=== PATIENT | female | born 1940 | race Caucasian/White ===

== ENCOUNTER 2017-02-01 08:53 | Emergency (ER) | payer MEDICARE, OTHER ==
[~2017-02-01] VITALS: Ht 167.6 cm; Wt 51.2 kg
[~2017-02-01 08:53] MED LIST: AMBR5TAB3 PO; ASPI-611 PO; LEVO100T83 PO; LORA-326 PO; METO10TA65 PO; METO50TA78 PO; MIRT30TA72 PO; MULT-934 PO; NIFE30TA PO; OMEP20CA81 PO; SERT-77 PO; [UNRECOGNIZED DRUG - CODE] RC
--- OUTSIDE RECORDS SUMMARY | 2017-02-01 08:57 | XMS REPORT | Summary of Care ---
Author Author Roberto Moreno M.D. Unknown Address Unknown Phone Unavailable Care Team Providers Care Machine Cementer And Folder Name Role Phone Justin Moreno M.D. Unavailable Unavailable Anila Cohen M.D. Unavailable Unavailable Derek Espinoza Unavailable Unavailable Unavailable Unavailable Functional Status Name Dates Details Functional status health issues are not documented Status: Name Dates Details Cognitive status health issues are not documented Status: Problems Name Dates Details Hypothyroidism (244.9, E03.9) Status: Active Hypertension (401.9, I10) Status: Active Dyspnea (786.09, R06.00) Status: Active Hypercholesterolemia (272.0, E78.00) Status: Active Shortness of breath at rest (786.05, R06.02) Status: Active Pulmonary hypertension (416.8, I27.2) Status: Active Raynaud's phenomenon without gangrene (443.0, I73.00) Status: Active 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 Noel Lyle., T. K. * Start Active Claritin 10 MG Oral Capsule once daily * Refills: 0 Noel Lyle., T. K. * Start Active Estrace 0.1 MG/GM Vaginal Cream USE DIRECTED. * Refills: 0 Noel Lyle., T. K. * Start Active Lopressor 50 MG Oral Tablet Take one tablet by mouth twice a day * Quantity: 60 Refills: 5 Cohen Sudha.Josiane., T. K. * Start Active Multi-Day Plus Iron Oral Tablet TAKE 1 TABLET ONCE DAILY. * Refills: 0 Noel Lyle., T. K. * Start Active Omeprazole 40 MG Oral Capsule Delayed Release TAKE 1 CAPSULE DAILY. * Refills: 0 Noel Lyle., T. K. * Start Active Pepcid AC 10 MG Oral Tablet TWICE DAILY AT BED TIME * Refills: 0 Cohen M.D., T. K. * Start Active Pulmicort 0.5 MG/2ML Inhalation Suspension USE DIRECTED. * Refills: 0 Cohen M.D., T. K. * Start Active Reglan 10 MG Oral Tablet TAKE 1 TABLET AT BEDTIME. * Refills: 0 Cohen M.D., T. K. * Start Active Remeron 30 MG Oral Tablet TAKE 1 TABLET AT BEDTIME. * Refills: 0 Cohen M.D., T. K. * Start Active Simvastatin 40 MG Oral Tablet TAKE 1/2 TABLET AT BEDTIME. * Refills: 0 Noel M.D., T. K. * Start Active Synthroid 100 MCG Oral Tablet TAKE 1 TABLET DAILY DIRECTED. * Refills: 0 Noel M.D., T. K. * Start Active Triamcinolone Acetonide 0.1 % External Ointment APPLY SPARINGLY TO AFFECTED AREA(S) TWICE DAILY * Refills: 0 Noel M.D., T. K. * Start Active Tylenol Extra Strength 500 MG Oral Tablet TAKE 1 TABLET EVERY 4 TO 6 HOURS NEEDED. * Refills: 0 Noel M.D., T. K. * Start Active Vitamin D3 2000 UNIT Oral Capsule once daily * Refills: 0 Noel M.D., T. K. * Start Active Ipratropium-Albuterol 0.5-2.5 (3) MG/3ML Inhalation Solution USE CONTENTS OF (1) VIAL IN NEBULIZER MACHINE (2) TIMES A DAY. * Quantity: 1 Refills: 6 Jessik Sudha.D., Roberto Anderson * Start Active 3 ML Plas Cont (30 Plas Conts) Zoloft 100 MG Oral Tablet * Refills: 0 Josh M.Josiane., Roberto Anderson * Start Active Altace 5 MG Oral Capsule TAKE 1 CAPSULE ONCE DAILY. * Refills: 0 Josh Haley.Josiane., Roberto Anderson * Start 08-Aug-2016 Active Letairis 10 MG Oral Tablet TAKE 1 TABLET DAILY. 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 Procedures Procedure Dates Details History of Cataract Extraction History of Cholecystectomy History of Proctopexy For Prolapse, Abdominal Approach History of Tubal Ligation Procedures not documented Immunization Name Dates Details Immunizations not documented Family History Name Dates Details Family history of Old age (797, R54) Status: Active Name Dates Details Family history of malignant neoplasm (V16.9, Z80.9) Status: Active Social History Name Dates Details - Status: Name Dates Details Never smoker Vital Signs Date Test Result Details 07-Nov-2016 13:42 BP Systolic 116 mm[Hg] Status: Comments: Location: ; Position: BP Diastolic 72 mm[Hg] Status: Comments: Location: ; Position: Weight 121 lb Status: Body Mass Index Calculated 19.53 kg/m2 Status: Body Surface Area Calculated 1.62 m2 Status: 07-Nov-2016 11:29 BP Systolic 110 mm[Hg] Status: Comments: Location: ; Position: BP Diastolic 58 mm[Hg] Status: Comments: Location: ; Position: Height 66 in Status: Weight 120 lb Status: Body Mass Index Calculated 19.37 kg/m2 Status: Body Surface Area Calculated 1.61 m2 Status: Results Date Description Value Details 07-Nov-2016 11:20 CBC w/ Auto Diff 7150 Comments: Manual differential indicated. WBC 8.2 K/uL Range: 4.5-11.0 RBC 4.50 mil/uL Range: 3.60-5.00 HGB 12.2 g/dL Range: 12.0-16.0 HCT 39.6 % Range: 36.0-48.0 MCV 88.0 fL Range: 80.0-99.0 MCH 27.1 pg (Below low threshold) Range: 27.3-32.5 MCHC 30.8 % (Below low threshold) Range: 32.0-36.0 RDW 18.1 % (Above high threshold) Range: 11.6-14.8 PLATELETS 194 K/uL Range: 150-400 MPV 7.4 fL Range: 6.0-11.0 11:35 Manual Differential 7400 SEGS 81 % (Above high threshold) Range: 37-80 BANDS 0 % Range: 0-7 LYMPH 11 % (Below low threshold) Range: 13-50 MONO 8 % Range: 0-12 EOSIN 0 % Range: 0-7 BASO 0 % Range: 0-3 JOYCELYN LYMPH 0 % Range: 0-0 META 0 % Range: 0-0 MYELO 0 % Range: 0-0 PRO 0 % Range: 0-0 BLAST 0 % Range: 0-0 NUC RBC 0 /100 WBC Range: 0-0 SMUDGE 0 /100 WBC PLATELET Adequate Range: Adequate ANISO Slight HYPOCHRO Slight POLYCHRO Slight 11:36 BNP 3103 BNP 487.8 pg/mL (Above high threshold) Range: 0.0-100.0 11:49 LIVER PROFILE 1215 ALK PHOSPHATASE 79 U/L Range: 46-116 TOTAL BILIRUBIN 0.40 mg/dL Range: 0.20-1.00 DIRECT BILIRUBIN 0.10 mg/dL Range: 0.00-0.20 AST 15 U/L Range: 8-35 ALT 16 U/L Range: 14-59 ALBUMIN 3.1 g/dL (Below low threshold) Range: 3.4-5.0 TOTAL PROTEIN 6.5 g/dL Range: 6.4-8.2 11:49 CREATININE, SERUM 1135 CREATININE, SERUM 1.24 mg/dL (Above high threshold) Range: 0.55-1.02 EST GFR, NON-AFR BHUTANESE 42 ml/min (Below low threshold) Range: >60 Comments: EST GFR is reported in ml/min per 1.73 m2 of body surface area. ----- 11:49 ELECTROLYTES 1230 SODIUM 140 mmol/L Range: 133-144 POTASSIUM 4.2 mmol/L Range: 3.5-5.1 CHLORIDE 105 mmol/L Range: 98-110 CARBON DIOXIDE 21.5 mmol/L (Below low threshold) Range: 23.0-33.0 ANION GAP 14 mmol/L Range: 6-16 Plan of Care Name Dates Details Planned Observations Planned Goals not documented Planned Encounters Appointment; Provider: Eldon Kendrick M.D. On 08-Feb-2017 11:00 Appointment; Provider: Roberto Moreno M.D. On 26-Dec-2016 12:45 Appointment; Provider: Rickey Brooks M.D. On 16-Nov-2016 11:00 Instructions Name Dates Details Instructions not documented Encounters Appointment; Eldon Kendrick M.D. Encounter Diagnosis: Problem not documented On 21-Sep-2016 15:00 Appointment; Roberto Moreno M.D. Encounter Diagnosis: Problem not documented On 21-Sep-2016 12:45 Appointment; Liliya Brown A.P.R.N. Encounter Diagnosis: Problem not documented On 17-Aug-2016 13:30 Appointment; Roberto Moreno M.D. Encounter Diagnosis: Problem not documented On 08-Aug-2016 13:00 Appointment; Eldon Kendrick M.D. Encounter Diagnosis: Problem not documented On 23-Jun-2016 16:00 Appointment; Roberto Moreno M.D. Encounter Diagnosis: Problem not documented On 23-Jun-2016 15:00 Appointment; Eldon Kendrick M.D. Encounter Diagnosis: Problem not documented On 16:00 Appointment; Roberto Moreno M.D. Encounter Diagnosis: Problem not documented On 15:00 Appointment; Roberto Moreno M.D. Encounter Diagnosis: Problem not documented On 17:30 Appointment; Eldon Kendrick M.D. Encounter Diagnosis: Problem not documented On 16:15 Appointment; Eldon Kendrick M.D. Encounter Diagnosis: Problem not documented On 12:45
--- OUTSIDE RECORDS SUMMARY | 2017-02-01 08:57 | XMS REPORT | Summary of Care ---
Author Author Roberto Moreno M.D. Unknown Address Unknown Phone Unavailable Care Team Providers Care Stitcher Tape Controlled Machine Name Role Phone Justin Moreno M.D. Unavailable [...] 100 MG Oral Tablet * Refills: 0 Johs M.Josiane., Roberto Anderson * Start Active Altace 5 MG Oral Capsule TAKE 1 CAPSULE ONCE DAILY. * Refills: 0 Josh Haley.Josiane., Roberto Anderson * Start 08-Aug-2016 Active Letairis 10 MG Oral Tablet TAKE 1 TABLET DAILY. * Quantity: 90 Refills: 3 Josh Mckoy, Roberto Anderson * Start 15-Aug-2016 Active Adcirca 20 MG Oral Tablet take 1 tab for two weeks and then increase to 2 tabs daily * Refills: 0 Josh MckoyRoberto * Start 13-Jan-2017 Active Allergies and Adverse Reactions Name Dates [...] smoker Vital Signs Date Test Result Details 26-Dec-2016 12:52 BP Systolic 104 mm[Hg] Status: Comments: Location: ; Position: BP Diastolic 68 mm[Hg] Status: Comments: Location: ; Position: Physical Findings 20 Status: Comments: Respiration Height 66 in Status: Weight 112 lb Status: Body Mass Index Calculated 18.08 kg/m2 Status: Body Surface Area Calculated 1.56 m2 Status: Results Date Description Value Details 26-Dec-2016 11:54 CBC w/ Auto Diff 7150 Comments: Manual differential indicated. WBC 7.9 K/uL Range: 4.5-11.0 RBC 4.32 mil/uL Range: 3.60-5.00 HGB 12.0 g/dL Range: 12.0-16.0 HCT 37.4 % Range: 36.0-48.0 MCV 86.6 fL Range: 80.0-99.0 MCH 27.8 pg Range: 27.3-32.5 MCHC 32.1 % Range: 32.0-36.0 RDW 17.1 % (Above high threshold) Range: 11.6-14.8 PLATELETS 125 K/uL (Below low threshold) Range: 150-400 MPV 7.7 fL Range: 6.0-11.0 12:11 CREATININE, SERUM 1135 CREATININE, SERUM 1.14 mg/dL (Above high threshold) Range: 0.55-1.02 EST GFR, NON-AFR ICELANDIC 46 ml/min (Below low threshold) Range: >60 Comments: EST GFR is reported in ml/min per 1.73 m2 of body surface area. ----- 12:11 ELECTROLYTES 1230 SODIUM 137 mmol/L Range: 133-144 POTASSIUM 4.3 mmol/L Range: 3.5-5.1 CHLORIDE 103 mmol/L Range: 98-110 CARBON DIOXIDE 25.7 mmol/L Range: 23.0-33.0 ANION GAP 8 mmol/L Range: 6-16 12:11 LIVER PROFILE 1215 ALK PHOSPHATASE 94 U/L Range: 46-116 TOTAL BILIRUBIN 0.40 mg/dL Range: 0.20-1.00 DIRECT BILIRUBIN 0.10 mg/dL Range: 0.00-0.20 AST 15 U/L Range: 8-35 ALT 15 U/L Range: 14-59 ALBUMIN 2.7 g/dL (Below low threshold) Range: 3.4-5.0 TOTAL PROTEIN 6.4 g/dL Range: 6.4-8.2 12:13 Manual Differential 7400 SEGS 85 % (Above high threshold) Range: 37-80 BANDS 0 % Range: 0-7 LYMPH 14 % Range: 13-50 MONO 0 % Range: 0-12 EOSIN 1 % Range: 0-7 BASO 0 % Range: 0-3 JOYCELYN LYMPH 0 % Range: 0-0 META 0 % Range: 0-0 MYELO 0 % Range: 0-0 PRO 0 % Range: 0-0 BLAST 0 % Range: 0-0 NUC RBC 0 /100 WBC Range: 0-0 SMUDGE 0 /100 WBC PLATELET Decreased (Abnormal) Range: Adequate ANISO Slight 12:17 BNP 3103 BNP 511.3 pg/mL (Above high threshold) Range: 0.0-100.0 12:54 XRay CHEST-PA & LAT Comments: Exam Date: 12/26/2016 11:47Dictation Date: 12/26/2016 12:54 X CHEST PA & LAT Plan of Care Name Dates Details Planned Observations Planned Goals not documented Planned Encounters Appointment; Provider: Eldon Kendrick M.D. On 07-Feb-2017 13:00 Appointment; Provider: Roberto Moreno M.D. On 07-Feb-2017 11:30 Interventions Provided Labs/Procedures/Imaging* XRay CHEST-PA & LAT; Done: Dec 26 2016 12:54PM Instructions Name Dates Details Instructions not documented Encounters Appointment; Eldon Kendrick M.D. Encounter Diagnosis: Problem not documented On 07-Nov-2016 13:45 Appointment; Roberto Moreno M.D. Encounter Diagnosis: Problem not documented On 07-Nov-2016 11:30 Appointment; Eldon Kendrick M.D. Encounter Diagnosis: Problem not documented On 21-Sep-2016 15:00 Appointment; Roberto Moreno M.D. Encounter Diagnosis: Problem not documented On 21-Sep-2016 12:45 Appointment; iLliya Brown A.P.R.N. Encounter Diagnosis: Problem not documented [...]
[2017-02-01 08:58] VITALS: Ht 167.6 cm; Wt 51.2 kg
--- OUTSIDE RECORDS SUMMARY | 2017-02-01 08:58 | XMS REPORT | Continuity of Care Document ---
Author Author [facility] Organization [facility] Address Unknown Phone Unavailable Support Name Relationship Address Phone PABLO CANCHOLA MD Caregiver [address] [place] [address] Unavailable JONATHAN WARD MD Caregiver [address] [facility] [address] [facility] [address] [place] [address] Unavailable BOSSMAN CASON Next Of Kin [address] [place] [address] Insurance Providers Guarantor Maggi Cason Address [address] [place] [address] Email DENIED TO PT PORTAL Payer Medicare Policy Number [id number] Subscriber's Name Maggi Cason Relationship 18 Self Effective Date 13 Payer [employer] Medicare Supplement Policy Number [id number] Subscriber's Name Maggi Cason Relationship 18 Self Group Number [id number] Chief Complaint and Reason for Visit Chief Complaint Throat Pain/Injury Reason for Visit [id number] Problems Past Problems Medical Problem Onset Date Viral illness Unknown Medications Current Home Medications Medication Dose Units Route Directions Days Qty Instructions Start Date Ambrisentan (Letairis) 5 Mg Tablet 5 Mg Oral Daily 10/21/16 Aspirin 81 Mg Tablet 81 Mg Oral Daily 08/23/13 Levothyroxine Sodium (Synthroid) 100 Mcg Tablet 100 Mcg Oral Before Breakfast 08/23/13 Loratadine (Claritin) 10 Mg Tablet 10 Mg Oral Daily 05/18/10 Metoclopramide Hcl (Reglan) 10 Mg Tablet 10 Mg Oral Bedtime 05/18 Metoprolol Tartrate (Lopressor) 50 Mg Tablet 50 Mg Oral 1/2 Tab Bid 05/18/10 Mirtazapine (Remeron) 30 Mg Tablet 30 Mg Oral Bedtime 05/18/10 Multivitamins (Multi-Day Vitamin) 1 Tab Tablet 1 Tab Oral Daily 05/18/10 Nifedipine (Nifediac Cc) 30 Mg Tablet.sa 30 Mg Oral Daily Omeprazole (Prilosec) 20 Mg Capsule.dr 20 Mg Oral Twice A Day 12/23 Pramoxine Hcl/Mineral Oil/Znox (Anusol Ointment) 24 Gm Oint..gm. 24 Gm Rectal Daily 10/20/10 Sertraline Hcl (Zoloft) 100 Mg Tablet 100 Mg Oral Daily 05/18/10 Past Home Medications Medication Directions Ordered Status Acetaminophen (Tylenol) 325 Mg Tablet, 325 Mg Oral 05/15/09 Discontinued Acetaminophen (Tylenol 8 Hour) 650 Mg Tablet.sa, 650 Mg Oral 05/14/09 Discontinued Aspirin 325 Mg Tablet, 325 Mg Oral 1/2 Tab Bid 05/18/10 Discontinued Estradiol (Estrace) 42.5 Gm Cream.appl, 42.5 Gm Vaginal Daily 10/20/10 Discontinued Famotidine (Pepcid Ac) 10 Mg Tab.chew, 10 Mg Oral Bedtime 05/15/09 Discontinued Mirtazapine (Remeron) 30 Mg Tablet, 30 Mg Oral Bedtime 05/15/09 Discontinued Pantoprazole Sodium (Protonix) 40 Mg Tablet.dr, 40 Mg Oral Daily 05/15/09 Discontinued Social History Social History Problem Response Recorded Date/Time Onset Date Status Chewing Tobacco Status No 08/23/2013 3:04pm Not Applicable Not Applicable Hx Substance Use No 10/21/2016 9:32pm Not Applicable Not Applicable Hx Alcohol Use No 10/21/2016 9:32pm Not Applicable Not Applicable Has the pt used tobacco in the last 12 months No 08/23/2013 3:04pm Not Applicable Not Applicable Query Response Start Date Stop Date Smoking Status Never smoker Hospital Discharge Instructions No hospital discharge instructions. Plan of Care Discharge Date 10/22/16 12:08am Disposition 01 DISCHARGED HOME, SELF-CARE Condition at Discharge Stable Instructions/Education Provided DI for Viral Syndrome Prescriptions See Medication Section Referrals JONATHAN WARD MD Address: [address] [place] [address] [address] [place] [phone] Additional Instructions/Education I do want you to take Tylenol and/or Motrin as needed for fever or sore throat. If this persists this week then please follow up with your primary care provider and let him know that your sore throat is getting worse. Your labs and strep test and chest xray today in ER was normal. Make sure you are drinking plenty of fluids at home. Care Plan and Goals Physician Care Plan Problem:Viral Illness Goal: Follow up with primary care provider Instructions: Take medications and follow care plan as discussed/written Functional Status No functional status results. Allergies, Adverse Reactions, Alerts Allergen Type Severity Reaction Status Last Updated No Known Drug Allergies Allergy Mild Active 10/21/16 Immunizations Query Response on File Recorded Date/Time Hx Influenza Vaccination Y fall 201208/23/13 3:04pm Hx Pneumococcal Vaccination Y WITHIN THE PAST 5 YEARS 08/23/13 3:04pm Hx Influenza Vaccination Y fall 201208/23/13 3:04pm Influenza Vaccine Hx fall 201510/21/16 9:32pm Vital Signs Acute Vital Signs Vital Response Date/Time Temperature (Fahrenheit) 99.1 deg F (96.8 - 99.1) 10/22/2016 12:08am Temperature (Calculated Celsius) 37.76367 degrees C (36.0 - 37.3) 10/22/2016 12:08am Pulse Rate (adult) 89 bpm (60 - 100) 10/22/2016 12:08am Respiratory Rate 21 breaths/min (10 - 20) 10/22/2016 12:08am O2 Sat by Pulse Oximetry 95 % (90 - 100) 10/22/2016 12:08am Oxygen Flow Rate 4.00 L/min 10/22/2016 12:08am Blood Pressure 139/70 mm Hg 10/22/2016 12:08am Height (Feet) 5 feet 10/21/2016 9:32pm Height (Inches) 6.00 inches 10/21/2016 9:32pm Weight (Kilograms) 54.100 kg 10/21/2016 9:32pm Body Mass Index (BMI) 19.0 10/21/2016 9:32pm Results Laboratory Results Test Name Result Units Flags Reference Collection Date/Time Result Date/ Time Comments White Blood Count 7.2 T/MM3 4.5-11.0 10/21/2016 10:01pm 10/21/2016 10: 12pm Red Blood Count 4.36 M/MM3 4.00-5.20 10/21/2016 10:01pm 10/21/2016 10: 12pm Hemoglobin 11.6 GM/DL L 12-16 10/21/2016 10:01pm 10/21/2016 10:12pm Hematocrit 35.9 % L 36-46 10/21/2016 10:0110/21/2016 10:12pm Mean Corpuscular Volume 82.3 UM3 80-100 10/21/2016 10:10/21/2016 10:12pm Mean Corpuscular Hemoglobin 26.6 UUG 26-34 10/21/2016 10:2016 10:12pm Mean Corpuscular Hemoglobin Concent 32.3 GM/DL 31-37 10/21/2016 10:10/21/2016 10:12pm RDW Standard Deviation 54.6 FL H 36.9-50.2 10/21/2016 10:2016 10:12pm Platelet Count 144 T/MM3 130-400 10/21/2016 10:10/21/2016 10:12pm Mean Platelet Volume 9.4 UM3 9.4-12.4 10/21/2016 10:10/21/2016 10: 12pm Neutrophils (%) (Auto) 79.4 % H 33-66 10/21/2016 10:10/21/2016 10: 12pm Lymphocytes (%) (Auto) 7.8 % L 23-45 10/21/2016 10:10/21/2016 10: 12pm Monocytes (%) (Auto) 12.0 % H 0-9.0 10/21/2016 10:10/21/2016 10: 12pm Eosinophils (%) (Auto) 0.1 % 0-4 10/21/2016 10:10/21/2016 10:12pm Basophils (%) (Auto) 0.3 % 0-2 10/21/2016 10:10/21/2016 10:12pm Immature Granulocyte % (Auto) 0.4 % 0.0-0.5 10/21/2016 10:2016 10:12pm Absolute Neutrophils (auto) 5.7 T/MM3 1.8-7.7 10/21/2016 10:2016 10:12pm Absolute Lymphocytes (auto) 0.6 T/MM3 L 1-4.8 10/21/2016 10:2016 10:12pm Absolute Monocytes (auto) 0.9 T/MM3 H 0-0.8 10/21/2016 10:01pm 2016 10:12pm Absolute Eosinophils (auto) 0.0 T/MM3 0-0.5 10/21/2016 10:01pm 2016 10:12pm Absolute Basophils (auto) 0.0 T/MM3 0-0.2 10/21/2016 10:01pm 2016 10:12pm Absolute Immature Granulocyte (auto 0.03 T/MM3 0.00-0.03 10/21/2016 10: 01pm 10/21/2016 10:12pm Icterus Index < 2 0-7 10/21/2016 10:01pm 10/21/2016 10:20pm Chemistry Specimen Hemolysis < 15 0-25 10/21/2016 10:pm 10/21/2016 10:20pm 0-25: Specimen Exhibited No Hemolysis. Turbidity < 20 0-20 10/21/2016 10:01pm 10/21/2016 10:20pm Sodium Level 135 MEQ/L 134-144 10/21/2016 10:01pm 10/21/2016 10:20pm Potassium Level 3.8 MEQ/L 3.6-5 10/21/2016 10:01pm 10/21/2016 10:20pm Chloride Level 103 MEQ/L 98-107 10/21/2016 10:01pm 10/21/2016 10:20pm Carbon Dioxide Level 21 MEQ/L L 22-30 10/21/2016 10:01pm 10/21/2016 10: 20pm Anion Gap 11 MEQ/L 5-15 10/21/2016 10:01pm 10/21/2016 10:20pm Blood Urea Nitrogen 16.0 MG/DL 7-17 10/21/2016 10:01pm 10/21/2016 10: 20pm Creatinine 0.9 MG/DL 0.7-1.2 10/21/2016 10:01pm 10/21/2016 10:20pm BUN/Creatinine Ratio 18 RATIO 6-26 10/21/2016 10:01pm 10/21/2016 10: 20pm Glomerular Filtration Rate Calc 61 10/21/2016 10:01pm 10/21/2016 10 :20pm Glucose Level 105 MG/DL 65-110 10/21/2016 10:01pm 10/21/2016 10:20pm Calculated Osmolality 261 MOSM/KG 261-280 10/21/2016 10:01pm 2016 10:20pm Calcium Level 8.7 MG/DL 8.4-10.2 10/21/2016 10:01pm 10/21/2016 10:20pm Troponin I < 0.012 ng/ml 0-0.12 10/21/2016 10:01pm 10/21/2016 10:32pm Troponin values with a difference of 55% increase from orginal troponin value represent a true biological DELTA value. (%increase Calc=Orginal Troponin value, divided by subsequent Troponin value, multiplied by 100) Group A Streptococcus Screen NEGATIVE NEGATIVE 10/21/2016 10:05pm 03/2017 10:20pm Strep culture confirmation to follow Influenza Type A Antigen NEGATIVE NEGATIVE 10/21/2016 10:05pm 2016 10:32pm Negative for Flu A protein antigen. Assay sensitivity is 90%. Influenza Type B Antigen NEGATIVE NEGATIVE 10/21/2016 10:05pm 2016 10:32pm Negative for Flu B protein antigen. Assay sensitivity is 90%. Urine Collection Type [place] 10/21/2016 11:43pm 10/21 11:55pm Urine Color YELLOW YELLOW 10/21/2016 11:43pm 10/21/2016 11:55pm Urine Turbidity CLEAR CLEAR 10/21/2016 11:43pm 10/21/2016 11:55pm Urine Specific [place] 1.010 L 1.015-1.025 10/21/2016 11:43pm 2016 11:55pm Urine pH 6.5 5.0-8.0 10/21/2016 11:43pm 10/21/2016 11:55pm Urine Leukocyte Esterase TRACE A NEGATIVE 10/21/2016 11:43pm 2016 11:55pm Urine Nitrite NEGATIVE NEGATIVE 10/21/2016 11:43pm 10/21/2016 11: 55pm Urine Protein NEGATIVE NEGATIVE 10/21/2016 11:43pm 10/21/2016 11: 55pm Urine Glucose (UA) NEGATIVE NEGATIVE 10/21/2016 11:43pm 10/21/2016 11 :55pm Urine Ketones NEGATIVE NEGATIVE 10/21/2016 11:43pm 10/21/2016 11: 55pm Urine Urobilinogen 0.2 EU/DL NORMAL 10/21/2016 11:43pm 10/21/2016 11: 55pm Urine Bilirubin NEGATIVE NEGATIVE 10/21/2016 11:43pm 10/21/2016 11: 55pm Urine Blood NEGATIVE NEGATIVE 10/21/2016 11:43pm 10/21/2016 11:55pm Urinalysis Comment MICROSCOPIC NOT IND. 10/21/2016 11:43pm 2016 11:55pm Microbiology Results Procedure Source Organism/Result Collection Date/Time Result Date/Time Result Status Group A Streptococcus Culture Throat CULTURE INITIATED - RESULTS PENDING 10:20pm 10/21/2016 10:21pm Preliminary Procedures No known history of procedures. Encounters Encounter Location Arrival/Admit Date Discharge/Depart Date Attending Provider Departed Emergency Room [facility] 10/21/16 9:22pm 10/22/16 12: 08am PABLO CANCHOLA MD Recent Diagnosis
--- OUTSIDE RECORDS SUMMARY | 2017-02-01 08:58 | XMS REPORT ---
Author Author GENERATED, SYSTEM Organization Unknown Address Unknown Phone Unavailable Care Team Providers Care Computer Support Specialist Instructor Name Role Phone MD SYLVIA, JONATHAN BRAVO Unavailable Reason For Visit Reason for Visit from 11/29/2016 2:35 PM:* Pt Stated Reason for Adm : Influenza A , Chief Complaint PULM HTN, INFLUENZA A, C-DIFF Social History Social History from 12/02/2016 2:16 PM:* Tobacco Use? : Never Smoker Social History from 11/29/2016 2:35 PM:* Tobacco Use? : Never Smoker Functional Status Functional Status from 12/02/2016 9:20 AM:* LOC : Alert * Oriented To : Person,Place,Time * Weight Bearing Status : Full * Assist Level : Independent * # Assists : Independent Functional Status from 12/01/2016 9:09 PM:* LOC : Alert * Oriented To : Person,Place,Time,Event * Weight Bearing Status : Full * Assist Level : Partial * # Assists : 1 Functional Status from 12/01/2016 7:59 AM:* LOC : Alert * Oriented To : Person,Place,Time * Weight Bearing Status : Full * Assist Level : Partial * # Assists : 1 Functional Status from 11/30/2016 7:58 PM:* LOC : Alert * Oriented To : Person,Place,Time,Event * Weight Bearing Status : Full * Assist Level : Independent * # Assists : 1 Functional Status from 11/30/2016 2:11 PM:* Oriented To : Person,Place,Time,Event Functional Status from 11/30/2016 8:28 AM:* LOC : Alert * Oriented To : Person,Place,Time * Weight Bearing Status : Full * Assist Level : Partial * # Assists : 1 Functional Status from 11/29/2016 8:45 PM:* LOC : Alert * Oriented To : Person,Place,Time,Event * Weight Bearing Status : Full * Assist Level : Partial * # Assists : 1 Functional Status from 11/29/2016 2:35 PM:* LOC : Alert * Oriented To : Person,Place,Time,Event * Weight Bearing Status : Full * Assist Level : Partial * # Assists : 1 Vital Signs Hospital Vital Signs from 12/02/2016 2:45 PM:* Height : 5/6 ft,in Hospital Vital Signs from 12/02/2016 10:20 AM:* Height : 5/6 ft,in * Temperature : 99.2 F * Pulse : 101 * Respirations : 19 * BP : 121/59 Hospital Vital Signs from 12/02/2016 6:38 AM:* Height : 5/6 ft,in * Temperature : 99.7 F * Pulse : 99 * Respirations : 18 * BP : 107/55 Hospital Vital Signs from 12/02/2016 2:29 AM:* Height : 5/6 ft,in * Temperature : 99.7 F Hospital Vital Signs from 12/01/2016 9:24 PM:* Height : 5/6 ft,in * Temperature : 99.0 F * Pulse : 103 * Respirations : 18 * BP : 127/60 Hospital Vital Signs from 12/01/2016 7:05 PM:* Height : 5/6 ft,in * Temperature : 99.1 F * Pulse : 78 * Respirations : 18 * BP : 121/63 Hospital Vital Signs from 12/01/2016 2:08 PM:* Height : 5/6 ft,in * Temperature : 98.3 F * Pulse : 100 * Respirations : 20 * BP : 116/56 Hospital Vital Signs from 12/01/2016 10:25 AM:* Height : 5/6 ft,in * Temperature : 98.4 F * Pulse : 96 * Respirations : 19 * BP : 114/56 Hospital Vital Signs from 12/01/2016 7:25 AM:* Height : 5/6 ft,in * Temperature : 96.5 F * Pulse : 119 * Respirations : 18 * BP : 144/75 Hospital Vital Signs from 11/30/2016 10:20 PM:* Height : 5/6 ft,in * Temperature : 98.1 F * Pulse : 114 * Respirations : 20 * BP : 124/57 Hospital Vital Signs from 11/30/2016 7:00 PM:* Height : 5/6 ft,in * Temperature : 97.8 F * Pulse : 98 * Respirations : 20 * BP : 138/72 Hospital Vital Signs from 11/30/2016 2:39 PM:* Height : 5/6 ft,in * Temperature : 97.5 F * Pulse : 105 * Respirations : 16 * BP : 149/76 Hospital Vital Signs from 11/30/2016 10:39 AM:* Height : 5/6 ft,in * Temperature : 97.7 F * Pulse : 88 * Respirations : 20 * BP : 116/64 Hospital Vital Signs from 11/30/2016 9:10 AM:* Weight : 46.6/ kg * Height : 5/6 ft,in Hospital Vital Signs from 11/30/2016 7:46 AM:* Height : 5/6 ft,in * Temperature : 98.9 F * Pulse : 114 * Respirations : 18 * BP : 111/55 Hospital Vital Signs from 11/29/2016 11:07 PM:* Height : 5/6 ft,in * Temperature : 97.7 F * Pulse : 101 * Respirations : 18 * BP : 119/56 Hospital Vital Signs from 11/29/2016 6:12 PM:* Height : 5/6 ft,in * Temperature : 99.0 F * Pulse : 136 * Respirations : 18 * BP : 117/69 Hospital Vital Signs from 11/29/2016 4:07 PM:* Height : 5/6 ft,in * Temperature : 98.3 F * Pulse : 95 * Respirations : 16 * BP : 118/61 Hospital Vital Signs from 11/29/2016 2:35 PM:* Weight : 46.6/ kg * Height : 5/6 ft,in Hospital Vital Signs from 11/29/2016 1:21 PM:* Weight : 46.6/ kg * Height : 5/6 ft,in * Temperature : 96.8 F * Pulse : 87 * Respirations : 20 * BP : 103/61 Results Chemistry from 12/02/2016 7:03 AMSODIUM 136 MMOL/L (136-145 MMOL/L) POTASSIUM 4.2 MMOL/L (3.5-5.1 MMOL/L) CHLORIDE 106 MMOL/L (98-107 MMOL/L) TCO2 21.8 MMOL/L (21.0-32.0 MMOL/L) *ANION GAP 8.2 MMOL/L (8.0-16.0 MMOL/L) BUN 21 MG/DL H (7-18 MG/DL) CREATININE 1.03 MG/DL H (0.55-1.02 MG/DL) *BUN/CREATININE RATIO 20.4 H (9.1-17.0 ) GLUCOSE 91 MG/DL (65-99 MG/DL) *GFR EST NON AFR MALAGASY 52 ML/MIN *GFR EST AFR AMER 60 ML/MIN CALCIUM 7.8 MG/DL L (8.5-10.1 MG/DL) BILIRUBIN TOTAL 0.80 MG/DL (0.20-1.00 MG/DL) TOTAL PROTEIN 4.9 GM/DL L (6.4-8.2 GM/DL) ALBUMIN 2.2 GM/DL L (3.4-5.0 GM/DL) *GLOBULIN 2.7 GM/DL (2.3-3.5 GM/DL) *A/G RATIO 0.8 MG/DL L (1.5-2.2 MG/DL) ALK PHOS 82 U/L (46-116 U/L) ALT (SGPT) 20 U/L (16-63 U/L) AST (SGOT) 16 U/L (15-37 U/L) Chemistry from 12/01/2016 6:34 AMSODIUM 140 MMOL/L (136-145 MMOL/L) POTASSIUM 4.2 MMOL/L (3.5-5.1 MMOL/L) CHLORIDE 110 MMOL/L H (98-107 MMOL/L) TCO2 21.8 MMOL/L (21.0-32.0 MMOL/L) *ANION GAP 8.2 MMOL/L (8.0-16.0 MMOL/L) BUN 34 MG/DL H (7-18 MG/DL) CREATININE 1.18 MG/DL H (0.55-1.02 MG/DL) *BUN/CREATININE RATIO 28.8 H (9.1-17.0 ) GLUCOSE 75 MG/DL (65-99 MG/DL) *GFR EST NON AFR MALAGASY 44 ML/MIN *GFR EST AFR AMER 51 ML/MIN CALCIUM 7.5 MG/DL L (8.5-10.1 MG/DL) BILIRUBIN TOTAL 0.60 MG/DL (0.20-1.00 MG/DL) TOTAL PROTEIN 4.9 GM/DL L (6.4-8.2 GM/DL) ALBUMIN 2.3 GM/DL L (3.4-5.0 GM/DL) *GLOBULIN 2.6 GM/DL (2.3-3.5 GM/DL) *A/G RATIO 0.9 MG/DL L (1.5-2.2 MG/DL) ALK PHOS 77 U/L (46-116 U/L) ALT (SGPT) 20 U/L (16-63 U/L) AST (SGOT) 22 U/L (15-37 U/L) Chemistry from 11/30/2016 7:23 AMSODIUM 135 MMOL/L L (136-145 MMOL/L) POTASSIUM 4.5 MMOL/L (3.5-5.1 MMOL/L) CHLORIDE 104 MMOL/L (98-107 MMOL/L) TCO2 21.8 MMOL/L (21.0-32.0 MMOL/L) *ANION GAP 9.2 MMOL/L (8.0-16.0 MMOL/L) BUN 55 MG/DL H (7-18 MG/DL) CREATININE 1.80 MG/DL H (0.55-1.02 MG/DL) *BUN/CREATININE RATIO 30.6 H (9.1-17.0 ) GLUCOSE 75 MG/DL (65-99 MG/DL) *GFR EST NON AFR MALAGASY 26 ML/MIN *GFR EST AFR AMER 31 ML/MIN CALCIUM 7.8 MG/DL L (8.5-10.1 MG/DL) BILIRUBIN TOTAL 0.70 MG/DL (0.20-1.00 MG/DL) TOTAL PROTEIN 5.1 GM/DL L (6.4-8.2 GM/DL) ALBUMIN 2.5 GM/DL L (3.4-5.0 GM/DL) *GLOBULIN 2.6 GM/DL (2.3-3.5 GM/DL) *A/G RATIO 1.0 MG/DL L (1.5-2.2 MG/DL) ALK PHOS 80 U/L (46-116 U/L) ALT (SGPT) 20 U/L (16-63 U/L) AST (SGOT) 20 U/L (15-37 U/L) B-TYPE NATRIURETIC PROTEIN 94 PG/ML (1-100 PG/ML) C-REACTIVE PROTEIN 0.46 MG/DL H (0.00-0.30 MG/DL) PROCALCITONIN 0.08 NG/ML (0.05-0.50 NG/ML) Chemistry from 11/29/2016 2:09 PMSODIUM 131 MMOL/L L (136-145 MMOL/L) POTASSIUM 5.5 MMOL/L H (3.5-5.1 MMOL/L) CHLORIDE 96 MMOL/L L (98-107 MMOL/L) TCO2 22.9 MMOL/L (21.0-32.0 MMOL/L) *ANION GAP 12.1 MMOL/L (8.0-16.0 MMOL/L) BUN 67 MG/DL H (7-18 MG/DL) CREATININE 2.56 MG/DL H (0.55-1.02 MG/DL) *BUN/CREATININE RATIO 26.2 H (9.1-17.0 ) GLUCOSE 82 MG/DL (65-99 MG/DL) *GFR EST NON AFR MALAGASY 17 ML/MIN *GFR EST AFR AMER 20 ML/MIN CALCIUM 8.7 MG/DL (8.5-10.1 MG/DL) BILIRUBIN TOTAL 0.70 MG/DL (0.20-1.00 MG/DL) TOTAL PROTEIN 6.8 GM/DL (6.4-8.2 GM/DL) ALBUMIN 3.3 GM/DL L (3.4-5.0 GM/DL) *GLOBULIN 3.5 GM/DL (2.3-3.5 GM/DL) *A/G RATIO 0.9 MG/DL L (1.5-2.2 MG/DL) ALK PHOS 101 U/L (46-116 U/L) ALT (SGPT) 29 U/L (16-63 U/L) AST (SGOT) 25 U/L (15-37 U/L) Hematology from 12/02/2016 7:03 AMWBC 6.6 X10e3/UL (3.6-11.2 X10e3/UL) RBC 4.08 X10e6/UL (3.63-4.92 X10e6/UL) HEMOGLOBIN 10.7 G/DL L (11.0-14.3 G/DL) HEMATOCRIT 32.8 % (31.2-41.9 %) *MCV 80.3 FL (79.0-98.0 FL) *MCH 26.1 PG L (27.0-33.0 PG) *MCHC 32.5 G/DL (32.0-36.0 G/DL) *RDW 16.1 % (12.3-17.0 %) *RDWSD 45.5 (37.1-47.8 ) PLATELET 63 X10e3/UL L (159-386 X10e3/UL) *MPV 8.7 FL (7.4-10.4 FL) AUTOMATED DIFF PERFORMED SEGS 78.3 % *LYMPHOCYTES 6.7 % *MONOCYTES 13.6 % *EOSINOPHILS 1.1 % *BASOPHILS 0.3 % *ABSOLUTE NEUTROPHILS 5.20 X10e3/UL (1.80-7.80 X10e3/UL) *ABSOLUTE LYMPHOCYTES 0.40 X10e3/UL L (1.00-3.00 X10e3/UL) *ABSOLUTE MONOCYTES 0.90 X10e3/UL (0.30-1.00 X10e3/UL) *ABSOLUTE EOSINOPHILS 0.10 X10e3/UL (0.00-0.50 X10e3/UL) *ABSOLUTE BASOPHILS 0.00 X10e3/UL (0.00-0.20 X10e3/UL) *PLATELET SLIDE REVIEW DECREASED A (ADEQUATE ) Hematology from 12/01/2016 6:34 AMWBC 4.9 X10e3/UL (3.6-11.2 X10e3/UL) RBC 4.21 X10e6/UL (3.63-4.92 X10e6/UL) HEMOGLOBIN 10.9 G/DL L (11.0-14.3 G/DL) HEMATOCRIT 34.2 % (31.2-41.9 %) *MCV 81.2 FL (79.0-98.0 FL) *MCH 26.0 PG L (27.0-33.0 PG) *MCHC 32.0 G/DL (32.0-36.0 G/DL) *RDW 16.5 % (12.3-17.0 %) *RDWSD 47.3 (37.1-47.8 ) PLATELET 76 X10e3/UL L (159-386 X10e3/UL) *MPV 8.9 FL (7.4-10.4 FL) AUTOMATED DIFF PERFORMED SEGS 72.0 % *LYMPHOCYTES 11.5 % *MONOCYTES 15.0 % *EOSINOPHILS 1.1 % *BASOPHILS 0.4 % *ABSOLUTE NEUTROPHILS 3.50 X10e3/UL (1.80-7.80 X10e3/UL) *ABSOLUTE LYMPHOCYTES 0.60 X10e3/UL L (1.00-3.00 X10e3/UL) *ABSOLUTE MONOCYTES 0.70 X10e3/UL (0.30-1.00 X10e3/UL) *ABSOLUTE EOSINOPHILS 0.10 X10e3/UL (0.00-0.50 X10e3/UL) *ABSOLUTE BASOPHILS 0.00 X10e3/UL (0.00-0.20 X10e3/UL) Hematology from 11/30/2016 7:23 AMWBC 5.4 X10e3/UL (3.6-11.2 X10e3/UL) RBC 4.36 X10e6/UL (3.63-4.92 X10e6/UL) HEMOGLOBIN 11.4 G/DL (11.0-14.3 G/DL) HEMATOCRIT 34.9 % (31.2-41.9 %) *MCV 80.2 FL (79.0-98.0 FL) *MCH 26.2 PG L (27.0-33.0 PG) *MCHC 32.7 G/DL (32.0-36.0 G/DL) *RDW 16.6 % (12.3-17.0 %) *RDWSD 46.4 (37.1-47.8 ) PLATELET 84 X10e3/UL L (159-386 X10e3/UL) *MPV 8.1 FL (7.4-10.4 FL) AUTOMATED DIFF PERFORMED SEGS 68.6 % *LYMPHOCYTES 14.5 % *MONOCYTES 15.4 % *EOSINOPHILS 1.0 % *BASOPHILS 0.5 % *ABSOLUTE NEUTROPHILS 3.70 X10e3/UL (1.80-7.80 X10e3/UL) *ABSOLUTE LYMPHOCYTES 0.80 X10e3/UL L (1.00-3.00 X10e3/UL) *ABSOLUTE MONOCYTES 0.80 X10e3/UL (0.30-1.00 X10e3/UL) *ABSOLUTE EOSINOPHILS 0.10 X10e3/UL (0.00-0.50 X10e3/UL) *ABSOLUTE BASOPHILS 0.00 X10e3/UL (0.00-0.20 X10e3/UL) SED RATE 10 MM/HR (0-30 MM/HR) Hematology from 11/29/2016 2:09 PMWBC 7.3 X10e3/UL (3.6-11.2 X10e3/UL) RBC 5.28 X10e6/UL H (3.63-4.92 X10e6/UL) HEMOGLOBIN 13.8 G/DL (11.0-14.3 G/DL) HEMATOCRIT 42.3 % H (31.2-41.9 %) *MCV 80.1 FL (79.0-98.0 FL) *MCH 26.1 PG L (27.0-33.0 PG) *MCHC 32.5 G/DL (32.0-36.0 G/DL) *RDW 16.5 % (12.3-17.0 %) *RDWSD 45.9 (37.1-47.8 ) PLATELET 140 X10e3/UL L (159-386 X10e3/UL) *MPV 8.8 FL (7.4-10.4 FL) AUTOMATED DIFF PERFORMED SEGS 78.9 % *LYMPHOCYTES 11.0 % *MONOCYTES 9.5 % *EOSINOPHILS 0.1 % *BASOPHILS 0.5 % *ABSOLUTE NEUTROPHILS 5.70 X10e3/UL (1.80-7.80 X10e3/UL) *ABSOLUTE LYMPHOCYTES 0.80 X10e3/UL L (1.00-3.00 X10e3/UL) *ABSOLUTE MONOCYTES 0.70 X10e3/UL (0.30-1.00 X10e3/UL) *ABSOLUTE EOSINOPHILS 0.00 X10e3/UL (0.00-0.50 X10e3/UL) *ABSOLUTE BASOPHILS 0.00 X10e3/UL (0.00-0.20 X10e3/UL) Microbiology from 11/29/2016 2:15 PM* CULTURE BLOOD (Preliminary Result) Specimen Number: [id number] Sample Collection Date/Time: 11/29/2016 2:15 PM Specimen Source: Blood Peripheral CULTURE BLOOD: No growth after 24 hours of incubation, testing to continue for an additional 96 hours. No Growth after 48 hours of initial incubation, testing to continue for additional 72 hours. Microbiology from 11/29/2016 2:09 PM* CULTURE BLOOD (Preliminary Result) Specimen Number: [id number] Sample Collection Date/Time: 11/29/2016 2:09 PM Specimen Source: Blood Peripheral CULTURE BLOOD: No growth after 24 hours of incubation, testing to continue for an additional 96 hours. No Growth after 48 hours of initial incubation, testing to continue for additional 72 hours. Serology from 11/29/2016 6:39 PM*ADENOVIRUS NOT DETECTED (Not Detected ) *CORONAVIRUS 229E NOT DETECTED (Not Detected ) *CORONAVIRUS HKU1 NOT DETECTED (Not Detected ) *CORONAVIRUS NL63 NOT DETECTED (Not Detected ) *CORONAVIRUS OC43 DETECTED A (Not Detected ) *HUMAN METAPNEUMOVIRUS NOT DETECTED (Not Detected ) *RHINOVIRU/ENTEROVIRUS NOT DETECTED (Not Detected ) *INFLUENZA A H3 DETECTED A (Not Detected ) *INFLUENZA B NOT DETECTED (Not Detected ) *PARAINFLUENZA 1 (PIV1) NOT DETECTED (Not Detected ) *PARAINFLUENZA 2 (PIV2) NOT DETECTED (Not Detected ) *PARAINFLUENZA 3 (PIV3) NOT DETECTED (Not Detected ) *PARAINFLUENZA 4 (PIV4) NOT DETECTED (Not Detected ) *RESPIRATORY SYNCYTIAL VIRUS NOT DETECTED (Not Detected ) *BORDETELLA PERTUSSIS NOT DETECTED (Not Detected ) *CHLAMYDOPHILA PNEUMONIAE NOT DETECTED (Not Detected ) *MYCOPLASMA PNEUMONIAE NOT DETECTED (Not Detected ) [facility]: Dyspnea - 786.05 Priors: 12/01/16 Findings: The cardiac silhouette and pulmonary vasculature within normal limits. There are changes of COPD. No acute infiltrates or effusions are demonstrated. Impression: COPD without acute findings. Electronically signed by: Addy Mcdaniel MD Dictated: 12/02/2016 08:27 DX Radiology from 12/01/2016 5:02 AM[facility] 1 VIEW History: Dyspnea - 786.05 Priors: 11/30/16 Findings: The cardiac silhouette is enlarged. The pulmonary vasculature is within normal limits. There are no acute infiltrates or effusions. Impression: Cardiomegaly without acute findings. Electronically signed by: Addy Mcdaniel MD Dictated: 12/01/2016 08:12 DX Radiology from 11/30/2016 6:29 AMCHEST 1 VIEW History: Dyspnea - 786.05 Priors: One day prior Findings: There is severe COPD. Heart size is at the upper limits normal. No acute infiltrate, pneumothorax or pleural effusions identified. Impression: COPD without acute cardiopulmonary process. Electronically signed by: Kunal Silverman MD Dictated: 11/30/2016 08:32 DX Radiology from 11/29/2016 1:31 PMCHEST 1 VIEW History: COPD w/Exac Priors: None. Findings: Heart size within normal limits. There is moderate COPD. No acute infiltrate, pneumothorax or pleural effusions identified. Impression: COPD without acute cardiopulmonary process. Electronically signed by: Kunal Silverman MD Dictated: 11/29/2016 14:15 Problems Encounter Diagnosis * Chronic Obstructive Lung Disease Status:Active. * History of Hypertension Status:Active. * Infection Risk Status:Active. * Pulmonary Hypertension Status:Active. Encounters Encounter Diagnosis * Chronic Obstructive Lung Disease Status:Active. * History of Hypertension Status:Active. * Infection Risk Status:Active. * Pulmonary Hypertension Status:Active. Plan of Care Follow-up Appointments from 12/02/2016 2:16 PM:* #1 Office appointment: : Dr. Moreno, lab work, chest x-ray, and oximetry prior to this appointment * #1 Date/Time : 12/02/2016 12:45 PM * Address # 1 : [facility] [place]- or Treatment Plan from 12/02/2016 1:35 PM:* Care Management Note : Patient scheduled for discharge today. Plan is to return home with spouse, patient declined offer of in home services. Patient stated she has family to assist. Treatment Plan from 11/30/2016 1:35 PM:* Care Management Note : SW spoke with patient regarding possible needs at discharge. Patient stated that she plans to return home where she lives with her spouse. Patient at this time does not want services to be set up, but will consider it. Patient stated that she does have family that lives close. No other needs or conerns at this time. Contact information left in patient's room. Treatment Plan from 11/30/2016 11:40 AM:* Care Management Note : Inpatient status. Patient direct admission to pulmonary unit. She is being treated for influenza that has failed to respond to a full course of Tamiflu. Patient is dyspneic with minimal exertion with pedal edema, weakness and diarrhea for several days. BUN/Creat are elevated. She has received a fluid bolus and now receiving IVF at 125 hr. Hx of COPD being treated with RT treatments and Tamiflu for influenza and coronavirus. Blood and sputum cultures and C-Diff study are pending. We will follow CXR and labs daily. ID has been consulted for treatment recommendations. History of severe pulmonary hypertension with home meds restarted. Length of stay will exceed 2 midnights. Meets medical necessity for inpatient. Will follow with SW and assess for discharge needs. Procedures No relevant procedures performed. Immunizations No immunizations administered or ordered. Hospital Course Hospital Discharge Instructions How to care for yourself at home from 12/02/2016 2:16 PM:* Discharge Activity : Activity as tolerated,May Shower * Discharge Diet : Diet as tolerated * Call your doctor if: : Fever over 101 F or severe chills,Chest pain or other unexplained symptoms,Tingling or numbness develops,A sudden increase or decrease in weight,You have persistent or worsening symptoms,If you have Heart Failure and you gain 3 pounds within 1 week or your symptoms worsen. (Weigh at home tomorrow morning) * Specific Discharge Teaching Instructions provided: : No * Discharge on Warfarin : No Allergies, Adverse Reactions, Alerts * No Latex Allergy. * No IV Contrast Allergy. * No Known Drug Allergies. * No Known Food Allergies. * No Known Allergies. Medication It is the responsibility of the patient or patient solar manufacturer's representative to confirm the list of medications with either the patient's personal care provider or the patient's follow-up care provider to ensure the patient has an appropriate list of medications to take at home. Discharge medications New medications* oseltamivir (Tamiflu) 75 mg Capsule, Ordered By: JON CLARK APRN Directions: 1 capsule oral twice a day Continued medications* ramipril (Altace) 5 mg Capsule, Ordered By: JON CLARK APRN Directions: 1 capsule oral daily * aspirin (Aspir-81) 81 mg tablet,delayed release (DR/EC), Ordered By: JON CLARK APRN Directions: 1 tablet oral daily * loratadine (Claritin) 10 mg Tablet, Ordered By: JON CLARK APRN Directions: 1 tablet oral daily * albuterol sulfate 2.5 mg/3 mL (0.083 %) Solution for Nebulization, Ordered By : JON CLARK APRN Directions: 1 mL by inhalation twice a day PRN shortness of breath * estradiol (Estrace) 0.01 % Cream, Ordered By: JON CLARK APRN Directions: 1 application per vagina daily at bedtime * metoprolol tartrate (Lopressor) 50 mg Tablet, Ordered By: JON CLARK, SENIOR POLICY ASSOCIATE Directions: 1 tablet oral twice a day * multivitamin with iron-mineral 0.8 mg Combo Pack, Ordered By: JON CLARK APRN Directions: 1 each oral daily * omeprazole 40 mg capsule,delayed release(DR/EC), Ordered By: JON CLARK , SENIOR POLICY ASSOCIATE Directions: 1 capsule oral daily * famotidine (Pepcid AC) 10 mg Tablet, Ordered By: JON CLARK, SENIOR POLICY ASSOCIATE Directions: 2 tablet oral daily * metoclopramide HCl (Reglan) 10 mg Tablet, Ordered By: JON CLARK APRN Directions: 1 tablet oral daily before sleeping * mirtazapine (Remeron) 30 mg Tablet, Ordered By: JON CLARK, SENIOR POLICY ASSOCIATE Directions: 1 tablet oral daily at bedtime * simvastatin 40 mg Tablet, Ordered By: JON CLARK APRN Directions: 0.5 tablet oral daily at bedtime * levothyroxine (Synthroid) 100 mcg Tablet, Ordered By: JON CLARK APRN Directions: 1 tablet oral daily before breakfast * triamcinolone acetonide 0.1 % Cream, Ordered By: JON CLARK APRN Directions: 1 application topical twice a day * acetaminophen (Tylenol Extra Strength) 500 mg Tablet, Ordered By: JON CLARK APRN Directions: 1 tablet oral every eight hours PRN pain * cholecalciferol (vitamin D3) (Vitamin D3) 2,000 unit Tablet, Ordered By: JON CLARK APRN Directions: 1 tablet oral daily * sertraline (Zoloft) 100 mg Tablet, Ordered By: JON CLARK APRN Directions: 1 tablet oral daily * ambrisentan (Letairis) 10 mg Tablet, Ordered By: JON CLARK APRN Directions: 1 tablet oral daily Changed medications* diphenoxylate-atropine (LoMOTIL) 2.5 mg-0.025 mg Tablet, Ordered By: JON CLARK APRN Directions: 1 tablet oral daily PRN diarrhea * budesonide (Pulmicort) 0.5 mg/2 mL Suspension for Nebulization, Ordered By: JON CLARK APRN Directions: 2 mL by inhalation twice a day * fluticasone 50 mcg blister with device, Ordered By: JON CLARK APRN Directions: 2 puff by inhalation daily Additional Instructions: In each nostril Stopped medications* None
--- OUTSIDE RECORDS SUMMARY | 2017-02-01 08:58 | XMS REPORT | Summary of Care ---
Author Author Roberto Moreno M.D. Unknown Address Unknown Phone Unavailable Care Team Providers Care Large Animal Husbandry Technician Name Role Phone Justin Moreno M.D. Unavailable Unavailable Anila Cohen M.D. 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 Noel Mckoy, T. K. * Start Active Claritin 10 [...] Active Procedures Procedure Dates Details History of Cholecystectomy History of Tubal Ligation History of Proctopexy For Prolapse, Abdominal Approach History of Cataract Extraction BNP 3103 Ordered: 15-Dec-2016 ELECTROLYTES 1230 Ordered: 15-Dec-2016 LIVER PROFILE 1215 Ordered: 15-Dec-2016 CREATININE, SERUM 1135 Ordered: 15-Dec-2016 XRay CHEST-PA & LAT Ordered: 15-Dec-2016 Immunization Name Dates Details Immunizations not documented Family History Name Dates Details Family history of Old age (797, R54) Status: Active Name Dates Details Family history of malignant neoplasm (V16.9, Z80.9) Status: Active Social History Name Dates Details - Status: Name Dates Details Never smoker Vital Signs Date Test Result Details No Known Vitals to report Results Date Description Value Details 26-Dec-2016 11:54 [...] Range: 150-400 MPV 7.7 fL Range: 6.0-11.0 Plan of Care Name Dates Details Planned Observations Planned Goals not documented Planned Encounters Appointment; Provider: Eldon Kendrick M.D. On 08-Feb-2017 11:00 Appointment; Provider: Roberto Moreno M.D. On 26-Dec-2016 12:45 Interventions Provided Labs/Procedures/Imaging* XRay CHEST-PA & LAT; To be Done: 26 Dec 2016 Instructions Name Dates Details Instructions not documented [...]
--- OUTSIDE RECORDS SUMMARY | 2017-02-01 08:58 | XMS REPORT | Continuity of Care Document ---
Author Author [facility] Address Unknown Phone Unavailable Allergies Medications Problems Procedures Results Test Result Range CBC WITH PLATELET AND DIFFERENTIAL - 11/29/16 14:09 SEGS 78.9 % NRG *BASOPHILS 0.5 % NRG *EOSINOPHILS 0.1 % NRG AUTOMATED DIFF PERFORMED NRG *LYMPHOCYTES 11.0 % NRG *MONOCYTES 9.5 % NRG *ABSOLUTE BASOPHILS 0.00 10*3/uL 0.00- 0.20 *ABSOLUTE EOSINOPHILS 0.00 10*3/uL 0.00- 0.50 *ABSOLUTE LYMPHOCYTES 0.80 10*3/uL 1.00- 3.00 *ABSOLUTE MONOCYTES 0.70 10*3/uL 0.30- 1.00 *ABSOLUTE NEUTROPHILS 5.70 10*3/uL 1.80- 7.80 MPV 8.8 fL 7.4-10.4 PLATELETS 140 10*3/uL 159-386 WBC 7.3 10*3/uL 3.6-11.2 RBC 5.28 3.63-4.92 HEMOGLOBIN 13.8 11.0-14.3 HEMATOCRIT 42.3 % 31.2-41.9 MCV 80.1 fL 79.0-98.0 MCH 26.1 pg 27.0-33.0 MCHC 32.5 32.0-36.0 RDW 16.5 % 12.3-17.0 RDWSD 45.9 37.1-47.8 COMPREHENSIVE METABOLIC PANEL - 11/29/16 14:09 SODIUM 131 mmol/L 136-145 POTASSIUM 5.5 mmol/L 3.5-5.1 CHLORIDE 96 mmol/L 98-107 TCO2 22.9 mmol/L 21.0-32.0 *ANION GAP 12.1 mmol/L 8.0-16.0 BUN 67 7-18 CREATININE 2.56 0.55-1.02 *BUN/CREATININE RATIO 26.2 9.1-17.0 GLUCOSE 82 65-99 CALCIUM 8.7 8.5-10.1 BILIFUBIN TOTAL 0.70 0.20-1.00 TOTAL PROTEIN 6.8 6.4-8.2 ALBUMIN 3.3 3.4-5.0 *GLOBULIN 3.5 2.3-3.5 *A/G RATIO 0.9 1.5-2.2 ALK PHOS 101 U/L 46-116 ALT (SGPT) 29 U/L 16-63 AST (SGOT) 25 U/L 15-37 GFR ESTIMATION - 11/29/16 14:09 *GFR EST NON AFR AUSTRALIAN 17 mL/min NRG *GRFA EST AFR AMER 20 mL/min NRG CULTURE BLOOD - 11/29/16 14:09 CULTURE BLOOD No growth after 5 days of incubation. NRG CULTURE BLOOD - 11/29/16 14:15 CULTURE BLOOD No growth after 5 days of incubation. NRG CBC WITH PLATELET AND DIFFERENTIAL - 11/30/16 07:23 SEGS 68.6 % NRG *BASOPHILS 0.5 % NRG *EOSINOPHILS 1.0 % NRG AUTOMATED DIFF PERFORMED NRG *LYMPHOCYTES 14.5 % NRG *MONOCYTES 15.4 % NRG *ABSOLUTE BASOPHILS 0.00 10*3/uL 0.00- 0.20 *ABSOLUTE EOSINOPHILS 0.10 10*3/uL 0.00- 0.50 *ABSOLUTE LYMPHOCYTES 0.80 10*3/uL 1.00- 3.00 *ABSOLUTE MONOCYTES 0.80 10*3/uL 0.30- 1.00 *ABSOLUTE NEUTROPHILS 3.70 10*3/uL 1.80- 7.80 MPV 8.1 fL 7.4-10.4 PLATELETS 84 10*3/uL 159-386 WBC 5.4 10*3/uL 3.6-11.2 RBC 4.36 3.63-4.92 HEMOGLOBIN 11.4 11.0-14.3 HEMATOCRIT 34.9 % 31.2-41.9 MCV 80.2 fL 79.0-98.0 MCH 26.2 pg 27.0-33.0 MCHC 32.7 32.0-36.0 RDW 16.6 % 12.3-17.0 RDWSD 46.4 37.1-47.8 BNP - 11/30/16 07:23 B-TYPE NATRIURETIC PROTEIN 94 pg/mL 1- 100 COMPREHENSIVE METABOLIC PANEL - 11/30/16 07:23 SODIUM 135 mmol/L 136-145 POTASSIUM 4.5 mmol/L 3.5-5.1 CHLORIDE 104 mmol/L 98-107 TCO2 21.8 mmol/L 21.0-32.0 *ANION GAP 9.2 mmol/L 8.0-16.0 BUN 55 7-18 CREATININE 1.80 0.55-1.02 *BUN/CREATININE RATIO 30.6 9.1-17.0 GLUCOSE 75 65-99 CALCIUM 7.8 8.5-10.1 BILIFUBIN TOTAL 0.70 0.20-1.00 TOTAL PROTEIN 5.1 6.4-8.2 ALBUMIN 2.5 3.4-5.0 *GLOBULIN 2.6 2.3-3.5 *A/G RATIO 1.0 1.5-2.2 ALK PHOS 80 U/L 46-116 ALT (SGPT) 20 U/L 16-63 AST (SGOT) 20 U/L 15-37 C-REACTIVE PROTEIN - 11/30/16 07:23 C-REACTIVE PROTEIN 0.46 0.00-0.30 GFR ESTIMATION - 11/30/16 07:23 *GFR EST NON AFR AUSTR[place]IAN 26 mL/min NRG *GRFA EST AFR AMER 31 mL/min NRG PROCALCITONIN - 11/30/16 07:23 PROCALCITONIN 0.08 ng/mL 0.05-0.50 ERYTH. SED. RATE - 11/30/16 07:23 ERYTH. SED. RATE 10 mm/h 0-30 CBC WITH PLATELET AND DIFFERENTIAL - 12/01/16 06:34 SEGS 72.0 % NRG *BASOPHILS 0.4 % NRG *EOSINOPHILS 1.1 % NRG AUTOMATED DIFF PERFORMED NRG *LYMPHOCYTES 11.5 % NRG *MONOCYTES 15.0 % NRG *ABSOLUTE BASOPHILS 0.00 10*3/uL 0.00- 0.20 *ABSOLUTE EOSINOPHILS 0.10 10*3/uL 0.00- 0.50 *ABSOLUTE LYMPHOCYTES 0.60 10*3/uL 1.00- 3.00 *ABSOLUTE MONOCYTES 0.70 10*3/uL 0.30- 1.00 *ABSOLUTE NEUTROPHILS 3.50 10*3/uL 1.80- 7.80 MPV 8.9 fL 7.4-10.4 PLATELETS 76 10*3/uL 159-386 WBC 4.9 10*3/uL 3.6-11.2 RBC 4.21 3.63-4.92 HEMOGLOBIN 10.9 11.0-14.3 HEMATOCRIT 34.2 % 31.2-41.9 MCV 81.2 fL 79.0-98.0 MCH 26.0 pg 27.0-33.0 MCHC 32.0 32.0-36.0 RDW 16.5 % 12.3-17.0 RDWSD 47.3 37.1-47.8 COMPREHENSIVE METABOLIC PANEL - 12/01/16 06:34 SODIUM 140 mmol/L 136-145 POTASSIUM 4.2 mmol/L 3.5-5.1 CHLORIDE 110 mmol/L 98-107 TCO2 21.8 mmol/L 21.0-32.0 *ANION GAP 8.2 mmol/L 8.0-16.0 BUN 34 7-18 CREATININE 1.18 0.55-1.02 *BUN/CREATININE RATIO 28.8 9.1-17.0 GLUCOSE 75 65-99 CALCIUM 7.5 8.5-10.1 BILIFUBIN TOTAL 0.60 0.20-1.00 TOTAL PROTEIN 4.9 6.4-8.2 ALBUMIN 2.3 3.4-5.0 *GLOBULIN 2.6 2.3-3.5 *A/G RATIO 0.9 1.5-2.2 ALK PHOS 77 U/L 46-116 ALT (SGPT) 20 U/L 16-63 AST (SGOT) 22 U/L 15-37 GFR ESTIMATION - 12/01/16 06:34 *GFR EST NON AFR AUSTRALIAN 44 mL/min NRG *GRFA EST AFR AMER 51 mL/min NRG CBC WITH PLATELET AND DIFFERENTIAL - 12/02/16 07:03 SEGS 78.3 % NRG *BASOPHILS 0.3 % NRG *EOSINOPHILS 1.1 % NRG AUTOMATED DIFF PERFORMED NRG *LYMPHOCYTES 6.7 % NRG *MONOCYTES 13.6 % NRG *ABSOLUTE BASOPHILS 0.00 10*3/uL 0.00- 0.20 *ABSOLUTE EOSINOPHILS 0.10 10*3/uL 0.00- 0.50 *ABSOLUTE LYMPHOCYTES 0.40 10*3/uL 1.00- 3.00 *ABSOLUTE MONOCYTES 0.90 10*3/uL 0.30- 1.00 *ABSOLUTE NEUTROPHILS 5.20 10*3/uL 1.80- 7.80 COMPREHENSIVE METABOLIC PANEL - 12/02/16 07:03 SODIUM 136 mmol/L 136-145 POTASSIUM 4.2 mmol/L 3.5-5.1 CHLORIDE 106 mmol/L 98-107 TCO2 21.8 mmol/L 21.0-32.0 *ANION GAP 8.2 mmol/L 8.0-16.0 BUN 21 7-18 CREATININE 1.03 0.55-1.02 *BUN/CREATININE RATIO 20.4 9.1-17.0 GLUCOSE 91 65-99 CALCIUM 7.8 8.5-10.1 BILIFUBIN TOTAL 0.80 0.20-1.00 TOTAL PROTEIN 4.9 6.4-8.2 ALBUMIN 2.2 3.4-5.0 *GLOBULIN 2.7 2.3-3.5 *A/G RATIO 0.8 1.5-2.2 ALK PHOS 82 U/L 46-116 ALT (SGPT) 20 U/L 16-63 AST (SGOT) 16 U/L 15-37 GFR ESTIMATION - 12/02/16 07:03 *GFR EST NON AFR AUSTRALIAN 52 mL/min NRG *GRFA EST AFR AMER 60 mL/min NRG PLATELET SLIDE REVIEW - 12/02/16 07:03 *PLATELET SLIDE REVIEW DECREASED ADEQUATE Encounters ACCT No. Visit Date/Time Discharge Status Pt. Type Provider Facility Loc./Unit Complaint [id number] 11/29/2016 12:43:00 2016 15:14:12 DIS Inpatient PABLO PAREDES HTN, INFLUENZA A, C-DIFF
--- OUTSIDE RECORDS SUMMARY | 2017-02-01 08:59 | XMS REPORT | Summary of Care ---
Author Author Eldon Kendrick M.D. Organization Unknown Address Unknown Phone Unavailable Care Team Providers Care Director Of Instruction Name Role Phone Justin Moreno M.D. Unavailable Unavailable Anila Cohen M.D. Unavailable Unavailable Eldon Kendrick M.D. 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 * Refills: 0 Neol Lyle., T. K. * Start Active Pepcid AC 10 MG Oral Tablet TWICE DAILY AT BED TIME * Refills: 0 Noel Haley.Josiane., T. K. * Start Active Pulmicort 0.5 MG/2ML Inhalation Suspension USE DIRECTED. * Refills: 0 Noel Haley.Josiane., T. K. * Start Active Reglan 10 MG Oral Tablet TAKE 1 TABLET AT BEDTIME. * Refills: 0 Noel Haley.Josiane., T. K. * Start Active Remeron 30 MG Oral Tablet TAKE 1 TABLET AT BEDTIME. * Refills: 0 Noel Haley.Josiane., T. K. * Start Active Simvastatin 40 MG Oral Tablet TAKE 1/2 TABLET AT BEDTIME. * Refills: 0 Noel Haley.Josiane., T. K. * Start Active Synthroid 100 MCG Oral Tablet TAKE 1 TABLET DAILY DIRECTED. * Refills: 0 Noel Haley.Josiane., T. K. * Start Active Triamcinolone Acetonide 0.1 % External Ointment APPLY SPARINGLY TO AFFECTED AREA(S) TWICE DAILY * Refills: 0 Noel Haley.Josiane., T. K. * Start Active Tylenol Extra Strength 500 MG Oral Tablet TAKE 1 TABLET EVERY 4 TO 6 HOURS NEEDED. * Refills: 0 Noel Haley.Josiane., T. K. * Start Active Vitamin D3 2000 UNIT Oral Capsule once daily * Refills: 0 Noel Lyle., T. K. * Start Active Ipratropium-Albuterol 0.5-2.5 (3) MG/3ML Inhalation Solution USE CONTENTS OF (1) VIAL IN NEBULIZER MACHINE (2) TIMES A DAY. * Quantity: 1 Refills: 6 Roberto Moreno M.D. * Start Active 3 ML Plas Cont (30 Plas Conts) Zoloft 100 MG Oral Tablet * Refills: 0 Roberto Moreno M.D. * Start Active Altace 5 MG Oral Capsule TAKE 1 CAPSULE ONCE DAILY. * Refills: 0 Roberto Moreno M.D. * Start 08-Aug-2016 Active Letairis 10 MG [...] high threshold) Range: 0.55-1.02 EST GFR, NON-AFR [place] 42 ml/min (Below low threshold) Range: >60 [...] Dates Details Instructions not documented Encounters Appointment; Roberto Moreno M.D. Encounter Diagnosis: Problem [...]
--- OUTSIDE RECORDS SUMMARY | 2017-02-01 08:59 | XMS REPORT | Summary of Care ---
Author Author Roberto Moreno M.D. Unknown Address Unknown Phone Unavailable Care Team Providers Care Full Roll Inspector Name Role Phone Justin Moreno M.D. Unavailable [...] high threshold) Range: 0.55-1.02 EST GFR, NON-AFR BOLIVIAN 46 ml/min (Below low threshold) Range: >60 [...]
--- OUTSIDE RECORDS SUMMARY | 2017-02-01 08:59 | XMS REPORT | Summary of Care ---
Author Author Roberto Moreno M.D. Unknown Address Unknown Phone Unavailable Care Team Providers Care Marketing Admin Name Role Phone Josh Mckoy, Justin Unavailable Unavailable Anila Cohen M.D. Unavailable Unavailable Fortunato Edwards Unavailable Unavailable Unavailable Unavailable Functional Status Name [...] a day * Quantity: 60 Refills: 5 Noel Haley.oJsiane., T. K. * Start Active Multi-Day Plus [...] 1/2 TABLET AT BEDTIME. * Refills: 0 Cohen M.D., T. K. * Start Active Synthroid 100 MCG Oral Tablet TAKE 1 TABLET DAILY DIRECTED. * Refills: 0 Cohen M.D., T. K. * Start Active Triamcinolone Acetonide 0.1 % External Ointment APPLY SPARINGLY TO AFFECTED AREA(S) TWICE DAILY * Refills: 0 Cohen M.D., T. K. * Start Active Tylenol Extra Strength 500 MG Oral Tablet TAKE 1 TABLET EVERY 4 TO 6 HOURS NEEDED. * Refills: 0 Cohen M.D., T. K. * Start Active Vitamin D3 2000 UNIT Oral Capsule once daily * Refills: 0 Cohen M.D., T. K. * Start Active Ipratropium-Albuterol 0.5-2.5 (3) MG/3ML Inhalation Solution USE CONTENTS OF (1) VIAL IN NEBULIZER MACHINE (2) TIMES A DAY. * Quantity: 1 Refills: 6 Sourk M.D., Roberto Anderson * Start Active 3 ML Plas Cont (30 Plas Conts) Zoloft 100 MG Oral Tablet * Refills: 0 Sourk M.D., Roberto Anderson * Start Active Altace 5 MG Oral Capsule TAKE 1 CAPSULE ONCE DAILY. * Refills: 0 Josh M.D.Roberto * Start 08-Aug-2016 Active Letairis 10 MG Oral Tablet TAKE 1 TABLET DAILY. * Quantity: 90 Refills: 3 Josh Mckoy, Roberto Justin * Start 15-Aug-2016 Active Allergies and Adverse [...] Vital Signs Date Test Result Details 07-Nov-2016 11:29 BP Systolic 110 mm[Hg] Status: [...] high threshold) Range: 0.55-1.02 EST GFR, NON-AFR CYMRAES 42 ml/min (Below low threshold) Range: >60 [...] Goals not documented Planned Encounters Appointment; Provider: Roberto Moreno M.D. On 26-Dec-2016 12:45 Appointment; Provider: Rickey Brooks M.D. On 16-Nov-2016 11:00 Appointment; Provider: Eldon Kendrick M.D. On 07-Nov-2016 13:45 Instructions Name Dates Details Instructions not documented [...]
[2017-02-01] MEDS ORDERED: CETI-269 PO (09:24)
[2017-02-01] MEDS ORDERED: AMBR10TA3 PO (09:29)
[2017-02-01] MEDS ORDERED: POTA10CA37 PO (09:29)
[2017-02-01] MEDS ORDERED: OMEP40CA52 PO (09:29)
[2017-02-01] MEDS ORDERED: FURO40TA5 PO (09:29)
[2017-02-01] MEDS ORDERED: FAMO10TA41 PO (09:29)
[2017-02-01] MEDS ORDERED: SIMV40TA5 PO (09:29)
[2017-02-01] MEDS ORDERED: RAMI5CAP22 PO (09:29)
--- OUTSIDE RECORDS SUMMARY | 2017-02-01 09:39 | XMS REPORT ---
Author Author [facility] Organization Unknown Address Unknown Phone Unavailable Care Team Providers Care Band Booker Name Role Phone MD SYLVIA, JONATHAN BRAVO [...] MG/DL (65-99 MG/DL) *GFR EST NON AFR WELSH 52 ML/MIN *GFR EST AFR AMER 60 [...] MG/DL (65-99 MG/DL) *GFR EST NON AFR WELSH 44 ML/MIN *GFR EST AFR AMER 51 [...] MG/DL (65-99 MG/DL) *GFR EST NON AFR WELSH 26 ML/MIN *GFR EST AFR AMER 31 [...] MG/DL (65-99 MG/DL) *GFR EST NON AFR WELSH 17 ML/MIN *GFR EST AFR AMER 20 [...] PM* CULTURE BLOOD (Preliminary Result) Specimen Number: [id number] Sample Collection Date/Time: 11/29/2016 2:15 PM Specimen Source: Blood Peripheral CULTURE BLOOD: No growth after 24 hours of incubation, testing to continue for an additional 96 hours. No Growth after 48 hours of initial incubation, testing to continue for additional 72 hours. Microbiology from 11/29/2016 2:09 PM* CULTURE BLOOD (Preliminary Result) Specimen Number: [id number] Sample Collection Date/Time: 11/29/2016 2:09 PM Specimen [...] Detected ) [facility]02[facility]2016 5:09 [facility] History: Dyspnea - 786.05 Priors: [...] 12:45 PM * Address # 1 : [facility]: [facility] [place]- or Treatment Plan from 12/02/2016 1:35 [...] the responsibility of the patient or patient construction sales representative to confirm the list of medications [...] 50 mg Tablet, Ordered By: JON CLARK, RESEARCH QUALITY ASSURANCE SPECIALIST Directions: 1 tablet oral twice a day * multivitamin with iron-mineral 0.8 mg Combo Pack, Ordered By: JON CLARK APRN Directions: 1 each oral daily * omeprazole 40 mg capsule,delayed release(DR/EC), Ordered By: JON CLARK , RESEARCH QUALITY ASSURANCE SPECIALIST Directions: 1 capsule oral daily * famotidine (Pepcid AC) 10 mg Tablet, Ordered By: JON CLARK, RESEARCH QUALITY ASSURANCE SPECIALIST Directions: 2 tablet oral daily * metoclopramide HCl (Reglan) 10 mg Tablet, Ordered By: JON CLARK APRN Directions: 1 tablet oral daily before sleeping * mirtazapine (Remeron) 30 mg Tablet, Ordered By: JON CLARK, RESEARCH QUALITY ASSURANCE SPECIALIST Directions: 1 tablet oral daily at bedtime [...]
--- OUTSIDE RECORDS SUMMARY | 2017-02-01 09:39 | XMS REPORT | Continuity of Care Document ---
Author Author [facility] Address Unknown Phone Unavailable Allergies Medications Problems [...] - 11/29/16 14:09 *GFR EST NON AFR COLOMBIAN 17 mL/min NRG *GRFA EST AFR AMER [...] - 11/30/16 07:23 *GFR EST NON AFR COLOMBIAN 26 mL/min NRG *GRFA EST AFR AMER [...] - 12/01/16 06:34 *GFR EST NON AFR COLOMBIAN 44 mL/min NRG *GRFA EST AFR AMER [...] - 12/02/16 07:03 *GFR EST NON AFR COLOMBIAN 52 mL/min NRG *GRFA EST AFR AMER 60 mL/min NRG PLATELET SLIDE REVIEW - 12/02/16 07:03 *PLATELET SLIDE REVIEW DECREASED ADEQUATE Encounters ACCT No. Visit Date/Time Discharge Status Pt. Type Provider Facility Loc./Unit Complaint [id number] 11/29/2016 12:43:00 2016 15:14:12 DIS Inpatient PABLO PAREDES HTN, INFLUENZA A, C-DIFF
--- NOTE | 2017-02-01 09:42 | NUR ---
PROVIDER DR COLON AT BEDSIDE FOR H&P
[2017-02-01] MEDS ORDERED: NORMAL SALINE 1,000 ML IV ONE (09:48)
[2017-02-01 10:21] LABS: BASOPHILS % (AUTO) 0.4 % (0-2); EOSINOPHILS % (AUTO) 0.3 % (0-4); HCT - HEMATOCRIT 34.5 % (36-46); HGB - HEMOGLOBIN 11.2 GM/DL (12-16); IMMATURE GRANULOCYTE # (AUTO) 0.02 T/MM3 (0.00-0.03); IMMATURE GRANULOCYTE % (AUTO) 0.3 % (0.0-0.5); LYMPHOCYTES # (AUTO) 0.9 T/MM3 (1-4.8); LYMPHOCYTES % (AUTO) 13.4 % (23-45); MEAN CORPUSCULAR HGB 26.5 UUG (26-34); MEAN CORPUSCULAR HGB CONC(MCHC 32.5 GM/DL (31-37); MEAN CORPUSCULAR VOLUME 81.6 UM3 (80-100); MEAN PLATELET VOLUME 9.3 UM3 (9.4-12.4); MONOCYTES # (AUTO) 0.7 T/MM3 (0-0.8); MONOCYTES % (AUTO) 10.3 % (0-9.0); NEUTROPHILS #(AUTO)-ABSOLUTE 5.2 T/MM3 (1.8-7.7); NEUTROPHILS % (AUTO) 75.3 % (33-66); RED BLOOD COUNT 4.23 M/MM3 (4.00-5.20); WBC - WHITE BLOOD COUNT 6.9 T/MM3 (4.5-11.0)
[2017-02-01 10:30] LABS: ALBUMIN 3.1 G/DL (3.5-5.0); ALBUMIN/GLOBULIN RATIO 1.2 RATIO (1.1-2.2); ALKALINE PHOSPHATASE 80 U/L (38-126); ALT (SGPT) 27 U/L (9-52); ANION GAP 14 MEQ/L (5-15); AST (SGOT) 20 U/L (14-36); BUN/CREATININE RATIO 22 RATIO (6-26); CHLORIDE 103 MEQ/L (98-107); CO2 - CARBON DIOXIDE 19 MEQ/L (22-30); CREATININE 1.1 MG/DL (0.7-1.2); GLOMERULAR FILTRATION RATE 48; GLUCOSE 90 MG/DL (65-110); POTASSIUM 4.5 MEQ/L (3.6-5); SODIUM 136 MEQ/L (134-144); TOTAL PROTEIN 5.7 G/DL (6.3-8.2)
--- NOTE | 2017-02-01 10:36 | DI ---
Indication: ITS.REASON: ms changes PROCEDURE: CT HEAD W/O CONTRAST: Encounter: Initial Comparison: None Technique: Axial CT images through the head were performed without contrast. Iterative Reconstruction dose reducing technique was utilized. FINDINGS: The ventricles are of normal size, shape, and contour for the patient's age. There are scattered areas of low attenuation in the white matter which most likely represent changes from chronic microvascular ischemia. The brainstem, cerebellum, and cerebral hemispheres otherwise have a normal morphology and CT attenuation. There is no evidence of midline displacement. No hemorrhage, signs of acute territorial stroke, mass effect, mass lesions, or edema is evident. The visualized portions of the skull base, midface, and calvarium demonstrate no abnormality. Mucosal thickening in the anterior ethmoid air cells. The tympanic and mastoid cavities appear normal. IMPRESSION: No acute intracranial abnormality or hemorrhage. .
[2017-02-01 11:01] LABS: THYROID STIM HORMONE-TSH 4.41 MIU/L (0.47-4.68)
[2017-02-01 11:06] LABS: AMMONIA < 9 UMOL/L (9-33)
[2017-02-01 11:08] LABS: ACETAMINOPHEN < 10 UG/ML (10-30); ETHANOL <10 MG/DL (<10); SALICYLATE < 1.0 MG/DL (2-20)
--- NOTE | 2017-02-01 11:15 | NUR ---
ACTIVITY PATIENT AMBULATORY TO RESTROOM TO PROVIDE URINE SAMPLE. PATIENT TOLERATES ACTIVITY FAIR. PATIENT REPORTS NO DIZZY/ LIGHT HEADEDNESS WITH AMBULATION. HAT PLACED IN TOILET AND PATIENT INSTRUCTED ON CLEANSING PRIOR TO URINATION.
--- NOTE | 2017-02-01 11:22 | NUR ---
UA UPDATE PATIENT DOES NOT VOID INTO HAT
--- NOTE | 2017-02-01 12:21 | ERPDOC ---
Departure Disposition Decision Date: Feb 01, 2017 Disposition Decision Time: 12:24 Disposition: 01 DISCHARGED HOME, SELF-CARE Impression Impression Impression: Primary Impression: Confusion Additional Impressions: UTI (urinary tract infection) Accidental medication overdose Severity: Moderate Condition: Stable Seen By: Physician only Referrals: JONATHAN WARD MD (Family) Patient Instructions: Adult Overdose (ED) Problems/Meds/Labs Reviewed?: Yes Medications reviewed and manag: Yes Additional Instructions: Bactrim DS, one tablet twice daily for 10 days. To avoid confusion with pills, please try organizing medication in punch pack. Follow up care ordered?: Yes Mental Status: Alert, Oriented Scripts Sulfamethoxazole/Trimethoprim (Bactrim Ds Tablet) 1 Each Tablet 1 TAB PO BID, #20 TAB Take 1 tablet, by mouth, 2 times a day. Prov: KAYLENE COLON MD 02/01/17 [facility] - General Medical General Chief Complaint: Dizzy Stated Complaint: DISORIENTATED, DIZZY Time Seen by Provider: 09:17 [facility] - General Medical Initial Comments 76-year-old female presents with confusion. Patient has been organizing her own medications, last night became confused enough that she was moving pills from bottled a bottle and mixing them up. Family realized that she is probably been getting worse over the last several days and they are concerned. She was therefore brought to the emergency department for evaluation. Patient herself admits that she is confused with the meds does not know what she has or has not taken for several days. She has not been sleeping well, appetite is diminished. She thinks she may have run a fever yesterday but not today. She denies any chest pain or shortness of breath. Allergies: Coded Allergies: No Known Drug Allergies (Verified Allergy, Mild, 02/01/17) Past History Past Medical History Metabolic: hypercholesterolemia, hypertension, hypothyroidism Cardiac: other Respiratory: pulmonary embolus GI: GERD Female: renal insufficiency Integumentary: other Hematologic: DVT Psychological: depression Surgical History General: EGD, colonoscopy, gallbladder Reproductive/: tubal ligation Vaccines Hx Influenza Vaccination: Yes (FALL 2012) Hx Pneumococcal Vaccination: Yes (WITHIN THE PAST 5 YEARS) Social History Smoking Status: Never smoker Substance Use Type: does not use Alcohol Intake: none Record Review Pertinent history updated: Yes Review of Systems Cardiovascular Cardiac: see HPI Pulmonary Respiratory: see HPI GI Upper Abdomen: see HPI General: see HPI Musculoskeletal General: see HPI Neurological General: see HPI All other Systems All Other Systems: Reviewed and Negative Physical Exam General General Nourishment: well nourished, well developed, appears stated age, no acute distress, adult Vitals and Pain First Documented Vital Signs Date Time Temp Pulse Resp B/P Pulse Ox O2 Delivery O2 Flow Rate FiO2 02/01/17 08:58 98.3 88 16 124/69 98 Room Air Weight: Kilograms: 51.200 Height (feet): 5 Height (inches): 6.00 Triage Pain Scale: Normal Exams: Head: Normocephalic w/o trauma Neck: Full range of motion, without adenopathy, JVD, bruits or thyromegaly Chest/Resp: Clear all lemus, with good airflow, and symmetry bilaterally CV: Regular rate and rhythm, without murmur or gallop, Pulses 2+ all extremities, capillary refill, <2 seconds all ext., no pedal edema noted Abdomen: Bowel sounds positive, soft, non-tender, non-distended, no hepatosplenomegaly, masses or bruits noted Neurologic (brief) Neurological Brief: FOUND: CN w/o gross def to obs, DTR 2/4 all extremities, gait w/o gross def to obs, motor-no gross deficits, sensory-no gross deficits Comments Patient is uncertain of the day, does note the location she is at. Unable to remember to 3 objects at 3 minutes. Otherwise does well with Mini-Mental Status exam and is very pleasant. Differential Diagnoses Considering: Alcohol Intoxication, DKA, Drug Overdose, Encephalitis, Meningitis , Metabolic, Pneumonia, Poisoning/Accidental OD, Psychosis, Seizure Progress Results/Orders Orders Procedure Category Date Status Time Ammonia LAB 02/01/17 Complete 09:48 Cmp - Comprehensive LAB 02/01/17 Complete Metabolic 09:48 Cbc W/Auto LAB 02/01/17 Complete Diff-Reflex Manual 09:48 Ethanol LAB 02/01/17 Complete 09:48 Tsh - Thyroid Stim LAB 02/01/17 Complete Hormone 09:48 D-Dimer LAB 02/01/17 Complete 09:48 Troponin I W LAB 02/01/17 Complete Hemolysis Index 09:48 Acetaminophen LAB 02/01/17 Complete 09:48 Salicylate LAB 02/01/17 Complete 09:48 Ua, Dip Wreflex LAB 02/01/17 Logged [employer] Equipment Operator [employer] 09:48 Drug Screen LAB 02/01/17 Logged Urine-Test At [facility] [place] 09:48 Ct Head W/O Contrast CT 02/01/17 Resulted 09:48 Iv Lock (Ed Only) EDM 02/01/17 Transmitted 09:48 Normal Saline (Normal PHA 02/01/17 Complete Saline Iv) 09:48 Oxygen Administration EDM 02/01/17 Transmitted 09:48 Lab Results Laboratory Tests Test 02/01/17 10:13 White Blood Count 6.9T/MM3 Red Blood Count 4.23M/MM3 Hemoglobin 11.2GM/DL Hematocrit 34.5% Mean Corpuscular Volume 81.6UM3 Mean Corpuscular Hemoglobin 26.5UUG Mean Corpuscular Hemoglobin Concent 32.5GM/DL RDW Standard Deviation 47.4FL Platelet Count 174T/MM3 Mean Platelet Volume 9.3UM3 Immature Granulocyte % (Auto) 0.3% Neutrophils (%) (Auto) 75.3% Lymphocytes (%) (Auto) 13.4% Monocytes (%) (Auto) 10.3% Eosinophils (%) (Auto) 0.3% Basophils (%) (Auto) 0.4% Absolute Immature Granulocyte (auto 0.02T/MM3 Absolute Neutrophils (auto) 5.2T/MM3 Absolute Lymphocytes (auto) 0.9T/MM3 Absolute Monocytes (auto) 0.7T/MM3 Absolute Eosinophils (auto) 0.0T/MM3 Absolute Basophils (auto) 0.0T/MM3 D-Dimer 760NG/ML Turbidity < 20 Sodium Level 136MEQ/L Potassium Level 4.5MEQ/L Chloride Level 103MEQ/L Carbon Dioxide Level 19MEQ/L Anion Gap 14MEQ/L Blood Urea Nitrogen 24.0MG/DL Creatinine 1.1MG/DL Glomerular Filtration Rate Calc 48 BUN/Creatinine Ratio 22RATIO Glucose Level 90MG/DL Calculated Osmolality 266MOSM/KG Calcium Level 9.0MG/DL Total Bilirubin 0.50MG/DL Icterus Index < 2 Aspartate Amino Transf (AST/SGOT) 20U/L Alanine Aminotransferase (ALT/SGPT) 27U/L Alkaline Phosphatase 80U/L Ammonia < 9UMOL/L Troponin I < 0.012ng/ml Total Protein 5.7G/DL Albumin 3.1G/DL Globulin 2.6G/DL Albumin/Globulin Ratio 1.2RATIO Thyroid Stimulating Hormone (TSH) 4.41MIU/L Chemistry Specimen Hemolysis < 15 Salicylates Level < 1.0MG/DL Acetaminophen Level < 10UG/ML Alcohol, Quantitative <10MG/DL Medications Current ED Medications Sodium Chloride (Normal Saline IV) 1,000 ml @ 500 mls/hr Q2H ONCE IV Last administered on 02/01/17t 10:11; Start 02/01/17 at 09:48; Stop 02/01/17 at 11:47 ; Status DC Progress Progress Patient likely has UTI, this may contribute to the confusion. I do think that she accidentally got mixed up with medication and has now suffered confusion because of it. Her d-dimer was elevated, but she does not want to wait for CT to rule out a PE, the ER has been very busy and she would like to leave. If she develops shortness of breath or chest pain, recommended she come in for CT PE as soon as possible. She was started on Bactrim DS twice daily for 10 days to treat UTI. Increase fluids. Family will work with her to organize meds. KAYLENE COLON MD Feb 01, 2017 12:21
[2017-02-01 12:24] LABS: BLOOD, URINE TRACE-INTACT (NEGATIVE); COLOR,URINE YELLOW (YELLOW); LEUKOCYTE ESTERASE ,URINE 1+ (NEGATIVE); NITRITE,URINE NEGATIVE (NEGATIVE); UROBILINOGEN,URINE 0.2 EU/DL (NORMAL)
[2017-02-01] MEDS ORDERED: SULF1TAB42 PO (12:28)
[2017-02-01 12:43] VITALS: BP 135/95; PULSE 78; RESP 16; TEMP 98.3; O2SAT 98
[2017-02-01 12:43] LABS: AMPHETAMINE SCREEN,URINE NEGATIVE; BARBITURATE SCREEN,URINE NEGATIVE; BENZODIAZEPINES SCREEN,URINE NEGATIVE; CANNABINOID SCREEN,URINE NEGATIVE; COCAINE SCREEN,URINE NEGATIVE; METHADONE SCREEN, URINE NEGATIVE; METHAMPHETAMINE SCREEN, URINE NEGATIVE; OPIATE SCREEN,URINE NEGATIVE; PHENCYCLIDINE SCREEN,URINE NEGATIVE; TRICYCLIC ANTIDEPRESSANT,URINE NEGATIVE
[2017-02-01 12:51] LABS: BACTERIA,URINE TRACE (NEGATIVE); RBC,URINE NONE SEEN /HPF (0-3); WBC,URINE 0-1 /HPF (0-5)
[2017-02-02] MEDS ORDERED: IPRA3AMP AEROSOL (13:08)
[2017-02-02] MEDS ORDERED: ESTR42.53 VAGINALLY (13:08)
[2017-02-02] MEDS ORDERED: FLUT9.9S EA NOSTRIL (13:08)
[2017-02-02] MEDS ORDERED: ACET-62 PO (13:08)
[2017-02-02] MEDS ORDERED: CHOL200026 PO (13:08)
[2017-02-02] MEDS ORDERED: BUDE0.5A6 AEROSOL (13:08)
[2017-02-02] MEDS ORDERED: CLOT10TR PO (13:08)
== END 2017-02-01 12:43 | disposition home or self-care (01) ==
LOC: ED 08:53
DX: R41.0 Disorientation, unspecified (principal); N39.0 Urinary tract infection, site not specified; R79.89 Other specified abnormal findings of blood chemistry; T50.901A Poisoning by unspecified drugs, medicaments and biological substances, accidental (unintentional), initial encounter; Y92.009 Unspecified place in unspecified non-institutional (private) residence as the place of occurrence of the external cause
CPT/HCPCS: 70450; 80053; 80306; 80307; 81001; 82140; 84443; 84484; 85025; 85379; 96360; 96361; 99284; J7030

== ENCOUNTER 2017-02-02 00:18 | Inpatient (IN) | payer MEDICARE, OTHER ==
[~2017-02-02] VITALS: Ht 167.6 cm; Wt 50.5 kg
[2017-02-02] VITALS (28 sets, daily range): BP systolic 89–147; BP diastolic 54–80; PULSE 65–192; RESP 20–73; TEMP 97.6–99.2; O2SAT 87–100; Ht 167.6 cm; Wt 50.5 kg
[~2017-02-02 00:18] MED LIST changes: +AMBR10TA3 PO; -AMBR5TAB3 PO; +CETI-269 PO; +FAMO10TA41 PO; +FURO40TA5 PO; -LORA-326 PO; -NIFE30TA PO; -OMEP20CA81 PO; +OMEP40CA52 PO; +POTA10CA37 PO; +RAMI5CAP22 PO; +SIMV40TA5 PO; +SULF1TAB42 PO; -[UNRECOGNIZED DRUG - CODE] RC
--- OUTSIDE RECORDS SUMMARY | 2017-02-02 00:25 | XMS REPORT ---
Author Author GENERATED, SYSTEM Organization Unknown Address Unknown Phone Unavailable Care Team Providers Care Designer And Patternmaker Name Role Phone MD SYLVIA, JONATHAN BRAVO [...] MG/DL (65-99 MG/DL) *GFR EST NON AFR SUDANESE 52 ML/MIN *GFR EST AFR AMER 60 [...] MG/DL (65-99 MG/DL) *GFR EST NON AFR SUDANESE 44 ML/MIN *GFR EST AFR AMER 51 [...] MG/DL (65-99 MG/DL) *GFR EST NON AFR SUDANESE 26 ML/MIN *GFR EST AFR AMER 31 [...] MG/DL (65-99 MG/DL) *GFR EST NON AFR SUDANESE 17 ML/MIN *GFR EST AFR AMER 20 [...] PM* CULTURE BLOOD (Preliminary Result) Specimen Number: [id number] Sample Collection Date/Time: 11/29/2016 2:15 PM Specimen Source: Blood Peripheral CULTURE BLOOD: No growth after 24 hours of incubation, testing to continue for an additional 96 hours. No Growth after 48 hours of initial incubation, testing to continue for additional 72 hours. Microbiology from 11/29/2016 2:09 PM* CULTURE BLOOD (Preliminary Result) Specimen Number: [id number] Sample Collection Date/Time: 11/29/2016 2:09 PM Specimen [...] Detected ) [facility] History: Dyspnea - 786.05 [...] 12:45 PM * Address # 1 : [facility]: [facility] [place]- [phone] or Treatment Plan from 12/02/2016 1:35 PM:* [...] the responsibility of the patient or patient ambulatory service representative to confirm the list of medications [...] 50 mg Tablet, Ordered By: JON CLARK, ESCALATOR SERVICE MECHANIC Directions: 1 tablet oral twice a day * multivitamin with iron-mineral 0.8 mg Combo Pack, Ordered By: JON CLARK APRN Directions: 1 each oral daily * omeprazole 40 mg capsule,delayed release(DR/EC), Ordered By: JON CLARK , ESCALATOR SERVICE MECHANIC Directions: 1 capsule oral daily * famotidine (Pepcid AC) 10 mg Tablet, Ordered By: JON CLARK, ESCALATOR SERVICE MECHANIC Directions: 2 tablet oral daily * metoclopramide HCl (Reglan) 10 mg Tablet, Ordered By: JON CLARK APRN Directions: 1 tablet oral daily before sleeping * mirtazapine (Remeron) 30 mg Tablet, Ordered By: JON CLARK, ESCALATOR SERVICE MECHANIC Directions: 1 tablet oral daily at bedtime [...]
--- OUTSIDE RECORDS SUMMARY | 2017-02-02 00:25 | XMS REPORT | Continuity of Care Document ---
Author Author [facility] Address Unknown Phone Unavailable Allergies Medications Problems [...] - 11/29/16 14:09 *GFR EST NON AFR ALBANIAN 17 mL/min NRG *GRFA EST AFR AMER [...] - 11/30/16 07:23 *GFR EST NON AFR ALBANIAN 26 mL/min NRG *GRFA EST AFR AMER [...] - 12/01/16 06:34 *GFR EST NON AFR ALBANIAN 44 mL/min NRG *GRFA EST AFR AMER [...] - 12/02/16 07:03 *GFR EST NON AFR ALBANIAN 52 mL/min NRG *GRFA EST AFR AMER 60 mL/min NRG PLATELET SLIDE REVIEW - 12/02/16 07:03 *PLATELET SLIDE REVIEW DECREASED ADEQUATE Encounters ACCT No. Visit Date/Time Discharge Status Pt. Type Provider Facility Loc./Unit Complaint [id number] 11/29/2016 12:43:00 2016 15:14:12 DIS Inpatient PABLO PAREDES HTN, INFLUENZA A, C-DIFF
--- OUTSIDE RECORDS SUMMARY | 2017-02-02 00:26 | XMS REPORT | Continuity of Care Document ---
Author Author [facility] Organization [facility] Address Unknown Phone Unavailable Support Name Relationship Address Phone JONATHAN EDWARDS MD Caregiver [address] [place] [address] Unavailable KAYLENE COLON MD Caregiver [address] [place] [address] Unavailable BOSSMAN SORTO Next Of Kin [address] [place] [address] Insurance Providers Guarantor Maggi Sorto Address [address] [place] [address] Email DENIED 02-10-17 Payer Medicare Policy Number [id number] Subscriber's Name Maggi Sorto Relationship 18 Self Effective Date 13 Payer [employer] Medicare Supplement Policy Number [id number] Subscriber's Name Maggi Sorto Relationship 18 Self Group Number [id number] Advance Directives Directive Response Recorded Date/Time Advanced Directives Type Living Will 02/01/17 8:58am Chief Complaint and Reason for Visit Chief Complaint Dizzy Reason for Visit [id number] Confusion [id number] Problems Past Problems Medical Problem Onset Date Accidental medication overdose Unknown Confusion Unknown UTI (urinary tract infection) Unknown Viral illness Unknown Medications Current Home Medications Medication Dose Units Route Directions Days Qty Instructions Start Date Ambrisentan (Letairis) 10 Mg Tablet 20 Mg Oral Daily 02/01/17 Aspirin 81 Mg Tablet 81 Mg Oral Daily 08/23/13 Cetirizine Hcl 10 Mg Tablet 10 Mg Oral Daily 02/01/17 Famotidine (Pepcid Ac) 10 Mg Tablet 10 Mg Oral Before Breakfast 02/01/17 Furosemide 40 Mg Tablet 40 Mg Oral Daily 02/01/17 Levothyroxine Sodium (Synthroid) 100 Mcg Tablet 100 Mcg Oral Before Breakfast 08/23/13 Metoclopramide Hcl (Reglan) 10 Mg Tablet 10 Mg Oral Bedtime 05/18 Metoprolol Tartrate (Lopressor) 50 Mg Tablet 25 Mg Oral Twice A Day 05/18/10 Mirtazapine (Remeron) 30 Mg Tablet 30 Mg Oral Bedtime 05/18/10 Multivitamins (Multi-Day Vitamin) 1 Tab Tablet 1 Tab Oral Daily 05/18/10 Omeprazole 40 Mg Capsule.dr 40 Mg Oral Before Breakfast 02/01/17 Potassium Chloride 10 Meq Capsule.er 20 Meq Oral Daily 02/01/17 Ramipril 5 Mg Capsule 5 Mg Oral Daily 02/01/17 Sertraline Hcl (Zoloft) 100 Mg Tablet 100 Mg Oral Daily 05/18/10 Simvastatin 40 Mg Tablet 40 Mg Oral Bedtime 02/01/17 Sulfamethoxazole/Trimethoprim (Bactrim Ds Tablet) 1 Each Tablet 1 Tab Oral Twice A Day 20 Tablet Take 1 tablet, by mouth, 2 times a day. 02/01/17 Past Home Medications Medication Directions Ordered Status [...] Applicable Not Applicable Hx Substance Use No 02/01/2017 9:22am Not Applicable Not Applicable Hx Alcohol Use No 02/01/2017 9:22am Not Applicable Not Applicable Has the pt used tobacco in the last 12 months No 08/23/2013 3:04pm Not Applicable Not Applicable Query Response Start Date Stop Date Smoking Status Never smoker Hospital Discharge Instructions No hospital discharge instructions. Plan of Care Discharge Date 02/01/17 12:43pm Disposition 01 DISCHARGED HOME, SELF-CARE Condition at Discharge Stable Instructions/Education Provided Adult Overdose (ED) Prescriptions See Medication Section Referrals JONATHAN EDWARDS MD Address: [address] [facility] [address] [place] [phone] Additional Instructions/Education Bactrim DS, one tablet twice daily for 10 days. To avoid confusion with pills, please try organizing medication in punch pack. Functional Status No functional status results. Allergies, Adverse Reactions, Alerts Allergen Type Severity Reaction Status Last Updated No Known Drug Allergies Allergy Mild Active 02/01/17 Immunizations Query Response on File Recorded Date/Time Hx Influenza Vaccination Y fall 201208/23/13 3:04pm Hx Pneumococcal Vaccination Y WITHIN THE PAST 5 YEARS 08/23/13 3:04pm Hx Influenza Vaccination Y fall 201208/23/13 3:04pm Influenza Vaccine Hx fall 201502/01/17 9:22am Vital Signs Acute Vital Signs Vital Response Date/Time Temperature (Fahrenheit) 98.3 deg F (96.8 - 99.1) 02/01/2017 12:43pm Temperature (Calculated Celsius) 36.27840 degrees C (36.0 - 37.3) 02/01/2017 12:43pm Pulse Rate (adult) 78 bpm (60 - 100) 02/01/2017 12:43pm Respiratory Rate 16 breaths/min (10 - 20) 02/01/2017 12:43pm O2 Sat by Pulse Oximetry 98 % (90 - 100) 02/01/2017 12:43pm Blood Pressure 135/95 mm Hg 02/01/2017 12:43pm Height (Feet) 5 feet 02/01/2017 8:58am Height (Inches) 6.00 inches 02/01/2017 8:58am Weight (Kilograms) 51.200 kg 02/01/2017 8:58am Body Mass Index (BMI) 18.0 02/01/2017 8:58am Results Laboratory Results Test Name Result Units Flags Reference Collection Date/Time Result Date/ Time Comments White Blood Count 6.9 T/MM3 4.5-11.0 02/01/2017 10:13am 02/01/2017 10: 21am Red Blood Count 4.23 M/MM3 4.00-5.20 02/01/2017 10:13am 02/01/2017 10: 21am Hemoglobin 11.2 GM/DL L 12-16 02/01/2017 10:13am 02/01/2017 10:21am Hematocrit 34.5 % L 36-46 02/01/2017 10:02/01/2017 10:21am Mean Corpuscular Volume 81.6 UM3 80-100 02/01/2017 10:02/01/2017 10:21am Mean Corpuscular Hemoglobin 26.5 UUG 26-34 02/01/2017 10:2016 10:21am Mean Corpuscular Hemoglobin Concent 32.5 GM/DL 31-37 02/01/2017 10:02/01/2017 10:21am RDW Standard Deviation 47.4 FL 36.9-50.2 02/01/2017 10:02/01/2017 10:21am Platelet Count 174 T/MM3 130-400 02/01/2017 10:02/01/2017 10:21am Mean Platelet Volume 9.3 UM3 L 9.4-12.4 02/01/2017 10:02/01/2017 10 :21am Neutrophils (%) (Auto) 75.3 % H 33-66 02/01/2017 10:02/01/2017 10: 21am Lymphocytes (%) (Auto) 13.4 % L 23-45 02/01/2017 10:02/01/2017 10: 21am Monocytes (%) (Auto) 10.3 % H 0-9.0 02/01/2017 10:02/01/2017 10: 21am Eosinophils (%) (Auto) 0.3 % 0-4 02/01/2017 10:02/01/2017 10:21am Basophils (%) (Auto) 0.4 % 0-2 02/01/2017 10:02/01/2017 10:21am Immature Granulocyte % (Auto) 0.3 % 0.0-0.5 02/01/2017 10:2016 10:21am Absolute Neutrophils (auto) 5.2 T/MM3 1.8-7.7 02/01/2017 10:2016 10:21am Absolute Lymphocytes (auto) 0.9 T/MM3 L 1-4.8 02/01/2017 10:2016 10:21am Absolute Monocytes (auto) 0.7 T/MM3 0-0.8 02/01/2017 10:2016 10:21am Absolute Eosinophils (auto) 0.0 T/MM3 0-0.5 02/01/2017 10:2016 10:21am Absolute Basophils (auto) 0.0 T/MM3 0-0.2 02/01/2017 10:2016 10:21am Absolute Immature Granulocyte (auto 0.02 T/MM3 0.00-0.03 02/01/2017 10: 02/01/2017 10:21am D-Dimer 760 NG/ML H 0-230 02/01/2017 10:02/01/2017 10:28am <230 NG /ML D-DU=PRESUMPTIVE NEGATIVE FOR PE OR DVT >230 NG/ML D-DU=ADDITIONAL EVAL FOR PE OR DVT RECOMMENDED Icterus Index < 2 0-7 02/01/2017 10:02/01/2017 11:03am --- 1102 --- ICTERUS previously reported as: < 2 Chemistry Specimen Hemolysis < 15 0-25 02/01/2017 10:02/01/2017 11:03am --- 02/01/17 1102 --- HEMOLYSIS previously reported as: < 15 0-25: Specimen Exhibited No Hemolysis. Turbidity < 20 0-20 02/01/2017 10:02/01/2017 11:03am --- 02/01 1102 --- TURBIDITY previously reported as: < 20 Sodium Level 136 MEQ/L 134-144 02/01/2017 10:02/01/2017 10:30am Potassium Level 4.5 MEQ/L 3.6-5 02/01/2017 10:02/01/2017 10:30am Chloride Level 103 MEQ/L 98-107 02/01/2017 10:02/01/2017 10:30am Carbon Dioxide Level 19 MEQ/L L 22-30 02/01/2017 10:02/01/2017 10: 30am Anion Gap 14 MEQ/L 5-15 02/01/2017 10:02/01/2017 10:30am Blood Urea Nitrogen 24.0 MG/DL H 7-17 02/01/2017 10:02/01/2017 10: 30am Creatinine 1.1 MG/DL 0.7-1.2 02/01/2017 10:02/01/2017 10:30am BUN/Creatinine Ratio 22 RATIO 6-26 02/01/2017 10:02/01/2017 10: 30am Glomerular Filtration Rate Calc 48 02/01/2017 10:02/01/2017 10 :30am Glucose Level 90 MG/DL 65-110 02/01/2017 10:02/01/2017 10:30am Calculated Osmolality 266 MOSM/KG 261-280 02/01/2017 10:2016 10:30am Calcium Level 9.0 MG/DL 8.4-10.2 02/01/2017 10:02/01/2017 10:30am Total Bilirubin 0.50 MG/DL 0.20-1.30 02/01/2017 10:02/01/2017 10: 30am Alkaline Phosphatase 80 U/L 38-126 02/01/2017 10:02/01/2017 10: 30am Total Protein 5.7 G/DL L 6.3-8.2 02/01/2017 10:02/01/2017 10:30am Albumin 3.1 G/DL L 3.5-5.0 02/01/2017 10:02/01/2017 10:30am Globulin 2.6 G/DL 2.4-3.6 02/01/2017 10:02/01/2017 10:30am Albumin/Globulin Ratio 1.2 RATIO 1.1-2.2 02/01/2017 10:02/01/2017 10:30am Aspartate Amino Transf (AST/SGOT) 20 U/L 14-36 02/01/2017 10:02/01 10:30am Alanine Aminotransferase (ALT/SGPT) 27 U/L 9-52 02/01/2017 10: 10:30am Troponin I < 0.012 ng/ml 0-0.12 02/01/2017 10:02/01/2017 10:43am Troponin values with a difference of 55% increase from orginal troponin value represent a true biological DELTA value. (%increase Calc=Orginal Troponin value, divided by subsequent Troponin value, multiplied by 100) Ammonia < 9 UMOL/L L 9-33 02/01/2017 10:13am 02/01/2017 11:06am Acetaminophen Level < 10 UG/ML L 1002/01/2017 10:1302/01/2017 11: 08am TOXIC <4 HR POST INGESTION: >150 MG/L; TOXIC <12 HR POST INGESTION: >50 MG/L Salicylates Level < 1.0 MG/DL L 2-20 02/01/2017 10:13am 02/01/2017 11: 08am Alcohol, Quantitative <10 MG/DL <10 02/01/2017 10:13am 02/01/2017 11: 08am Thyroid Stimulating Hormone (TSH) 4.41 MIU/L 0.47-4.68 02/01/2017 10: 1302/01/2017 11:01am Urine Collection Type VOIDED-NOT CC-MIDSTR 02/01/2017 12:05pm 02/01 12:24pm Urine Color YELLOW YELLOW 02/01/2017 12:05pm 02/01/2017 12:24pm Urine Turbidity CLEAR CLEAR 02/01/2017 12:05pm 02/01/2017 12:24pm Urine Specific [place] 1.010 L 1.015-1.025 02/01/2017 12:05pm 2016 12:24pm Urine pH 8.0 5.0-8.0 02/01/2017 12:05pm 02/01/2017 12:24pm Urine Leukocyte Esterase 1+ A NEGATIVE 02/01/2017 12:05pm 02/01/2017 12:24pm Urine Nitrite NEGATIVE NEGATIVE 02/01/2017 12:05pm 02/01/2017 12: 24pm Urine Protein NEGATIVE NEGATIVE 02/01/2017 12:05pm 02/01/2017 12: 24pm Urine Glucose (UA) NEGATIVE NEGATIVE 02/01/2017 12:05pm 02/01/2017 12 :24pm Urine Ketones NEGATIVE NEGATIVE 02/01/2017 12:05pm 02/01/2017 12: 24pm Urine Urobilinogen 0.2 EU/DL NORMAL 02/01/2017 12:05pm 02/01/2017 12: 24pm Urine Bilirubin NEGATIVE NEGATIVE 02/01/2017 12:05pm 02/01/2017 12: 24pm Urine Blood TRACE-INTACT A NEGATIVE 02/01/2017 12:05pm 02/01/2017 12: 24pm Urine WBC 0-1 /HPF 0-5 02/01/2017 12:05pm 02/01/2017 12:51pm Urine RBC NONE SEEN /HPF 0-3 02/01/2017 12:05pm 02/01/2017 12:51pm Urine Bacteria TRACE H NEGATIVE 02/01/2017 12:05pm 02/01/2017 12:51pm Urine Culture Indicated CULT NOT INDICATED 02/01/2017 12:05pm 02/01 12:51pm Name: MAGGI SORTO Unit #: [id number] : 1940 Sex: F Admit Date: Loc / Svc: ED Discharge Date: DIAGNOSTIC IMAGING REPORT Report #: [id number] [facility] [place] Indication: ITS.REASON: ms changes PROCEDURE: CT HEAD W/O CONTRAST: Encounter: Initial Comparison: None Technique: Axial CT images through the head were performed without contrast. Iterative Reconstruction dose reducing technique was utilized. FINDINGS: The ventricles are of normal size, shape, and contour for the patient's age. There are scattered areas of low attenuation in the white matter which most likely represent changes from chronic microvascular ischemia. The brainstem, cerebellum, and cerebral hemispheres otherwise have a normal morphology and CT attenuation. There is no evidence of midline displacement. No hemorrhage, signs of acute territorial stroke, mass effect, mass lesions, or edema is evident. The visualized portions of the skull base, midface, and calvarium demonstrate no abnormality. Mucosal thickening in the anterior ethmoid air cells. The tympanic and mastoid cavities appear normal. IMPRESSION: No acute intracranial abnormality or hemorrhage. . Procedures Procedure Status Date Provider(s) Extremity study Completed 11/18/16 Encounters Encounter Location Arrival/Admit Date Discharge/Depart Date Attending Provider Departed Emergency Room [facility] 02/01/17 8:53am 02/01/17 12: 43pm KAYLENE COLON MD Registered Clinic [facility] 11/18/16 10:59am SHAY JODRAN MD Recent Diagnosis
--- NOTE | 2017-02-02 00:40 | NUR ---
ADDITIONAL INFO REPORTS PT WEARS HOME O2 AT NIGHT AT 2L. STATES PT WILL ALSO WEAR O2 DURING THE DAY "WHILE RESTING." SPO2 ON 2L/NC IS 93% AT THIS TIME.
[2017-02-02 00:41] LABS: BASOPHILS % (AUTO) 0.5 % (0-2); EOSINOPHILS # (AUTO) 0.1 T/MM3 (0-0.5); EOSINOPHILS % (AUTO) 0.6 % (0-4); HCT - HEMATOCRIT 35.2 % (36-46); HGB - HEMOGLOBIN 11.3 GM/DL (12-16); IMMATURE GRANULOCYTE # (AUTO) 0.03 T/MM3 (0.00-0.03); IMMATURE GRANULOCYTE % (AUTO) 0.4 % (0.0-0.5); LYMPHOCYTES # (AUTO) 1.1 T/MM3 (1-4.8); LYMPHOCYTES % (AUTO) 13.7 % (23-45); MEAN CORPUSCULAR HGB 25.9 UUG (26-34); MEAN CORPUSCULAR HGB CONC(MCHC 32.1 GM/DL (31-37); MEAN CORPUSCULAR VOLUME 80.7 UM3 (80-100); MEAN PLATELET VOLUME 10.2 UM3 (9.4-12.4); MONOCYTES # (AUTO) 0.7 T/MM3 (0-0.8); MONOCYTES % (AUTO) 8.7 % (0-9.0); NEUTROPHILS #(AUTO)-ABSOLUTE 6.1 T/MM3 (1.8-7.7); NEUTROPHILS % (AUTO) 76.1 % (33-66); RED BLOOD COUNT 4.36 M/MM3 (4.00-5.20)
[2017-02-02] MEDS ORDERED: NORMAL SALINE 1,000 ML IV ONE (00:45)
[2017-02-02] MEDS ORDERED: ONDANSETRON 4mg/2ml INJECTION IV ONE (00:45)
[2017-02-02 00:47] LABS: ALBUMIN 3.1 G/DL (3.5-5.0); ALBUMIN/GLOBULIN RATIO 1.1 RATIO (1.1-2.2); ALKALINE PHOSPHATASE 79 U/L (38-126); ALT (SGPT) 24 U/L (9-52); ANION GAP 14 MEQ/L (5-15); AST (SGOT) 20 U/L (14-36); BUN/CREATININE RATIO 16 RATIO (6-26); CALCIUM 8.5 MG/DL (8.4-10.2); CHLORIDE 104 MEQ/L (98-107); CO2 - CARBON DIOXIDE 19 MEQ/L (22-30); CREATININE 1.1 MG/DL (0.7-1.2); GLOMERULAR FILTRATION RATE 48; GLUCOSE 118 MG/DL (65-110); POTASSIUM 4.1 MEQ/L (3.6-5); SODIUM 137 MEQ/L (134-144); TOTAL PROTEIN 5.8 G/DL (6.3-8.2)
--- NOTE | 2017-02-02 00:49 | ERPDOC ---
Departure Disposition Decision Date: Feb 02, 2017 Disposition Decision Time: :22 Disposition: 02 TO [facility] Impression Impression Impression: Primary Impression: New onset seizure Additional Impression: Confusion Severity: Severe Condition: Improved Seen By: Physician only Referrals: JONATHAN WARD MD (Family) Problems/Meds/Labs Reviewed?: Yes Medications reviewed and manag: Yes Follow up care ordered?: Yes Mental Status: Alert, Confused HPI - CVA/Neuro General Chief Complaint: Altered Mental Status Stated Complaint: DEC LOC Time Seen by Provider: 00:27 Source: family, EMS Exam Limitations: clinical condition HPI - CVA/NEURO Initial Comments was awakened approximately one hour ago when the patient was shaking in a full body convulsion. Patient was completely obtunded, and unable to be awakened from this state. Within 15 minutes EMS personnel were at the house, the patient was severely confused, but waxed and waned with verbal responsiveness. Vital signs were stable, blood sugar was normal. Patient was seen 12 hours ago in the ER for complaints of significant worsening confusion, thought to be inappropriate medication dosing at home. Patient was mixing and matching medications without understanding, and had been giving herself her own medications, and admitted she was confused about what to take and went to take it. Patient was also suspected of a possible urinary tract infection, however the urinalysis was poorly predictive of this. Patient was started on Bactrim DS instructed to take it twice daily, but began vomiting later in the evening. Patient was given 12.5 mg Phenergan in route, with little relief of her nausea. Currently the patient does not know why she is here tonight, she believes that she is still at the same ER visit from previous, for medication overdose/missed dose. ER workup 12 hours ago included CBC normal, CMP normal, CT head normal, and d- dimer that was moderately elevated. Patient refused CT of the chest earlier. Occurred At: home Onset/Timing: Rapid Duration: 1 hr Severity: moderate Associated Symptoms: confusion Hx of Similar Symptoms: Yes Allergies: Coded Allergies: No Known Drug Allergies (Verified Allergy, Mild, 02/02/17) Past History Past Medical History Metabolic: hypercholesterolemia, hypertension, hypothyroidism Cardiac: other Respiratory: pulmonary embolus GI: GERD Female: renal insufficiency Integumentary: other Hematologic: DVT Psychological: depression Surgical History General: EGD, colonoscopy, gallbladder Reproductive/: tubal ligation Vaccines Hx Influenza Vaccination: Yes (FALL 2012) Hx Pneumococcal Vaccination: Yes (WITHIN THE PAST 5 YEARS) Social History Substance Use Type: does not use Alcohol Intake: none Review of Systems Constitutional Constitutional: DENIES: appetite decrease, appetite increase, chills, dizziness , fever, weakness ENMT Ears: DENIES: pain Hearing: DENIES: hearing loss, tinnitus Balance: DENIES: vertigo Mouth/Throat: DENIES: change in swallowing, change in voice, hoarsness, painful swallowing, sore throat Cardiovascular Cardiac: DENIES: chest pain, dyspnea on exertion Rhythm/Rate: DENIES: irregular beat, palpitations, tachycardia Vascular: DENIES: pedal edema Pulmonary Respiratory: DENIES: cough, dyspnea, pleuritic chest pain GI Upper Abdomen: DENIES: dysphagia, heartburn/indigestion, nausea, pain, vomiting Lower Abdomen: DENIES: blood in stool, constipation, diarrhea, pain General: DENIES: burning, dysuria, frequency, pain, urgency Musculoskeletal General: DENIES: cramps, joint pain, joint swelling, pain, weakness Integumentary Skin: DENIES: rash, sores Neurological General: seizures, DENIES: headache, numbness, tingling, vertigo, weakness Psychiatric Psychiatric: DENIES: anxiety, depression, nervousness Physical Exam General General Nourishment: well nourished, well developed, appears stated age, no acute distress General Body Habitus: disheveled Vitals and Pain First Documented Vital Signs Date Time Temp Pulse Resp B/P Pulse Ox O2 Delivery O2 Flow Rate FiO2 02/02/17 00:20 98.5 108 18 140/83 90 Room Air 02/02/17 00:30 2.00 Weight: Kilograms: Height (feet): 5 Height (inches): 6.00 Triage Pain Scale: RN VS reviewed by Provider: Yes Normal Exams: Head: Normocephalic w/o trauma Eyes: Pupils are PERRLA w/ EOMI, No scleral icterus, irritation, or foreign bodies noted ENMT: No facial trauma, nasal exudates, pharyngeal erythema, or exudates are noted ENMT (brief) Comments Patient has bite mccoy on both sides of the tongue at the incisors Neck (brief) Neck: FOUND: trachea midline, NOT FOUND: JVD, adenopathy, nuchal rigidity, spasm, tenderness, thyromegaly, tracheal deviation Respiratory (brief) Respiratory: FOUND: clear all lemus, equal bilaterally, symmetrical, NOT FOUND : rales, tenderness, wheezes Cardiovascular (brief) Cardiac: FOUND: regular rate, regular rhythm, NOT FOUND: pedal edema Capillary Refill: <2 sec Pulses: all distal extremities, equal, strong Abdomen (brief) Abdominal Brief: FOUND: bowel normo active x4, soft, NOT FOUND: distended, hepatosplenomegaly, tender Lymphatic (brief) Lymphatic Brief: NOT FOUND: adenopathy, lymphedema Musculoskeletal (brief) Musculoskeletal Brief: NOT FOUND: deformity, loss of motion, spasm, tenderness Integumentary (brief) Integumentary Brief: FOUND: dry, pink, warm Neurologic (brief) Neurological Brief: FOUND: CN w/o gross def to obs, motor-no gross deficits, sensory-no gross deficits Psychiatric (brief) Psychiatric Brief: NOT FOUND: alert, attentive, normal affect, oriented Progress Results/Orders Orders Procedure Category Date Status Time Iv Lock (Ed Only) EDM 02/02/17 Transmitted 00:31 Cbc W/Auto LAB 02/02/17 Complete Diff-Reflex Manual Cmp - Comprehensive LAB 02/02/17 Complete Metabolic Normal Saline (Normal PHA 02/02/17 Complete Saline Iv) 00:45 Prolactin LAB 02/02/17 Complete 00:31 Ondansetron Inj PHA 02/02/17 Complete (Zofran) 00:[address] 02/02/17 Logged Iohexol (Omnipaque) PHA 02/02/17 Complete 01:06 Normal Saline (Ns) PHA 02/02/17 Complete 01:06 Saline Flush (Iv PHA 02/02/17 Complete Flush) 01:06 Lab Results Laboratory Tests Test 02/02/17 00:26 White Blood Count 8.0T/MM3 Red Blood Count 4.36M/MM3 Hemoglobin 11.3GM/DL Hematocrit 35.2% Mean Corpuscular Volume 80.7UM3 Mean Corpuscular Hemoglobin 25.9UUG Mean Corpuscular Hemoglobin Concent 32.1GM/DL RDW Standard Deviation 46.3FL Platelet Count 203T/MM3 Mean Platelet Volume 10.2UM3 Immature Granulocyte % (Auto) 0.4% Neutrophils (%) (Auto) 76.1% Lymphocytes (%) (Auto) 13.7% Monocytes (%) (Auto) 8.7% Eosinophils (%) (Auto) 0.6% Basophils (%) (Auto) 0.5% Absolute Immature Granulocyte (auto 0.03T/MM3 Absolute Neutrophils (auto) 6.1T/MM3 Absolute Lymphocytes (auto) 1.1T/MM3 Absolute Monocytes (auto) 0.7T/MM3 Absolute Eosinophils (auto) 0.1T/MM3 Absolute Basophils (auto) 0.0T/MM3 Turbidity < 20 Sodium Level 137MEQ/L Potassium Level 4.1MEQ/L Chloride Level 104MEQ/L Carbon Dioxide Level 19MEQ/L Anion Gap 14MEQ/L Blood Urea Nitrogen 17.0MG/DL Creatinine 1.1MG/DL Glomerular Filtration Rate Calc 48 BUN/Creatinine Ratio 16RATIO Glucose Level 118MG/DL Calculated Osmolality 267MOSM/KG Calcium Level 8.5MG/DL Total Bilirubin 0.50MG/DL Icterus Index < 2 Aspartate Amino Transf (AST/SGOT) 20U/L Alanine Aminotransferase (ALT/SGPT) 24U/L Alkaline Phosphatase 79U/L Total Protein 5.8G/DL Albumin 3.1G/DL Globulin 2.7G/DL Albumin/Globulin Ratio 1.1RATIO Prolactin 70.9NG/ML Chemistry Specimen Hemolysis < 15 Medications Current ED Medications Sodium Chloride (Normal Saline IV) 1,000 ml @ 0 mls/hr Q0M ONCE IV Last administered on 02/02/17 00:51; Start 02/02/17 at 00:45; Stop 02/02/17 at 00:46 ; Status DC Ondansetron HCl (Zofran) 4 mg O ONCE IV Last administered on 02/02/17 00:51; Start 02/02/17 at 00:45; Stop 02/02/17 at 00:46; Status DC Iohexol 1 bottle 1 bottle STK-MED ONCE .ROUTE ; Start 02/02/17 at 01:06; Stop at 01:07; Status DC Sodium Chloride (NS) 100 ml @ As Directed STK-MED ONCE .ROUTE ; Start 02/02/17 at 01:06; Stop 02/02/17 at 01:07; Status DC Sodium Chloride (Iv Flush) 10 ml STK-MED ONCE .ROUTE ; Start 02/02/17 at 01:06; Stop 02/02/17 at 01:07; Status DC Progress Progress CBC, CMP recheck all normal CT chest/PE negative for any acute findings, patient does have chronic findings consistent with her pulmonary hypertension Patient discussed with Dr. Cisneros, we will admit for observation to telemetry for acute confusion with new onset seizure. PABLO CANCHOLA MD Feb 02, 2017 00:49
--- NOTE | 2017-02-02 00:54 | NUR ---
CT NOTIFIED OF NEW ORDERS.
[2017-02-02 01:03] LABS: PROLACTIN 70.9 NG/ML
[2017-02-02] MEDS ORDERED: IOHEXOL 350 MG/ML 75ml INJECTION ONE (01:06)
[2017-02-02] MEDS ORDERED: SALINE FLUSH 10ml SYRINGE ONE (01:06)
[2017-02-02] MEDS ORDERED: NORMAL SALINE 100 ML ONE (01:06)
--- NOTE | 2017-02-02 01:15 | NUR ---
IVF NS BAG #1 STARTED BY EMS IS COMPLETE AT THIS TIME. NO ADDITIONAL FLUIDS ORDERED AT THIS TIME.
--- OUTSIDE RECORDS SUMMARY | 2017-02-02 01:16 | XMS REPORT ---
Author Author GENERATED, SYSTEM Organization Unknown Address Unknown Phone Unavailable Care Team Providers Care Credit Control Administrator Name Role Phone MD SYLVIA, JONATHAN BRAVO [...] MG/DL (65-99 MG/DL) *GFR EST NON AFR COMORAN 52 ML/MIN *GFR EST AFR AMER 60 [...] MG/DL (65-99 MG/DL) *GFR EST NON AFR COMORAN 44 ML/MIN *GFR EST AFR AMER 51 [...] MG/DL (65-99 MG/DL) *GFR EST NON AFR COMORAN 26 ML/MIN *GFR EST AFR AMER 31 [...] MG/DL (65-99 MG/DL) *GFR EST NON AFR COMORAN 17 ML/MIN *GFR EST AFR AMER 20 [...] PM* CULTURE BLOOD (Preliminary Result) Specimen Number: [id number] Sample Collection Date/Time: 11/29/2016 2:15 PM Specimen Source: Blood Peripheral CULTURE BLOOD: No growth after 24 hours of incubation, testing to continue for an additional 96 hours. No Growth after 48 hours of initial incubation, testing to continue for additional 72 hours. Microbiology from 11/29/2016 2:09 PM* CULTURE BLOOD (Preliminary Result) Specimen Number: [id number] Sample Collection Date/Time: 11/29/2016 2:09 PM Specimen [...] Detected ) [facility]2016 5[facility]09 [facility] History: Dyspnea - 786.05 [...] 12:45 PM * Address # 1 : [facility]: [facility] [place], [place]- [phone] or Treatment Plan from 12/02/2016 1:35 PM:* [...] the responsibility of the patient or patient livestock sales representative to confirm the list of [...] 50 mg Tablet, Ordered By: JON CLARK, GOVERNMENT PROFESSOR Directions: 1 tablet oral twice a day * multivitamin with iron-mineral 0.8 mg Combo Pack, Ordered By: JON CLARK APRN Directions: 1 each oral daily * omeprazole 40 mg capsule,delayed release(DR/EC), Ordered By: JON CLARK , GOVERNMENT PROFESSOR Directions: 1 capsule oral daily * famotidine (Pepcid AC) 10 mg Tablet, Ordered By: JON CLARK, GOVERNMENT PROFESSOR Directions: 2 tablet oral daily * metoclopramide HCl (Reglan) 10 mg Tablet, Ordered By: JON CLARK APRN Directions: 1 tablet oral daily before sleeping * mirtazapine (Remeron) 30 mg Tablet, Ordered By: JON CLARK, GOVERNMENT PROFESSOR Directions: 1 tablet oral daily at bedtime [...]
--- OUTSIDE RECORDS SUMMARY | 2017-02-02 01:16 | XMS REPORT | Continuity of Care Document ---
Author Author [facility] Address Unknown Phone Unavailable Allergies Medications [...] - 11/29/16 14:09 *GFR EST NON AFR TUNISIAN 17 mL/min NRG *GRFA EST AFR AMER [...] - 11/30/16 07:23 *GFR EST NON AFR TUNISIAN 26 mL/min NRG *GRFA EST AFR AMER [...] - 12/01/16 06:34 *GFR EST NON AFR TUNISIAN 44 mL/min NRG *GRFA EST AFR AMER [...] - 12/02/16 07:03 *GFR EST NON AFR TUNISIAN 52 mL/min NRG *GRFA EST AFR AMER 60 mL/min NRG PLATELET SLIDE REVIEW - 12/02/16 07:03 *PLATELET SLIDE REVIEW DECREASED ADEQUATE Encounters ACCT No. Visit Date/Time Discharge Status Pt. Type Provider Facility Loc./Unit Complaint [id number] 11/29/2016 12:43:00 2016 15:14:12 DIS Inpatient PABLO PAREDES HTN, INFLUENZA A, C-DIFF
--- NOTE | 2017-02-02 01:17 | NUR ---
CT SCAN PT TO CT SCAN AT THIS TIME.
--- NOTE | 2017-02-02 01:37 | NUR ---
RETURN PT RETURNS FROM CT SCAN.
--- NOTE | 2017-02-02 02:05 | NUR ---
DR CANCHOLA AT BEDSIDE TALKING WITH PT'S FAMILY.
[2017-02-02] MEDS ORDERED: ONDANSETRON 4mg/2ml INJECTION IV PRN (02:30)
[2017-02-02] MEDS ORDERED: HYDROMORPHONE 2mg/ml INJECTION IV PRN (02:30)
--- NOTE | 2017-02-02 02:30 | NUR ---
DR COMMUNICATION DR CANCHOLA ON PHONE TALKING WITH DR. NETTLES. PLAN FOR ADMISSION.
--- NOTE | 2017-02-02 02:38 | NUR ---
STATUS PT ASSISTED UP TO BSC TO VOID. PT ALSO INCONT OF LARGE AMOUNT OF URINE AND SMALL AMOUNT OF STOOL. PT CLEANED, NEW DEPENDS PLACED AND LINENS CHANGED.
--- NOTE | 2017-02-02 02:56 | NUR ---
REPORT TO SHAUN WALLACE ON MEDICAL.
--- OUTSIDE RECORDS SUMMARY | 2017-02-02 02:58 | XMS REPORT ---
Author Author GENERATED, SYSTEM Organization Unknown Address Unknown Phone Unavailable Care Team Providers Care Director Of Event Management Name Role Phone MD SYLVIA, JONATHAN BRAVO [...] MG/DL (65-99 MG/DL) *GFR EST NON AFR CHADIAN 52 ML/MIN *GFR EST AFR AMER 60 [...] MG/DL (65-99 MG/DL) *GFR EST NON AFR CHADIAN 44 ML/MIN *GFR EST AFR AMER 51 [...] MG/DL (65-99 MG/DL) *GFR EST NON AFR CHADIAN 26 ML/MIN *GFR EST AFR AMER 31 [...] MG/DL (65-99 MG/DL) *GFR EST NON AFR CHADIAN 17 ML/MIN *GFR EST AFR AMER 20 [...] PM* CULTURE BLOOD (Preliminary Result) Specimen Number: [id number] Sample Collection Date/Time: 11/29/2016 2:15 PM Specimen Source: Blood Peripheral CULTURE BLOOD: No growth after 24 hours of incubation, testing to continue for an additional 96 hours. No Growth after 48 hours of initial incubation, testing to continue for additional 72 hours. Microbiology from 11/29/2016 2:09 PM* CULTURE BLOOD (Preliminary Result) Specimen Number: [id number] Sample Collection Date/Time: 11/29/2016 2:09 PM Specimen [...] Detected ) [facility] [facility]: Dyspnea - 786.05 [...] 12:45 PM * Address # 1 : [facility]: [facility] [place]- or Treatment Plan from 12/02/2016 1:35 [...] the responsibility of the patient or patient national account representative to confirm the list of medications [...] 50 mg Tablet, Ordered By: JON CLARK, PROFESSOR OF FOOD BIOCHEMISTRY Directions: 1 tablet oral twice a day * multivitamin with iron-mineral 0.8 mg Combo Pack, Ordered By: JON CLARK APRN Directions: 1 each oral daily * omeprazole 40 mg capsule,delayed release(DR/EC), Ordered By: JON CLARK , PROFESSOR OF FOOD BIOCHEMISTRY Directions: 1 capsule oral daily * famotidine (Pepcid AC) 10 mg Tablet, Ordered By: JON CLARK, PROFESSOR OF FOOD BIOCHEMISTRY Directions: 2 tablet oral daily * metoclopramide HCl (Reglan) 10 mg Tablet, Ordered By: JON CLARK APRN Directions: 1 tablet oral daily before sleeping * mirtazapine (Remeron) 30 mg Tablet, Ordered By: JON CLARK, PROFESSOR OF FOOD BIOCHEMISTRY Directions: 1 tablet oral daily at bedtime [...]
--- OUTSIDE RECORDS SUMMARY | 2017-02-02 02:58 | XMS REPORT | Continuity of Care Document ---
Author Author [facility] Address Unknown Phone Unavailable Allergies [...] - 11/29/16 14:09 *GFR EST NON AFR IRANIAN 17 mL/min NRG *GRFA EST AFR AMER [...] - 11/30/16 07:23 *GFR EST NON AFR IRANIAN 26 mL/min NRG *GRFA EST AFR AMER [...] - 12/01/16 06:34 *GFR EST NON AFR IRANIAN 44 mL/min NRG *GRFA EST AFR AMER [...] - 12/02/16 07:03 *GFR EST NON AFR IRANIAN 52 mL/min NRG *GRFA EST AFR AMER 60 mL/min NRG PLATELET SLIDE REVIEW - 12/02/16 07:03 *PLATELET SLIDE REVIEW DECREASED ADEQUATE Encounters ACCT No. Visit Date/Time Discharge Status Pt. Type Provider Facility Loc./Unit Complaint [id number] 11/29/2016 12:43:00 2016 15:14:12 DIS Inpatient PABLO PAREDES HTN, INFLUENZA A, C-DIFF
--- NOTE | 2017-02-02 03:10 | NUR ---
ADMIT PT ADMITTED TO ROOM 139 AT 0310. PT ARRIVED VIA CART AND WAS ABLE TO WALK INTO THE BATHROOM. IV IN THE LEFT AC. ARRIVED ON 2L O2. PT UNABLE TO BE ORIENTED TO ROOM, AT BEDSIDE.
--- NOTE | 2017-02-02 03:10 | NUR ---
ADMIT PT TAKEN TO RM 139 VIA CART BY RN. CARE SIGNED OFF AT THIS TIME.
[2017-02-02] MEDS: NORMAL SALINE 1,000 ML IV SCH ×2 (03:49→10:45)
--- NOTE | 2017-02-02 03:52 | HPPDOC ---
FRANK NETTLES MD 02/02/17 0343: HPI - Adult Date DATE: 02/02/17 TIME: 03:40 General Chief Complaint: altered History of Present Illness This is a 68-year-old female that was in her usual state of health until approximately 3-4 days ago. That has been noted increasing confusion. There has been noted that patient was putting up her pills and trying to re-fill her pill containers. The patient apparently had increasing confusion. The patient presented to the ER approximately 18 years ago. At that time workup demonstrated a possible UTI. The patient was started on Bactrim. After taking her first Bactrim tablet, the patient had nausea and vomiting. Increasing confusion. Patient went to bed tonight and will come up about 11:00 with a possible seizure activity per husbands report this is never happened before. There is no described incontinence of bowel or bladder. The patient is brought into the emergency department were a neuro workup was unrevealing. Specifically the patient had a CT head that was negative as noted in her previous visit 18 hours ago. There is a question about tachypnea. The patient does have a history of idiopathic pulmonary hypertension. The patient had a CT pulmonary illness protocol which was unremarkable for clot or infiltrate. At this time the patient will be admitted for further assessment of seizure activity. Assessment altered mental status. An further neurological considerations. ER indicated that there is a neurological consultation available this morning. Past Medical History Past Medical History HTN, dyslipidemia, hypothyroid, pulmonary hypertension, DVT Surgical History Patient's Surgical History: cholecystectomy, bilateral cataract extraction, partial colectomy Current Medications Home Meds Active Scripts Sulfamethoxazole/Trimethoprim (Bactrim Ds Tablet) 1 Each Tablet, 1 TAB PO BID, # 20 TAB Take 1 tablet, by mouth, 2 times a day. Prov:KAYLENE COLON MD 02/01/17 Reported Medications Famotidine (Pepcid AC) 10 Mg Tablet, 10 MG PO ACB 02/01/17 Ambrisentan (Letairis) 10 Mg Tablet, 20 MG PO DAILY 02/01/17 Simvastatin (Simvastatin) 40 Mg Tablet, 40 MG PO HS 02/01/17 Ramipril (Ramipril) 5 Mg Capsule, 5 MG PO DAILY 02/01/17 Furosemide (Furosemide) 40 Mg Tablet, 40 MG PO DAILY 02/01/17 Potassium Chloride (Potassium Chloride) 10 Meq Capsule.er, 20 MEQ PO DAILY 02/01/17 Omeprazole (Omeprazole) 40 Mg Capsule.dr, 40 MG PO ACB 02/01/17 Cetirizine HCl (Cetirizine HCl) 10 Mg Tablet, 10 MG PO DAILY 02/01/17 Levothyroxine Sodium (Synthroid) 100 Mcg Tablet, 100 MCG PO ACB 08/23/13 Aspirin (Aspirin) 81 Mg Tablet, 81 MG PO DAILY 08/23/13 Mirtazapine (Remeron) 30 Mg Tablet, 30 MG PO HS 05/18/10 Sertraline Hcl (Zoloft) 100 Mg Tablet, 100 MG PO DAILY 05/18/10 Metoclopramide Hcl (Reglan) 10 Mg Tablet, 10 MG PO HS 05/18/10 Multivitamins (Multi-Day Vitamin) 1 Tab Tablet, 1 TAB PO DAILY 05/18/10 Metoprolol Tartrate (Lopressor) 50 Mg Tablet, 25 MG PO BID 05/18/10 Allergies: Coded Allergies: No Known Drug Allergies (Verified Allergy, Mild, 02/02/17) Family History Family History: unkown Social History Smoking Status: Never smoker Substance Use Type: does not use Alcohol Intake: none Marital Status: Sexuality: male partner Housing: house Household Members: spouse Current Occupational Status: retired Review of Systems All Other Systems All Other Systems: Reviewed (remainder of 10-point ROS Neg.) Comments Patient is slow to respond to questions, but is oriented to person and place but not time. The patient denies any headache, denies any change in vision, denies any fever chills or sweats, no sore throat or congestion, no neck pain or jaw pain, no chest pain, mild to moderate shortness of breath which is chronic, heart palpitations, noted patient describes some mild periumbilical abdominal pain, patient had nausea and vomiting after taking Bactrim, approximately 3 episodes, no blood in emesis, bowel movements have been constipated but unchanged, no urinary symptoms, no edema, no focal neurological weakness, just generalized weakness, increasing confusion as noted above, a 10 point review of systems is otherwise negative except for described above Physical Exam General General Nourishment: well nourished, well developed, apparent age, adult General Body Habitus: well groomed Vital Signs Vital Signs Date Time Temp Pulse Resp B/P Pulse Ox O2 Delivery O2 Flow Rate FiO2 02/02/17 03:10 91 18 140/70 94 Nasal Cannula 2.00 02/02/17 00:20 98.5 Height (Feet): 5 Height (Inches): 6.00 Telemetry Rhythm: Sinus Rhythm Eyes Brief: FOUND: EOMI, PERRL, scleral icterus, NOT FOUND: other, papilledema , trauma Neck Brief: FOUND: midline, NOT FOUND: JVD, nuchal rigidity, other, spasm, tenderness, tracheal deviation Respiratory Brief: FOUND: clear all lemus, equal bilaterally, symmetrical, NOT FOUND: other, rales, spasm, tenderness, wheezes Cardiovascular (brief) Cardiac Brief: FOUND: regular rate, regular rhythm, NOT FOUND: click, gallop, murmur, other, pedal edema, peripheral edema, rub Abdomen (brief) Abdominal Brief: FOUND: BS normo active x4, soft, NOT FOUND: distended, other, pulsatile mass, tender Musculoskeletal (brief) Musculoskeletal Brief: NOT FOUND: deformity, extremities move equally, loss of motion, other, spasm, tenderness Integumentary (brief) Integumentary Brief: FOUND: dry, pink, warm Neurologic (brief) Comments CN 2 through 12 intct. strength symetrical, but weak with 3/5 strength Neurologic RN Documented GCS Eye Opening: (4)Spontaneous, (4)Spontaneous Verbal: (4)Confused, (4)Confused Motor: (6)Obeys Commands, (6)Obeys Commands Total: Psychiatric (brief) NOT FOUND: alert, attentive, normal affect, oriented, other Laboratory Laboratory Tests Test 02/02/17 00:26 White Blood Count 8.0T/MM3 Red Blood Count 4.36M/MM3 Hemoglobin 11.3GM/DL Hematocrit 35.2% Mean Corpuscular Volume 80.7UM3 Mean Corpuscular Hemoglobin 25.9UUG Mean Corpuscular Hemoglobin Concent 32.1GM/DL RDW Standard Deviation 46.3FL Platelet Count 203T/MM3 Mean Platelet Volume 10.2UM3 Immature Granulocyte % (Auto) 0.4% Neutrophils (%) (Auto) 76.1% Lymphocytes (%) (Auto) 13.7% Monocytes (%) (Auto) 8.7% Eosinophils (%) (Auto) 0.6% Basophils (%) (Auto) 0.5% Absolute Immature Granulocyte (auto 0.03T/MM3 Absolute Neutrophils (auto) 6.1T/MM3 Absolute Lymphocytes (auto) 1.1T/MM3 Absolute Monocytes (auto) 0.7T/MM3 Absolute Eosinophils (auto) 0.1T/MM3 Absolute Basophils (auto) 0.0T/MM3 Turbidity < 20 Sodium Level 137MEQ/L Potassium Level 4.1MEQ/L Chloride Level 104MEQ/L Carbon Dioxide Level 19MEQ/L Anion Gap 14MEQ/L Blood Urea Nitrogen 17.0MG/DL Creatinine 1.1MG/DL Glomerular Filtration Rate Calc 48 BUN/Creatinine Ratio 16RATIO Glucose Level 118MG/DL Calculated Osmolality 267MOSM/KG Calcium Level 8.5MG/DL Total Bilirubin 0.50MG/DL Icterus Index < 2 Aspartate Amino Transf (AST/SGOT) 20U/L Alanine Aminotransferase (ALT/SGPT) 24U/L Alkaline Phosphatase 79U/L Total Protein 5.8G/DL Albumin 3.1G/DL Globulin 2.7G/DL Albumin/Globulin Ratio 1.1RATIO Prolactin 70.9NG/ML Chemistry Specimen Hemolysis < 15 Radiology earlier in evening CT head neg CT PE neg for clot Assessment & Plan Assessment 1. Metabolic encephalopathy acute present on admission: At this time differential diagnosis include postictal, accidental medication over ingestion, TIA, medication withdrawal, patient will be admitted on to a telemetry bed. Neurochecks. Seizure precautions. Reassess neuro status in the morning. Consider neurological consultation in the morning. Consider further neuro imaging including MRI in the morning. It must be stressed that the patients confusion predated her Bactrim ingestion. It is possible the patient overmedicated herself. For now we will hold the patients Lasix, Reglan, Remeron, simvastatin, and Bactrim, 2. Seizure acute not present on admission: reports activity that was consistent with seizure event. Patient will have neuro checks, seizure precautions, neurological consultation in the morning, considerations for MRI not unreasonable. This has never happened before. Will not automatically commit to anti-epileptic medications to begin with. 3. Hypothyroidism chronic present on admission: Well check a TSH, continue Synthroid 4. Hypertension chronic present on admission: Patient will continue metoprolol , ramipril, medications will be adjusted as indicated, 5. History of pulmonary hypertension chronic present on admission: CT angiogram tonight did not demonstrate clot. Patient will continue oral pulmonary hypertension medication. 6. Chronic hypoxia present on admission: Currently the patients oxygen requirement is no more than baseline at 2 L. Well monitor 7. DVT prophylaxis: SCD 8. Possible UTI chronic present on admission: Well hold any further antibiotics until cultures turn positive, minimal findings on urinalysis, Code Status Full Code Hospital Course Summary Disclaimer The hospital course summary below is not to be considered part of the above Progress Note. ALEC CHAPMAN MD 02/02/17 1145: Past Medical History Current Medications Home Meds Active Scripts Sulfamethoxazole/Trimethoprim (Bactrim Ds Tablet) 1 Each Tablet, 1 TAB PO BID, # 20 TAB Take 1 tablet, by mouth, 2 times a day. Prov:KAYLENE COLON MD 02/01/17 Reported Medications Famotidine (Pepcid AC) 10 Mg Tablet, 10 MG PO ACB 02/01/17 Ambrisentan (Letairis) 10 Mg Tablet, 20 MG PO DAILY 02/01/17 Simvastatin (Simvastatin) 40 Mg Tablet, 40 MG PO HS 02/01/17 Ramipril (Ramipril) 5 Mg Capsule, 5 MG PO DAILY 02/01/17 Furosemide (Furosemide) 40 Mg Tablet, 40 MG PO DAILY 02/01/17 Potassium Chloride (Potassium Chloride) 10 Meq Capsule.er, 20 MEQ PO DAILY 02/01/17 Omeprazole (Omeprazole) 40 Mg Capsule.dr, 40 MG PO ACB 02/01/17 Cetirizine HCl (Cetirizine HCl) 10 Mg Tablet, 10 MG PO DAILY 02/01/17 Levothyroxine Sodium (Synthroid) 100 Mcg Tablet, 100 MCG PO ACB 08/23/13 Aspirin (Aspirin) 81 Mg Tablet, 81 MG PO DAILY 08/23/13 Mirtazapine (Remeron) 30 Mg Tablet, 30 MG PO HS 05/18/10 Sertraline Hcl (Zoloft) 100 Mg Tablet, 100 MG PO DAILY 05/18/10 Metoclopramide Hcl (Reglan) 10 Mg Tablet, 10 MG PO HS 05/18/10 Multivitamins (Multi-Day Vitamin) 1 Tab Tablet, 1 TAB PO DAILY 05/18/10 Metoprolol Tartrate (Lopressor) 50 Mg Tablet, 25 MG PO BID 05/18/10 Allergies: Coded Allergies: No Known Drug Allergies (Verified Allergy, Mild, 02/02/17) Assessment & Plan Assessment Dr. Nettles's note reviewed. Mrs. Cason seen acutely after code called and subsequently in ICU; family interviewed interviewed and patient examined. CC: Altered mental status, seizure HPI: Patient is 68-year-old female he developed increasing confusion through the day yesterday after being diagnosed with UTI in the emergency room early in the day (evaluated for disorientation and at that time it was noted that the patient has been mixing up medications for several days). She was started on Bactrim and later told family members that she felt terrible and she must take in an accidental overdose. Family members report that she was very vague and would ignore them and stare off into the distance at times and other times conversed with them normally. She fiddled with her phone frequently last night which family considered an atypical behavior. No focal abnormalities were described. At approximately 11 AM her was awakened by the whole bed shaking due to his patient having generalized seizure activity. She was unresponsive and presented to the emergency room. She subsequently admitted to the hospital with her was recurrent generalized seizure this morning with associated respiratory failure. Her reports patient was eating breakfast , took a drink and choked immediately prior to the seizure. Chest no past history of seizures. PH/SH/FH: agree with that recorded above additionally noting that the patient has scleroderma with lung and esophageal involvement and Raynaud's. Colectomy was performed for rectal prolapse. Father of colon cancer. ROS: Family report frequent choking due to scleroderma, recent increase in Letaris dose and recent initiation of furosemide but no other medication changes. Patient is unable to provide history at present due to recent seizure. EXAM: General-lethargic female on BiPAP, follows very simple commands inconsistently, 97.7 141/72 HEENT-PERRL, EOMI without nystagmus, conjugate gaze, facial structures symmetric , neck supple and without adenopathy, limited visualization of tongue indicates midline and dry Lungs-good airflow, hyperventilating slightly on BiPAP, breath sounds clear Cardiac-regular rhythm, S1-S2 Abd-soft, nontender without palpable mass, diminished bowel sounds Ext-without edema Skin-mild tightening of skin across the digits/joints with several small superficial ulcerations on the DIPs of the right hand. No erythema. Left hand is cool but not cold relative to the right. No generalized rash Neuro-patient withdraws all 4 extremities to stimulation. 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 Does not follow commands to test for proximal power. Motor tone increased left upper extremity immediately after seizure. Sensation grossly intact 4 extremities Psych-dull, does not respond to questions regarding orientation CT of the head reviewed by myself and discussed with Dr. Edwards demonstrating no acute intracranial pathology. CTA negative for PE, patulous esophagus with large hiatal hernia A/P: Altered mental status Seizure, generalized Medication misuse, suspected, accidental UTI-ruled out Idiopathic pulmonary hypertension Scleroderma with CREST Respiratory/metabolic acidosis-post seizure Dysphasia/hiatal hernia Patient transferred to intensive care unit on BiPAP following seizure this morning. Mental status remains depressed although she is no longer unresponsive when reassessed in the unit. Discussed with Dr. Mondragon, begin reintroducing home medications (single SSRI initially) when patient able to take by mouth. Discontinue Bactrim-UA in the ER with 0-1 WBC, negative nitrite. Speech therapy evaluation. Patient critically ill/neurologically unstable. Plan/Intensity of Service Time in patient care at bedside [id number], [phone]. Critically ill FRANK NETTLES MD Feb 02, 2017 03:43 ALEC CHAPMAN MD Feb 02, 2017 11:45
[2017-02-02 05:43] LABS: BASOPHILS % (AUTO) 0.4 % (0-2); EOSINOPHILS # (AUTO) 0.1 T/MM3 (0-0.5); EOSINOPHILS % (AUTO) 0.7 % (0-4); HCT - HEMATOCRIT 34.4 % (36-46); IMMATURE GRANULOCYTE # (AUTO) 0.02 T/MM3 (0.00-0.03); IMMATURE GRANULOCYTE % (AUTO) 0.3 % (0.0-0.5); LYMPHOCYTES # (AUTO) 0.9 T/MM3 (1-4.8); LYMPHOCYTES % (AUTO) 11.9 % (23-45); MEAN CORPUSCULAR VOLUME 81.3 UM3 (80-100); MONOCYTES # (AUTO) 0.7 T/MM3 (0-0.8); MONOCYTES % (AUTO) 9.7 % (0-9.0); NEUTROPHILS #(AUTO)-ABSOLUTE 5.6 T/MM3 (1.8-7.7); RED BLOOD COUNT 4.23 M/MM3 (4.00-5.20); WBC - WHITE BLOOD COUNT 7.3 T/MM3 (4.5-11.0)
[2017-02-02 05:48] LABS: ALBUMIN 2.8 G/DL (3.5-5.0); ALBUMIN/GLOBULIN RATIO 1.1 RATIO (1.1-2.2); ALKALINE PHOSPHATASE 72 U/L (38-126); ALT (SGPT) 29 U/L (9-52); ANION GAP 10 MEQ/L (5-15); AST (SGOT) 19 U/L (14-36); BUN/CREATININE RATIO 15 RATIO (6-26); CHLORIDE 106 MEQ/L (98-107); CO2 - CARBON DIOXIDE 22 MEQ/L (22-30); GLOMERULAR FILTRATION RATE 54; GLUCOSE 89 MG/DL (65-110); SODIUM 138 MEQ/L (134-144); TOTAL PROTEIN 5.4 G/DL (6.3-8.2)
[2017-02-02 06:18] LABS: THYROID STIM HORMONE-TSH 5.41 MIU/L (0.47-4.68)
--- NOTE | 2017-02-02 06:19 | NUR ---
SUMMARY PT IS ALERT BUT ONLY ORIENTED TO SELF. PT IS CONFUSED ABOUT EVERYTHING, SHE HAS BEEN SEEN TRYING TO USE THE TV REMOTE FOR A CELL PHONE, ANS WAS SCARED OF THE COMPUTER MOUSE. IV IS GOING IN THE LEFT AC AT 100 ML/HR. O2 AT 2L. CURRENTLY ON A CLEAR LIQUID DIET. OF RIGHT NOW SHE IS HAVING TROUBLE ANSWERING QUESTIONS. PT HAS BEEN INCONTINENT OF URINE.
[2017-02-02] MEDS ORDERED: OMEPRAZOLE 20 MG CAPSULE PO SCH (06:30)
[2017-02-02] MEDS: LEVOTHYROXINE 100 MCG TABLET PO SCH (07:06)
--- NOTE | 2017-02-02 07:59 | DI ---
Indication: ITS.REASON: elevated d-dimer with hypoxemia PROCEDURE: CTA PULMONARY EMBOLI: Encounter: Initial Comparison: February 09, 2016 Technique: Axial CT pulmonary angiographic phase images were performed through the chest after the administration of intravenous contrast. Coronal and Sagittal MIP reconstructed images were created and reviewed. Automated Exposure Control and Iterative Reconstruction dose reducing techniques were utilized. Contrast: Omnipaque 350 53 mL Findings: Pulmonary arteries: Exam is diagnostic to the subsegmental pulmonary arterial level. No filling defects identified to confirm a pulmonary embolus. Other findings: Mild emphysema with some dependent atelectasis and subpleural scarring. No focal pneumonia, pleural effusion or pneumothorax. Central airways are patent. Patulous dilated esophagus. No axillary or mediastinal adenopathy. Heart is enlarged. No pericardial effusion. Large hiatal hernia. The upper abdomen shows no acute findings. Impression: No pulmonary embolus. There is a preliminary report by virtual radiologic. .
--- NOTE | 2017-02-02 08:30 | NUR ---
Status Patient assessed in bed with present at bedside. Patient alert and oriented to person, place, month and day but not year. Patient able to say that the president is [place]. However, when asked what she would like to breakfast patient unable to answer. Pupils are reactive but patient is unable to track with her eyes. Patient able to squeeze with her hands but unable to raise arms against gravity. Patient able to raise legs in bed. Patient c/o pain in left upper quadrant that she states she had had "for about a day now."
[2017-02-02] MEDS ORDERED: RAMIPRIL 5 MG CAPSULE PO SCH (09:00)
--- NOTE | 2017-02-02 09:00 | NUR ---
Rapid Response/Code At approximately 8:38 called out to nurse that patient was choking. stated patient had been drinking juice and began choking. This RN ran to patient's room to find patient sitting upright in bed, foaming at mouth, rigid, with whole body seizing. Patient was foaming at the mouth. field marketing associate Xochitl called for, who called rapid response at 8:38. No suction was present in the room so this RN ran for suction equipment while SHAUN Leung remained in room. Code called shortly after as patient was not breathing. Crash cart brought to room and chest compressions were initiated at 8:40. Patient was stabilized and taken to CT room for head CT at this time before transferring to CCU.
[2017-02-02 09:08] LABS: MAGNESIUM 2.1 MG/DL (1.6-2.3)
--- NOTE | 2017-02-02 09:15 | NUR ---
Transfer Patient transferred to CCU bed [address] Report given to SHAUN Quach at bedside. RT present in room placing patient on bipap. Patient is alert, breathing spontaneously. Dr. Mondragon updated on patient's status and events of this morning as well.
--- NOTE | 2017-02-02 09:15 | NUR ---
TRANSFER Patient to CCU-6 from Rm. 139. Restless and states she doesn't feel well. Unable to elaborate. Wants to sit straight up in bed. Assisted to that position. Bipap on per RT.
--- NOTE | 2017-02-02 09:20 | DI ---
Indication: ITS.REASON: seizure PROCEDURE: CT HEAD W/O CONTRAST: Encounter: Initial Comparison: None Technique: Axial CT images through the head were performed without contrast. Iterative Reconstruction dose reducing technique was utilized. FINDINGS: The ventricles are of normal size, shape, and contour for the patient's age. There are scattered areas of low attenuation in the white matter which most likely represent changes from chronic microvascular ischemia. The brainstem, cerebellum, and cerebral hemispheres otherwise have a normal morphology and CT attenuation. There is no evidence of midline displacement. No hemorrhage, signs of acute territorial stroke, mass effect, mass lesions, or edema is evident. The visualized portions of the skull base, midface, and calvarium demonstrate no abnormality. Significant mucosal thickening in both maxillary sinuses. The tympanic and mastoid cavities appear normal. IMPRESSION: No acute intracranial abnormality or hemorrhage. Stable head CT. .
[2017-02-02 09:26] LABS: PROLACTIN 26.7 NG/ML
--- NOTE | 2017-02-02 10:00 | NUR ---
STATUS Patient on bipap maintaining good sats. Tries to talk freq. Family at bedside. Patient is restless and states she feels "terrible."
--- NOTE | 2017-02-02 11:11 | CONSF ---
NEUROLOGY CONSULTATION DATE OF CONSULTATION 02/02/[address] Platt The patient's chief complaint is seizure. HISTORY OF PRESENT ILLNESS The patient is a 68-year-old female with history of idiopathic pulmonary hypertension, hypothyroidism, DVT and hypertension. The patient has been confused for the past four days. She presented to the ER twice. During her first evaluation she was found to have a UTI and she was given Bactrim. The patient went back home and she had an apparent seizure. The patient was having difficulty refilling her pill container recently. There has been some concern that she had some overdose of some of the medications. The patient normally takes medication for hypertension and for anxiety and depression, including Remeron and Zoloft. She also takes Reglan for chronic nausea. The patient was admitted to [facility]. She was having some breathing problem concerning for her pulmonary disease. She had a CT angiogram that was unremarkable. Earlier today the patient was eating breakfast and suddenly she became unresponsive. Her eyes rolled back and she started having jerkiness on both sides. There was questionable incontinence at that time. That jerkiness lasted for about two minutes and the patient gradually improved. She was taken for a CT head and had a CT of the brain that was unremarkable. The patient continues to have breathing problems. She is on a BiPAP machine at present time. Her lab workup has been unremarkable overall. PHYSICAL EXAMINATION The patient was awake, alert, oriented to self and situation. Pupils were round, reactive and equal. Extraocular muscles were intact. Speech was limited because of the BiPAP. Motor examination was 5-/5 in all extremities. Sensory was symmetrical to light touch and temperature sensation. Deep tendon reflexes were 2/4. Plantar reflexes were in flexion bilaterally. ASSESSMENT 1. New-onset seizure-like activity associated with possible metabolic encephalopathy triggered by medication overdose and UTI. 2. History of idiopathic pulmonary hypertension with tachypnea and tachycardia. PLAN 1. Observe patient for any mental status change. Consider starting patient on Depakote oral solution or IV 250 mg p.o. b.i.d. for a week and then 500 mg p.o. b.i.d. 2. Gradually restore some of the patient's psych medication to avoid any withdrawal and worsening of depression.. 3. Provide good fluid intake and good oxygen support. 4. Consult cardiology for any other cardiac problem which can be precipitating her symptoms. MTDD
--- NOTE | 2017-02-02 11:12 | NUR ---
CM CM IN TO VISIT PT FAMILY HAD JUST STEPPED OUT OF THE ROOM. CM EXPLAINED ROLL PT IS CONFUSED AND DOES NOT UNDERSTAND. CM UPDATED THE WHITEBOARD AND LEFT CONTACT INFORMATION FOR FAMILY. NURSE IS AWARE TO CONTACT CM SHOULD NEEDS ARISE.
--- NOTE | 2017-02-02 11:45 | NUR ---
STATUS Patient calls out frequently saying "it's an emergency." Have attempted using bedpan w/o results. Up to BSC w/ one assist. Bipap off and O2 per nc. Inc of 2 very large bm's. Patient c/o chest pain. CPR was done this am. Dilaudid given iv.
--- NOTE | 2017-02-02 12:09 | NUR ---
Nutrition Risk R/T adult BMI < 18.6 RN states pt is currently NPO Pt is slow to respond and only answers "I don't know" when asked how her appetite has been. Current BMI is 19.5 therefore the screen is a false positive. RD available at ext [phone]
--- NOTE | 2017-02-02 13:00 | NUR ---
STATUS Patient sleeping at present. Has settled down since pain med given. sleeping in recliner.
[2017-02-02] MEDS ORDERED: CLOT10TR PO (13:08)
[2017-02-02] MEDS ORDERED: ACET-62 PO (13:08)
[2017-02-02] MEDS ORDERED: IPRA3AMP AEROSOL (13:08)
[2017-02-02] MEDS ORDERED: CHOL200026 PO (13:08)
[2017-02-02] MEDS ORDERED: ESTR42.53 VAGINALLY (13:08)
[2017-02-02] MEDS ORDERED: FLUT9.9S EA NOSTRIL (13:08)
[2017-02-02] MEDS ORDERED: BUDE0.5A6 AEROSOL (13:08)
--- NOTE | 2017-02-02 13:17 | NUR ---
ITA CM IN TO VISIT WITH PT FAMILY, ROLE EXPLAINED. FAMILY REPORTS THAT PT IS ON O2 AT HOME AND THAT [facility] PROVIDES HOME O2. FAMILY DENIES HOME NEEDS AT THIS TIME.
--- NOTE | 2017-02-02 16:00 | NUR ---
ELIM Vera inserted per orders. Immediate return of urine.
--- NOTE | 2017-02-02 16:23 | STEVAL ---
Eval Subjective and History Date/Time of Eval DATE: 02/02/17 TIME: 16:03 Medical Diagnosis possible seizure. possible metabolic encephalopathy triggered by medication overdose and UTI, scleroderma, chronic dysphagia Treatment Order: Assessment Orientations: Alert, Cooperative Primary Complaint: difficulty swallowing at times Date of Onset of Primary Com: 02/02/17 Prior History of This Problem: Yes (chronic dysphagia) Significant Past Medical Hx: Pt admitted for scleroderma, chronic dysphagia. PMH: THN, dyslipidemia, hypothyroidism, pulmnary HTN, DVT. Medical History Form Reviewed: Yes Residence Type: Private home/apartment Lives With: Spouse Prior Functional Status: Chronic dysphagia Current Functional Status: Increased risk of aspiration secondary to medical status. Education Subject: Diet, Swallowing Strategies Person(s) Educated: Patient Instruction Understanding Demo: Pt. verbalizes understand (questionable if she fully understood directions) Education Comment LITHOGRAPHIC PROOFER educated patient on reasoning for evaluation. Patient was agreeable to evaluation. Subjective and History Comment: Pt was alert and able to follow directions. No complaint of pain. Dysphagia Evaluation Evaluation Location: Bed Evaluation Angle: 80 Tongue Elevation: Mild Impairment Tongue Lateralization: No Impairment (WFL) Tongue Protrusion: No Impairment (WFL) Tongue Retraction: No Impairment (WFL) Tongue Extension Midline: Minimal Impairment Labial Approximation: No Impairment (WFL) Intraoral Air Pressure: No Impairment (WFL) Volitional Cough: Minimal Impairment Palatal Elevation: No Impairment (WFL) Larynx Elevation During Swallo: No Impairment (WFL) Saliva Control: No Impairment (WFL) Dentition: Dentures Oral Peripheral Exam Comment: Mildly reduced lingual elevation noted. Lip Seal: Adequate-liquid, Adequate-pudding, Adequate-solid Lingual Manipulation: Adequate-liquid, Adequate-pudding, Adequate-solid Chewing: Inadequate-solid (nildly reduced) Oral cavity clear post swallow: Adequate-liquid, Adequate-pudding, Adequate- solid Swallow initiated w/o delay: Adequate-liquid, Adequate-pudding, Adequate-solid Multiple swallows not needed: Adequate-liquid, Adequate-pudding, Adequate-solid Voice clear&dry post swallow: Adequate-liquid (voicing mildly hoarse), Adequate -pudding, Adequate-solid No cough/throat clear: Adequate-liquid, Adequate-pudding, Adequate-solid Assessment/Plan of Care Speech Therapy Impressions: Pt followed directions with mild delay noted. Oral peripheral exam was within functional limits with mildly reduced lingual elevation. Voice was dry after swallow but mildy hoarse. She drank thin water with no s/s of aspiration. [place], pudding and karen crackers were eaten with no significant difficulty. Patient fatigue quickly and required multiple cues to produce throat clearing/secondary swallow to clear nectar bolus Speech was intelligible but delayed. Pt reported that she ate very little at home. Due hx of dysphagia and medical status soft diet/chopped meat and nectar thick liquid recommended in small meals and snacks. Pt may have sips of thin water with supervision. Detention Goal: Pt will maintain nutrition and hydration of the least restrictive diet while demonstrating no s/s of aspiration for 3consecutive trials. Short Term Goal: Pt will consume a soft diet/chopped meat with nectar thick liquids without outward signs of aspiration at bedside in 3 trials. Pt may have sips of thin water with supervision. Pt will demonstrate 3/3 components necessary for a safe swallow as listed from the following small bites/slow rate, small meals w/supplemental snacks and alternating solids/liquids. Pt will implement compensatory feeding strategies in 2.3 of feeding trials/ meals with minimal cues to aid recall. ST Treatment Plan: Swallow Retraining, Swallow Precautions, Modified Diet ST Treatment Plan Frequency: three times per week Treatment Plan Duration: one week Plan of Care Comment Soft diet/chopped meat w/gravy, nectar thick liquids May have sips of thin water with supervision Small meals/supplemental snacks Swallow precautions Recommended Diet: Soft diet/chopped meat w/gravy, nectar thick liquids May have sips of thin water with supervision Small meals/supplemental snacks Date of Visit 02/02/17 Time Visit Began: 16:00 Time Visit Ended: 16:30 ST Assess/Plan of Care: ST Treatment Charge: Swallow Eval Minutes of Individual Therapy: 30 MOUSTAPHA METZ MS CCC-LITHOGRAPHIC PROOFER Feb 02, 2017 16:06
--- NOTE | 2017-02-02 17:45 | NUR ---
STATUS Family at bedside. Update given. Questions answered and update given to Dr. Platt. Patient continues to repeat herself and does not track 100%.
[2017-02-02] MEDS: CETIRIZINE 10 MG TABLET PO SCH (18:03)
[2017-02-02] MEDS: SERTRALINE 100 MG TABLET PO SCH (18:03)
[2017-02-02] MEDS: ASPIRIN 81 MG CHEWABLE TABLET PO SCH (18:05)
--- NOTE | 2017-02-02 20:45 | NUR ---
Pt confusion is increasing as the evening goes on. At times she seems to have trouble finding words. At this time she is confused to day and time. Pt does know she is in [facility]. She is unsure what her maiden name is but does know her name. States that she has 2 sons and a daughter then corrects herself and says she has 3 sons and a daughter. This RN is not sure which is correct.
[2017-02-02] MEDS ORDERED: SIMVASTATIN 40 MG TABLET PO SCH (22:00)
--- NOTE | 2017-02-02 22:08 | NUR ---
O2 decreased to 2L. Sats remain in the mid 90%.
[2017-02-03] VITALS (34 sets, daily range): BP systolic 92–124; BP diastolic 50–70; PULSE 83–179; RESP 18–49; TEMP 99.1–99.2; O2SAT 83–100
--- NOTE | 2017-02-03 00:42 | NUR ---
Pt is awake and very confused. Sats have dropped to 90%. O2 increased to 3L. Sats are now up to 92%.
--- NOTE | 2017-02-03 00:57 | NUR ---
O2 increased again to 4L. Sats have been 89%
--- NOTE | 2017-02-03 01:19 | NUR ---
Pt is pulling off leads, taking BP cuff off and pulled out her IV. IV restarted, leads back in place.
[2017-02-03] MEDS ORDERED: FUROSEMIDE 20 MG/2 ML INJECTION IV ONE ×2 (02:15→16:00)
--- NOTE | 2017-02-03 02:21 | NUR ---
Pt sats continue to drop. Pt placed on simple mask for a short time. Pt now has crackles in bilat bases. Dr Hoyos notified of change in patient condition. Orders received.
--- NOTE | 2017-02-03 05:30 | NUR ---
Pt is now only oriented to herself. Is unable to tell RN where she is at this time. Pt has only slept at intervals. EKG done due to increased irregularity.
[2017-02-03 05:33] LABS: ANION GAP 11 MEQ/L (5-15); BUN/CREATININE RATIO 16 RATIO (6-26); CALCIUM 8.3 MG/DL (8.4-10.2); CHLORIDE 105 MEQ/L (98-107); CO2 - CARBON DIOXIDE 21 MEQ/L (22-30); GLOMERULAR FILTRATION RATE 54; GLUCOSE 116 MG/DL (65-110); MAGNESIUM 1.8 MG/DL (1.6-2.3); POTASSIUM 3.7 MEQ/L (3.6-5); SODIUM 137 MEQ/L (134-144)
[2017-02-03 05:37] LABS: HCT - HEMATOCRIT 32.5 % (36-46); HGB - HEMOGLOBIN 10.4 GM/DL (12-16); MEAN CORPUSCULAR HGB 26.1 UUG (26-34); MEAN CORPUSCULAR VOLUME 81.5 UM3 (80-100); MEAN PLATELET VOLUME 10.2 UM3 (9.4-12.4); RED BLOOD COUNT 3.99 M/MM3 (4.00-5.20); WBC - WHITE BLOOD COUNT 17.6 T/MM3 (4.5-11.0)
[2017-02-03 06:14] LABS: BAND NEUTROPHILS # 0.5 T/MM3; LYMPHOCYTES # (MANUAL) 0.5 T/MM3 (1-4.8); MONOCYTES # (MANUAL) 0.7 T/MM3 (0-0.8); NEUTROPHILS #(MANUAL)-ABSOLUTE 15.8 T/MM3 (1.8-7.7); TOTAL CELLS COUNTED 100 %
[2017-02-03] MEDS: LEVOTHYROXINE 100 MCG TABLET PO SCH (06:23)
[2017-02-03] MEDS: NORMAL SALINE 1,000 ML IV SCH ×3 (06:24→20:46)
[2017-02-03] MEDS ORDERED: FAMOTIDINE 20 MG TABLET PO SCH (06:30)
--- NOTE | 2017-02-03 08:23 | DI ---
Indication: ITS.REASON: hypoxia PROCEDURE: CHEST 1 VIEW: Encounter: Initial Comparison: October 21, [address] angiogram of the chest from yesterday Findings: Emphysema and mild hyperinflation. No focal consolidation, gross pleural effusion or pneumothorax. Heart size and mediastinal contours are stable. Pulmonary vascularity is unchanged. Impression: Stable chest without acute cardiopulmonary disease. .
--- NOTE | 2017-02-03 08:45 | NUR ---
STATUS Patient is awake, was able to assist to an extent with her bath, and brush her own teeth. Prepared for breakfast with nectar thick liquids. Nursing did give supervised swallows of thin liquids and after several swallows, the patient began to cough and further thin water was withheld. Coughing was not substantial and did not cause a change in her O2 saturations. HR on monitor at times reads in the 180-220s, however this is not an accurate rate (counting T waves). Rates in the 90's and low 100's. RR mid 20's, requiring significant oxygen, however patient is in no substantial respiratory distress. Tongue is coated white and has bruising and lacerations with yellow slough noted to the right and left lateral areas. Neuros: oriented to self, not location, states month accurately, states address correctly, states birthday almost accurately. Speech is not delayed and is clear. Occasionally answers to questions asked by staff don't correlate to the question asked. Somewhat impulsive with her movements, pulls off leads and pulled out an IV overnight. Bed alarm is activated and staff is 1:1 with this patient at this time. Pupils sluggish. Crew Manager equal, strength equal bilaterally.
[2017-02-03] MEDS: ASPIRIN 81 MG CHEWABLE TABLET PO SCH (09:11)
[2017-02-03] MEDS: AMBRISENTAN 10 MG PO SCH (09:17)
[2017-02-03] MEDS: SERTRALINE 100 MG TABLET PO SCH (10:14)
[2017-02-03] MEDS: CETIRIZINE 10 MG TABLET PO SCH (10:15)
--- NOTE | 2017-02-03 10:42 | NUR ---
CM CM VISITED WITH [facility] NURSE REGARDING PT STATUS. NURSE IS AWARE TO CONTACT CM IF NEEDS ARISE.
[2017-02-03] MEDS ORDERED: IOHEXOL 350 MG/ML 75ml INJECTION ONE (11:22)
[2017-02-03] MEDS ORDERED: NORMAL SALINE 100 ML ONE (11:22)
[2017-02-03] MEDS ORDERED: SALINE FLUSH 10ml SYRINGE ONE (11:23)
--- NOTE | 2017-02-03 11:43 | PNPDOC ---
Subjective Date DATE: 02/03/17 TIME: 11:07 Subjective Mrs. Cason was seen with her daughter and at bedside. No further seizures were reported overnight but the patient was confused per nursing report and typically only oriented to name; she intermittently pulled telemetry leads off and pulled her IV out. Currently she denies dyspnea and reports that she had cough 1-1/2 times. She ate okay this morning and reports that her legs and ankles a which is apparently new. Vera catheter is in place due to patient inability to void yesterday. She reports nausea/vomiting 1/3 time. Family reports that the patient has had weight loss over the past year and became very weak after she was hospitalized in [place] for influenza and a second viral infection antibiotic October. Strength had improved slowly and she was significantly better last week and over the weekend. Monday evening her daughter first noted confusion and that her "mind not clear" which she attributed to fatigue. Monday night her reported hallucinations but does not further specify what happened. Monday the patient was described as just sitting in a chair with minimal speech. All of her pills were dumped out and she as she put them back in bottles heirs were made. Patient described feeling terrible on Monday and worn out. Confusion increased Monday prompting ER evaluation with seizure late Monday and subsequent hospitalization. Objective Vital Signs Vital signs Vital Signs Date Time Temp Pulse Resp B/P Pulse Ox O2 Delivery O2 Flow Rate FiO2 02/03/17 08:30 25 02/03/17 07:00 108 116/60 94 02/03/17 00:07 Nasal Cannula 2.00 02/02/17 16:00 99.2 02/02/17 09:25 100 I/O 2616/2400+ (cumulative) EXAM General-NAD, awake but confused HEENT-PERRLA, EOMI, conjugate gaze, no nystagmus, sclera anicteric, conjunctiva clear, faint white plaque on tongue with bruising anterior tongue and ulceration lateral left tongue; neck supple and without appreciated adenopathy Lungs-respirations nonlabored, good airflow, crackles at the left base Cardiac-regular rhythm, S1 and S2 Abd-soft, nontender, bowel sounds present Ext-without edema Neuro-some difficulty following directions, very minor drift right upper extremity, proximal upper extremity power graded 4/5, manager financial reporting 4+/5, raises both legs off the bed without difficulty, plantarflexion 4/5. Sensation intact to light touch 4 extremities. Ankle jerks and biceps reflexes +3 bilaterally Psych-responds to name but when asked what her name was she consistently repeated her 's name. Cannot identify the location, reports the year to be 1976. Can't correctly identify her age and the current president. Perseverates on her address with multiple questioning. Unable to do serial 7's. Calm, pleasant, cooperative. Telemetry Rhythm: Sinus Rhythm Height (Feet): 5 Height (Inches): 6.00 Weight (Kilograms): 51.600 Laboratory Laboratory Laboratory Tests 02/02/17 00:26 02/02/17 04:38 02/03/17 04:51 Laboratory Tests 02/02/17 00:26 02/02/17 04:38 02/03/17 04:51 Segs 90, bands 3, lymphocytes 3, monocytes 4 EKG Sinus rhythm, borderline sinus tach on bedside monitor Radiology Portable chest x-ray this morning reveals changes consistent with emphysema, film reviewed by myself. No evidence of volume overload or infiltrate. Assessment & Plan Assessment Encephalopathy/Altered mental status Seizure, generalized Medication misuse, suspected, accidental Leukocytosis-new 02/03 UTI-ruled out Idiopathic pulmonary hypertension-PAP in Scleroderma with CREST Respiratory/metabolic acidosis-post seizure Dysphasia/hiatal hernia Hypertension Hypothyroid History DVT/PE Confusion persists with word searching, perseveration, and disorientation. No overt neurological deficits on examination. Discussed with Dr. Kendrick at [facility] who indicated pH has been in the 90s and that scleroderma symptoms have been stable. He did not view patient at high risk for vasculitis but felt CTA-head appropriate. Fluids increased pending CTA. May require resumption of diuresis post imaging. Urine drug screen negative in the emergency room prior to admission. INR being obtained, I'm inclined to proceed with spinal tap to complete workup for encephalopathy/new seizure if CTA negative. Continue to hold second SSRI. Blood pressure stable on current regimen. PT/OT consults pending. Pepcid/SCDs for prophylaxis; will add Lovenox tomorrow if LP completed today. Plan/Intensity of Service Chest x-ray reviewed by myself, discussed with clinical informatics physician, operatory data reviewed, additional studies ordered. Discussed with nursing and case management. Extensive discussions/supplemental history provided by family. Code Status Full Code Hospital Course Summary Disclaimer The hospital course summary below is not to be considered part of the above Progress Note. Hospital Course Summary 02/02/17 Patient hospitalized with confusion and seizure with questionable accidental medication ingestion/withdrawal. Seizure precautions initiated. Patient transferred to intensive care unit on BiPAP following seizure this morning. Mental status remains depressed although she is no longer unresponsive when reassessed in the unit. Discussed with Dr. Mondragon, begin reintroducing home medications (single SSRI initially) when patient able to take by mouth. Discontinue Bactrim-UA in the ER with 0-1 WBC, negative nitrite. UDS negative during ER evaluation. Speech therapy evaluation. 02/03/17 Confusion persists with word searching, perseveration, and disorientation. No overt neurological deficits on examination. Discussed with Dr. Kendrick at [facility] who indicated pH has been in the 90s and that scleroderma symptoms have been stable. He did not view patient at high risk for vasculitis but felt CTA-head appropriate. Fluids increased pending CTA. May require resumption of diuresis post imaging. Urine drug screen negative in the emergency room prior to admission. INR being obtained, I'm inclined to proceed with spinal tap to complete workup for encephalopathy/new seizure if CTA negative. Continue to hold second SSRI. Blood pressure stable on current regimen. PT/OT consults pending. Pepcid/SCDs for prophylaxis; will add Lovenox tomorrow if LP completed today. ALEC CHAPMAN MD Feb 03, 2017 11:15
[2017-02-03 11:44] LABS: C-REACTIVE PROTEIN 74.5 MG/L (0-9)
[2017-02-03] MEDS ORDERED: ALBUTEROL/IPRATROPIUM INHAL. 2.5mg-0.5mg/3ml Neb. AEROSOL PRN (11:45)
[2017-02-03 11:53] LABS: INR 1.41 (0.76-1.04); PROTHROMBIN TIME 15.4 SEC (9.31-12.49)
--- NOTE | 2017-02-03 13:20 | STDAILYN ---
ST Daily Note Date/Time DATE: 02/03/17 TIME: 13:11 Subjective Comment Pt was in bed during this treatment session. The patient's , son, and daughter were present. The patient was positioning upright and was agreeable to participating in p.o. trials. Chief Complaint: encephalopathy Pain: No (none reported) Was Patient Education Provided: Yes Person(s) Educated: Patient Education Subject: Diet, Treatment Plan Instruction Understanding Demo: Pt. verbalizes understand, Famly/Cargvr verb underst Education Comment The patient and her family were educated regarding the reason for this treatment session and the process. After the treatment session was completed, the patient and family were educated regarding results and recommendations. All questions within this therapist's scope of practice were answered. *Speech Therapy Impressions The patient was on 5 liters of o2 via NC at the time of this treatment session. She was on a soft diet with chopped meat and nectar-thick liquids prior to today. The patient drank approximately 10 oz of thin water. She initially took large, consecutive swallows by straw and she demonstrated a cough x1 after one trial. Presentation mode was changed to cup drinking. The patient drank approximately 8 oz via cup with no clinical s/s of aspiration. She required repeated verbal cues to take small drinks. The patient took trials of puree and soft solids. With solids, the patient exhibited increased time needed for the oral stage of the swallow. Regardless of bolus consistency, hyolaryngeal elevation was present after each bolus presentation. Based on this tx session, the following recommendations are made: 1. continue soft diet with chopped meat 2. change to thin liquids; no straws 3. cues to take single swallows of thin 4. upright fully for all eating and drinking. ST Treatment Plan: Swallow Precautions, Modified Diet ST Treatment Plan Frequency: three times per week Treatment Plan Duration: one week Plan of Care Comment: Based on this tx session, the following recommendations are made: 1. continue soft diet with chopped meat 2. change to thin liquids; no straws 3. cues to take single swallows of thin 4. upright fully for all eating and drinking. ST will continue to follow per plan of care. Start Treatment 1: 11:30 Stop Treatment 1: 11:45 Treatment Duration : ST Treatment Charge: Swallow Treatment Minutes of Individual Therapy: 15 TRAV LOPEZ MS CCC-STAFF EDITOR Feb 03, 2017 13:19
[2017-02-03] MEDS: CLOTRIMAZOLE 10 MG TROCHE PO SCH ×4 (13:42→21:32)
--- NOTE | 2017-02-03 13:44 | NUR ---
CT SCAN Returns from radiology for CTA of head. Was accompanied by nursing staff and monitored. Tolerated procedure well. Settled in, reassessed, served lunch. Mycelex Adelaida scanned and will be started following meal. Explanation provided to patient and daughter about purpose for med.
--- NOTE | 2017-02-03 14:04 | DI ---
Indication: ITS.REASON: seizure PROCEDURE: CTA HEAD W/WO CONTRAST: Encounter: Initial Comparison: CT head dated February 02, 2017 Technique: CTA: Angiographic phase axial images were acquired through the entire head following intravenous contrast administration. Multiplanar 2-D reconstructions and maximum intensity projection images were produced for additional assessment. 3-D volume rendered images of the [place] were also produced by the technologist. CT Head: Axial images were obtained through the head without and with intravenous contrast. Findings: CT head: The ventricles are of normal size, shape, and contour for the patient's age. There are scattered areas of low attenuation in the white matter which most likely represent changes from chronic microvascular ischemia. The brainstem, cerebellum, and cerebral hemispheres otherwise have a normal morphology and CT attenuation. There is no evidence of midline displacement. No hemorrhage, signs of acute territorial stroke, mass effect, mass lesions, or edema is evident. The visualized portions of the skull base, midface, and calvarium demonstrate no abnormality. Moderate mucosal thickening in the maxillary sinuses. The tympanic and mastoid cavities appear normal. CTA head with intravenous contrast: The distal cervical, petrous, cavernous, and supraclinoid segments of the internal carotid arteries are widely patent without significant stenosis or other vascular abnormalities. The anterior, middle, and posterior cerebral arteries are also widely patent without significant stenosis or occlusion. origin of both posterior cerebral arteries. No aneurysms, vascular malformations, flow-limiting stenoses, or other arterial abnormality are evident. IMPRESSION: CT head: No acute intracranial abnormality or hemorrhage. Stable exam. CTA head: No evidence of aneurysm or arterial occlusion. .
--- NOTE | 2017-02-03 16:00 | NUR ---
DISCUSSION WITH PHYSICIAN This RN reported ongoing tachypnea with RR in the mid to upper 20's, crackles now at bilateral bases, JVD, bounding pulses, elevated BNP level, somewhat improved urine outputs, IVF rate, and current oxygen requirements to Dr Platt. Physician verbalizes that orders for Lasix will be entered. Patient denies significant difficulty breathing but states that she does feel slightly short of breath. Head of bed is elevated.
--- NOTE | 2017-02-03 19:00 | NUR ---
DIURESIS, BLOOD PRESSURE Diuresing, 450 mls the last hour via liu catheter. Blood pressures improved to 111/57 after hanging in the 90's/50's after Metoprolol earlier today and struggling with urine output around noon. Metoprolol is on hold.
[2017-02-03] MEDS: BUDESONIDE INH.SOLN. 0.5mg/2ml NEB AEROSOL SCH (22:00)
[2017-02-03] MEDS: ALBUTEROL/IPRATROPIUM INHAL. 2.5mg-0.5mg/3ml Neb. AEROSOL SCH (22:00)
[2017-02-03] MEDS ORDERED: LORAZEPAM 2 MG/ML INJECTION IV PRN (23:00)
[2017-02-03] MEDS: HALOPERIDOL 5 MG/ML INJECTION IV PRN (23:01)
--- NOTE | 2017-02-03 23:03 | NUR ---
Status Pt has been extremely restless this evening. Confusion noted. Unable to reorient. Attempting to climb out of bed and pull lines. Contacted Dr. Hoyos. New orders received for Haldol PRN and Ativan, with haldol being the first defense. RN to administer and monitor.
[2017-02-04] VITALS (35 sets, daily range): BP systolic 82–136; BP diastolic 42–95; PULSE 80–300; RESP 21–56; TEMP 97.8–99.2; O2SAT 88–100
--- NOTE | 2017-02-04 00:12 | NUR ---
Sepsis Screen Pt flagged severe sepsis. Notified physician. No new orders. May order lactate with a.m. labs following chart review. Will continue to monitor.
[2017-02-04] MEDS ORDERED: FUROSEMIDE 20 MG/2 ML INJECTION IV ONE (02:00)
--- NOTE | 2017-02-04 02:00 | NUR ---
Oxygen Pt's O2 requirements have increased to 10L O2/NC with oxygen saturations in the upper 80's to low 90's. JVD observed. Sinus tachy up to 110's. Updated physician. New order for lasix obtained. RN administered. If no improvement, RN to contact physician and get a.m. labs drawn early.
[2017-02-04] MEDS: HALOPERIDOL 5 MG/ML INJECTION IV PRN ×2 (02:44→22:14)
[2017-02-04] MEDS: NORMAL SALINE 1,000 ML IV SCH (06:21)
[2017-02-04] MEDS: LEVOTHYROXINE 100 MCG TABLET PO SCH (06:30)
[2017-02-04] MEDS: FAMOTIDINE 20 MG TABLET PO SCH (06:30)
[2017-02-04] MEDS: CLOTRIMAZOLE 10 MG TROCHE PO SCH ×5 (06:30→23:12)
--- NOTE | 2017-02-04 06:34 | NUR ---
Shift Summary Pt was very restless throughout the night. Finally fell asleep at approx. 0330. Oxygen demand increased to 10L. Lasix administered and was able to gradually wean her back down to 6L O2. Pt seems to tolerate simple mask over nasal canula. HR elevated when awake, respiratory rate 30's. Significant confusion continues. Pt pulling lines and attempting to get out of bed. Close monitoring required for safety concerns. Unable to be reoriented. Very argumentative at times. Vera with adequate output, a couple low readings to mention. Neuro exams intact and appropriate.
[2017-02-04 06:57] LABS: VBG TOTAL CO2 25.4 MEQ/L
[2017-02-04 06:58] LABS: HCT - HEMATOCRIT 31.5 % (36-46); HGB - HEMOGLOBIN 10.1 GM/DL (12-16); MEAN CORPUSCULAR HGB 26.2 UUG (26-34); MEAN CORPUSCULAR HGB CONC(MCHC 32.1 GM/DL (31-37); MEAN CORPUSCULAR VOLUME 81.8 UM3 (80-100); MEAN PLATELET VOLUME 10.7 UM3 (9.4-12.4); RED BLOOD COUNT 3.85 M/MM3 (4.00-5.20)
[2017-02-04 07:05] LABS: ALBUMIN 2.5 G/DL (3.5-5.0); ANION GAP 9 MEQ/L (5-15); BUN/CREATININE RATIO 18 RATIO (6-26); CALCIUM 7.7 MG/DL (8.4-10.2); CHLORIDE 102 MEQ/L (98-107); CO2 - CARBON DIOXIDE 24 MEQ/L (22-30); CREATININE 0.9 MG/DL (0.7-1.2); GLOMERULAR FILTRATION RATE 61; GLUCOSE 106 MG/DL (65-110); POTASSIUM 3.1 MEQ/L (3.6-5); SODIUM 135 MEQ/L (134-144)
[2017-02-04 07:06] LABS: LACTATE - LACTIC ACID 0.9 MMOL/L (0.6-2.2)
[2017-02-04 07:37] LABS: PHOSPHORUS 2.8 MG/DL (2.5-4.5)
[2017-02-04 07:39] LABS: BAND NEUTROPHILS # 0.6 T/MM3; EOSINOPHILS # (MANUAL) 0.2 T/MM3 (0-0.5); LYMPHOCYTES # (MANUAL) 0.6 T/MM3 (1-4.8); MONOCYTES # (MANUAL) 1.3 T/MM3 (0-0.8); NEUTROPHILS #(MANUAL)-ABSOLUTE 13.3 T/MM3 (1.8-7.7); TOTAL CELLS COUNTED 100 %
--- NOTE | 2017-02-04 08:00 | NUR ---
STATUS AM cares provided. Patient resting and just wants to sleep.
[2017-02-04] MEDS: FUROSEMIDE 40 MG/4 ML INJECTION IV SCH ×2 (08:26→21:04)
[2017-02-04 08:50] LABS: BLOOD, URINE 3+ (NEGATIVE); COLOR,URINE YELLOW (YELLOW); LEUKOCYTE ESTERASE ,URINE 3+ (NEGATIVE); NITRITE,URINE NEGATIVE (NEGATIVE); UROBILINOGEN,URINE 0.2 EU/DL (NORMAL)
[2017-02-04] MEDS: ALBUTEROL/IPRATROPIUM INHAL. 2.5mg-0.5mg/3ml Neb. AEROSOL SCH ×2 (08:52→18:23)
[2017-02-04] MEDS: BUDESONIDE INH.SOLN. 0.5mg/2ml NEB AEROSOL SCH ×2 (08:52→18:23)
[2017-02-04] MEDS ORDERED: ENOXAPARIN 40 MG/0.4 ML INJECTION SQ SCH (09:00)
[2017-02-04 09:05] LABS: WBC,URINE 30-50 /HPF (0-5)
[2017-02-04 09:06] LABS: BACTERIA,URINE 2+ (NEGATIVE); RBC,URINE 30-50 /HPF (0-3); SQUAMOUS EPITHELIAL CELL,UR NONE SEEN; WBC CLUMPS,URINE MANY
--- NOTE | 2017-02-04 09:30 | NUR ---
STATUS Patient awake now and family at bedside. Able to converse with family and staff although not always approp. Hungry and does eat breakfast. Denies discomfort.
[2017-02-04] MEDS: ASPIRIN 81 MG CHEWABLE TABLET PO SCH (09:36)
[2017-02-04] MEDS: SERTRALINE 100 MG TABLET PO SCH (09:38)
[2017-02-04] MEDS: AMBRISENTAN 10 MG PO SCH (09:39)
[2017-02-04] MEDS: CETIRIZINE 10 MG TABLET PO SCH (09:39)
[2017-02-04] MEDS: POTASSIUM CHLORIDE 10 MEQ in WATER FOR INJECTION 100 ML IV SCH ×6 (10:51→16:13)
--- NOTE | 2017-02-04 12:01 | PNPDOC ---
Subjective Date DATE: 02/04/17 TIME: 11:52 Subjective Blood pressure lower overnight, was on 10L NC and given a dose of lasix, improved down to 6L NC. Resting this morning but was agitated and combative much of the night. WBC increased this morning. Afebrile. Remains confused much of the time. No further seizure events. Objective Vital Signs Vital signs Vital Signs Date Time Temp Pulse Resp B/P Pulse Ox O2 Delivery O2 Flow Rate FiO2 02/04/17 11:00 206 48 93/55 91 Nasal Cannula 4.00 02/04/17 08:00 97.8 02/02/17 09:25 100 Telemetry Rhythm: Sinus Rhythm Height (Feet): 5 Height (Inches): 6.00 Weight (Kilograms): 51.400 General Comments resting comfortably, NAD Neck (Brief) Neck: FOUND: JVD, NOT FOUND: adenopathy, nuchal rigidity, tenderness Respiratory (Brief) Comments rales at the left mid and lower lung, CTA on the right Cardiovascular (Brief) Cardiac: FOUND: pedal edema (trace), regular rate, regular rhythm Abdomen (Brief) Abdominal: FOUND: soft, NOT FOUND: distended, tender Extremities (Brief) Extremity : Extremity Finding: FOUND: edema, warm, NOT FOUND: clubbing, cyanosis Integumentary (Brief) Integumentary: FOUND: dry, warm, NOT FOUND: rash Laboratory Laboratory Laboratory Tests 02/03/17 04:51 02/04/17 06:34 Laboratory Tests 02/03/17 04:51 02/04/17 06:34 Microbiology Microbiology Microbiology Date/Time Source Procedure Growth Status 02/04/17 07:52 Peripheral/Iv Start Blood Culture - Preliminary CULTURE INITIATED - RESULTS PENDING Resulted 02/04/17 07:52 Peripheral/Iv Start Blood Culture - Preliminary CULTURE INITIATED - RESULTS PENDING Resulted 02/04/17 09:06 Urine, Vera Indwelling Urine Culture - Preliminary CULTURE INITIATED - RESULTS PENDING Resulted Radiology CXR this AM 02/04 reviewed by me with small left effusion and increased vascular congestion. Assessment & Plan Assessment Encephalopathy/Altered mental status Seizure, generalized Medication misuse, suspected, accidental Leukocytosis-new 02/03 and persistent 02/04 UTI-ruled out at admission Idiopathic pulmonary hypertension-PAP in 90s Scleroderma with CREST Respiratory/metabolic acidosis-post seizure Dysphagia/hiatal hernia Hypertension Hypothyroidism History DVT/PE Hypokalemia Confusion persists without change in neurologic exam. WBC remain elevated and BP marginal overnight; repeat urine culture ordered as well as blood cultures. Responding to diuresis, will give lasix 20 mg IV BID today and monitor I/O. Repleting K per IV as difficult to get her to cooperative with many of the medications orally. Discussed with Dr. Kendrick at [facility] previously by Dr. Platt; indicated pH has been in the 90s and that scleroderma symptoms have been stable. He did not view patient at high risk for vasculitis but felt CTA-head appropriate. Fluids increased pending CTA, now diuresing as renal function stable. Urine drug screen negative in the emergency room prior to admission. I'm inclined to proceed with spinal tap to complete workup for encephalopathy/ new seizure if CTA negative--> anesthesia not here currently but if coming in will obtain later today. Repeat INR in AM for surveillance. Repeat BMP this afternoon for surveillance, replacing K IV and will monitor with diuresis. Mg with AM labs given further diuresis. Continue to hold second SSRI. Hold antihypertensives and monitor BP. PT/OT consults pending. Pepcid/SCDs for prophylaxis; will hold lovenox given possibility of LP being needed this weekend. Low threshold to call in anesthesia for LP if clinically worsening. Plan/Intensity of Service Chest x-ray reviewed by myself, discussed with nursing staff, laboratory and imaging reviewed, additional studies ordered. Discussed with nursing and case management. DVT Prophylaxis: SCD'S Code Status Full Code Hospital Course Summary Disclaimer The hospital course summary below is not to be considered part of the above Progress Note. Hospital Course Summary 02/02/17 Patient hospitalized with confusion and seizure with questionable accidental medication ingestion/withdrawal. Seizure precautions initiated. Patient transferred to intensive care unit on BiPAP following seizure this morning. Mental status remains depressed although she is no longer unresponsive when reassessed in the unit. Discussed with Dr. Mondragon, begin reintroducing home medications (single SSRI initially) when patient able to take by mouth. Discontinue Bactrim-UA in the ER with 0-1 WBC, negative nitrite. UDS negative during ER evaluation. Speech therapy evaluation. 02/03/17 Confusion persists with word searching, perseveration, and disorientation. No overt neurological deficits on examination. Discussed with Dr. Kendrick at [facility] who indicated pH has been in the 90s and that scleroderma symptoms have been stable. He did not view patient at high risk for vasculitis but felt CTA-head appropriate. Fluids increased pending CTA. May require resumption of diuresis post imaging. Urine drug screen negative in the emergency room prior to admission. INR being obtained, I'm inclined to proceed with spinal tap to complete workup for encephalopathy/new seizure if CTA negative. Continue to hold second SSRI. Blood pressure stable on current regimen. PT/OT consults pending. Pepcid/SCDs for prophylaxis; will add Lovenox tomorrow if LP completed today. 02/04/17 Confusion persists without change in neurologic exam. WBC remain elevated and BP marginal overnight; repeat urine culture ordered as well as blood cultures. Responding to diuresis, will give lasix 20 mg IV BID today and monitor I/O. Repleting K per IV as difficult to get her to cooperative with many of the medications orally. Discussed with Dr. Kendrick at [facility] previously by Dr. Platt; indicated pH has been in the 90s and that scleroderma symptoms have been stable. He did not view patient at high risk for vasculitis but felt CTA-head appropriate. Fluids increased pending CTA, now diuresing as renal function stable. Urine drug screen negative in the emergency room prior to admission. I'm inclined to proceed with spinal tap to complete workup for encephalopathy/ new seizure if CTA negative--> anesthesia not here currently but if coming in will obtain later today. Repeat INR in AM for surveillance. Repeat BMP this afternoon for surveillance, replacing K IV and will monitor with diuresis. Mg with AM labs given further diuresis. Continue to hold second SSRI. Hold antihypertensives and monitor BP. PT/OT consults pending. Pepcid/SCDs for prophylaxis; will hold lovenox given possibility of LP being needed this weekend. Low threshold to call in anesthesia for LP if clinically worsening. BRANDIE MOSLEY MD Feb 04, 2017 11:55
--- NOTE | 2017-02-04 17:00 | NUR ---
ACTIVITY Up in chair w/ minimal assist. Does not follow cuing but stands easily and transfers. Family continues at bedside.
[2017-02-04 17:59] LABS: ANION GAP 10 MEQ/L (5-15); BUN/CREATININE RATIO 21 RATIO (6-26); CALCIUM 8.2 MG/DL (8.4-10.2); CHLORIDE 99 MEQ/L (98-107); CO2 - CARBON DIOXIDE 23 MEQ/L (22-30); CREATININE 0.9 MG/DL (0.7-1.2); GLOMERULAR FILTRATION RATE 61; GLUCOSE 101 MG/DL (65-110); SODIUM 132 MEQ/L (134-144)
--- NOTE | 2017-02-04 20:52 | NUR ---
Family is reporting that she seems much less confused.
[2017-02-05] VITALS (23 sets, daily range): BP systolic 86–135; BP diastolic 53–69; PULSE 82–249; RESP 18–98; TEMP 97.9–98.9; O2SAT 86–100
--- NOTE | 2017-02-05 00:30 | NUR ---
Patient's liu catheter leaked after she received her 40mg of lasix. Patient given cath care and advanced catheter after deflating the balloon. Balloon reinflated.
[2017-02-05] MEDS: CLOTRIMAZOLE 10 MG TROCHE PO SCH ×5 (06:34→23:21)
[2017-02-05] MEDS: FAMOTIDINE 20 MG TABLET PO SCH (06:35)
[2017-02-05] MEDS: LEVOTHYROXINE 100 MCG TABLET PO SCH (06:35)
[2017-02-05 06:48] LABS: BASOPHILS % (AUTO) 0.2 % (0-2); EOSINOPHILS # (AUTO) 0.2 T/MM3 (0-0.5); EOSINOPHILS % (AUTO) 1.4 % (0-4); HCT - HEMATOCRIT 32.3 % (36-46); HGB - HEMOGLOBIN 10.7 GM/DL (12-16); IMMATURE GRANULOCYTE # (AUTO) 0.03 T/MM3 (0.00-0.03); IMMATURE GRANULOCYTE % (AUTO) 0.2 % (0.0-0.5); LYMPHOCYTES # (AUTO) 1.1 T/MM3 (1-4.8); LYMPHOCYTES % (AUTO) 8.6 % (23-45); MEAN CORPUSCULAR HGB 26.3 UUG (26-34); MEAN CORPUSCULAR HGB CONC(MCHC 33.1 GM/DL (31-37); MEAN CORPUSCULAR VOLUME 79.4 UM3 (80-100); MONOCYTES # (AUTO) 1.1 T/MM3 (0-0.8); MONOCYTES % (AUTO) 9.2 % (0-9.0); NEUTROPHILS #(AUTO)-ABSOLUTE 9.9 T/MM3 (1.8-7.7); NEUTROPHILS % (AUTO) 80.4 % (33-66); RED BLOOD COUNT 4.07 M/MM3 (4.00-5.20); WBC - WHITE BLOOD COUNT 12.3 T/MM3 (4.5-11.0)
[2017-02-05 06:53] LABS: ALBUMIN 2.7 G/DL (3.5-5.0); ALKALINE PHOSPHATASE 67 U/L (38-126); ALT (SGPT) 31 U/L (9-52); ANION GAP 12 MEQ/L (5-15); AST (SGOT) 19 U/L (14-36); BUN/CREATININE RATIO 26 RATIO (6-26); CHLORIDE 97 MEQ/L (98-107); CO2 - CARBON DIOXIDE 23 MEQ/L (22-30); CREATININE 0.9 MG/DL (0.7-1.2); GLOMERULAR FILTRATION RATE 61; GLUCOSE 88 MG/DL (65-110); MAGNESIUM 1.6 MG/DL (1.6-2.3); POTASSIUM 3.8 MEQ/L (3.6-5); SODIUM 132 MEQ/L (134-144); TOTAL PROTEIN 5.5 G/DL (6.3-8.2)
[2017-02-05 07:28] LABS: INR 1.17 (0.76-1.04); PROTHROMBIN TIME 12.7 SEC (9.31-12.49)
[2017-02-05] MEDS: CETIRIZINE 10 MG TABLET PO SCH (08:10)
[2017-02-05] MEDS: SERTRALINE 100 MG TABLET PO SCH (08:10)
[2017-02-05] MEDS: ASPIRIN 81 MG CHEWABLE TABLET PO SCH (08:10)
[2017-02-05] MEDS: AMBRISENTAN PO SCH (08:10)
[2017-02-05] MEDS: MAGNESIUM SULFATE 1 G in D5W 100 ML IV SCH ×2 (08:22→09:35)
--- NOTE | 2017-02-05 08:45 | NUR ---
STATUS Mentation much improved from yesterday. Converses approp. AM cares provided and assisted patient to chair. Steady on feet. Able to order her own breakfast.
[2017-02-05] MEDS: ALBUTEROL/IPRATROPIUM INHAL. 2.5mg-0.5mg/3ml Neb. AEROSOL SCH ×2 (09:37→20:54)
[2017-02-05] MEDS: BUDESONIDE INH.SOLN. 0.5mg/2ml NEB AEROSOL SCH ×2 (09:37→20:54)
--- NOTE | 2017-02-05 10:15 | NUR ---
MONITOR Monitor reads both qrs and t wave making for an elevated HR per the monitor. When looking at the heart rate, it is not that high. Patient is restless and fidgety also adding to the artifact issue and variable and elevated HR.
--- NOTE | 2017-02-05 10:30 | NUR ---
ACTIVITY Family at bedside. Patient up to BR and then amb in CCU hallway. States she feels weak but denies discomfort. Does have labored resp after activity. States she has that at home as well. Sats 87% initially after amb and then increased to >90%.
--- NOTE | 2017-02-05 10:33 | DI ---
Indication: ITS.REASON: hypoxia, volume versus HCAP PROCEDURE: CHEST 1 VIEW: Encounter: Initial Comparison: February 03, 2017 Findings: New hazy airspace opacity in the left lower lobe with possible trace left effusion. Right lung appears clear. No pneumothorax. Heart size and mediastinal contours are stable. Slight obscuration of the left hemidiaphragm. Impression: Left lower lobe airspace opacity could be due to atelectasis, pneumonia or aspiration. .
--- NOTE | 2017-02-05 10:45 | PNPDOC ---
Subjective Date DATE: 02/05/17 TIME: 10:38 Subjective Much better today, making sense, had a normal conversation this morning. at bedside and feels she is improving to her baseline. High respiratory rate at times but denies dyspnea. Tolerating diuresis well and weights back to baseline today. Denies fevers, chills, dyspnea. Objective Vital Signs Vital signs Vital Signs Date Time Temp Pulse Resp B/P Pulse Ox O2 Delivery O2 Flow Rate FiO2 02/05/17 09:37 82 02/05/17 09:37 24 90 02/05/17 08:00 97.9 104/57 Nasal Cannula 4.00 02/02/17 09:25 100 Telemetry Rhythm: Sinus Rhythm Height (Feet): 5 Height (Inches): 6.00 Weight (Kilograms): 50.500 General General Appearance: Alert, Orientated x 2 (person and place), Cooperative Eyes (Brief) Eyes: FOUND: EOMI, PERRL, NOT FOUND: scleral icterus ENMT (Brief) ENMT: FOUND: hearing intact, mucosa moist Respiratory (Brief) Respiratory: FOUND: clear all lemus, NOT FOUND: rales, wheezes Cardiovascular (Brief) Cardiac: FOUND: regular rate, regular rhythm Abdomen (Brief) Abdominal: FOUND: soft, NOT FOUND: distended, tender Extremities (Brief) Extremity : Extremity Finding: NOT FOUND: cyanosis, edema Integumentary (Brief) Integumentary: FOUND: dry, warm, NOT FOUND: rash Psychiatric (Brief) Psychiatric: FOUND: alert, attentive, normal affect Laboratory Laboratory Laboratory Tests 02/04/17 06:34 02/04/17 16:53 02/05/17 06:31 Laboratory Tests 02/04/17 06:34 02/05/17 06:31 Microbiology Microbiology Microbiology Date/Time Source Procedure Growth Status 02/04/17 07:52 Peripheral/Iv Start Blood Culture - Preliminary NO GROWTH AFTER 24 HOURS Resulted 02/04/17 07:52 Peripheral/Iv Start Blood Culture - Preliminary NO GROWTH AFTER 24 HOURS Resulted 02/04/17 09:06 Urine, Vera Indwelling Urine Culture - Preliminary CULTURE INITIATED - RESULTS PENDING Resulted Assessment & Plan Assessment Encephalopathy/Altered mental status Seizure, generalized Medication misuse, suspected, accidental Leukocytosis-new 02/03 and persistent 02/04 UTI-ruled out at admission Idiopathic pulmonary hypertension-PAP in 90s Scleroderma with CREST Respiratory/metabolic acidosis-post seizure Dysphagia/hiatal hernia Hypertension Hypothyroidism History DVT/PE Hypokalemia Confusion much improved today, ? medication washout? WBC remain elevated at 12K but afebrile, urine culture pending, blood cultures NGTD, not on antibiotics without worsening. Back to near admission weight, responded well to diuresis, on room air now and K normal this morning after IV replacement. Discussed with Dr. Kendrick at [facility] previously by Dr. Platt; indicated pH has been in the 90s and that scleroderma symptoms have been stable. He did not view patient at high risk for vasculitis but felt CTA-head appropriate (no acute findings) Urine drug screen negative in the emergency room prior to admission. Discussed with her that we will hold on LP acutely as she appears to be improving; he is in agreement. INR has normalized if LP becomes necessary (1.1 today) Replete Mg IV today. Continue to hold second SSRI. Hold antihypertensives and monitor BP outside of metoprolol, restarted due to sinus tachycardia. PT/OT consults pending. Pepcid/SCDs for prophylaxis. May transfer out of the ICU this afternoon if remaining stable from a mental status standpoint. Plan/Intensity of Service Patient discussed with nursing staff, at bedside, case management. Laboratory and imaging reviewed, additional studies ordered. Code Status Full Code Hospital Course Summary Disclaimer The hospital course summary below is not to be considered part of the above Progress Note. Hospital Course Summary 02/02/17 Patient hospitalized with confusion and seizure with questionable accidental medication ingestion/withdrawal. Seizure precautions initiated. Patient transferred to intensive care unit on BiPAP following seizure this morning. Mental status remains depressed although she is no longer unresponsive when reassessed in the unit. Discussed with Dr. Mondragon, begin reintroducing home medications (single SSRI initially) when patient able to take by mouth. Discontinue Bactrim-UA in the ER with 0-1 WBC, negative nitrite. UDS negative during ER evaluation. Speech therapy evaluation. 02/03/17 Confusion persists with word searching, perseveration, and disorientation. No overt neurological deficits on examination. Discussed with Dr. Kendrick at [facility] who indicated pH has been in the 90s and that scleroderma symptoms have been stable. He did not view patient at high risk for vasculitis but felt CTA-head appropriate. Fluids increased pending CTA. May require resumption of diuresis post imaging. Urine drug screen negative in the emergency room prior to admission. INR being obtained, I'm inclined to proceed with spinal tap to complete workup for encephalopathy/new seizure if CTA negative. Continue to hold second SSRI. Blood pressure stable on current regimen. PT/OT consults pending. Pepcid/SCDs for prophylaxis; will add Lovenox tomorrow if LP completed today. 02/04/17 Confusion persists without change in neurologic exam. WBC remain elevated and BP marginal overnight; repeat urine culture ordered as well as blood cultures. Responding to diuresis, will give lasix 20 mg IV BID today and monitor I/O. Repleting K per IV as difficult to get her to cooperative with many of the medications orally. Discussed with Dr. Kendrick at [facility] previously by Dr. Platt; indicated pH has been in the 90s and that scleroderma symptoms have been stable. He did not view patient at high risk for vasculitis but felt CTA-head appropriate. Fluids increased pending CTA, now diuresing as renal function stable. Urine drug screen negative in the emergency room prior to admission. I'm inclined to proceed with spinal tap to complete workup for encephalopathy/ new seizure if CTA negative--> anesthesia not here currently but if coming in will obtain later today. Repeat INR in AM for surveillance. Repeat BMP this afternoon for surveillance, replacing K IV and will monitor with diuresis. Mg with AM labs given further diuresis. Continue to hold second SSRI. Hold antihypertensives and monitor BP. PT/OT consults pending. Pepcid/SCDs for prophylaxis; will hold lovenox given possibility of LP being needed this weekend. Low threshold to call in anesthesia for LP if clinically worsening. 02/05/17 Confusion much improved today, ? medication washout? WBC remain elevated at 12K but afebrile, urine culture pending, blood cultures NGTD, not on antibiotics without worsening. Back to near admission weight, responded well to diuresis, on room air now and K normal this morning after IV replacement. Discussed with Dr. Kendrick at [facility] previously by Dr. Platt; indicated pH has been in the 90s and that scleroderma symptoms have been stable. He did not view patient at high risk for vasculitis but felt CTA-head appropriate (no acute findings) Urine drug screen negative in the emergency room prior to admission. Discussed with her that we will hold on LP acutely as she appears to be improving; he is in agreement. INR has normalized if LP becomes necessary (1.1 today) Replete Mg IV today. Continue to hold second SSRI. Hold antihypertensives and monitor BP outside of metoprolol, restarted due to sinus tachycardia. PT/OT consults pending. Pepcid/SCDs for prophylaxis. May transfer out of the ICU this afternoon if remaining stable from a mental status standpoint. BRANDIE MOSLEY MD Feb 05, 2017 10:44
--- NOTE | 2017-02-05 13:00 | NUR ---
STATUS Patient continues up in chair. Continues to be lucid and approp w/ conversation. Denies discomfort.
[2017-02-05] MEDS: CEFTRIAXONE 1 G in NORMAL SALINE 100 ML IV SCH (14:12)
--- NOTE | 2017-02-05 15:25 | NUR ---
TRANSFER Patient transferred per w/c to Rm. 144. Family present and aware. Vera dc'd per orders. Up to BR in Rm. 144. Inc of soft brown stool and patient did void post dc Vera.
--- NOTE | 2017-02-05 16:44 | NUR ---
transfer Pt to room, ambulated from WC to bathroom with 1x assist. Pt denies pain, on RA at 88% put on 2L. V/S stable. Seizure precautions put in place, pt able to call if any needs. Family present, comfortable at this time.
[2017-02-05] MEDS: HALOPERIDOL 5 MG/ML INJECTION IV PRN (23:33)
--- NOTE | 2017-02-05 23:46 | NUR ---
Status Pt having anxiety and is restless in bed. Repositioned, VSS, haldol given per order for anxiety. Alarms in place, will monitor.
[2017-02-06] VITALS (9 sets, daily range): BP systolic 103–136; BP diastolic 58–71; PULSE 83–101; RESP 14–22; TEMP 97.4–98.9; O2SAT 86–96
[2017-02-06 05:18] LABS: BASOPHILS % (AUTO) 0.2 % (0-2); EOSINOPHILS # (AUTO) 0.2 T/MM3 (0-0.5); EOSINOPHILS % (AUTO) 1.8 % (0-4); HCT - HEMATOCRIT 31.3 % (36-46); HGB - HEMOGLOBIN 10.2 GM/DL (12-16); IMMATURE GRANULOCYTE # (AUTO) 0.03 T/MM3 (0.00-0.03); IMMATURE GRANULOCYTE % (AUTO) 0.3 % (0.0-0.5); LYMPHOCYTES # (AUTO) 1.1 T/MM3 (1-4.8); LYMPHOCYTES % (AUTO) 11.5 % (23-45); MEAN CORPUSCULAR HGB CONC(MCHC 32.6 GM/DL (31-37); MEAN CORPUSCULAR VOLUME 79.8 UM3 (80-100); MONOCYTES # (AUTO) 1.1 T/MM3 (0-0.8); MONOCYTES % (AUTO) 11.8 % (0-9.0); NEUTROPHILS % (AUTO) 74.4 % (33-66); RED BLOOD COUNT 3.92 M/MM3 (4.00-5.20); WBC - WHITE BLOOD COUNT 9.4 T/MM3 (4.5-11.0)
[2017-02-06 05:39] LABS: ALBUMIN 2.5 G/DL (3.5-5.0); ANION GAP 7 MEQ/L (5-15); BUN/CREATININE RATIO 26 RATIO (6-26); CHLORIDE 98 MEQ/L (98-107); CO2 - CARBON DIOXIDE 23 MEQ/L (22-30); CREATININE 0.9 MG/DL (0.7-1.2); GLOMERULAR FILTRATION RATE 61; GLUCOSE 99 MG/DL (65-110); PHOSPHORUS 3.5 MG/DL (2.5-4.5); POTASSIUM 3.9 MEQ/L (3.6-5); SODIUM 128 MEQ/L (134-144)
[2017-02-06] MEDS: LEVOTHYROXINE 100 MCG TABLET PO SCH (06:44)
[2017-02-06] MEDS: CLOTRIMAZOLE 10 MG TROCHE PO SCH ×5 (06:44→22:28)
[2017-02-06] MEDS: FAMOTIDINE 20 MG TABLET PO SCH (06:44)
--- NOTE | 2017-02-06 06:47 | NUR ---
Shift Easily awaken, much more calm this morning. Denies pain or needs, VSS, alert but forgetful, 1x person assist with walker to BR, 2L/NC. Bed alarm for pt safety.
[2017-02-06] MEDS: ALBUTEROL/IPRATROPIUM INHAL. 2.5mg-0.5mg/3ml Neb. AEROSOL SCH ×2 (08:18→21:00)
[2017-02-06] MEDS: BUDESONIDE INH.SOLN. 0.5mg/2ml NEB AEROSOL SCH ×2 (08:18→21:00)
[2017-02-06] MEDS ORDERED: FUROSEMIDE 40 MG TABLET PO SCH (09:00)
[2017-02-06] MEDS: CEFTRIAXONE 1 G in NORMAL SALINE 100 ML IV SCH (09:10)
--- NOTE | 2017-02-06 09:20 | PNPDOC ---
TODD FLEMING SALES ACCOUNT ASSOCIATE 02/06/17 0904: Subjective Date DATE: 02/06/17 TIME: 09:01 Subjective Maggi states that she is feeling better. She reports that she rested well last night. Initially, she denied any pain, but later admitted to having some chest pain. She reports her chest is sore from when they did CPR on her, but added that the pain is getting better. She denies any difficulty breathing. She denies feeling dizzy, but admits to weakness. She denies abdominal pain, and reports that her appetite has been "fair". Nursing staff report that she has been anxious at times and forgetful. Objective Vital Signs Vital signs Vital Signs Date Time Temp Pulse Resp B/P Pulse Ox O2 Delivery O2 Flow Rate FiO2 02/06/17 08:30 79 02/06/17 08:25 16 90 02/06/17 07:54 98.9 111/64 Nasal Cannula 3.00 02/02/17 09:25 100 Telemetry Rhythm: Sinus Rhythm Height (Feet): 5 Height (Inches): 6.00 Weight (Kilograms): 49.900 General General Appearance: Alert, Orientated x 3, Well Nourished, Well Developed, No Acute Distress Eyes (Brief) Eyes: FOUND: PERRL, NOT FOUND: scleral icterus ENMT (Brief) ENMT: FOUND: mucosa moist, NOT FOUND: pharnyx erythema Respiratory (Brief) Respiratory: FOUND: clear all lemus, equal bilaterally Cardiovascular (Brief) Cardiac: FOUND: regular rate, regular rhythm Abdomen (Brief) Abdominal: FOUND: BS normo active x4, soft, NOT FOUND: distended Extremities (Brief) Extremity : Side: Bilateral Extremity: leg Extremity Finding: NOT FOUND: edema Musculoskeletal (Brief) Musculoskeletal: NOT FOUND: deformity Integumentary (Brief) Integumentary: FOUND: dry, pink, warm Psychiatric (Brief) Psychiatric: FOUND: alert, attentive, normal affect, oriented Laboratory Laboratory Laboratory Tests 02/04/17 16:53 02/05/17 06:31 02/06/17 04:35 Laboratory Tests 02/05/17 06:31 02/06/17 04:35 Microbiology Microbiology Microbiology Date/Time Source Procedure Growth Status 02/04/17 07:52 Peripheral/Iv Start Blood Culture - Preliminary NO GROWTH AFTER 48 HOURS Resulted 02/04/17 07:52 Peripheral/Iv Start Blood Culture - Preliminary NO GROWTH AFTER 48 HOURS Resulted 02/04/17 09:06 Urine, Vera Indwelling Urine Culture - Final Escherichia Coli Complete Assessment & Plan Problems: (1) Hyponatremia Status: Acute (2) Escherichia coli urinary tract infection Status: Acute (3) Encephalopathy acute Status: Acute (4) Generalized seizure Status: Acute (5) Medication adverse effect Status: Acute Assessment & Plan: Medication misuse, accidental (6) Leukocytosis Status: Resolved (7) Idiopathic pulmonary hypertension Status: Chronic Assessment & Plan: PAP in 90s (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 (9) Metabolic acidosis with respiratory acidosis Status: Resolved Assessment & Plan: post-seizure (10) Hypothyroidism (11) Dysphagia Status: Chronic Assessment & Plan: with hiatal hernia (12) Hypertension Status: Chronic (13) History of venous thromboembolism Status: Resolved (14) Hypokalemia Status: Resolved Assessment Encephalopathy/Altered mental status Seizure, generalized Medication misuse, suspected, accidental Leukocytosis-new 02/03 and persistent 02/04 UTI-ruled out at admission Idiopathic pulmonary hypertension-PAP in 90s Scleroderma with CREST Respiratory/metabolic acidosis-post seizure Dysphagia/hiatal hernia Hypertension Hypothyroidism History DVT/PE Hypokalemia Plan/Intensity of Service E. coli UTI: Continue Rocephin, started on 02/05/17 Hyponatremia: Sodium decreased to 128 today. She is down about 300 mL since 02/02. Weight has decreased to 49.9. Will discuss with Dr. Platt. Acute encephalopathy: Improving. Received a dose of Haldol last night. She reports that her chest is sore from CPR? No documentation of recent CPR. Hypoxia: down to 86% on 2L this morning - now improved to 90%. Last CXR on 02/03 showed LLL airspace opacity. Repeat CXR today. Leukocytosis: Resolved Hypokalemia: resolved. DVT Prophylaxis: SCD'S Code Status Full Code Hospital Course Summary Disclaimer The hospital course summary below is not to be considered part of the above Progress Note. Hospital Course Summary 02/02/17 Patient hospitalized with confusion and seizure with questionable accidental medication ingestion/withdrawal. Seizure precautions initiated. Patient transferred to intensive care unit on BiPAP following seizure this morning. Mental status remains depressed although she is no longer unresponsive when reassessed in the unit. Discussed with Dr. Mondragon, begin reintroducing home medications (single SSRI initially) when patient able to take by mouth. Discontinue Bactrim-UA in the ER with 0-1 WBC, negative nitrite. UDS negative during ER evaluation. Speech therapy evaluation. 02/03/17 Confusion persists with word searching, perseveration, and disorientation. No overt neurological deficits on examination. Discussed with Dr. Kendrick at [facility] who indicated pH has been in the 90s and that scleroderma symptoms have been stable. He did not view patient at high risk for vasculitis but felt CTA-head appropriate. Fluids increased pending CTA. May require resumption of diuresis post imaging. Urine drug screen negative in the emergency room prior to admission. INR being obtained, I'm inclined to proceed with spinal tap to complete workup for encephalopathy/new seizure if CTA negative. Continue to hold second SSRI. Blood pressure stable on current regimen. Pepcid/SCDs for prophylaxis; will add Lovenox tomorrow if LP completed today. 02/04/17 Confusion persists without change in neurologic exam. WBC remain elevated and BP marginal overnight; repeat urine culture ordered as well as blood cultures. Responding to diuresis, will give lasix 20 mg IV BID today and monitor I/O. Repleting K per IV as difficult to get her to cooperative with many of the medications orally. Discussed with Dr. Kendrick at [facility] previously by Dr. Platt; indicated pH has been in the 90s and that scleroderma symptoms have been stable. He did not view patient at high risk for vasculitis but felt CTA-head appropriate. Fluids increased pending CTA, now diuresing as renal function stable. Urine drug screen negative in the emergency room prior to admission. I'm inclined to proceed with spinal tap to complete workup for encephalopathy/ new seizure if CTA negative--> anesthesia not here currently but if coming in will obtain later today. Repeat INR in AM for surveillance. Repeat BMP this afternoon for surveillance, replacing K IV and will monitor with diuresis. Continue to hold second SSRI. Hold antihypertensives and monitor BP. Pepcid/SCDs for prophylaxis; will hold lovenox given possibility of LP being needed this weekend. Low threshold to call in anesthesia for LP if clinically worsening. 02/05/17 Confusion much improved today, ? medication washout? WBC remain elevated at 12K but afebrile, urine culture pending, blood cultures NGTD, not on antibiotics without worsening. Back to near admission weight, responded well to diuresis, on room air now and K normal this morning after IV replacement. Discussed with Dr. Kendrick at [facility] previously by Dr. Platt; indicated pH has been in the 90s and that scleroderma symptoms have been stable. He did not view patient at high risk for vasculitis but felt CTA-head appropriate (no acute findings) Urine drug screen negative in the emergency room prior to admission. Discussed with her that we will hold on LP acutely as she appears to be improving; he is in agreement. INR has normalized if LP becomes necessary (1.1 today) Replete Mg IV today. Continue to hold second SSRI. Hold antihypertensives and monitor BP outside of metoprolol, restarted due to sinus tachycardia. May transfer out of the ICU this afternoon if remaining stable from a mental status standpoint. 02/06 E. coli UTI: Continue Rocephin, started on 02/05/17 Hyponatremia: Sodium decreased to 128 today. She is down about 300 mL since 02/02. Weight has decreased to 49.9. Will discuss with Dr. Platt. Acute encephalopathy: Improving. Received a dose of Haldol last night. She reports that her chest is sore from CPR? No documentation of recent CPR. Hypoxia: down to 86% on 2L this morning - now improved to 90%. Last CXR on 02/03 showed LLL airspace opacity. Repeat CXR today. Leukocytosis: Resolved Hypokalemia: resolved. ALEC PLATT MD 02/06/171806: Assessment & Plan Assessment I have independently evaluated and examined this patient. I reviewed the chart, the patient's history, and the SALES ACCOUNT ASSOCIATE's documented findings as above. We discussed and formulated the assessment and plan as above with additions as below: Mrs. Cason was seen with her and daughter at the bedside. Her reports that she seems fine when he arrived this morning but subsequently has developed some confusion regarding the dates of her grandsons and that she believes he is the one who is confused. Her daughter confirms that the patient is a little more confused this afternoon than she was yesterday when everything seemed back to normal. Again very little is offered in specifics as to what the family is picking up on other than the confusion about dates but they seem disproportionately concerned compared to what they describe and I suspect they are withholding some information to protect the patient as I have previously. The patient reports some discomfort in her chest if she pushes on it but otherwise reports that she feels stronger and that she walked earlier. She slept well and her appetite is good. Patient is oriented and [facility], 02/05/17. There is no drift of the upper extremities and her pediatric cns are strong. She had some minor difficulty following directions to plantarflex her feet and extended her hands and wrists while plantar flexing her feet but was able to follow the direction. Oral ulcerations on the lateral aspect of the tongue persist but oropharynx is otherwise clear. Respirations are nonlabored and occasional ectopic beats are noted. Sensitivities noted regarding urinary tract infection-changed to cephalexin orally. Fractional excretion sodium consistent with prerenal state, urine sodium low. Urine osmolality pending. Furosemide on hold, 1 L normal saline to be initiated and electrolytes reassessed in the morning. Minor fluctuations in mental status but clearly improved from admission. Will ask psychiatry to evaluate and comment on appropriate SSRI use for the patient; will discuss further with Dr. Mondragon. Chest x-ray today reviewed by myself-unremarkable other than mild hyperinflation and possible scarring at the bases left greater than right. Plan/Intensity of Service Chest x-ray reviewed by myself, supplemental history provided by family. Laboratory data reviewed. Status remains fluctuant. TODD FLEMING APRN Feb 06, 2017 09:04 ALEC PLATT MD Feb 06, 2017 18:07
--- NOTE | 2017-02-06 09:37 | STDAILYN ---
ST Daily Note Date/Time DATE: 02/06/17 TIME: 09:30 Subjective Comment Pt was alert and cooperative with no complaint of pain. She reported, "I need to gain some weight". Showed good appetite. Orientations: Person, Place, Alert, Cooperative Chief Complaint: dysphagia, encephalopathy Pain: No Was Patient Education Provided: Yes Person(s) Educated: Patient Education Subject: Diet, Swallowing Strategies Instruction Understanding Demo: Pt. demos understanding *Speech Therapy Impressions Pt will consume a soft diet/chopped meat with nectar thick liquids without outward signs of aspiration at bedside in 3 trials. Maggi fed herself soft/diet with regular thick liquids with no s/s of aspiration. Pt reported that she was fine with chopped meat and did not want to change diet. Pt may have sips of thin water with supervision. Diet upgraded to regular liquids. Pt will demonstrate 3/3 components necessary for a safe swallow as listed from the following small bites/slow rate, small meals w/supplemental snacks and alternating solids/liquids. Pt fed herself independently using small bites/slow rate. Currently on small meals and snacks. Pt will implement compensatory feeding strategies in 2.3 of feeding trials/ meals with minimal cues to aid recall. Goal met. ST Treatment Plan: Swallow Retraining, Swallow Precautions, Modified Diet ST Treatment Plan Frequency: three times per week Treatment Plan Duration: one week Plan of Care Comment: Continue POC Start Treatment 1: 09:20 Stop Treatment 1: 09:45 Treatment Duration : ST Treatment Charge: Swallow Treatment Minutes of Individual Therapy: 25 MOUSTAPHA METZ MS CCC-WATERWORKS SUPERVISOR Feb 06, 2017 09:33
[2017-02-06] MEDS: ASPIRIN 81 MG CHEWABLE TABLET PO SCH (10:17)
[2017-02-06] MEDS: POTASSIUM CL. 10mEq CAP PO SCH (10:17)
[2017-02-06] MEDS: CETIRIZINE 10 MG TABLET PO SCH (10:18)
[2017-02-06] MEDS: SERTRALINE 100 MG TABLET PO SCH (10:18)
[2017-02-06] MEDS: AMBRISENTAN PO SCH (10:19)
--- NOTE | 2017-02-06 11:25 | DI ---
INDICATION: ITS.REASON: hypoxia; LLL airspace disease PROCEDURE: CHEST 2-VIEWS UPRIGHT (PA \T\ LAT) Encounter: Initial COMPARISON: 02/04/2017 and CTA performed 02/02/2017 FINDINGS: There is bibasilar, left greater than right interstitial appearing pleural parenchymal scarring suggesting acute versus chronic interstitial lung disease. Overall the opacity appears to be decreasing when compared to prior study suggesting some resolution of acute on chronic interstitial lung disease. There is no pleural effusion or pneumothorax. The heart size, mediastinal contours and pulmonary vascularity are within normal limits. There is no significant skeletal abnormality. IMPRESSION: Resolving acute on chronic interstitial lung disease, in the posterior inferior left greater than right lung base. .
--- NOTE | 2017-02-06 12:57 | NUR ---
CM CM IN TO VISIT PT AND . PT AND FAMILY REPORT PT DOES HAVE O2 AT HOME AND [facility] IS THE HOME O2 SUPPLIER. PT AND FAMILY DENY HOME NEEDS AT TIME OF DC AT THIS TIME. PT AND FAMILY AWARE TO CONTACT CM SHOULD NEEDS [facility].
[2017-02-06 13:44] LABS: CREATININE, URINE RANDOM 87.1 MG/DL
--- NOTE | 2017-02-06 13:47 | NUR ---
High Risk R/T BMI > 18.6 Diet: Six small meals; Dysphagia: chopped /'' meat Estimated Calorie needs~1303 Patient states she's not a big eater and her appetite while here in the hospital has been fair. Patient was agreeable to adding strawberry mighty shakes to her snack order at 10AM and 2PM and adding chocolate milk to her meal time trays. RD available @ [phone] Addendum: 02/06/17 at [address] Student charting reviewed by Medical Staff Assistant.
--- NOTE | 2017-02-06 18:02 | NUR ---
shift status Has become more confused throughout the shift at bedside. up with help to br and sits in chair ambulated in manrique with gait belt and walker. no seizure activity noted swollows pills and food without choking. o2 is at 2.5 liters. continue to observe.
[2017-02-06] MEDS: NORMAL SALINE 1,000 ML IV SCH (18:25)
[2017-02-07] VITALS (23 sets, daily range): BP systolic 109–148; BP diastolic 56–80; PULSE 61–108; RESP 16–86; TEMP 96.5–97.8; O2SAT 88–94
[2017-02-07] MEDS: HALOPERIDOL 5 MG/ML INJECTION IV PRN (02:59)
[2017-02-07 05:15] LABS: BASOPHILS # (AUTO) 0.1 T/MM3 (0-0.2); BASOPHILS % (AUTO) 0.7 % (0-2); EOSINOPHILS # (AUTO) 0.2 T/MM3 (0-0.5); HGB - HEMOGLOBIN 11.2 GM/DL (12-16); IMMATURE GRANULOCYTE % (AUTO) 0.9 % (0.0-0.5); LYMPHOCYTES # (AUTO) 1.4 T/MM3 (1-4.8); LYMPHOCYTES % (AUTO) 13.1 % (23-45); MEAN CORPUSCULAR HGB 26.1 UUG (26-34); MEAN CORPUSCULAR HGB CONC(MCHC 32.9 GM/DL (31-37); MEAN CORPUSCULAR VOLUME 79.3 UM3 (80-100); MEAN PLATELET VOLUME 9.9 UM3 (9.4-12.4); MONOCYTES # (AUTO) 1.3 T/MM3 (0-0.8); MONOCYTES % (AUTO) 12.4 % (0-9.0); NEUTROPHILS #(AUTO)-ABSOLUTE 7.6 T/MM3 (1.8-7.7); NEUTROPHILS % (AUTO) 70.9 % (33-66); RED BLOOD COUNT 4.29 M/MM3 (4.00-5.20); WBC - WHITE BLOOD COUNT 10.7 T/MM3 (4.5-11.0)
[2017-02-07 05:21] LABS: ANION GAP 11 MEQ/L (5-15); BUN/CREATININE RATIO 26 RATIO (6-26); CALCIUM 8.2 MG/DL (8.4-10.2); CHLORIDE 99 MEQ/L (98-107); CO2 - CARBON DIOXIDE 21 MEQ/L (22-30); CREATININE 0.9 MG/DL (0.7-1.2); GLOMERULAR FILTRATION RATE 61; GLUCOSE 102 MG/DL (65-110); POTASSIUM 4.1 MEQ/L (3.6-5); SODIUM 131 MEQ/L (134-144)
[2017-02-07] MEDS: CLOTRIMAZOLE 10 MG TROCHE PO SCH ×5 (06:09→22:24)
[2017-02-07] MEDS: CEPHALEXIN 500 MG CAPSULE PO SCH ×3 (06:09→17:29)
[2017-02-07] MEDS: LEVOTHYROXINE 100 MCG TABLET PO SCH (06:09)
[2017-02-07] MEDS: FAMOTIDINE 20 MG TABLET PO SCH (06:10)
--- NOTE | 2017-02-07 08:13 | NUR ---
Status Patient up in chair. Alert and oriented, may be forgetful. Patient's chest is tender to touch due to compressions. Breathing comfortably. Patient on 2.5 l/nc, weaned 1 l/nc. Patient states she wears 2.5l/nc at [facility].
[2017-02-07] MEDS: ALBUTEROL/IPRATROPIUM INHAL. 2.5mg-0.5mg/3ml Neb. AEROSOL SCH ×2 (08:23→21:13)
[2017-02-07] MEDS: BUDESONIDE INH.SOLN. 0.5mg/2ml NEB AEROSOL SCH ×2 (08:23→21:13)
[2017-02-07] MEDS: NORMAL SALINE 1,000 ML IV SCH (09:19)
[2017-02-07] MEDS: SERTRALINE 100 MG TABLET PO SCH (09:21)
[2017-02-07] MEDS: ASPIRIN 81 MG CHEWABLE TABLET PO SCH (09:21)
[2017-02-07] MEDS: CETIRIZINE 10 MG TABLET PO SCH (09:21)
[2017-02-07] MEDS: AMBRISENTAN PO SCH (09:21)
[2017-02-07] MEDS: POTASSIUM CL. 10mEq CAP PO SCH (09:21)
--- NOTE | 2017-02-07 10:42 | NUR ---
Ambulate Patient ambulated on RA, sats dropper 87-90%. Will re-apply oxygen at 1 l/nc.
--- NOTE | 2017-02-07 11:34 | NUR ---
CM CM PROVIDED ADVANCED DIRECTIVE INFORMATION.
[2017-02-07] MEDS ORDERED: GADOBUTROL 10mMol/10ml INJECTION IV ONE (11:51)
[2017-02-07] MEDS ORDERED: SALINE FLUSH 10ml SYRINGE ONE (11:52)
--- NOTE | 2017-02-07 12:24 | PNPDOC ---
TODD FLEMING GANG SAWYER 02/07/17 1217: Subjective Date DATE: 02/07/17 TIME: 12:14 Subjective Maggi was sitting in her chair. Her was in the room. She did not recall meeting me yesterday. She has very quiet today, and did not readily answer questions. She does not think that her chest soreness is any better, but she denies any other issues. Her states that on Monday, she was almost back to normal, but since then has had recurrent mental status changes. We reviewed the plan for today, including MRI and lumbar puncture, and both are in agreement. Objective Vital Signs Vital signs Vital Signs Date Time Temp Pulse Resp B/P Pulse Ox O2 Delivery O2 Flow Rate FiO2 02/07/17 11:38 96.5 87 18 127/56 91 Nasal Cannula 1.00 Telemetry Rhythm: Sinus Rhythm Height (Feet): 5 Height (Inches): 6.00 Weight (Kilograms): 50.800 General General Appearance: Alert, Well Nourished, Well Developed, No Acute Distress Eyes (Brief) Eyes: FOUND: PERRL, NOT FOUND: scleral icterus ENMT (Brief) ENMT: FOUND: mucosa moist, NOT FOUND: pharnyx erythema Respiratory (Brief) Respiratory: FOUND: rales (bilateral) Cardiovascular (Brief) Cardiac: FOUND: regular rate, regular rhythm Abdomen (Brief) Abdominal: FOUND: BS normo active x4, soft, NOT FOUND: distended, tender Extremities (Brief) Extremity : Side: Bilateral Extremity: leg Extremity Finding: NOT FOUND: edema Musculoskeletal (Brief) Musculoskeletal: NOT FOUND: tenderness (calves soft, nttp) Integumentary (Brief) Integumentary: FOUND: dry, warm Psychiatric (Brief) Psychiatric: FOUND: alert, oriented Laboratory Laboratory Laboratory Tests 02/06/17 04:35 02/07/17 04:35 Laboratory Tests 02/06/17 04:35 02/07/17 04:34 Assessment & Plan Problems: (1) Hyponatremia Status: Acute (2) Escherichia coli urinary tract infection Status: Acute (3) Encephalopathy acute Status: Acute (4) Generalized seizure Status: Acute (5) Medication adverse effect Status: Acute Assessment & Plan: Medication misuse, accidental (6) Leukocytosis Status: Resolved (7) Idiopathic pulmonary hypertension Status: Chronic Assessment & Plan: PAP in 90s (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 Dr. Platt discussed case with Dr. Mondragon. Will proceed with LP and MRI today. Dr. Florian has been consulted to help determine appropriate SSRI. Hyponatremia, suspect prerenal in nature - improved to 131 with IVF and holding Lasix. Crackles auscultated this am - will discuss resumption of Lasix with attending. E. coli UTI - abx converted to Keflex. Chronic Hypoxia - maintains sats on 1L. Discussed with Dr. Platt. DVT Prophylaxis: SCD'S Code Status Full Code Hospital Course Summary Disclaimer The hospital course summary below is not to be considered part of the above Progress Note. Hospital Course Summary 02/02/17 Patient hospitalized with confusion and seizure with questionable accidental medication ingestion/withdrawal. Seizure precautions initiated. Patient transferred to intensive care unit on BiPAP following seizure this morning. Mental status remains depressed although she is no longer unresponsive when reassessed in the unit. Discussed with Dr. Mondragon, begin reintroducing home medications (single SSRI initially) when patient able to take by mouth. Discontinue Bactrim-UA in the ER with 0-1 WBC, negative nitrite. UDS negative during ER evaluation. Speech therapy evaluation. 02/03/17 Confusion persists with word searching, perseveration, and disorientation. No overt neurological deficits on examination. Discussed with Dr. Kendrick at [facility] who indicated pH has been in the 90s and that scleroderma symptoms have been stable. He did not view patient at high risk for vasculitis but felt CTA-head appropriate. Fluids increased pending CTA. May require resumption of diuresis post imaging. Urine drug screen negative in the emergency room prior to admission. INR being obtained, I'm inclined to proceed with spinal tap to complete workup for encephalopathy/new seizure if CTA negative. Continue to hold second SSRI. Blood pressure stable on current regimen. Pepcid/SCDs for prophylaxis; will add Lovenox tomorrow if LP completed today. 02/04/17 Confusion persists without change in neurologic exam. WBC remain elevated and BP marginal overnight; repeat urine culture ordered as well as blood cultures. Responding to diuresis, will give lasix 20 mg IV BID today and monitor I/O. Repleting K per IV as difficult to get her to cooperative with many of the medications orally. Discussed with Dr. Kendrick at [facility] previously by Dr. Platt; indicated pH has been in the 90s and that scleroderma symptoms have been stable. He did not view patient at high risk for vasculitis but felt CTA-head appropriate. Fluids increased pending CTA, now diuresing as renal function stable. Urine drug screen negative in the emergency room prior to admission. I'm inclined to proceed with spinal tap to complete workup for encephalopathy/ new seizure if CTA negative--> anesthesia not here currently but if coming in will obtain later today. Repeat INR in AM for surveillance. Repeat BMP this afternoon for surveillance, replacing K IV and will monitor with diuresis. Continue to hold second SSRI. Hold antihypertensives and monitor BP. Pepcid/SCDs for prophylaxis; will hold lovenox given possibility of LP being needed this weekend. Low threshold to call in anesthesia for LP if clinically worsening. 02/05/17 Confusion much improved today, ? medication washout? WBC remain elevated at 12K but afebrile, urine culture pending, blood cultures NGTD, not on antibiotics without worsening. Back to near admission weight, responded well to diuresis, on room air now and K normal this morning after IV replacement. Discussed with Dr. Kendrick at [facility] previously by Dr. Platt; indicated pH has been in the 90s and that scleroderma symptoms have been stable. He did not view patient at high risk for vasculitis but felt CTA-head appropriate (no acute findings) Urine drug screen negative in the emergency room prior to admission. Discussed with her that we will hold on LP acutely as she appears to be improving; he is in agreement. INR has normalized if LP becomes necessary (1.1 today) Replete Mg IV today. Continue to hold second SSRI. Hold antihypertensives and monitor BP outside of metoprolol, restarted due to sinus tachycardia. May transfer out of the ICU this afternoon if remaining stable from a mental status standpoint. 02/06 E. coli UTI: Continue Rocephin, started on 02/05/17 Hyponatremia: Sodium decreased to 128 today. She is down about 300 mL since 02/02. Weight has decreased to 49.9. Will discuss with Dr. Platt. Acute encephalopathy: Improving. Received a dose of Haldol last night. She reports that her chest is sore from CPR? No documentation of recent CPR. Hypoxia: down to 86% on 2L this morning - now improved to 90%. Last CXR on 02/03 showed LLL airspace opacity. Repeat CXR today. Leukocytosis: Resolved Hypokalemia: resolved. 02/07/17 Acute encephalopathy - overall improved but persists. Dr. Platt discussed case with Dr. Mondragon. Will proceed with LP and MRI today. Dr. Florian has been consulted to help determine appropriate SSRI. Hyponatremia, suspect prerenal in nature - improved to 131 with IVF and holding Lasix. Crackles auscultated this am - will discuss resumption of Lasix with attending. E. coli UTI - abx converted to Keflex. Chronic Hypoxia - maintains sats on 1L. ALEC PLATT MD 02/07/17 6699: Assessment & Plan Assessment I have independently evaluated and examined this patient. I reviewed the chart, the patient's history, and the GANG SAWYER's documented findings as above. We discussed and formulated the assessment and plan as above with additions as below: Mrs. Cason was reported as being alert earlier this morning but became more confused again as the morning wore on. Her daughter reports that the patient's mother had dementia. Patient denies difficulty breathing or pain. Examination reveals increased confusion compared to yesterday and the patient is currently unable to tell me where she is or what the date is. She perseverates on her date of and cannot be reoriented to the current date. Respirations are clear anteriorly, posterior lung lemus were not examined as she was examined following lumbar puncture and is supine. Cocoa Roaster are symmetric and no tremor seen. Fluctuating mental status was discussed with Dr. Mondragon earlier today prompting scheduling of MRI brain with and without contrast and lumbar puncture. MRI has been reviewed by myself demonstrating small vessel ischemic changes but no worrisome pathology. Some motion artifact present. Initial studies from the LP are unremarkable, multiple antibodies pending. Psychiatry also consulted, no change in medications recommended per verbal report. Continue supportive care. Will likely require alf at discharge. I'm increasingly concerned that the patient has underlying dementia which is being brought out in the hospital setting. Discontinue IV fluids but continue to hold Lasix due to hyponatremia. Plan/Intensity of Service MRI reviewed by myself, discussed with Dr. Mondragon and psychiatry. Laboratory data reviewed. TODD FLEMING APRN Feb 07, 2017 12:17 ALEC PLATT MD Feb 07, 2017 16:49
--- NOTE | 2017-02-07 13:24 | DI ---
Indication: ITS.REASON: seizure/altered mental status PROCEDURE: MRI BRAIN W/WO CONTRAST: Encounter: Initial Comparisons: Head CT dated February 02, 2017 and CTA head dated February 03, 2017 Technique: Multiplanar, multisequence, MR imaging of the head with and without contrast was acquired. Contrast: 5 mL of Gadavist FINDINGS: Motion artifact limits several sequences. The ventricles are of normal size, shape, and contour for the patient's age. There are small nonspecific punctate areas of T2-weighted and T2 FLAIR weighted signal abnormality in the deep frontoparietal white matter that most likely represent small vessel ischemic disease. This is of a degree that is considered to be normal for the patient's age. The brain stem, cerebellum, and cerebral hemispheres otherwise have a grossly normal morphologic appearance as well as MR signal intensity on all pulse sequences. Following intravenous administration of contrast, no areas of abnormal enhancement are evident. There are no areas of restricted diffusion to suggest an acute infarct. There is no evidence of an intracranial mass lesion, intracranial hemorrhage, or hydrocephalus. The visualized portions of the orbits, calvarium and skull base demonstrate no significant abnormality. Mild mucosal thickening or mucus retention cysts in the maxillary sinuses. Mild mucosal thickening in the right frontal sinus and ethmoid air cells. IMPRESSION: 1. Limited exam due to motion without acute intracranial abnormality. 2. Mild sinus disease. .
--- NOTE | 2017-02-07 13:35 | NUR ---
Procedure Patient transported back from procedure.
[2017-02-07 13:43] LABS: GLUCOSE,CSF 70 MG/DL (40-70); PROTEIN,CSF 46 MG/DL (12-60)
[2017-02-07 13:46] LABS: COLOR,CSF COLORLESS
--- NOTE | 2017-02-07 13:51 | DI ---
INDICATION: ITS.REASON Ordering physician:ALEC CHAPMAN MD Procedure:LUMBAR PUNCTURE (RADIOLOGY) LUMBAR PUNCTURE: The procedure, including the benefits, risks, and alternatives were explained in detail to the patient. All of her questions were answered. They were given the option to decline the procedure. They stated that they understood and wished to proceed. Informed consent was obtained. A pre-procedural timeout was done to verify the correct patient and proper procedure. Using sterile technique, local Xylocaine anesthesia, and fluoroscopic guidance throughout, a 20 G spinal needle was advanced from a posterior approach into the subarachnoid space at the L4-5 level. A fluoroscopic image was then obtained and archived. Removal of the stylet showed clear colorless CSF. Opening pressure was 8 centimeters of water when measured in the prone position. Then 11 cc of CSF was taken off and sent to the lab for the requested studies. The needle was removed. The procedure was completed without complication. Following this, the patient was transferred to her room on the medical floor and given discharge instructions. Impression: Successful lumbar puncture performed with 11 cc of fluid removed and sent to lab. Fluoroscopy dose: 1.79 mGy (Cumulative air kerma) Davey Lezama RPA/RUTHANN performed this under my personal supervision. .
--- NOTE | 2017-02-07 14:02 | STDAILYN ---
ST Daily Note Date/Time DATE: 02/07/17 TIME: 10:22 Subjective Comment Pt was confused this morning, trying to use her cell phone but unsure what she wanted to do. No complaint of pain or fatigue. Orientations: Place, Alert, Cooperative Chief Complaint: encephalopathy, dysphagia Pain: No Was Patient Education Provided: Yes Person(s) Educated: Patient Instruction Understanding Demo: Pt. verbalizes understand Education Comment RELEASE MANAGER explained cognitive evaluation. Pt verbalized agreement but it was unclear if she fully understood. *Speech Therapy Impressions Dysphagia tx: Pt fed herself toast, oatmeal and drank thin liquids showing impulsive pattern of swallow. Pt needed moderate cue needed to take small bites and swallow each bite before taking another. She drank 2 oz of apple juice in sequential swallows without at break. No coughing, choking or wet voicing noted. Pt was very distracted by her phone today, needed cue to focus on eating. Cognitive Assessment initiated with [employer] Information Processing Assessment. Subtests I-III administered. Full report to follow eval. Subtests I to V completed. Pt recently returned from MRI. Responses were delayed with frequent repetitions or question or no response. Will continue testing on . Results revealed severe deficits in immediate memory and profound impairment in recent memory, time orientation (recent and remote) and spatial orientation. ST Treatment Plan: Swallow Retraining, Swallow Precautions, Modified Diet ST Treatment Plan Frequency: three times per week Treatment Plan Duration: one week Plan of Care Comment: Cognitive evaluation in process Supervision needed for meals on soft diet/chopped meat and regular liquids. Start Treatment 1: 09:30 Stop Treatment 1: 10:09 Start Treatment 2: 13:25 Stop Treatment 2: 13:50 Treatment Duration #1: ST Treatment Charge: Swallow Treatment Minutes of Individual Therapy: 15 Treatment Duration #2: ST Treatment Charge: Swallow Eval Minutes of Individual Therapy: 49 MOUSTAPHA METZ MS CCC-RELEASE MANAGER Feb 07, 2017 10:39
[2017-02-07 14:25] LABS: BASOPHILS,CSF 0 %; EOSINOPHILS,CSF 0 %; LYMPHOCYTES,CSF 0 %; MONOCYTES,CSF 0 %; NEUTROPHILS,CSF 0 %
--- NOTE | 2017-02-07 14:50 | GENHPPDOC ---
[facility] 02/07/17 Start Time: 11:20 Stop Time: 12:00 >50% of this visit spent in counseling/coordination care. Chief Complaint: Altered mental status History of Present Illness Patient is a 76-year-old female who was admitted to [facility] [place]p seizure believed to be caused by unintentional medication overdose. Patient was reportedly confused for 4 days prior to admission, found to have a UTI upon an ED visit, given Bactrim and discharged to home. Prior to admission, patient was reportedly continuing to manage medications despite altered mental status and likely was unable to do so accurately - leading to a a suspected seizure at home. She had another episode of unresponsiveness after admission and 2-minute generalized SZ. CT was unremarkable at that time. Patient has a hx of hypothyroidism, HTN, DVT and idiopathic pulmonary HTN. She has taken mirtazapine and Zoloft on an outpatient basis for anxiety and depression, and these were held for a time after admission. Psychiatry was consulted in regards to further direction with antidepressants and whether this may be related to serotonin syndrome. On interview, patient is oriented to self only. She is unable to tell me the correct date despite looking at the white board for assistance. She perseverates on "asking her to come in here" during the interview though she is never able to tell me who she is referring to. Despite asking this multiple times, she will then say, "Forget about it." Patient is not able to tell me why she was admitted to the hospital or any meaningful information in regards to her health. It appears that her LOC waxes and wanes with intermittent "anxiety and forgetfulness" reported by nursing staff. There is concern for underlying dementia. Patient was given Haldol 2mg IV overnight. Patient says that her mood is "a little nervous" but denies feeling depressed or having any morbid thoughts or SI. She denies having any HI or AVH. Patient does have a significant thought delay and speech latency throughout interview. Unable to obtain past psychiatric history from patient. Past Medical History Past Medical History HTN, dyslipidemia, hypothyroid, pulmonary hypertension, DVT Surgical History Patient's Surgical History: cholecystectomy, bilateral cataract extraction, partial colectomy Current Medications Home Meds Active Scripts Sulfamethoxazole/Trimethoprim (Bactrim Ds Tablet) 1 Each Tablet, 1 TAB PO BID, # 20 TAB Take 1 tablet, by mouth, 2 times a day. Prov:KAYLENE COLON MD 02/01/17 Reported Medications Fluticasone Propionate (Flonase Allergy Relief 50 mcg/actuation Nasal) 9.9 Ml Hartman.susp, 2 SPRAY EA NOSTRIL DAILY 02/02/17 Estradiol (Estrace Vaginal Cream 0.01%) 21 Applic/42 G Cr, 1 APPLIC VAGINALLY HS Y for PRN ORDERS USUAL APPLICATION: 2-4 GRAMS VAGINALLY 02/02/17 Clotrimazole (Clotrimazole) 10 Mg Adelaida, 1 TAB PO 5XD Y for THRUSH DISSOLVE IN MOUTH. 02/02/17 Cholecalciferol (Vitamin D3) (Vitamin D-3) 2,000 Unit Capsule, 2000 UNIT PO DAILY 02/02/17 Budesonide (Budesonide) 0.5 Mg/2 Ml Ampul.neb, 1 VIAL AEROSOL BID 02/02/17 Ipratropium/Albuterol Sulfate (Iprat-Albut 0.5-3(2.5) mg/3 ml) 3 Ml Ampul.neb, 1 UNIT AEROSOL BID, VIAL 02/02/17 Acetaminophen (Acetaminophen) 500 Mg Tablet, 1 TAB PO BID Y for PAIN 02/02/17 Famotidine (Pepcid AC) 10 Mg Tablet, 20 MG PO HS 02/01/17 Ambrisentan (Letairis) 10 Mg Tablet, 10 MG PO DAILY 02/01/17 Furosemide (Furosemide) 40 Mg Tablet, 40 MG PO DAILY 02/01/17 Potassium Chloride (Potassium Chloride) 10 Meq Capsule.er, 20 MEQ PO DAILY 02/01/17 Omeprazole (Omeprazole) 40 Mg Capsule.dr, 40 MG PO ACB 02/01/17 Cetirizine HCl (Cetirizine HCl) 10 Mg Tablet, 10 MG PO DAILY 02/01/17 Levothyroxine Sodium (Synthroid) 100 Mcg Tablet, 100 MCG PO ACB 08/23/13 Aspirin (Aspirin) 81 Mg Tablet, 81 MG PO DAILY 08/23/13 Mirtazapine (Remeron) 30 Mg Tablet, 30 MG PO HS 05/18/10 Sertraline Hcl (Zoloft) 100 Mg Tablet, 100 MG PO DAILY 05/18/10 Metoclopramide Hcl (Reglan) 10 Mg Tablet, 10 MG PO HS 05/18/10 Multivitamins (Multi-Day Vitamin) 1 Tab Tablet, 1 TAB PO DAILY 05/18/10 Allergies: Coded Allergies: No Known Drug Allergies (Verified Allergy, Mild, 02/02/17) Family History Family History: unkown Vaccines FALL 2015 2015? Social History Smoking Status: Never smoker Substance Use Type: does not use Alcohol Intake: none Marital Status: Sexuality: male partner Housing: house Household Members: spouse Current Occupational Status: retired Advance Directives: Yes DPOA for Healthcare Only ([facility] [employer] [facility]) Review of Systems Unable to Obtain ROS Due to: clinical condition Comments Very limited due to patient's AMS; patient is not a reliable historian Cardiovascular DENIES: chest pain Pulmonary Respiratory: other (idiopathic pulmonary hypertension, wearing O2 via NC), DENIES: cough General: other (recent UTI) Musculoskeletal General: DENIES: pain Neurological General: memory disturbances, seizures (recent) Psychiatric Psychiatric: memory impairment (at least related to this admission, perhaps underlying cognitive changes), nervousness, DENIES: suicidal ideation/attempt Generations Exam Vitals Vital Signs Date Time Temp Pulse Resp B/P Pulse Ox O2 Delivery O2 Flow Rate FiO2 02/07/17 08:25 91 02/07/17 08:10 15 93 02/07/17 07:45 97.8 115/66 Nasal Cannula 2.50 Physical examination performed by the hospitalist. Height (Feet): 5 Height (Inches): 6.00 Mental Status Exam Muscle Strength/Tone: Normal Dressing: Casual Grooming: Fair Attitude: Cooperative (to the best of her ability but limited cooperation) Motor Activity: Normal Eye Contact: Good Speech: Other (Significant speech latency) Volume: Normal Rhythm: Appropriate Rhythm Sensory: Alert Orientation: Disoriented to time, Disoriented to place, Disoriented to situation, Oriented to person Mood: Anxious Affect: Congruent Rate of Thoughts: Delayed (Significant) Thought Organization: Disorganized, Perseverations (on asking a woman to join the interview (not able to explain who when asked)) Associations: Illogical Abstract Reasoning: Impaired, concrete Computation: Poor Computation Thought Content: Other (Unable to answer questions in context) Perception/Psychotic: Other (denies AVH, does not appear to be responding to internal stimuli) Attention Span/Concentration: Distractable Language: Naming Impaired Fund of Knowledge: Poor fund of knowledge Memory: Poor-immediate, Poor-recent Suicidal Ideation: Denies Homicidal Ideation: Denies Insight: Impaired Judgment: Impaired Impulse Control: Fair Laboratory Tests Test 02/06/17 13:24 02/07/17 04:34 02/07/17 04:35 Urine Osmolality 374mOsm/kg Urine Random Creatinine 87.1MG/DL Urine Random Sodium 26MEQ/L White Blood Count 10.7T/MM3 Red Blood Count 4.29M/MM3 Hemoglobin 11.2GM/DL Hematocrit 34.0% Mean Corpuscular Volume 79.3UM3 Mean Corpuscular Hemoglobin 26.1UUG Mean Corpuscular Hemoglobin Concent 32.9GM/DL RDW Standard Deviation 44.5FL Platelet Count 257T/MM3 Mean Platelet Volume 9.9UM3 Immature Granulocyte % (Auto) 0.9% Neutrophils (%) (Auto) 70.9% Lymphocytes (%) (Auto) 13.1% Monocytes (%) (Auto) 12.4% Eosinophils (%) (Auto) 2.0% Basophils (%) (Auto) 0.7% Absolute Immature Granulocyte (auto 0.10T/MM3 Absolute Neutrophils (auto) 7.6T/MM3 Absolute Lymphocytes (auto) 1.4T/MM3 Absolute Monocytes (auto) 1.3T/MM3 Absolute Eosinophils (auto) 0.2T/MM3 Absolute Basophils (auto) 0.1T/MM3 Turbidity < 20 Sodium Level 131MEQ/L Potassium Level 4.1MEQ/L Chloride Level 99MEQ/L Carbon Dioxide Level 21MEQ/L Anion Gap 11MEQ/L Blood Urea Nitrogen 23.0MG/DL Creatinine 0.9MG/DL Glomerular Filtration Rate Calc 61 BUN/Creatinine Ratio 26RATIO Glucose Level 102MG/DL Calculated Osmolality 257MOSM/KG Calcium Level 8.2MG/DL Magnesium Level 2.0MG/DL Icterus Index < 2 Chemistry Specimen Hemolysis 20 Assessment and Plan (1) Delirium due to general medical condition Assessment: Likely due to multiple etiologies including UTI, electrolyte abnormalities Underlying neurocognitive disorder also suspected but unable to confirm until patient returns to baseline mental status History of anxiety and depression per previous medical records (2) New onset seizure (3) Hypothyroidism (4) Idiopathic pulmonary hypertension (5) Hyponatremia (6) CREST variant of scleroderma (7) Dyslipidemia (8) Escherichia coli urinary tract infection Patient's current mental status is more likely related to delirium (persisting since before admission, perhaps exacerbated since) but does not appear to be due to serotonin syndrome. Patient's unintentional overdose may have contributed to seizure. SSRIs (Zoloft) and mirtazapine both have a low likelihood of causing these seizures as prescribed but given that the amount she took is unclear, may have been a contributing factor. SSRIs can cause hyponatremia which may increase seizure risk. However, given that patient has now additionally been started on Depakote, I feel that continuing Zoloft 100mg PO daily as she has been taking it is acceptable and would not be likely to cause further seizure activity. As patient's symptoms seem to be related primarily to delirium rather than depression/anxiety, would wait until she is medically stable to further increase Zoloft or consider resuming mirtazapine. Would still agree with further head imaging if primary team in agreement. Of note, all antipsychotic medications (including Haldol) may lower seizure risk as well. Would reserve PRN antipsychotics for if patient's behavior is truly unmanageable or unable to redirect. Would recommend IV Ativan 0.5mg q 4 hrs PRN as an alternative to target restlessness/agitation unless behaviors becomes more problematic. As patient has medically stabilized and mentation appears to be closer to baseline, would recommend SLUMS as well as JESSICA/RIPPA to assess for underlying cognitive difficulties that may have predisposed her to delirium. CATIA HUMPHREYS MD Feb 07, 2017 08:52
--- NOTE | 2017-02-07 15:00 | NUR ---
Per radiology, patient is to lay in bed for 24 hours. Patient may lay on her back,side, or stomach. May get up to use restroom.
--- NOTE | 2017-02-07 15:20 | NUR ---
CM CM TALKED TO PT AND FAMILY ABOUT DC PLANS. PT AND FAMILY WOULD PREFER TO GO TO IR OR [facility] OPTION. PT AND FAMILY AWARE TO CALL CM SHOULD NEEDS ARISE.
--- NOTE | 2017-02-07 17:30 | NUR ---
IV Patient pulled out IV. Okay to leave out per .
--- NOTE | 2017-02-07 18:38 | NUR ---
Status Patient continues to be confused and "fidgety" today. Has been reaching over side rail to push buttons on IV pump and BP machine. Patient has a pad of paper she has been drawing dots on.
[2017-02-07] MEDS ORDERED: HALOPERIDOL 5 MG/ML INJECTION IM PRN (22:15)
[2017-02-07] MEDS ORDERED: LORAZEPAM 0.5 MG TABLET PO PRN (22:15)
[2017-02-08] VITALS (10 sets, daily range): BP systolic 95–136; BP diastolic 57–76; PULSE 75–95; RESP 14–20; TEMP 97.1–98.7; O2SAT 88–96
[2017-02-08] MEDS: CEPHALEXIN 500 MG CAPSULE PO SCH ×3 (02:17→18:08)
--- NOTE | 2017-02-08 03:52 | NUR ---
STATUS PT IS ALERT AND ORIENTED TO SELF AND AT TIMES X 2. SHE HAS BEEN PLEASANT AND COOPERATIVE WITH CARE. FAMILY WAS VISITING AT SHIFT CHANGE. PT AT THAT TIME WAS WRITING ON PAD OF PAPER. VERY LITTLE INTERACTION WITH FAMILY. AFTER HER FAMILY LEFT, PT STARTED YELLING OUT FOR HER GRANDDAUGHTER TO STAY WITH HER. REDIRECTED HER WITHOUT DIFFICULT. CONTINUE TO TAKE MEDICATION BY MOUTH. AT 0300 PT ATTEMPTED TO STAND UP FROM THE BED TO USE THE BATHROOM. STAFF ASSISTED PT TO THE BATHROOM. SHE VOID A SMALL AMOUNT, WAS ALSO INCONTINENT OF URINE. DENIED PAIN OR CHEST PAIN. WAS NOTED INCREASE OF RESP. WITH WALKING. 02 ON 2.5 L PER NC. GAIT IS STEADY WITH SBA, FWW AND GAIT BELT. CALL LIGHT WITHIN REACH. BED ALARM ON.
[2017-02-08 04:58] LABS: BASOPHILS # (AUTO) 0.1 T/MM3 (0-0.2); BASOPHILS % (AUTO) 0.6 % (0-2); EOSINOPHILS # (AUTO) 0.2 T/MM3 (0-0.5); EOSINOPHILS % (AUTO) 2.5 % (0-4); HGB - HEMOGLOBIN 10.1 GM/DL (12-16); IMMATURE GRANULOCYTE # (AUTO) 0.16 T/MM3 (0.00-0.03); IMMATURE GRANULOCYTE % (AUTO) 1.8 % (0.0-0.5); LYMPHOCYTES # (AUTO) 1.3 T/MM3 (1-4.8); LYMPHOCYTES % (AUTO) 13.9 % (23-45); MEAN CORPUSCULAR HGB 25.8 UUG (26-34); MEAN CORPUSCULAR HGB CONC(MCHC 32.6 GM/DL (31-37); MEAN CORPUSCULAR VOLUME 79.1 UM3 (80-100); MEAN PLATELET VOLUME 9.3 UM3 (9.4-12.4); MONOCYTES # (AUTO) 1.1 T/MM3 (0-0.8); MONOCYTES % (AUTO) 12.2 % (0-9.0); NEUTROPHILS #(AUTO)-ABSOLUTE 6.3 T/MM3 (1.8-7.7); RED BLOOD COUNT 3.92 M/MM3 (4.00-5.20); WBC - WHITE BLOOD COUNT 9.1 T/MM3 (4.5-11.0)
[2017-02-08 05:22] LABS: ANION GAP 9 MEQ/L (5-15); BUN/CREATININE RATIO 21 RATIO (6-26); CALCIUM 8.2 MG/DL (8.4-10.2); CHLORIDE 102 MEQ/L (98-107); CO2 - CARBON DIOXIDE 21 MEQ/L (22-30); CREATININE 0.9 MG/DL (0.7-1.2); GLOMERULAR FILTRATION RATE 61; GLUCOSE 82 MG/DL (65-110); POTASSIUM 4.5 MEQ/L (3.6-5); SODIUM 132 MEQ/L (134-144)
[2017-02-08] MEDS: CLOTRIMAZOLE 10 MG TROCHE PO SCH ×4 (06:43→18:42)
[2017-02-08] MEDS: LEVOTHYROXINE 100 MCG TABLET PO SCH (06:43)
[2017-02-08] MEDS: FAMOTIDINE 20 MG TABLET PO SCH (06:43)
[2017-02-08] MEDS: AMBRISENTAN PO SCH (08:45)
[2017-02-08] MEDS: ASPIRIN 81 MG CHEWABLE TABLET PO SCH (08:45)
[2017-02-08] MEDS: CETIRIZINE 10 MG TABLET PO SCH (08:45)
[2017-02-08] MEDS: SERTRALINE 100 MG TABLET PO SCH (08:45)
[2017-02-08] MEDS: POTASSIUM CL. 10mEq CAP PO SCH (08:45)
[2017-02-08] MEDS: ALBUTEROL/IPRATROPIUM INHAL. 2.5mg-0.5mg/3ml Neb. AEROSOL SCH ×2 (09:14→20:48)
--- NOTE | 2017-02-08 09:14 | NUR ---
IRU referral received 02/07. Visited with patient and who are interested in IRU treatment. Discussed high FIM scores with PT provider. Advised that while scores were supervision level, patient continues to be "foggy" and unsteady and she would have concerns about patient returning home with . Current OT treatment not available at this time. Will require this information to review with [facility] for admission. CM notified of status.
[2017-02-08] MEDS: BUDESONIDE INH.SOLN. 0.5mg/2ml NEB AEROSOL SCH ×2 (09:16→20:48)
--- NOTE | 2017-02-08 10:29 | NUR ---
Status Patient alert and oriented to person and place. Confusion continues. Up with assist of 1 and walker. Denies pain other then chest discomfort from compressions.
--- NOTE | 2017-02-08 11:52 | NUR ---
CM CM IN TO VISIT WITH PT AND FAMILY. DC OPTIONS DISCUSSED. PT AND FAMILY ARE AWARE TO CALL CM SHOULD NEEDS ARISE.
--- NOTE | 2017-02-08 14:46 | NUR ---
ITA CM IN TO VISIT WITH PT AND FAMILY. PT HAS NOT BEEN ACCEPTED TO IRU. PT STATUS HAS IMPROVED SHE AND FAMILY NOW REPORT SHE WANTS TO GO HOME WITH HOME HEALTH. PT AND FAMILY HAVE CHOSEN [facility] AND [facility] WAS NOTIFIED.
--- NOTE | 2017-02-08 18:28 | NUR ---
Status Patient alert and oriented today. Patient has not been restless as in the previous. Has been able to rest. Up in manrique a few times today, steady on her feet. Good appetite. Patient continues to state that she feels so good.
--- NOTE | 2017-02-08 18:30 | PNPDOC ---
Subjective Date DATE: 02/08/17 TIME: 18:11 Subjective Mrs. Cason reports things are much better today. She describes no dizziness and being able to get in and out of bed by herself. She is walking better. Family members feel she is more clear headed. Patient denied dyspnea, chest pain ( except with palpation), nausea, or constipation. Nursing reports patient is more alert today but is occasionally slightly vague or foggy about details of hospitalization. Objective Vital Signs Vital signs Vital Signs Date Time Temp Pulse Resp B/P Pulse Ox O2 Delivery O2 Flow Rate FiO2 02/08/17 15:16 97.1 87 14 121/65 88 Room Air 02/08/17 07:57 1.00 Weight stable from admission EXAM General-NAD, alert, appropriate verbal responses, fluent speech, much more interactive than yesterday HEENT-conjugate gaze, EOMI, neck supple Lungs-respirations nonlabored with good airflow, breath sounds clear Cardiac-regular rhythm, S1-S2 Abd-soft, nontender, bowel sounds present Ext-without edema Neuro-moving all extremities well, ambulated with walker earlier today without difficulty Psych-oriented 3-no hesitancy about date or location, pleasant, cooperative Telemetry Rhythm: Sinus Rhythm Height (Feet): 5 Height (Inches): 6.00 Weight (Kilograms): 51.200 Laboratory Laboratory Laboratory Tests 02/07/17 04:35 02/08/17 04:26 Laboratory Tests 02/07/17 04:34 02/08/17 04:26 Urine osmolality 374 Microbiology Microbiology Microbiology Date/Time Source Procedure Growth Status 02/07/17 13:15 Cerebral Spinal Fluid Gram Stain -no white cells or organisms seen Resulted 02/07/17 13:15 Cerebral Spinal Fluid CSF Culture - Preliminary NO GROWTH AFTER 24 HOURS Resulted CSF PCR panel for infectious agents entirely negative Urine culture >100,000 Escherichia coli, sensitive to all tested antibiotics except ampicillin and Bactrim Assessment & Plan Problems: (1) Hyponatremia Status: Acute (2) Escherichia coli urinary tract infection Status: Acute (3) Encephalopathy acute Status: Acute (4) Generalized seizure Status: Acute (5) Medication adverse effect Status: Acute Assessment & Plan: Medication misuse, accidental (6) Leukocytosis Status: Resolved (7) Idiopathic pulmonary hypertension Status: Chronic Assessment & Plan: PAP in 90s (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 (9) Metabolic acidosis with respiratory acidosis Status: Resolved Assessment & Plan: post-seizure (10) Hypothyroidism (11) Dysphagia Status: Chronic Assessment & Plan: with hiatal hernia (12) Hypertension Status: Chronic (13) History of venous thromboembolism Status: Resolved (14) Hypokalemia Status: Resolved (15) Microcytic anemia Status: Chronic Assessment Mrs. Cason is better today than seen at any point during the hospitalization. This follows initiation of antibiotics for UTI identified 2 days ago and improvement in sodium with fluids for the past 2 days. She is also off mirtazapine and Lasix. There've been no further seizures. Initial trigger for confusion remains obscure although underlying dementia questioned. We'll proceed with cognitive evaluation tomorrow. If stable tomorrow anticipate discharge home with home health. Reevaluate electrolytes/hyponatremia tomorrow morning. Continue cephalexin for UTI. Hypoxia improved, increase activities as tolerated. Continue Letairis for primary pulmonary hypertension with follow-up with her time stamp assembler in the near future. Blood pressure stable on current regimen although minor orthostasis with 10-15 mm drop in blood pressure consistently seen with standing. Mild anemia, appears chronic-microcytic, iron studies to be obtained. Intermittent hypoxia, chronic-has home oxygen prior to admission associated with pulmonary hypertension Plan/Intensity of Service Extensive review of data to date with multiple family members. Laboratory data reviewed, cultures reviewed. Discussed with case management and nursing. Code Status Full Code Hospital Course Summary Disclaimer The hospital course summary below is not to be considered part of the above Progress Note. Hospital Course Summary 02/02/17 Patient hospitalized with confusion and seizure with questionable accidental medication ingestion/withdrawal. Seizure precautions initiated. Patient transferred to intensive care unit on BiPAP following seizure this morning. Mental status remains depressed although she is no longer unresponsive when reassessed in the unit. Discussed with Dr. Mondragon, begin reintroducing home medications (single SSRI initially) when patient able to take by mouth. Discontinue Bactrim-UA in the ER with 0-1 WBC, negative nitrite. UDS negative during ER evaluation. Speech therapy evaluation. 02/03/17 Confusion persists with word searching, perseveration, and disorientation. No overt neurological deficits on examination. Discussed with Dr. Kendrick at [facility] who indicated pH has been in the 90s and that scleroderma symptoms have been stable. He did not view patient at high risk for vasculitis but felt CTA-head appropriate. Fluids increased pending CTA. May require resumption of diuresis post imaging. Urine drug screen negative in the emergency room prior to admission. INR being obtained, I'm inclined to proceed with spinal tap to complete workup for encephalopathy/new seizure if CTA negative. Continue to hold second SSRI. Blood pressure stable on current regimen. Pepcid/SCDs for prophylaxis; will add Lovenox tomorrow if LP completed today. 02/04/17 Confusion persists without change in neurologic exam. WBC remain elevated and BP marginal overnight; repeat urine culture ordered as well as blood cultures. Responding to diuresis, will give lasix 20 mg IV BID today and monitor I/O. Repleting K per IV as difficult to get her to cooperative with many of the medications orally. Discussed with Dr. Kendrick at [facility] previously by Dr. Platt; indicated pH has been in the 90s and that scleroderma symptoms have been stable. He did not view patient at high risk for vasculitis but felt CTA-head appropriate. Fluids increased pending CTA, now diuresing as renal function stable. Urine drug screen negative in the emergency room prior to admission. I'm inclined to proceed with spinal tap to complete workup for encephalopathy/ new seizure if CTA negative--> anesthesia not here currently but if coming in will obtain later today. Repeat INR in AM for surveillance. Repeat BMP this afternoon for surveillance, replacing K IV and will monitor with diuresis. Continue to hold second SSRI. Hold antihypertensives and monitor BP. Pepcid/SCDs for prophylaxis; will hold lovenox given possibility of LP being needed this weekend. Low threshold to call in anesthesia for LP if clinically worsening. 02/05/17 Confusion much improved today, ? medication washout? WBC remain elevated at 12K but afebrile, urine culture pending, blood cultures NGTD, not on antibiotics without worsening. Back to near admission weight, responded well to diuresis, on room air now and K normal this morning after IV replacement. Discussed with Dr. Kendrick at [facility] previously by Dr. Platt; indicated pH has been in the 90s and that scleroderma symptoms have been stable. He did not view patient at high risk for vasculitis but felt CTA-head appropriate (no acute findings) Urine drug screen negative in the emergency room prior to admission. Discussed with her that we will hold on LP acutely as she appears to be improving; he is in agreement. INR has normalized if LP becomes necessary (1.1 today) Replete Mg IV today. Continue to hold second SSRI. Hold antihypertensives and monitor BP outside of metoprolol, restarted due to sinus tachycardia. May transfer out of the ICU this afternoon if remaining stable from a mental status standpoint. 02/06 E. coli UTI: Continue Rocephin, started on 02/05/17 Hyponatremia: Sodium decreased to 128 today. She is down about 300 mL since 02/02. Weight has decreased to 49.9. Will discuss with Dr. Platt. Acute encephalopathy: Improving. Received a dose of Haldol last night. She reports that her chest is sore from CPR? No documentation of recent CPR. Hypoxia: down to 86% on 2L this morning - now improved to 90%. Last CXR on 02/03 showed LLL airspace opacity. Repeat CXR today. Leukocytosis: Resolved Hypokalemia: resolved. 02/07/17 Acute encephalopathy - overall improved but persists. Dr. Platt discussed case with Dr. Mondragon. Will proceed with LP and MRI today. Dr. Florian has been consulted to help determine appropriate SSRI. Hyponatremia, suspect prerenal in nature - improved to 131 with IVF and holding Lasix. Crackles auscultated this am - will discuss resumption of Lasix with attending. E. coli UTI - abx converted to Keflex. Chronic Hypoxia - maintains sats on 1L. 02/08/17 Mrs. Cason is better today than seen at any point during the hospitalization. This follows initiation of antibiotics for UTI identified 2 days ago and improvement in sodium with fluids for the past 2 days. She is also off mirtazapine and Lasix. There've been no further seizures. Initial trigger for confusion remains obscure although underlying dementia questioned. We'll proceed with cognitive evaluation tomorrow. If stable tomorrow anticipate discharge home with home health. Reevaluate electrolytes/hyponatremia tomorrow morning. Continue cephalexin for UTI. Hypoxia improved, increase activities as tolerated. Continue Letairis for primary pulmonary hypertension with follow-up with her time stamp assembler in the near future. Blood pressure stable on current regimen although minor orthostasis with 10-15 mm drop in blood pressure consistently seen with standing. Mild anemia, appears chronic-microcytic, iron studies to be obtained. Mild hypoxia, chronic with home oxygen due to pulmonary hypertension. ALEC PLATT MD Feb 08, 2017 18:14
[2017-02-09 00:08] VITALS: BP 123/65; PULSE 87; RESP 18; TEMP 98; O2SAT 91
[2017-02-09] MEDS: CEPHALEXIN 500 MG CAPSULE PO SCH ×2 (00:12→08:48)
[2017-02-09] MEDS: CLOTRIMAZOLE 10 MG TROCHE PO SCH ×3 (00:12→11:04)
[2017-02-09 04:41] VITALS: BP 109/64; PULSE 83; RESP 18; TEMP 96.9; O2SAT 92
--- NOTE | 2017-02-09 04:41 | NUR ---
SUMMARY PT ALERT AND ORIENTED, PERSON AND PLACE. UP WITH ONE AND A WALKER, TO THE BATHROOM, NC AT 2L. REPORTS SLIGHT PAIN IN CHEST WHEN COUGHING. NO IV SITE.
[2017-02-09 05:16] LABS: HCT - HEMATOCRIT 31.3 % (36-46); MEAN CORPUSCULAR HGB 25.4 UUG (26-34); MEAN CORPUSCULAR HGB CONC(MCHC 31.9 GM/DL (31-37); MEAN CORPUSCULAR VOLUME 79.6 UM3 (80-100); MEAN PLATELET VOLUME 9.4 UM3 (9.4-12.4); RED BLOOD COUNT 3.93 M/MM3 (4.00-5.20); WBC - WHITE BLOOD COUNT 9.5 T/MM3 (4.5-11.0)
[2017-02-09 05:29] LABS: ANION GAP 10 MEQ/L (5-15); BUN/CREATININE RATIO 20 RATIO (6-26); CALCIUM 8.2 MG/DL (8.4-10.2); CHLORIDE 101 MEQ/L (98-107); CO2 - CARBON DIOXIDE 20 MEQ/L (22-30); CREATININE 0.9 MG/DL (0.7-1.2); GLOMERULAR FILTRATION RATE 61; GLUCOSE 80 MG/DL (65-110); POTASSIUM 4.4 MEQ/L (3.6-5); SODIUM 131 MEQ/L (134-144)
[2017-02-09] MEDS: LEVOTHYROXINE 100 MCG TABLET PO SCH (06:33)
[2017-02-09] MEDS: FAMOTIDINE 20 MG TABLET PO SCH (06:33)
[2017-02-09] MEDS: BUDESONIDE INH.SOLN. 0.5mg/2ml NEB AEROSOL SCH (07:02)
[2017-02-09] MEDS: ALBUTEROL/IPRATROPIUM INHAL. 2.5mg-0.5mg/3ml Neb. AEROSOL SCH (07:02)
[2017-02-09 07:05] VITALS: O2SAT 91
[2017-02-09 08:17] VITALS: BP 131/71; PULSE 95; RESP 16; TEMP 97; O2SAT 94
[2017-02-09 08:18] VITALS: BP 108/66; PULSE 103
[2017-02-09 08:20] VITALS: BP 93/47; PULSE 117
[2017-02-09] MEDS: CETIRIZINE 10 MG TABLET PO SCH (08:48)
[2017-02-09] MEDS: POTASSIUM CL. 10mEq CAP PO SCH (08:48)
[2017-02-09] MEDS: SERTRALINE 100 MG TABLET PO SCH (08:48)
[2017-02-09] MEDS: AMBRISENTAN PO SCH (08:49)
[2017-02-09] MEDS: ASPIRIN 81 MG CHEWABLE TABLET PO SCH (08:49)
--- NOTE | 2017-02-09 11:31 | NUR ---
SPEECH NOTE: COGNITIVE EVALUATION COMPLETED. PT DEMONSTRATED SIGNIFICANT CLEARING FROM 02/07/17. FULL REPORTED FILED UNDER DOCUMENTS : SPEECH NOTES.
--- NOTE | 2017-02-09 11:31 | STEVAL ---
Cognition Solving simple problems: Independently Solving complex problems: Moderate Organizes daily tasks: Yes Problem Solving Comments DIFFICULTY NOTED WITH ABSTRACT REASONING. SOLVES FUNCTIONAL PROBLEMS WITH MODERATE CUE. ORGANIZATION SKILLS INTACT. Expression Assessment Method: Verbal Expression Abilities: Social speech, Communicates w/ sentences, Formulates Sentences, Basic Conversation % Words Intelligible: 100 % Sentence Intelligible: 100 % Conversation Intelligible: 100 Voice Quality: Within Functional Limits Expression Comment: PT FORMULATED CONNECTED SENTENCES TO EXPRESS NEEDS AND PARTICIPATE IN BASIC CONVERSATION. SPEECH WAS INTELLIGIBLE AND APPROPRIATE TO TOPIC. Repeats series number: Yes (5 DIGITS) Oriented to place: Yes Oriented to time: Yes Oriented to daily events: Yes Recalled personal inform: Yes Social Interaction: Interacts fam/staff/visit Immediate Memory Score: 35 Immediate Memory Rate: Severe 31-60th Percent Recent Memory Score: 94 Recent Memory Rate: WFL >90th Percent Recent Time [place] Score: 95 Recent Time [place] Rate: WFL >90th Percent Remote Time [place] Score: 78 Remote Time [place] Rate: Moderate 61-90th Percent Spatial [place] Score: 93 Spatial [place] Severity Rate: WFL >90th Percent Orientation to Enviro Score: 95 Orientation to Enviro Rate: WFL >90th Percent Recall of General Info Score: 78 Recall of General Info Rate: Moderate 61-90th Percent Problem Solving/Abstract Score: 80 Problem Solving/Abstract Rate: Moderate 61-90th Percent Organization Score: 87 Organization Severity Rating: WFL >90th Percent Auditory Processing/Retention: 91 Auditory Processing/Retention: WFL >90th Percent Assessment/Plan of Care Speech Therapy Impressions: ROSS INFORMATION PROCESSING ASSESSMENT WAS ADMINISTERED. RESULTS REVEALED: SEVERE DEFICIT IN IMMEDIATE MEMORY, MODERATE IMPAIRMENT IN TIME ORIENTATION (REMOTE MEMORY), RECALL OF GENERAL INFORMATION, PROBLEM SOLVING AND ORGANIZATION. THE AREAS OF RECENT MEMORY, TIME ORIENTATION (RECENT MEMORY), SPATIAL ORIENTATION, ORIENTATION TO ENVIRONMENT AND AUDITORY PROCESSING WERE WITHIN NORMAL LIMITS. COGNITIVE STATUS DEMONSTRATED SIGNIFICANT IMPROVEMENT FROM 02/07/17. EVALUATION ONLY ST Treatment Plan: Evaluation Only ST Treatment Plan Frequency: N/A Treatment Plan Duration: N/A Plan of Care Comment COGNITIVE EVALUATION COMPLETED. DYSPHAGIA GOALS MET. NO ADDITIONAL SKILLED SPEECH THERAPY RECOMMENDED. Date of Visit 02/09/17 Time Visit Began: 09:30 Time Visit Ended: 10:09 ST Assess/Plan of Care: ST Treatment Charge: Speech Eval Minutes of Individual Therapy: 39 MOUSTAPHA METZ MS CCC-SHOE REPAIR SUPERVISOR Feb 09, 2017 10:42
--- NOTE | 2017-02-09 11:35 | STDAILYN ---
Discharge Note Date/Time DATE: 02/09/17 TIME: 11:33 Discharge From: Inpatient ST Other Reasons for Discharge: SWALLOW PLAN IN PLACE, COGNITIVE EXAM COMPLETED Discharge Summary: PT TOLERATED SOFT DIET/CHOPPED MEAT AND THIN LIQUIDS FROM A CUP (NO STRAW). DYSPHAGIA GOALS MET. COGNITIVE EVALUATION COMPLETED. PT WOULD BENEFIT FROM SUPERVISION AT HOME. NO SKILLED SPEECH RECOMMENDED THROUGH HOME HEALTH. Recommended Follow-up: Contact Dept. prn/as MOUSTAPHA Ruggiero MS CCC-BILINGUAL MIDDLE SCHOOL TEACHER Feb 09, 2017 11:35
[2017-02-09] MEDS ORDERED: AMBR10TA3 PO (12:28)
[2017-02-09] MEDS ORDERED: CEPH500C2 PO (12:28)
--- NOTE | 2017-02-09 13:30 | NUR ---
ITA JEAN BAPTISTE FAXED DC ORDERS TO [facility] [phone].
--- NOTE | 2017-02-09 13:36 | DSPDOC ---
General Date Date DATE: 02/09/17 TIME: 12:42 Attending Physician Elham Platt MD Admitting Physician Elham Platt MD Consulting Physician Jenn Mondragon MD, Tara M.D. 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 Acute encephalopathy 3. Escherichia coli UTI 4. Hyponatremia 5. Suspected medication misuse 6. Primary pulmonary hypertension 7. Scleroderma 8. Metabolic/respiratory acidosis following seizure 9. Dysphasia, chronic 10. Microcytic anemia Procedures Lumbar puncture on 02/07 with opening pressure of 8 cm water in the prone position. CSF studies unremarkable and further described below. JESSICA evaluation on date of discharge Score = 4 - a score of 6 or greater means pt will need assistance to live out in the community. Pt aware of 4 out of 4 dangerous situations from photos. Pt knew appropriate action for sickness/accidents and knew 911#. Pt also knew names/locations of doctors offices. Pt unable to use money in purchasing itmes (0 out of 2 correct). Pt able to obtain/maintain source of income, but unable to budget money. Pt able to use banking form correctly and payment of bill correctly. Pt states drives or drives and pt able to use phone and phone book correctly. Pt's score indicates pt does have sufficient skills to live independently. Laboratory Laboratory Tests Test 02/08/17 04:26 02/09/17 04:42 02/09/17 04:43 White Blood Count 9.1T/MM3 (4.5-11.0) 9.5T/MM3 (4.5-11.0) Red Blood Count 3.92M/MM3 (4.00-5.20) 3.93M/MM3 (4.00-5.20) Hemoglobin 10.1GM/DL (12-16) 10.0GM/DL (12-16) Hematocrit 31.0% (36-46) 31.3% (36-46) Mean Corpuscular Volume 79.1UM3 (80-100) 79.6UM3 (80-100) Mean Corpuscular Hemoglobin 25.8UUG (26-34) 25.4UUG (26-34) Mean Corpuscular Hemoglobin Concent 32.6GM/DL (31-37) 31.9GM/DL (31-37) RDW Standard Deviation 44.0FL (36.9-50.2) 44.7FL (36.9-50.2) Platelet Count 230T/MM3 (130-400) 250T/MM3 (130-400) Mean Platelet Volume 9.3UM3 (9.4-12.4) 9.4UM3 (9.4-12.4) Immature Granulocyte % (Auto) 1.8% (0.0-0.5) Neutrophils (%) (Auto) 69.0% (33-66) Lymphocytes (%) (Auto) 13.9% (23-45) Monocytes (%) (Auto) 12.2% (0-9.0) Eosinophils (%) (Auto) 2.5% (0-4) Basophils (%) (Auto) 0.6% (0-2) Absolute Immature Granulocyte (auto 0.16T/MM3 (0.00-0.03) Absolute Neutrophils (auto) 6.3T/MM3 (1.8-7.7) Absolute Lymphocytes (auto) 1.3T/MM3 (1-4.8) Absolute Monocytes (auto) 1.1T/MM3 (0-0.8) Absolute Eosinophils (auto) 0.2T/MM3 (0-0.5) Absolute Basophils (auto) 0.1T/MM3 (0-0.2) Turbidity < 20 (0-20) < 20 (0-20) Sodium Level 132MEQ/L (134-144) 131MEQ/L (134-144) Potassium Level 4.5MEQ/L (3.6-5) 4.4MEQ/L (3.6-5) Chloride Level 102MEQ/L (98-107) 101MEQ/L (98-107) Carbon Dioxide Level 21MEQ/L (22-30) 20MEQ/L (22-30) Anion Gap 9MEQ/L (5-15) 10MEQ/L (5-15) Blood Urea Nitrogen 19.0MG/DL (7-17) 18.0MG/DL (7-17) Creatinine 0.9MG/DL (0.7-1.2) 0.9MG/DL (0.7-1.2) Glomerular Filtration Rate Calc 61 61 BUN/Creatinine Ratio 21RATIO (6-26) 20RATIO (6-26) Glucose Level 82MG/DL (65-110) 80MG/DL (65-110) Calculated Osmolality 256MOSM/KG (261-280) 254MOSM/KG (261-280) Calcium Level 8.2MG/DL (8.4-10.2) 8.2MG/DL (8.4-10.2) Icterus Index < 2 (0-7) < 2 (0-7) Chemistry Specimen Hemolysis < 15 (0-25) < 15 (0-25) On date of admission (02/02) sodium was 137, creatinine 1.1, liver enzymes unremarkable, prolactin 70.9, and TSH 5.41. White count 8.0, hemoglobin 11.3 with MCV 80.7. Urinalysis on 02/01 was unremarkable with 0-1 white cell and negative nitrite. Repeat UA on 02/04 at +3 leukocyte esterase, negative nitrate, 30-50 red cells and white cells with +2 bacteria Initial blood gas obtained during "code" with seizure 02/02 1.09/52/68/84% while being bagged. Follow-up blood gases demonstrated rapid normalization with final blood gas on 02/04 on room air 7.45/35/55/24 with saturation 90.0% CSF on 02/07 was colorless and clear with 2000 red cells, 2 white cells with no differential reported. Glucose 70, total protein 46, infection panel entirely negative. Paraneoplastic panel on CSF pending at discharge Microbiology Microbiology Date/Time Source Procedure Growth Status 02/07/17 13:15 Cerebral Spinal Fluid Gram Stain - no WBC, no organisms Resulted 02/07/17 13:15 Cerebral Spinal Fluid CSF Culture - Preliminary NO GROWTH AFTER 24 HOURS Resulted Urine culture 02/04 > 100,000 Escherichia coli sensitive to all tested antibiotics except ampicillin and Bactrim Blood cultures 2 drawn 02/04 negative after [address] without contrast on admission demonstrated no acute intracranial abnormality or hemorrhage. There are scattered areas of low attenuation in the white matter which most likely represent changes from chronic microvascular ischemia. CTA of the chest on admission revealed no evidence of PE. There is mild change of emphysema and some dependent atelectasis. Head CT with and without contrast/CTA head on 02/03 demonstrated no acute pathology nor evidence of vascular pathology. Chest x-ray on 02/03 demonstrated changes of emphysema and mild hyperinflation but no evidence of pneumonia/failure/pneumothorax. Follow-up films on 02/04 and demonstrated some atelectasis at the left greater than right base. MRI of the brain with and without contrast on 02/07 was limited somewhat by motion artifact. Ventricles were normal in size and shape. There were some nonspecific areas consistent with deep frontoparietal white matter change felt consistent with small vessel ischemic changes typical of patient's age. No other pathology was identified within the brain. Mild mucosal thickening or mucous retention cyst and maxillary sinuses described and mild mucosal thickening in the right frontal and ethmoid air cells reported. History of Present Illness This is a 68-year-old female that was in her usual state of health until approximately 3-4 days ago. That has been noted increasing confusion. There has been noted that patient was putting up her pills and trying to re-fill her pill containers. The patient apparently had increasing confusion. The patient presented to the ER approximately 18 years ago. At that time workup demonstrated a possible UTI. The patient was started on Bactrim. After taking her first Bactrim tablet, the patient had nausea and vomiting. Increasing confusion. Patient went to bed tonight and will come up about 11:00 with a possible seizure activity per husbands report this is never happened before. There is no described incontinence of bowel or bladder. The patient is brought into the emergency department were a neuro workup was unrevealing. Specifically the patient had a CT head that was negative as noted in her previous visit 18 hours ago. There is a question about tachypnea. The patient does have a history of idiopathic pulmonary hypertension. The patient had a CT pulmonary illness protocol which was unremarkable for clot or infiltrate. At this time the patient will be admitted for further assessment of seizure activity. Assessment altered mental status. An further neurological considerations. ER indicated that there is a neurological consultation available this morning. Hospital Course 02/02/17 Patient hospitalized with confusion and seizure with questionable accidental medication ingestion/withdrawal. Seizure precautions initiated. Patient transferred to intensive care unit on BiPAP following 2nd seizure this morning at which time a code was called and chest compressions performed briefly. Mental status remains depressed although she is no longer unresponsive when reassessed in the unit. Discussed with Dr. Mondragon, begin reintroducing home medications (single SSRI initially) when patient able to take by mouth. Discontinue Bactrim-UA in the ER with 0-1 WBC, negative nitrite. UDS negative during ER evaluation. Speech therapy evaluation. 02/03/17 Confusion persists with word searching, perseveration, and disorientation. No overt neurological deficits on examination. Discussed with Dr. Kendrick at [facility] [place] who indicated PAP has been in the 90s and that scleroderma symptoms have been stable. He did not view patient at high risk for vasculitis but felt CTA-head appropriate. Fluids increased pending CTA. May require resumption of diuresis post imaging. INR being obtained, I'm inclined to proceed with spinal tap to complete workup for encephalopathy/new seizure if CTA negative. Continue to hold second SSRI. Blood pressure stable on current regimen. Pepcid/SCDs for prophylaxis; will add Lovenox tomorrow if LP completed today. 02/04/17 Confusion persists without change in neurologic exam. WBC remain elevated and BP marginal overnight; repeat urine culture ordered as well as blood cultures. Responding to diuresis, will give lasix 20 mg IV BID today and monitor I/O. Repleting K per IV as difficult to get her to cooperative with many of the medications orally. 02/05/17 Confusion much improved today, ? medication washout? WBC remain elevated at 12K but afebrile, urine culture pending, blood cultures NGTD, not on antibiotics without worsening. Back to near admission weight, responded well to diuresis, on room air now and K normal this morning after IV replacement. May transfer out of the ICU this afternoon if remaining stable from a mental status standpoint. 02/06 E. coli UTI, Continue Rocephin, started on 02/05/17 Hyponatremia: Sodium decreased to 128 today after diuresis. Urine sodium low, low-volume fluids reinitiated. Weight has decreased to 49.9. Acute encephalopathy: Improving. Received a dose of Haldol last night. She reports that her chest is sore from recent CPR. Hypoxia: down to 86% on 2L this morning - now improved to 90%. On home oxygen, always at night and frequently during the day. 02/07/17 Acute encephalopathy - overall improved but subtle symptoms persist. Discussed further with Dr. Mondragon. Will proceed with LP and MRI today. Dr. Florian has been consulted to help determine appropriate SSRI. Hyponatremia, suspect prerenal in nature - improved to 131 with IVF and holding Lasix. E. coli UTI - abx converted to Keflex. Chronic Hypoxia - maintains sats on 1L. 02/08/17 Mrs. Cason is better today than seen at any point during the hospitalization. This follows initiation of antibiotics for UTI identified 2 days ago and improvement in sodium with fluids for the past 2 days. She is also off mirtazapine/omeprazole/metoclopramide and Lasix is on hold. There've been no further seizures. Initial trigger for confusion remains obscure although underlying dementia questioned. We'll proceed with cognitive evaluation tomorrow. If stable tomorrow anticipate discharge home with home health. Reevaluate electrolytes/hyponatremia tomorrow morning. Continue cephalexin for UTI. Hypoxia improved, increase activities as tolerated. Continue Letairis for primary pulmonary hypertension with follow-up with her toddler guide in the near future. Blood pressure stable on current regimen although minor orthostasis with 10-15 mm drop in blood pressure consistently seen with standing. Mild anemia, appears chronic-microcytic, iron studies to be obtained. Mild hypoxia, chronic with home oxygen due to pulmonary hypertension. 02/09/17-discharge Continues to improve. Oriented to location and date, ambulating with minimal assistance (using a walker). Patient denies discomfort other than mild chest discomfort when she palpates her mid chest. Denies dyspnea or pain. Remains concerned that she confused medications prior to admission and it is known that medications were in the wrong bottles. JESSICA examination by OT this morning demonstrated minimal deficits and cognitive assessment by speech therapy today also revealed significant clearing of cognition over the past 48 hours although supervision at home advised. The patient is in no distress when evaluated, blood pressure 131/71 supine but drops to 93/47 standing. Respirations are nonlabored with good airflow in cardiac rhythm regular. Metoprolol was resumed mid hospital stay and will be discontinued due to orthostasis; it is noted that patient had been on metoprolol in the past and has been discontinued at some point prior to admission although she still had medication at home and may have been taking prior to hospitalization. Mrs. Cason felt stable for discharge at this time. Home health services are being coordinated to assist in transition home. Her pharmacy will bubble pack medications to minimize risk of inadvertent use. She is to complete an additional 3 days of cephalexin for treatment of UTI and will remain off of mirtazapine but continue sertraline. Additionally she's had no recurrent reflux symptoms while off metoclopramide and omeprazole and will remain off those medications at discharge. Patient is asked to follow-up with Dr. Ward within 1 week and is scheduled for follow-up with her pulmonary and rheumatology physicians at [facility] [place] next week as well. >30 minutes spent on patient care and discharge care coordination today on the date of discharge. 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 (9) Metabolic acidosis with respiratory acidosis Status: Resolved Assessment & Plan: post-seizure (10) Hypothyroidism (11) Dysphagia Status: Chronic Assessment & Plan: with hiatal hernia (12) Hypertension Status: Chronic (13) History of venous thromboembolism Status: Resolved (14) Hypokalemia Status: Resolved (15) Microcytic anemia Status: Chronic Code Status Full Code Home Meds Active Scripts Cephalexin (Cephalexin) 500 Mg Capsule, 500 MG PO Q8HR for UTI for 3 Days, #9 CAP Prov:ELHAM PLATT MD 02/09/17 Ambrisentan (Letairis) 10 Mg Tablet, 20 MG PO DAILY, #60 Prov:ELHAM PLATT MD 02/09/17 Reported Medications Fluticasone Propionate (Flonase Allergy Relief 50 mcg/actuation Nasal) 9.9 Ml [place].susp, 2 SPRAY EA NOSTRIL DAILY 02/02/17 Estradiol (Estrace Vaginal Cream 0.01%) 21 Applic/42 G Cr, 1 APPLIC VAGINALLY HS Y for PRN ORDERS USUAL APPLICATION: 2-4 GRAMS VAGINALLY 02/02/17 Clotrimazole (Clotrimazole) 10 Mg Adelaida, 1 TAB PO 5XD Y for THRUSH DISSOLVE IN MOUTH. 02/02/17 Cholecalciferol (Vitamin D3) (Vitamin D-3) 2,000 Unit Capsule, 2000 UNIT PO DAILY 02/02/17 Budesonide (Budesonide) 0.5 Mg/2 Ml Ampul.neb, 1 VIAL AEROSOL BID 02/02/17 Ipratropium/Albuterol Sulfate (Iprat-Albut 0.5-3(2.5) mg/3 ml) 3 Ml Ampul.neb, 1 UNIT AEROSOL BID, VIAL 02/02/17 Acetaminophen (Acetaminophen) 500 Mg Tablet, 1 TAB PO BID Y for PAIN 02/02/17 Famotidine (Pepcid AC) 10 Mg Tablet, 20 MG PO HS 02/01/17 Furosemide (Furosemide) 40 Mg Tablet, 40 MG PO DAILY 02/01/17 Potassium Chloride (Potassium Chloride) 10 Meq Capsule.er, 20 MEQ PO DAILY 02/01/17 Cetirizine HCl (Cetirizine HCl) 10 Mg Tablet, 10 MG PO DAILY 02/01/17 Levothyroxine Sodium (Synthroid) 100 Mcg Tablet, 100 MCG PO ACB 08/23/13 Aspirin (Aspirin) 81 Mg Tablet, 81 MG PO DAILY 08/23/13 Sertraline Hcl (Zoloft) 100 Mg Tablet, 100 MG PO DAILY 05/18/10 Multivitamins (Multi-Day Vitamin) 1 Tab Tablet, 1 TAB PO DAILY 05/18/10 Discontinued Reported Medications Omeprazole (Omeprazole) 40 Mg Capsule.dr, 40 MG PO ACB 02/01/17 Mirtazapine (Remeron) 30 Mg Tablet, 30 MG PO HS 05/18/10 Metoclopramide Hcl (Reglan) 10 Mg Tablet, 10 MG PO HS 05/18/10 Discontinued Scripts Sulfamethoxazole/Trimethoprim (Bactrim Ds Tablet) 1 Each Tablet, 1 TAB PO BID, # 20 TAB Take 1 tablet, by mouth, 2 times a day. Prov:KAYLENE COLON MD 02/01/17 Face to Face Encounter I met with patient and on the day of dismissal and discussed follow up appointments, medications, and safety plan. Discharge Disposition home with home health Copies To 1: JONATHAN WARD MD Documentation Requirements Anemia Anemia Acuity: Chronic Alt. Mental Status/Confusion Check if condition above is: Acute ELHAM PLATT MD Feb 09, 2017 13:04
--- NOTE | 2017-02-09 13:53 | NUR ---
status/ DC Pt A/O x3, following commands better today. V/S stable on 1L- on RA later on. Ambulating well with 1x assist and walker, denies SOA or dizziness. Urine output good, lg BM today. Eating well, no N/V. DC to home, instructions given to pt and and no questions at this time. Scripts faxed to Pt Rx. Pt dressed and personal items gathered. Taken to front door via WC at 1340.
[2017-02-10 01:30] LABS: IRON 21 UG/DL (37-170)
[2017-02-10 01:39] LABS: IRON % SAT (TRANSF %SAT)(CALC) 7 % (9-55); TOTAL IRON BINDING CAPACITY 307 UG/DL (261-497)
== END 2017-02-09 13:40 | disposition home health service (06) | DRG 100 ==
LOC: ED 00:18 → EDHOLD 02:30 → MED 03:10 → CCU 09:15 → MED 02-05 15:26
PROVIDERS: ADMIT Hospitalist; ATTEND Internal Medicine
PROC: BW241ZZ Computerized Tomography (CT Scan) of Chest and Abdomen using Low Osmolar Contrast (ICD-10-PCS; 2017-02-02)
PROC: 5A09357 Assistance with Respiratory Ventilation, Less than 24 Consecutive Hours, Continuous Positive Airway Pressure (ICD-10-PCS; 2017-02-02)
PROC: 009U3ZX Drainage of Spinal Canal, Percutaneous Approach, Diagnostic (ICD-10-PCS; principal; 2017-02-07)
DX: G40.409 Other generalized epilepsy and epileptic syndromes, not intractable, without status epilepticus (principal); G93.40 Encephalopathy, unspecified; N39.0 Urinary tract infection, site not specified; I27.0 Primary pulmonary hypertension; E87.1 Hypo-osmolality and hyponatremia; E87.4 Mixed disorder of acid-base balance; B96.20 Unspecified Escherichia coli [E. coli] as the cause of diseases classified elsewhere; R09.02 Hypoxemia; D50.9 Iron deficiency anemia, unspecified; R13.10 Dysphagia, unspecified; E87.6 Hypokalemia; E03.9 Hypothyroidism, unspecified; K44.9 Diaphragmatic hernia without obstruction or gangrene; F19.90 Other psychoactive substance use, unspecified, uncomplicated; M34.1 CR(E)ST syndrome; Z99.81 Dependence on supplemental oxygen; Z79.899 Other long term (current) drug therapy
CPT/HCPCS: 36415; 36600; 62270; 80048; 80053; 80069; 81001; 82570; 82803; 82945; 83540; 83550; 83605; 83735; 83880; 83935; 84146; 84157; 84300; 84443; 84484; 85025; 85027; 85610; 86140; 86255; 87040; 87070; 87077; 87086; 87186; 87205; 87483; 89051; 93005; 94002; 94640; 94760; 96361; 96374

== ENCOUNTER → 2017-02-11 | Outpatient (CLI) | payer MEDICARE, OTHER ==
[~2017-02-11] MED LIST changes: +ACET-62 PO; +BUDE0.5A6 AEROSOL; +CEPH500C2 PO; +CHOL200026 PO; +CLOT10TR PO; +ESTR42.53 VAGINALLY; +FLUT9.9S EA NOSTRIL; +IPRA3AMP AEROSOL; -METO10TA65 PO; -METO50TA78 PO; +MIRT30TA6 PO; -MIRT30TA72 PO; +Non-Formulary PO; -OMEP40CA52 PO; -RAMI5CAP22 PO; -SIMV40TA5 PO; -SULF1TAB42 PO
[2017-02-11 16:56] LABS: BLOOD, URINE NEGATIVE (NEGATIVE); COLOR,URINE YELLOW (YELLOW); LEUKOCYTE ESTERASE ,URINE NEGATIVE (NEGATIVE); NITRITE,URINE NEGATIVE (NEGATIVE); UROBILINOGEN,URINE 0.2 EU/DL (NORMAL)
== END ==
LOC: LAB.NHH 16:47
DX: R44.0 Auditory hallucinations (principal)
CPT/HCPCS: 81003

== ENCOUNTER 2017-02-12 10:06 | Observation (INO) | payer MEDICARE, OTHER ==
[~2017-02-12] VITALS: Ht 167.6 cm; Wt 47.8 kg
[~2017-02-12 10:06] MED LIST changes: +METO10TA65 PO; +METO50TA78 PO; -MIRT30TA6 PO; +MIRT30TA72 PO; -Non-Formulary PO; +OMEP40CA52 PO; +RAMI5CAP22 PO; +SIMV40TA5 PO; +SULF1TAB42 PO
--- OUTSIDE RECORDS SUMMARY | 2017-02-12 10:11 | XMS REPORT | Continuity of Care Document ---
Author Author [facility] Organization [facility] Address Unknown Phone Unavailable Support Name Relationship Address Phone NOHEMY ROY MD Caregiver [address] [place] [address] [address] [place], [place] [address] Unavailable PABLO CANCHOLA MD Caregiver [address] [place] [address] Unavailable JONATHAN EDWARDS MD Caregiver [address] [place] [address] Unavailable ELHAM PLATT MD Caregiver [address] [place] [address] Unavailable BOSSMAN SORTO Next Of Kin [address] [place], [place] [id number] Insurance Providers Guarantor Maggi Sorto Address [address] [place] [address] Email DENIED 02-10-17 Payer Medicare Policy Number [id number] Subscriber's Name Maggi Sorto Relationship 18 Self Effective Date 13 Payer [employer] Medicare Supplement Policy Number [id number] Subscriber's Name Maggi Sorto Relationship 18 Self Group Number [id number] Advance Directives Directive Response Recorded Date/Time Advanced Directives Type None 02/02/17 12:20am Dr Barron Resuscitation Status Full Code 02/02/17 2:36am Resuscitation Documents on File No 02/02/17 3:17am DPOA for Healthcare Only Jing SORTO 02/07/17 2:50pm Living Will Yes 02/02/17 3:17am Advance Directive Consult Information Given 02/07/17 11:33am Problems Active Problems Medical Problem Onset Date Status 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 Dyslipidemia Unknown Chronic Dysphagia Unknown Chronic Encephalopathy acute Unknown Acute Escherichia coli urinary tract infection Unknown Acute Generalized seizure Unknown Acute History of venous thromboembolism Unknown Resolved Hypertension Unknown Chronic Hypokalemia Unknown Resolved Hyponatremia Unknown Acute Hypothyroidism Unknown Idiopathic pulmonary hypertension Unknown Chronic Leukocytosis Unknown Resolved Medication adverse effect Unknown Acute Metabolic acidosis with respiratory acidosis Unknown Resolved Microcytic anemia Unknown Chronic Past Problems Medical Problem Onset Date Accidental medication overdose Unknown Confusion Unknown Confusion Unknown New onset seizure Unknown UTI (urinary tract infection) Unknown Viral illness Unknown Medications Current Home Medications Medication Dose Units Route Directions Days Qty Instructions Start Date Acetaminophen 500 Mg Tablet 1 Tab Oral Twice A Day as needed for Pain 02/02/17 Ambrisentan (Letairis) 10 Mg Tablet 20 Mg Oral Daily 60 02/09/17 Aspirin 81 Mg Tablet 81 Mg Oral Daily 08/23/13 Budesonide 0.5 Mg/2 Ml Ampul.neb 1 Vial Aerosol Tx. Twice A Day 02/02/17 Cephalexin 500 Mg Capsule 500 Mg Oral Q8h @ 0100/0900/1700 for Uti 3 Days 9 Capsule 02/09/17 Cetirizine Hcl 10 Mg Tablet 10 Mg Oral Daily 02/01/17 Cholecalciferol (Vitamin D3) (Vitamin D-3) 2,000 Unit Capsule 2,000 Unit Oral Daily 02/02/17 Clotrimazole 10 Mg Adelaida 1 Tab Oral 5 Times Daily as needed for Thrush DISSOLVE IN MOUTH. 02/02/17 Estradiol (Estrace Vaginal Cream 0.01%) 21 Applic/42 G Cr 1 Applic Vaginally Bedtime as needed for Prn Orders USUAL APPLICATION: 2-4 GRAMS VAGINALLY 02/02/17 Famotidine (Pepcid Ac) 10 Mg Tablet 20 Mg Oral Bedtime 02/01/17 Fluticasone Propionate (Flonase Allergy Relief 50 Mcg/Actuation Nasal) 9.9 Ml Deming.susp 2 Deming Each Nostril Daily 02/02/17 Furosemide 40 Mg Tablet 40 Mg Oral Daily 02/01/17 Ipratropium/Albuterol Sulfate (Iprat-Albut 0.5-3(2.5) Mg/3 Ml) 3 Ml Ampul.neb 1 Unit Aerosol Tx. Twice A Day 02/02/17 Levothyroxine Sodium (Synthroid) 100 Mcg Tablet 100 Mcg Oral Before Breakfast 08/23/13 Multivitamins (Multi-Day Vitamin) 1 Tab Tablet 1 Tab Oral Daily 05/18/10 Potassium Chloride 10 Meq Capsule.er 20 Meq Oral Daily 02/01/17 Sertraline Hcl (Zoloft) 100 Mg Tablet 100 Mg Oral Daily 05/18/10 Past Home Medications Medication Directions Ordered Status Acetaminophen (Tylenol) 325 Mg Tablet, 325 Mg Oral 05/15/09 Discontinued Acetaminophen (Tylenol 8 Hour) 650 Mg Tablet.sa, 650 Mg Oral 05/14/09 Discontinued Ambrisentan (Letairis) 10 Mg Tablet, 10 Mg Oral Daily 02/01/17 Discontinued Aspirin 325 Mg Tablet, 325 Mg Oral 1/2 Tab Bid 05/18/10 Discontinued Estradiol (Estrace) 42.5 Gm Cream.appl, 42.5 Gm Vaginal Daily 10/20/10 Discontinued Famotidine (Pepcid Ac) 10 Mg Tab.chew, 10 Mg Oral Bedtime 05/15/09 Discontinued Metoclopramide Hcl (Reglan) 10 Mg Tablet, 10 Mg Oral Bedtime 05/18/10 Discontinued Mirtazapine (Remeron) 30 Mg Tablet, 30 Mg Oral Bedtime 05/18/10 Discontinued Mirtazapine (Remeron) 30 Mg Tablet, 30 Mg Oral Bedtime 05/15/09 Discontinued Omeprazole 40 Mg Capsule.dr, 40 Mg Oral Before Breakfast 02/01/17 Discontinued Pantoprazole Sodium (Protonix) 40 Mg Tablet.dr, 40 Mg Oral Daily 05/15/09 Discontinued Sulfamethoxazole/Trimethoprim (Bactrim Ds Tablet) 1 Each Tablet, 1 Tab Oral Twice A Day 02/01/17 Discontinued Social History Social History Problem Response Recorded Date/Time Onset Date Status Reason for Hospitalization seizures/confusion 02/09/2017 1:14pm Not Applicable Not Applicable Chewing Tobacco Status No 08/23/2013 3:04pm Not Applicable Not Applicable Hx Substance Use No 02/02/2017 12:20am Not Applicable Not Applicable Hx Alcohol Use No 02/02/2017 12:20am Not Applicable Not Applicable Has the pt used tobacco in the last 12 months No 02/02/2017 3:23am Not Applicable Not Applicable Query Response Start Date Stop Date Smoking Status Never smoker Hospital Discharge Instructions Instructions: Care Instructions: Reason for Hospitalization: seizures/confusion I was in the hospital because (patient own words): "I TOOK AN OVERDOSE OF MEDICINE" Discharge Diet: small meals with frequent snacks, chopped meats Discharge Activity: As tolerates Follow Up Appointments: Dr. Edwards in approximately one week DR. EDWARDS OFFICE NUMBER [phone] Lung and arthritis doctor next week as scheduled Pending Lab / Results: Follow up w/ your PCP Patient Instructions: Mirtazapine, metoclopramide, and omeprazole have all been discontinued. Discussed need to resume metoclopramide or omeprazole with Dr. Edwards. You are on another medicine to decrease stomach acid already (famotidine). Continue cephalexin for 3 more days for urinary tract infection. Urine can be retested next week to make sure infection is completely gone. The antibiotics she got in the emergency room last week will not work so you need to new antibiotic. Some test results from the lumbar puncture are still pending and will probably take another week. Dr. Edwards should be able to get the results. Consider follow-up with Dr. Mondragon-the neurologist who saw you in the hospital-if there is occasional confusion or if you have any further seizures. Continue using oxygen as before and use a walker when moving around. Wound/Incision Care: Not applicable Durable Medical Equipment: Nothing new Pain Management/Treatment: Tylenol 500 mg 1 tablet 2 or 3 times daily Expected Signs/Symptoms: Fatiguing more easily than usual, may have mild confusion at times especially when tired Notify Physician If: Additional seizures, worsening confusion, nausea or vomiting During Business Hours:: Please call the physician's office at After Business Hours:: Please call [phone] and have the centerless grinder operator page the physician. Condition at time of discharge: Good Plan of Care Discharge Date 02/09/17 1:40pm Disposition 06 HOME HEALTH SERVICE Instructions/Education Provided Encephalopathy (DC) Prescriptions See Medication Section Care Plan and Goals See Discharge Instructions Section Functional Status Query Response Date Recorded Mobility Status Transfer w/assist February 09, 2017 1:14pm Assistive Devices Front Wheeled Walker February 09, 2017 1:14pm Activity Limitations Weakness Fatigue Shortness of breath February 09, 2017 1:14pm Feeding Ability Independent February 09, 2017 1:14pm Toileting Ability Assist February 09, 2017 1:14pm Grooming Ability Assist February 09, 2017 1:14pm Dressing Ability Assist February 09, 2017 1:14pm Driving Ability Dependent February 09, 2017 1:14pm Housework Ability Dependent February 09, 2017 1:14pm Meal Preparation Ability Dependent February 09, 2017 1:14pm Stair Climbing Ability Assist February 09, 2017 1:14pm Ability to complete ADL's impeded by Impaired Mobility Change in Cognition February 09, 2017 1:14pm Cognitive/Perceptual Impairments Impaired vision Acute confusion February 09, 2017 1:14pm Visual Assistive Devices Glasses February 08, 2017 2:58am Preferred Method of Learning Listening February 08, 2017 2:58am Allergies, Adverse Reactions, Alerts Allergen Type Severity Reaction Status Last Updated No Known Drug Allergies Allergy Mild Active 02/02/17 Immunizations Query Response on File Recorded Date/Time Hx Influenza Vaccination Y 201502/02/17 3:23am Hx Pneumococcal Vaccination 2016? 02/02/17 3:23am Hx Influenza Vaccination Y 201502/02/17 3:23am Influenza Vaccine Hx FALL 201502/02/17 12:20am Vital Signs Acute Vital Signs Vital Response Date/Time Temperature (Fahrenheit) 97.0 deg F (96.8 - 99.1) 02/09/2017 8:17am Temperature (Calculated Celsius) 36.54866 degrees C (36.0 - 37.3) 02/09/2017 8:17am Temperature Source Oral 02/07/2017 4:32pm Pulse Rate (adult) 117 bpm (60 - 100) 02/09/2017 8:20am Respiratory Rate 16 breaths/min (10 - 20) 02/09/2017 8:17am O2 Sat by Pulse Oximetry 94 % (90 - 100) 02/09/2017 8:17am Oxygen Delivery Method Nasal Cannula 02/08/2017 7:50am Oxygen Delivery Method Nasal Cannula 02/09/2017 8:17am Oxygen Flow Rate 1.00 L/min 02/09/2017 8:17am Fraction of Inspired Oxygen (FIO2) 100 % 02/09/2017 8:17am Blood Pressure 93/47 mm Hg 02/09/2017 8:20am Blood Pressure Source Automatic Cuff 02/09/2017 8:17am Height (Feet) 5 feet 02/08/2017 6:30pm Height (Inches) 6.00 inches 02/08/2017 6:30pm Weight (Kilograms) 50.500 kg 02/09/2017 8:16am Body Mass Index (BMI) 17.9 02/02/2017 3:16am Results Laboratory Results Test Name Result Units Flags Reference Collection Date/Time Result Date/ Time Comments D-Dimer 760 NG/ML H 0-230 02/01/2017 10:13am 02/01/2017 10:28am <230 NG /ML D-DU=PRESUMPTIVE NEGATIVE FOR PE OR DVT >230 NG/ML D-DU=ADDITIONAL EVAL FOR PE OR DVT RECOMMENDED Ammonia < 9 UMOL/L L 9-33 02/01/2017 10:02/01/2017 11:06am Acetaminophen Level < 10 UG/ML L 10-30 02/01/2017 10:02/01/2017 11: 08am TOXIC <4 HR POST INGESTION: >150 MG/L; TOXIC <12 HR POST INGESTION: >50 MG/L Salicylates Level < 1.0 MG/DL L 2-20 02/01/2017 10:02/01/2017 11: 08am Alcohol, Quantitative <10 MG/DL <10 02/01/2017 10:02/01/2017 11: 08am White Blood Count 9.5 T/MM3 4.5-11.0 02/09/2017 4:42am 02/09/2017 5: 16am Red Blood Count 3.93 M/MM3 L 4.00-5.20 02/09/2017 4:42am 02/09/2017 5: 16am Hemoglobin 10.0 GM/DL L 12-16 02/09/2017 4:42am 02/09/2017 5:16am Hematocrit 31.3 % L 36-46 02/09/2017 4:42am 02/09/2017 5:16am Mean Corpuscular Volume 79.6 UM3 L 80-100 02/09/2017 4:42am 02/09/2017 5 :16am Mean Corpuscular Hemoglobin 25.4 UUG L 26-34 02/09/2017 4:42am 2016 5:16am Mean Corpuscular Hemoglobin Concent 31.9 GM/DL 31-37 02/09/2017 4:42am 02/09/2017 5:16am RDW Standard Deviation 44.7 FL 36.9-50.2 02/09/2017 4:42am 02/09/2017 5 :16am Platelet Count 250 T/MM3 130-400 02/09/2017 4:42am 02/09/2017 5:16am Mean Platelet Volume 9.4 UM3 9.4-12.4 02/09/2017 4:42am 02/09/2017 5: 16am Neutrophils (%) (Auto) 69.0 % H 33-66 02/08/2017 4:26am 02/08/2017 4: 58am Lymphocytes (%) (Auto) 13.9 % L 23-45 02/08/2017 4:02/08/2017 4: 58am Monocytes (%) (Auto) 12.2 % H 0-9.0 02/08/2017 4:02/08/2017 4:58am Eosinophils (%) (Auto) 2.5 % 0-4 02/08/2017 4:02/08/2017 4:58am Basophils (%) (Auto) 0.6 % 0-2 02/08/2017 4:02/08/2017 4:58am Immature Granulocyte % (Auto) 1.8 % H 0.0-0.5 02/08/2017 4:2016 4:58am Absolute Neutrophils (auto) 6.3 T/MM3 1.8-7.7 02/08/2017 4:2016 4:58am Absolute Lymphocytes (auto) 1.3 T/MM3 1-4.8 02/08/2017 4:2016 4:58am Absolute Monocytes (auto) 1.1 T/MM3 H 0-0.8 02/08/2017 4:2016 4:58am Absolute Eosinophils (auto) 0.2 T/MM3 0-0.5 02/08/2017 4:2016 4:58am Absolute Basophils (auto) 0.1 T/MM3 0-0.2 02/08/2017 4:02/08/2017 4:58am Absolute Immature Granulocyte (auto 0.16 T/MM3 H 0.00-0.03 02/08/2017 4: 02/08/2017 4:58am Neutrophils % (Manual) 83.0 % H 33-66 02/04/2017 6:34am 02/04/2017 7: 39am Band Neutrophils % 4.0 % 0-6 02/04/2017 6:34am 02/04/2017 7:39am Lymphocytes % (Manual) 4.0 % L 23-45 02/04/2017 6:34am 02/04/2017 7: 39am Monocytes % (Manual) 8.0 % 0-9.0 02/04/2017 6:34am 02/04/2017 7:39am Eosinophils % (Manual) 1.0 % 0-4 02/04/2017 6:34am 02/04/2017 7:39am Band Neutrophils # 0.6 T/MM3 02/04/2017 6:34am 02/04/2017 7:39am Absolute Neutrophils (Manual) 13.3 T/MM3 H 1.8-7.7 02/04/2017 6:34am 7:39am Lymphocytes # (Manual) 0.6 T/MM3 L 1-4.8 02/04/2017 6:34am 02/04/2017 7: 39am Monocytes # (Manual) 1.3 T/MM3 H 0-0.8 02/04/2017 6:34am 02/04/2017 7: 39am Eosinophils # (Manual) 0.2 T/MM3 0-0.5 02/04/2017 6:34am 02/04/2017 7: 39am Red Cell Morphology Comment NORMAL 02/04/2017 6:34am 02/04/2017 7: 39am Prothromb Time International Ratio 1.17 H 0.76-1.04 02/05/2017 6:31am 02/05/2017 7:28am THERAPUTIC RANGE=2.00-3.00 FOR ANTI-THROMBOSIS THERAPUTIC RANGE=2.50-3.50 FOR IMPLANTED VALVE Icterus Index < 2 0-7 02/09/2017 4:43am 02/09/2017 5:29am Chemistry Specimen Hemolysis < 15 0-25 02/09/2017 4:43am 02/09/2017 5 :29am 0-25: Specimen Exhibited No Hemolysis. Turbidity < 20 0-20 02/09/2017 4:43am 02/09/2017 5:29am Sodium Level 131 MEQ/L L 134-144 02/09/2017 4:43am 02/09/2017 5:29am Potassium Level 4.4 MEQ/L 3.6-5 02/09/2017 4:43am 02/09/2017 5:29am Chloride Level 101 MEQ/L 98-107 02/09/2017 4:43am 02/09/2017 5:29am Carbon Dioxide Level 20 MEQ/L L 22-30 02/09/2017 4:43am 02/09/2017 5: 29am Anion Gap 10 MEQ/L 5-15 02/09/2017 4:43am 02/09/2017 5:29am Blood Urea Nitrogen 18.0 MG/DL H 7-17 02/09/2017 4:4302/09/2017 5: 29am Creatinine 0.9 MG/DL 0.7-1.2 02/09/2017 4:4302/09/2017 5:29am BUN/Creatinine Ratio 20 RATIO 6-02/09/2017 4:4302/09/2017 5:29am Glomerular Filtration Rate Calc 61 02/09/2017 4:4302/09/2017 5: 29am Glucose Level 80 MG/DL 65-110 02/09/2017 4:4302/09/2017 5:29am Calculated Osmolality 254 MOSM/KG L 261-280 02/09/2017 4:432016 5:29am Calcium Level 8.2 MG/DL L 8.4-10.2 02/09/2017 4:4302/09/2017 5:29am Phosphorus Level 3.5 MG/DL 2.5-4.5 02/06/2017 4:3502/06/2017 5:39am Total Bilirubin 1.20 MG/DL 0.20-1.30 02/05/2017 6:3102/05/2017 6: 53am Alkaline Phosphatase 67 U/L 38-126 02/05/2017 6:02/05/2017 6:53am Total Protein 5.5 G/DL L 6.3-8.2 02/05/2017 6:3102/05/2017 6:53am Albumin 2.5 G/DL L 3.5-5.0 02/06/2017 4:3502/06/2017 5:39am Globulin 2.8 G/DL 2.4-3.6 02/05/2017 6:3102/05/2017 6:53am Albumin/Globulin Ratio 1.0 RATIO L 1.1-2.2 02/05/2017 6:02/05/2017 6:53am Aspartate Amino Transf (AST/SGOT) 19 U/L 14-36 02/05/2017 6:312016 6:53am Alanine Aminotransferase (ALT/SGPT) 31 U/L 9-52 02/05/2017 6:3102/05 6:53am Troponin I < 0.012 ng/ml 0-0.12 02/02/2017 8:48am 02/02/2017 9:21am Troponin values with a difference of 55% increase from orginal troponin value represent a true biological DELTA value. (%increase Calc=Orginal Troponin value, divided by subsequent Troponin value, multiplied by 100) C-Reactive Protein 74.5 MG/L H 0-9 02/03/2017 4:51am 02/03/2017 11:44am CZ-Vzx-U-Type Natriuretic Peptide 3460 PG/ML H 0-175 02/03/2017 4:51am 02/03/2017 11:50am Rule in cut points: <50 years old=450; 50-75 years old=900; >75 years old=1800; When utilizing ProBNP rule-in cut points, adjustment for impaired renal function is typically not required. Magnesium Level 2.0 MG/DL D 1.6-2.3 02/07/2017 4:35am 02/07/2017 5:29am Plasma Lactate 0.9 MMOL/L 0.6-2.2 02/04/2017 6:34am 02/04/2017 7:06am Thyroid Stimulating Hormone (TSH) 5.41 MIU/L H 0.47-4.68 02/02/2017 4: 38am 02/02/2017 6:18am Prolactin 26.7 NG/ML 02/02/2017 8:48am 02/02/2017 9:26am Normal Female (Non-): 3.0-18.6 ng/ml; Males: 3.7-17.9 ng/ml Arterial Blood pH 7.466 H 7.350-7.450 02/03/2017 11:53am 02/03/2017 12 :11pm Arterial Blood Partial Pressure CO2 25 MMHG L 34-45 02/03/2017 11:53am 02/03/2017 12:11pm Arterial Blood pO2 at Patient Temp 49 MMHG L 80-100 02/03/2017 11:53am 02/03/2017 12:11pm Arterial Blood HCO3 18 MEQ/L L 22-26 02/03/2017 11:53am 02/03/2017 12: 11pm Arterial Blood Total CO2 19 MEQ/L L 23-27 02/03/2017 11:53am 02/03/2017 12:11pm Arterial Blood Base Excess -5.0 MMOL/L L -2.0-2.0 02/03/2017 11:53am 12:11pm Arterial Blood Oxygen Saturation 88.0 % L 95.0-98.0 02/03/2017 11:53am 02/03/2017 12:11pm Blood Gas Oxygen Percent Given 75 02/02/2017 10:23am 02/02/2017 10: 46am Blood Gas Oxygen Liter Flow 4.0 02/03/2017 11:53am 02/03/2017 12: 11pm Oxygen Delivery Method (LAB) ROOM AIR 02/04/2017 6:34a02/04/2017 6:59am Venous Blood pH 7.450 H 7.31-7.41 02/04/2017 6:34am 02/04/2017 6:59am Venous Blood Partial Pressure CO2 35 MMHG L 40-52 02/04/2017 6:34am 6:59am Venous Blood Partial Pressure O2 55 MMHG H 40-52 02/04/2017 6:34am 02/04 6:59am Venous Blood HCO3 24 MEQ/L 22-26 02/04/2017 6:34a02/04/2017 6:59am Venous Blood Total Carbon Dioxide 25.4 MEQ/L 02/04/2017 6:34am 2016 6:59am Venous Blood Base Excess 0.6 MMOL/L -2.0-2.0 02/04/2017 6:34am 2016 6:59am Venous Blood Oxygen Saturation 90.0 % 02/04/2017 6:34am 02/04/2017 6: 59am Urine Random Creatinine 87.1 MG/DL 02/06/2017 1:24pm 02/06/2017 1: 44pm Urine Random Sodium 26 MEQ/L L 30-90 02/06/2017 1:24pm 02/06/2017 1: 44pm CSF Color COLORLESS 02/07/2017 1:15pm 02/07/2017 1:46pm CSF Turbidity CLEAR 02/07/2017 1:15pm 02/07/2017 1:46pm CSF Total Nucleated Cell Count 2 /MM3 0-5 02/07/2017 1:15pm 02/07/2017 2:26pm CSF RBC 2000 /MM3 H 0-0 02/07/2017 1:15pm 02/07/2017 2:26pm CSF Neutrophils 0 % 02/07/2017 1:15pm 02/07/2017 2:26pm No WBC's seen on differential slide. CSF Lymphocytes 0 % 02/07/2017 1:15pm 02/07/2017 2:26pm CSF Monocytes 0 % 02/07/2017 1:15pm 02/07/2017 2:26pm CSF Eosinophils % 0 % 02/07/2017 1:15pm 02/07/2017 2:26pm CSF Basophils 0 % 02/07/2017 1:15pm 02/07/2017 2:26pm CSF Other Cells % 0 % 02/07/2017 1:15pm 02/07/2017 2:26pm CSF Glucose 70 MG/DL 40-70 02/07/2017 1:15pm 02/07/2017 1:43pm CSF Total Protein 46 MG/DL 12-60 02/07/2017 1:15pm 02/07/2017 1:43pm Escherichia coli (PCR) NEGATIVE NEGATIVE 02/07/2017 1:15pm 2016 3:36pm Haemophilus influenzae DNA NEGATIVE NEGATIVE 02/07/2017 1:15pm 2016 3:36pm Listeria (PCR) NEGATIVE NEGATIVE 02/07/2017 1:15pm 02/07/2017 3:36pm Neisseria meningitidis (PCR) NEGATIVE NEGATIVE 02/07/2017 1:15pm 3:36pm Group B Streptococcus (PCR) NEGATIVE NEGATIVE 02/07/2017 1:15pm 02/07 3:36pm Streptococcus pneumoniae (PCR) NEGATIVE NEGATIVE 02/07/2017 1:15pm 3:36pm Cytomegalovirus DNA Detection NEGATIVE NEGATIVE 02/07/2017 1:15pm 3:36pm Enterovirus/Rhinovirus (PCR) NEGATIVE NEGATIVE 02/07/2017 1:15pm 3:36pm Herpes Simplex Virus I DNA (PCR) NEGATIVE NEGATIVE 02/07/2017 1:15pm 02/07/2017 3:36pm Herpes Simplex Virus II DNA (PCR) NEGATIVE NEGATIVE 02/07/2017 1:15pm 02/07/2017 3:36pm Herpesvirus 6 DNA (PCR) NEGATIVE NEGATIVE 02/07/2017 1:15pm 2016 3:36pm Parechovirus (PCR) NEGATIVE NEGATIVE 02/07/2017 1:15pm 02/07/2017 3: 36pm Varicella-Zoster Virus DNA (PCR) NEGATIVE NEGATIVE 02/07/2017 1:15pm 02/07/2017 3:36pm Cryptococcus Antigen NEGATIVE NEGATIVE 02/07/2017 1:15pm 02/07/2017 3 :36pm Correlate results from this panel with clinical history and epidemiological data when evaluating the patient. Urine Collection Type BELL INDWELLING 02/04/2017 8:35am 2016 8:50am Urine Color YELLOW YELLOW 02/04/2017 8:35am 02/04/2017 8:50am Urine Turbidity CLOUDY CLEAR 02/04/2017 8:35am 02/04/2017 8:50am Urine Specific Fielding 1.010 L 1.015-1.025 02/04/2017 8:35am 2016 8:50am Urine pH 6.5 5.0-8.0 02/04/2017 8:35am 02/04/2017 8:50am Urine Leukocyte Esterase 3+ A NEGATIVE 02/04/2017 8:35am 02/04/2017 8: 50am Urine Nitrite NEGATIVE NEGATIVE 02/04/2017 8:35am 02/04/2017 8:50am Urine Protein NEGATIVE NEGATIVE 02/04/2017 8:35am 02/04/2017 8:50am Urine Glucose (UA) NEGATIVE NEGATIVE 02/04/2017 8:35am 02/04/2017 8: 50am Urine Ketones NEGATIVE NEGATIVE 02/04/2017 8:35am 02/04/2017 8:50am Urine Urobilinogen 0.2 EU/DL NORMAL 02/04/2017 8:35am 02/04/2017 8: 50am Urine Bilirubin NEGATIVE NEGATIVE 02/04/2017 8:35am 02/04/2017 8: 50am Urine Blood 3+ A NEGATIVE 02/04/2017 8:35am 02/04/2017 8:50am Urine WBC 30-50 /HPF H 0-5 02/04/2017 8:35am 02/04/2017 9:06am Urine WBC Clumps MANY H 02/04/2017 8:35am 02/04/2017 9:06am Urine RBC 30-50 /HPF H 0-3 02/04/2017 8:35am 02/04/2017 9:06am Urine Squamous Epithelial Cells NONE SEEN 02/04/2017 8:35am 2016 9:06am Urine Bacteria 2+ H NEGATIVE 02/04/2017 8:35am 02/04/2017 9:06am Urine Culture Indicated CULT REFLEXED &SETUP 02/04/2017 8:35am 9:06am Urine Osmolality 374 mOsm/kg 38-1400 02/06/2017 1:24pm 02/07/2017 1: 09am Osmolality, Urine performed at [facility], [address] [place] [address] Gallery Or Museum Guide Krystal Cortez DO Microbiology Results Procedure Source Organism/Result Collection Date/Time Result Date/Time Result Status Blood Culture Peripheral/Iv Start NO GROWTH AFTER 5 DAYS 02/04/2017 7:52am 02/09/2017 7:54am Final Urine Culture Urine, Bell Indwelling ESCHERICHIA COLI 02/04/2017 9:06am 02/06/2017 7:30am Final CSF Culture Cerebral Spinal Fluid NO GROWTH AFTER 48 HOURS 02/07/2017 1: 15pm 02/09/2017 1:24pm Preliminary Name: MAGGI SORTO Unit #: [id number] : [id number] Sex: F DISCHARGE SUMMARY Admit Date: 02/02/17 Report #: [id number] [facility] General Date Date DATE: 02/09/17 TIME: 12:42 Attending Physician Elham Platt MD Admitting Physician Elham Platt MD Consulting Physician Jenn Mondragon MD, Tara M.D. 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 Acute encephalopathy 3. Escherichia coli UTI 4. Hyponatremia 5. Suspected medication misuse 6. Primary pulmonary hypertension 7. Scleroderma 8. Metabolic/respiratory acidosis following seizure 9. Dysphasia, chronic 10. Microcytic anemia Procedures Lumbar puncture on 02/07 with opening pressure of 8 cm water in the prone position. CSF studies unremarkable and further described below. JESSICA evaluation on date of discharge Score=4 - a score of 6 or greater means pt will need assistance to live out in the community. Pt aware of 4 out of 4 dangerous situations from photos. Pt knew appropriate action for sickness/accidents and knew 911#. Pt also knew names/locations of doctors offices. Pt unable to use money in purchasing itmes (0 out of 2 correct). Pt able to obtain/maintain source of income, but unable to budget money. Pt able to use banking form correctly and payment of bill correctly. Pt states drives or drives and pt able to use phone and phone book correctly. Pt's score indicates pt does have sufficient skills to live independently. Laboratory Laboratory Tests Test 02/08/17 04:26 02/09/17 04:42 02/09/17 04:43 White Blood Count 9.1T/MM3 (4.5-11.0) 9.5T/MM3 (4.5-11.0) Red Blood Count 3.92M/MM3 (4.00-5.20) 3.93M/MM3 (4.00-5.20) Hemoglobin 10.1GM/DL (12-16) 10.0GM/DL (12-16) Hematocrit 31.0% (36-46) 31.3% (36-46) Mean Corpuscular Volume 79.1UM3 (80-100) 79.6UM3 (80-100) Mean Corpuscular Hemoglobin 25.8UUG (26-34) 25.4UUG (26-34) Mean Corpuscular Hemoglobin Concent 32.6GM/DL (31-37) 31.9GM/DL (31-37) RDW Standard Deviation 44.0FL (36.9-50.2) 44.7FL (36.9-50.2) Platelet Count 230T/MM3 (130-400) 250T/MM3 (130-400) Mean Platelet Volume 9.3UM3 (9.4-12.4) 9.4UM3 (9.4-12.4) Immature Granulocyte % (Auto) 1.8% (0.0-0.5) Neutrophils (%) (Auto) 69.0% (33-66) Lymphocytes (%) (Auto) 13.9% (23-45) Monocytes (%) (Auto) 12.2% (0-9.0) Eosinophils (%) (Auto) 2.5% (0-4) Basophils (%) (Auto) 0.6% (0-2) Absolute Immature Granulocyte (auto 0.16T/MM3 (0.00-0.03) Absolute Neutrophils (auto) 6.3T/MM3 (1.8-7.7) Absolute Lymphocytes (auto) 1.3T/MM3 (1-4.8) Absolute Monocytes (auto) 1.1T/MM3 (0-0.8) Absolute Eosinophils (auto) 0.2T/MM3 (0-0.5) Absolute Basophils (auto) 0.1T/MM3 (0-0.2) Turbidity < 20 (0-20) < 20 (0-20) Sodium Level 132MEQ/L (134-144) 131MEQ/L (134-144) Potassium Level 4.5MEQ/L (3.6-5) 4.4MEQ/L (3.6-5) Chloride Level 102MEQ/L (98-107) 101MEQ/L (98-107) Carbon Dioxide Level 21MEQ/L (22-30) 20MEQ/L (22-30) Anion Gap 9MEQ/L (5-15) 10MEQ/L (5-15) Blood Urea Nitrogen 19.0MG/DL (7-17) 18.0MG/DL (7-17) Creatinine 0.9MG/DL (0.7-1.2) 0.9MG/DL (0.7-1.2) Glomerular Filtration Rate Calc 61 61 BUN/Creatinine Ratio 21RATIO (6-26) 20RATIO (6-26) Glucose Level 82MG/DL (65-110) 80MG/DL (65-110) Calculated Osmolality 256MOSM/KG (261-280) 254MOSM/KG (261-280) Calcium Level 8.2MG/DL (8.4-10.2) 8.2MG/DL (8.4-10.2) Icterus Index < 2 (0-7) < 2 (0-7) Chemistry Specimen Hemolysis < 15 (0-25) < 15 (0-25) On date of admission (02/02) sodium was 137, creatinine 1.1, liver enzymes unremarkable, prolactin 70.9, and TSH 5.41. White count 8.0, hemoglobin 11.3 with MCV 80.7. Urinalysis on 02/01 was unremarkable with 0-1 white cell and negative nitrite. Repeat UA on 02/04 at +3 leukocyte esterase, negative nitrate, 30-50 red cells and white cells with +2 bacteria Initial blood gas obtained during "code" with seizure 02/02 1.09/52/68/84% while being bagged. Follow-up blood gases demonstrated rapid normalization with final blood gas on on room air 7.45/35/55/24 with saturation 90.0% CSF on 02/07 was colorless and clear with 2000 red cells, 2 white cells with no differential reported. Glucose 70, total protein 46, infection panel entirely negative. Paraneoplastic panel on CSF pending at discharge Microbiology Microbiology Date/Time Source Procedure Growth Status 02/07/17 13:15 Cerebral Spinal Fluid Gram Stain - no WBC, no organisms Resulted 02/07/17 13:15 Cerebral Spinal Fluid CSF Culture - Preliminary NO GROWTH AFTER 24 HOURS Resulted Urine culture 02/04 > 100,000 Escherichia coli sensitive to all tested antibiotics except ampicillin and Bactrim Blood cultures 2 drawn 02/04 negative after [address] without contrast on admission demonstrated no acute intracranial abnormality or hemorrhage. There are scattered areas of low attenuation in the white matter which most likely represent changes from chronic microvascular ischemia. CTA of the chest on admission revealed no evidence of PE. There is mild change of emphysema and some dependent atelectasis. Head CT with and without contrast/CTA head on 02/03 demonstrated no acute pathology nor evidence of vascular pathology. Chest x-ray on 02/03 demonstrated changes of emphysema and mild hyperinflation but no evidence of pneumonia/failure/pneumothorax. Follow-up films on 02/04 and 02/06 demonstrated some atelectasis at the left greater than right base. MRI of the brain with and without contrast on 02/07 was limited somewhat by motion artifact. Ventricles were normal in size and shape. There were some nonspecific areas consistent with deep frontoparietal white matter change felt consistent with small vessel ischemic changes typical of patient's age. No other pathology was identified within the brain. Mild mucosal thickening or mucous retention cyst and maxillary sinuses described and mild mucosal thickening in the right frontal and ethmoid air cells reported. History of Present Illness This is a 68-year-old female that was in her usual state of health until approximately 3-4 days ago. That has been noted increasing confusion. There has been noted that patient was putting up her pills and trying to re-fill her pill containers. The patient apparently had increasing confusion. The patient presented to the ER approximately 18 years ago. At that time workup demonstrated a possible UTI. The patient was started on Bactrim. After taking her first Bactrim tablet, the patient had nausea and vomiting. Increasing confusion. Patient went to bed tonight and will come up about 11:00 with a possible seizure activity per husbands report this is never happened before. There is no described incontinence of bowel or bladder. The patient is brought into the emergency department were a neuro workup was unrevealing. Specifically the patient had a CT head that was negative as noted in her previous visit 18 hours ago. There is a question about tachypnea. The patient does have a history of idiopathic pulmonary hypertension. The patient had a CT pulmonary illness protocol which was unremarkable for clot or infiltrate. At this time the patient will be admitted for further assessment of seizure activity. Assessment altered mental status. An further neurological considerations. ER indicated that there is a neurological consultation available this morning. Hospital Course 02/02/17 Patient hospitalized with confusion and seizure with questionable accidental medication ingestion/withdrawal. Seizure precautions initiated. Patient transferred to intensive care unit on BiPAP following 2nd seizure this morning at which time a code was called and chest compressions performed briefly. Mental status remains depressed although she is no longer unresponsive when reassessed in the unit. Discussed with Dr. Mondragon, begin reintroducing home medications (single SSRI initially) when patient able to take by mouth. Discontinue Bactrim-UA in the ER with 0-1 WBC, negative nitrite. UDS negative during ER evaluation. Speech therapy evaluation. 02/03/17 Confusion persists with word searching, perseveration, and disorientation. No overt neurological deficits on examination. Discussed with Dr. Kendrick at [facility] who indicated PAP has been in the 90s and that scleroderma symptoms have been stable. He did not view patient at high risk for vasculitis but felt CTA-head appropriate. Fluids increased pending CTA. May require resumption of diuresis post imaging. INR being obtained, I'm inclined to proceed with spinal tap to complete workup for encephalopathy/new seizure if CTA negative. Continue to hold second SSRI. Blood pressure stable on current regimen. Pepcid/SCDs for prophylaxis; will add Lovenox tomorrow if LP completed today. 02/04/17 Confusion persists without change in neurologic exam. WBC remain elevated and BP marginal overnight; repeat urine culture ordered as well as blood cultures. Responding to diuresis, will give lasix 20 mg IV BID today and monitor I/O. Repleting K per IV as difficult to get her to cooperative with many of the medications orally. 02/05/17 Confusion much improved today, ? medication washout? WBC remain elevated at 12K but afebrile, urine culture pending, blood cultures NGTD, not on antibiotics without worsening. Back to near admission weight, responded well to diuresis, on room air now and K normal this morning after IV replacement. May transfer out of the ICU this afternoon if remaining stable from a mental status standpoint. 02/06 E. coli UTI, Continue Rocephin, started on 02/05/17 Hyponatremia: Sodium decreased to 128 today after diuresis. Urine sodium low, low-volume fluids reinitiated. Weight has decreased to 49.9. Acute encephalopathy: Improving. Received a dose of Haldol last night. She reports that her chest is sore from recent CPR. Hypoxia: down to 86% on 2L this morning - now improved to 90%. On home oxygen, always at night and frequently during the day. 02/07/17 Acute encephalopathy - overall improved but subtle symptoms persist. Discussed further with Dr. Mondragon. Will proceed with LP and MRI today. Dr. Florian has been consulted to help determine appropriate SSRI. Hyponatremia, suspect prerenal in nature - improved to 131 with IVF and holding Lasix. E. coli UTI - abx converted to Keflex. Chronic Hypoxia - maintains sats on 1L. 02/08/17 Mrs. Sorto is better today than seen at any point during the hospitalization. This follows initiation of antibiotics for UTI identified 2 days ago and improvement in sodium with fluids for the past 2 days. She is also off mirtazapine/omeprazole/metoclopramide and Lasix is on hold. There've been no further seizures. Initial trigger for confusion remains obscure although underlying dementia questioned. We'll proceed with cognitive evaluation tomorrow. If stable tomorrow anticipate discharge home with home health. Reevaluate electrolytes/hyponatremia tomorrow morning. Continue cephalexin for UTI. Hypoxia improved, increase activities as tolerated. Continue Letairis for primary pulmonary hypertension with follow-up with her innovation analyst in the near future. Blood pressure stable on current regimen although minor orthostasis with 10-15 mm drop in blood pressure consistently seen with standing. Mild anemia, appears chronic-microcytic, iron studies to be obtained. Mild hypoxia, chronic with home oxygen due to pulmonary hypertension. 02/09/17-discharge Continues to improve. Oriented to location and date, ambulating with minimal assistance (using a walker). Patient denies discomfort other than mild chest discomfort when she palpates her mid chest. Denies dyspnea or pain. Remains concerned that she confused medications prior to admission and it is known that medications were in the wrong bottles. JESSICA examination by OT this morning demonstrated minimal deficits and cognitive assessment by speech therapy today also revealed significant clearing of cognition over the past 48 hours although supervision at home advised. The patient is in no distress when evaluated, blood pressure 131/71 supine but drops to 93/47 standing. Respirations are nonlabored with good airflow in cardiac rhythm regular. Metoprolol was resumed mid hospital stay and will be discontinued due to orthostasis; it is noted that patient had been on metoprolol in the past and has been discontinued at some point prior to admission although she still had medication at home and may have been taking prior to hospitalization. Mrs. Sorto felt stable for discharge at this time. Home health services are being coordinated to assist in transition home. Her pharmacy will bubble pack medications to minimize risk of inadvertent use. She is to complete an additional 3 days of cephalexin for treatment of UTI and will remain off of mirtazapine but continue sertraline. Additionally she's had no recurrent reflux symptoms while off metoclopramide and omeprazole and will remain off those medications at discharge. Patient is asked to follow-up with Dr. Edwards within 1 week and is scheduled for follow-up with her pulmonary and rheumatology physicians at [facility] next week as well. >30 minutes spent on patient care and discharge care coordination today on the date of discharge. 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 (9) Metabolic acidosis with respiratory acidosis Status: Resolved Assessment & Plan: post-seizure (10) Hypothyroidism (11) Dysphagia Status: Chronic Assessment & Plan: with hiatal hernia (12) Hypertension Status: Chronic (13) History of venous thromboembolism Status: Resolved (14) Hypokalemia Status: Resolved (15) Microcytic anemia Status: Chronic Code Status Full Code Home Meds Active Scripts Cephalexin (Cephalexin) 500 Mg Capsule, 500 MG PO Q8HR for UTI for 3 Days, #9 CAP Prov:ELHAM PLATT MD 02/09/17 Ambrisentan (Letairis) 10 Mg Tablet, 20 MG PO DAILY, #60 Prov:ELHAM PLATT MD 02/09/17 Reported Medications Fluticasone Propionate (Flonase Allergy Relief 50 mcg/actuation Nasal) 9.9 Ml [place].susp, 2 SPRAY EA NOSTRIL DAILY 02/02/17 Estradiol (Estrace Vaginal Cream 0.01%) 21 Applic/42 G Cr, 1 APPLIC VAGINALLY HS Y for PRN ORDERS USUAL APPLICATION: 2-4 GRAMS VAGINALLY 02/02/17 Clotrimazole (Clotrimazole) 10 Mg Adelaida, 1 TAB PO 5XD Y for THRUSH DISSOLVE IN MOUTH. 02/02/17 Cholecalciferol (Vitamin D3) (Vitamin D-3) 2,000 Unit Capsule, 2000 UNIT PO DAILY 02/02/17 Budesonide (Budesonide) 0.5 Mg/2 Ml Ampul.neb, 1 VIAL AEROSOL BID 02/02/17 Ipratropium/Albuterol Sulfate (Iprat-Albut 0.5-3(2.5) mg/3 ml) 3 Ml Ampul.neb, 1 UNIT AEROSOL BID, VIAL 02/02/17 Acetaminophen (Acetaminophen) 500 Mg Tablet, 1 TAB PO BID Y for PAIN 02/02/17 Famotidine (Pepcid AC) 10 Mg Tablet, 20 MG PO HS 02/01/17 Furosemide (Furosemide) 40 Mg Tablet, 40 MG PO DAILY 02/01/17 Potassium Chloride (Potassium Chloride) 10 Meq Capsule.er, 20 MEQ PO DAILY 02/01/17 Cetirizine HCl (Cetirizine HCl) 10 Mg Tablet, 10 MG PO DAILY 02/01/17 Levothyroxine Sodium (Synthroid) 100 Mcg Tablet, 100 MCG PO ACB 08/23/13 Aspirin (Aspirin) 81 Mg Tablet, 81 MG PO DAILY 08/23/13 Sertraline Hcl (Zoloft) 100 Mg Tablet, 100 MG PO DAILY 05/18/10 Multivitamins (Multi-Day Vitamin) 1 Tab Tablet, 1 TAB PO DAILY 05/18/10 Discontinued Reported Medications Omeprazole (Omeprazole) 40 Mg Capsule.dr, 40 MG PO ACB 02/01/17 Mirtazapine (Remeron) 30 Mg Tablet, 30 MG PO HS 05/18/10 Metoclopramide Hcl (Reglan) 10 Mg Tablet, 10 MG PO HS 05/18/10 Discontinued Scripts Sulfamethoxazole/Trimethoprim (Bactrim Ds Tablet) 1 Each Tablet, 1 TAB PO BID, # 20 TAB Take 1 tablet, by mouth, 2 times a day. Prov:KAYLENE COLON MD 02/01/17 Face to Face Encounter I met with patient and on the day of dismissal and discussed follow up appointments, medications, and safety plan. Discharge Disposition home with home health Copies To 1: JONATHAN EDWARDS MD Documentation Requirements Anemia Anemia Acuity: Chronic Alt. Mental Status/Confusion Check if condition above is: Acute ELHAM PLATT MD Feb 09, 2017 13:04 Procedures Procedure Status Date Provider(s) Extremity study Completed 11/18/16 Ct head/brain w/o dye Completed 02/01/17 Comprehen metabolic panel Completed 02/01/17 Drug test prsmv instrmnt Completed 02/01/17 Drug test prsmv chem anlyzr Completed 02/01/17 Drug test prsmv chem anlyzr Completed 02/01/17 Drug test prsmv chem anlyzr Completed 02/01/17 Urinalysis auto w/scope Completed 02/01/17 Assay of ammonia Completed 02/01/17 Assay thyroid stim hormone Completed 02/01/17 Assay of troponin quant Completed 02/01/17 Complete cbc w/auto diff wbc Completed 02/01/17 Fibrin degradation quant Completed 02/01/17 Hydration iv infusion init Completed 02/01/17 Hydrate iv infusion add-on Completed 02/01/17 Emergency dept visit Completed 02/01/17 [id number]"INFUSION, NORMAL SALINE SOLUTION , 1000 CC" Completed 02/01/17 Encounters Encounter Location Arrival/Admit Date Discharge/Depart Date Attending Provider Discharged Inpatient [facility] 02/02/17 2:30am 02/09/17 1:40pm EHLAM PLATT MD Departed Emergency Room [facility] 02/01/17 8:53am 02/01/17 12: 43pm KAYLENE COLON MD Registered Clinic [facility] 11/18/16 10:59am SHAY JORDAN MD
--- OUTSIDE RECORDS SUMMARY | 2017-02-12 10:12 | XMS REPORT ---
Author Author GENERATED, SYSTEM Organization Unknown Address Unknown Phone Unavailable Care Team Providers Care Commercial Litigation Associate Name Role Phone MD SYLVIA, JONATHAN BRAVO [...] MG/DL (65-99 MG/DL) *GFR EST NON AFR UZBEK 52 ML/MIN *GFR EST AFR AMER 60 [...] MG/DL (65-99 MG/DL) *GFR EST NON AFR UZBEK 44 ML/MIN *GFR EST AFR AMER 51 [...] MG/DL (65-99 MG/DL) *GFR EST NON AFR UZBEK 26 ML/MIN *GFR EST AFR AMER 31 [...] MG/DL (65-99 MG/DL) *GFR EST NON AFR UZBEK 17 ML/MIN *GFR EST AFR AMER 20 [...] PM* CULTURE BLOOD (Preliminary Result) Specimen Number: [id number] Sample Collection Date/Time: 11/29/2016 2:15 PM Specimen Source: Blood Peripheral CULTURE BLOOD: No growth after 24 hours of incubation, testing to continue for an additional 96 hours. No Growth after 48 hours of initial incubation, testing to continue for additional 72 hours. Microbiology from 11/29/2016 2:09 PM* CULTURE BLOOD (Preliminary Result) Specimen Number: [id number] Sample Collection Date/Time: 11/29/2016 2:09 PM Specimen [...] Detected ) [facility]2016 5:09 [facility] History: Dyspnea - [...] 12:45 PM * Address # 1 : [facility] [place]- [phone] or Treatment Plan from 12/02/2016 1:35 PM:* [...] the responsibility of the patient or patient auto claim representative to confirm the list of medications [...] 50 mg Tablet, Ordered By: JON CLARK, SHOE PARTS MOLDER Directions: 1 tablet oral twice a day * multivitamin with iron-mineral 0.8 mg Combo Pack, Ordered By: JON CLARK APRN Directions: 1 each oral daily * omeprazole 40 mg capsule,delayed release(DR/EC), Ordered By: JON CLARK , SHOE PARTS MOLDER Directions: 1 capsule oral daily * famotidine (Pepcid AC) 10 mg Tablet, Ordered By: JON CLARK, SHOE PARTS MOLDER Directions: 2 tablet oral daily * metoclopramide HCl (Reglan) 10 mg Tablet, Ordered By: JON CLARK APRN Directions: 1 tablet oral daily before sleeping * mirtazapine (Remeron) 30 mg Tablet, Ordered By: JON CLARK, SHOE PARTS MOLDER Directions: 1 tablet oral daily at bedtime * simvastatin 40 mg Tablet, Ordered By: JON CLRAK APRN Directions: 0.5 tablet oral daily at [...]
--- OUTSIDE RECORDS SUMMARY | 2017-02-12 10:12 | XMS REPORT | Continuity of Care Document ---
Author Author [facility] Address Unknown Phone Unavailable Allergies Medications Problems [...] - 11/29/16 14:09 *GFR EST NON AFR VENEZUELAN 17 mL/min NRG *GRFA EST AFR AMER [...] - 11/30/16 07:23 *GFR EST NON AFR VENEZUELAN 26 mL/min NRG *GRFA EST AFR AMER [...] - 12/01/16 06:34 *GFR EST NON AFR VENEZUELAN 44 mL/min NRG *GRFA EST AFR AMER [...] - 12/02/16 07:03 *GFR EST NON AFR VENEZUELAN 52 mL/min NRG *GRFA EST AFR AMER 60 mL/min NRG PLATELET SLIDE REVIEW - 12/02/16 07:03 *PLATELET SLIDE REVIEW DECREASED ADEQUATE Encounters ACCT No. Visit Date/Time Discharge Status Pt. Type Provider Facility Loc./Unit Complaint [id number] 11/29/2016 12:43:00 2016 15:14:12 DIS Inpatient PABLO PAREDES HTN, INFLUENZA A, C-DIFF
--- NOTE | 2017-02-12 10:22 | NUR ---
PROVIDER DR EVANS AT BEDSIDE
[2017-02-12] MEDS ORDERED: NORMAL SALINE 1,000 ML IV ONE (10:37)
--- NOTE | 2017-02-12 10:37 | ERPDOC ---
Departure Disposition Decision Date: Feb 12, 2017 Disposition Decision Time: 12:30 Disposition: 02 [place] [facility] [place] Impression Impression: Primary Impression: Encephalopathy acute Condition: Stable Seen By: Physician only Referrals: JONATHAN WARD MD (Family) Problems/Meds/Labs Reviewed?: Yes Medications reviewed and manag: Yes Follow up care ordered?: No (OBSERVATION) Mental Status: Alert, Confused Scripts Mirtazapine (Mirtazapine) 30 Mg Tablet 30 MG PO HS for 30 Days, #30 TAB Prov: MEME HERRERA MD 02/14/17 [Non-Formulary] 10 MG [facility] No Conflict Check 1 PO DAILY Prov: MEME HERRERA MD 02/14/17 HPI - General Medical General Chief Complaint: Altered Mental Status Stated Complaint: CONFUSION Time Seen by Provider: 10:12 Source: patient, family (daughter and ) HPI - General Medical Initial Comments 76 YO WF brought in by family for mental status changes and aberrant behavior. [place] [facility] [place]. At that time she was hospitalized with "acute encephalopathy" which was thought to be secondary to either a UTI or accidental self-overmedication. Patient had CT scans, MRI of brain and LP which did not yield an etiology to her acute onset of increased confusion. Daughter reports that patient was fine 02/09/17 but on the morning of 02/10 they noted she "was a little fuzzy." By Monday evening (02/10) patient was very confused and was up all night Monday and Monday nights. Patient fought her 's attempts to get her back in bed. Patient refused to go to sleep and spent most of the nights up in her chair "writing" in a notebook. The "writing" appears to be doodles and circles and "x's" This morning, patient is unable to even use the bathroom by herself which is very atypical. Patient does not seem to know how to feed herself reportedly "just playing with her food." Patient appears awake and alert, is slow to respond to questions and seems to give random responses. (e.g. when questioned about pain patient initially states "yes" to indicate she has pain but cannot localize or tell physician where she has pain, when questioned again regarding pain patient states "no") Patient repeats herself frequently stating,"I have to write this down." "I have to check this off the list." Occurred At: home Date Last Known Well: Feb 10, 2017 Time Last Known Well: 12:00 Last Known Well Approximated: Yes Associated Symptoms: denies symptoms Hx of Similar Symptoms: Yes (RECENTLY HOSPITALIZED FOR SIMILAR SYMPTOMS 02/01/17 ) Allergies: Coded Allergies: No Known Drug Allergies (Verified Allergy, Mild, 02/12/17) Past History Patient Surgical History cholecystectomy, bilateral cataract extraction, partial colectomy Past Medical History Metabolic: hypercholesterolemia, hypertension, hypothyroidism Cardiac: other Respiratory: pulmonary embolus GI: GERD Female: renal insufficiency Neurological: seizures (first 02/02/17) Musculoskeletal: scleroderma Hematologic: DVT Psychological: depression Surgical History General: EGD, colonoscopy, gallbladder, other (partial colon resection) Reproductive/: tubal ligation Vaccines Hx Influenza Vaccination: Yes (2015) Social History Substance Use Type: does not use Alcohol Intake: none Marital Status: Sexuality: male partner Housing: house Household Members: spouse Current Occupational Status: retired Review of Systems Unable to Obtain Comments poor historian Constitutional Constitutional: DENIES: chills, fever ENMT Sinuses: DENIES: congestion Mouth/Throat: DENIES: change in swallowing Cardiovascular Cardiac: DENIES: chest pain Pulmonary Respiratory: DENIES: cough GI Upper Abdomen: DENIES: vomiting Lower Abdomen: DENIES: diarrhea General: incontinence Integumentary Skin: DENIES: rash Neurological General: DENIES: headache, syncope Physical Exam General Vitals and Pain First Documented Vital Signs Date Time Temp Pulse Resp B/P Pulse Ox O2 Delivery O2 Flow Rate FiO2 02/12/17 10:10 98.1 76 18 127/76 98 Room Air Weight: Kilograms: 61.000 Height (feet): 5 Height (inches): 6.00 Triage Pain Scale: Normal Exams: Head: Normocephalic w/o trauma Eyes: Pupils are PERRLA w/ EOMI, No scleral icterus Fundi: Disks flat and sharp, No hemorrhages Neck: Full range of motion, without adenopathy, JVD, bruits or thyromegaly Chest/Resp: Clear all lemus, with good airflow, and symmetry bilaterally CV: Regular rate and rhythm, without murmur or gallop, Pulses 2+ all extremities, capillary refill, <2 seconds all ext. Abdomen: Bowel sounds positive, soft, non-tender, non-distended Lymphatic: No lymphadenopathy, or lymphedema noted Musculoskeletal: No tenderness, or deformity noted, good range of motion, all extremities Neurologic: Patient is alert Neurologic (brief) Neurological Brief: FOUND: CN w/o gross def to obs, motor-no gross deficits, sensory-no gross deficits Comments difficulty following commands. Psychiatric (brief) Psychiatric Brief: FOUND: alert Comments slow to respond to questions. alert to person and place. Differential Diagnoses Considering: CVA, Depression, Hypo/Hypernatremia, Intracranial Hemorrhage, Medication Effect, Metabolic, TIA, UTI Progress Results/Orders Orders Procedure Category Date Status Time Cmp - Comprehensive LAB 02/12/17 Complete Metabolic 10:37 Cbc W/Auto LAB 02/12/17 Complete Diff-Reflex Manual 10:37 Troponin I W LAB 02/12/17 Complete Hemolysis Index 10:37 Ua, Dip Wreflex LAB 02/12/17 Complete Microsc & Structural Metal Worker 10:37 EKG EKG 02/12/17 Taken 10:37 Ct Head W/O Contrast CT 02/12/17 Resulted 10:37 Chest 1 View RAD 02/12/17 Resulted 10:37 Iv Lock (Ed Only) EDM 02/12/17 Transmitted 10:37 Orthostatic Bp/Pulse EDM 02/12/17 Transmitted 10:37 Normal Saline (Normal PHA 02/12/17 Complete Saline Iv) 10:[address] [facility] 02/12/17 In Process 10:37 Lorazepam (Ativan) PHA 02/12/17 Complete 11:30 Lab Results Laboratory Tests Test 02/12/17 11:10 02/12/17 12:28 White Blood Count 10.5T/MM3 Red Blood Count 4.43M/MM3 Hemoglobin 11.4GM/DL Hematocrit 35.1% Mean Corpuscular Volume 79.2UM3 Mean Corpuscular Hemoglobin 25.7UUG Mean Corpuscular Hemoglobin Concent 32.5GM/DL RDW Standard Deviation 44.3FL Platelet Count 339T/MM3 Mean Platelet Volume 8.9UM3 Immature Granulocyte % (Auto) 1.3% Neutrophils (%) (Auto) 78.3% Lymphocytes (%) (Auto) 10.4% Monocytes (%) (Auto) 8.8% Eosinophils (%) (Auto) 0.6% Basophils (%) (Auto) 0.6% Absolute Immature Granulocyte (auto 0.14T/MM3 Absolute Neutrophils (auto) 8.2T/MM3 Absolute Lymphocytes (auto) 1.1T/MM3 Absolute Monocytes (auto) 0.9T/MM3 Absolute Eosinophils (auto) 0.1T/MM3 Absolute Basophils (auto) 0.1T/MM3 Turbidity < 20 Sodium Level 135MEQ/L Potassium Level 4.4MEQ/L Chloride Level 102MEQ/L Carbon Dioxide Level 21MEQ/L Anion Gap 12MEQ/L Blood Urea Nitrogen 21.0MG/DL Creatinine 1.0MG/DL Glomerular Filtration Rate Calc 54 BUN/Creatinine Ratio 21RATIO Glucose Level 101MG/DL Calculated Osmolality 263MOSM/KG Calcium Level 8.9MG/DL Total Bilirubin 0.60MG/DL Icterus Index < 2 Aspartate Amino Transf (AST/SGOT) 34U/L Alanine Aminotransferase (ALT/SGPT) 41U/L Alkaline Phosphatase 101U/L Troponin I < 0.012ng/ml Total Protein 6.7G/DL Albumin 3.4G/DL Globulin 3.3G/DL Albumin/Globulin Ratio 1.0RATIO Chemistry Specimen Hemolysis 67 Urine Collection Type Cleancatch-midstream Urine Color Yellow Urine Turbidity Clear Urine pH 7.0 Urine Specific Stanley 1.010 Urine Protein Negative Urine Glucose (UA) Negative Urine Ketones Negative Urine Blood Negative Urine Nitrite Negative Urine Bilirubin Negative Urine Urobilinogen 0.2EU/DL Urine Leukocyte Esterase Negative Urinalysis Comment Microscopic not ind. Medications Current ED Medications Sodium Chloride (Normal Saline IV) 1,000 ml @ 150 mls/hr Q6H40M ONCE IV Last administered on 02/12/17 11:09; Start 02/12/17 at 10:37; Stop 02/12/17 at 17:16 ; Status DC Lorazepam (Ativan) 0.5 mg O ONCE IV ; Start 02/12/17 at 11:30; Stop 02/12/17 at 11:32; Status DC Consult/PCP Consult/PCP #1: Physician Contacted: Dr. Lars marie Time Called: 12:38 Time of first response: 12:42 Type of discussion: Admit Discussion/PCP Discussion Details Discussed case. Agrees with admission. Requests other hospitalist covering today , Dr. Slater be notified also. Consult/PCP #2: Physician Contacted: Dr. Nohemy marie Time Called: 12:54 Time of first response: 12:56 Type of discussion: Admit Discussion/PCP Discussion Details Discussed case and plan of admission. Xray Xray : Xray: CXR Portable (No pulmonary consolidation or effusion. Heart and mediastinum WNL) Interpretation: Interpreted by Me CT CT : CT: Head no contrast (No acute intracranial abnormality) Interpretation: Faxed Report HAWK EVANS MD Feb 12, 2017 10:37
[2017-02-12] MEDS ORDERED: AMBR10TA3 PO (10:42)
--- OUTSIDE RECORDS SUMMARY | 2017-02-12 10:47 | XMS REPORT ---
Author Author GENERATED, SYSTEM Organization Unknown Address Unknown Phone Unavailable Care Team Providers Care Parks Recreation Coordinator Name Role Phone MD SYLVIA, JONATHAN BRAVO [...] MG/DL (65-99 MG/DL) *GFR EST NON AFR CITIZEN [place] 52 ML/MIN *GFR EST AFR AMER 60 [...] MG/DL (65-99 MG/DL) *GFR EST NON AFR [place]IZ[place] 44 ML/MIN *GFR EST AFR AMER 51 [...] MG/DL (65-99 MG/DL) *GFR EST NON AFR CITIZEN [place] 26 ML/MIN *GFR EST AFR AMER 31 [...] MG/DL (65-99 MG/DL) *GFR EST NON AFR [place]IZ[place] 17 ML/MIN *GFR EST AFR AMER 20 [...] PM* CULTURE BLOOD (Preliminary Result) Specimen Number: [id number] Sample Collection Date/Time: 11/29/2016 2:15 PM Specimen Source: Blood Peripheral CULTURE BLOOD: No growth after 24 hours of incubation, testing to continue for an additional 96 hours. No Growth after 48 hours of initial incubation, testing to continue for additional 72 hours. Microbiology from 11/29/2016 2:09 PM* CULTURE BLOOD (Preliminary Result) Specimen Number: [id number] Sample Collection Date/Time: 11/29/2016 2:09 PM Specimen [...] Detected ) [facility]2016 5:[facility] History: Dyspnea - 786.05 [...] 12:45 PM * Address # 1 : [facility]: [facility] [place]- [phone] or Treatment Plan from 12/02/2016 1:35 PM:* [...] the responsibility of the patient or patient patient admitting representative to confirm the list of medications [...] 50 mg Tablet, Ordered By: JON CLARK, PICKER / PACKER Directions: 1 tablet oral twice a day * multivitamin with iron-mineral 0.8 mg Combo Pack, Ordered By: JON CLARK APRN Directions: 1 each oral daily * omeprazole 40 mg capsule,delayed release(DR/EC), Ordered By: JON CLARK , PICKER / PACKER Directions: 1 capsule oral daily * famotidine (Pepcid AC) 10 mg Tablet, Ordered By: JON CLARK, PICKER / PACKER Directions: 2 tablet oral daily * metoclopramide HCl (Reglan) 10 mg Tablet, Ordered By: JON CLARK APRN Directions: 1 tablet oral daily before sleeping * mirtazapine (Remeron) 30 mg Tablet, Ordered By: JON CLARK, PICKER / PACKER Directions: 1 tablet oral daily at bedtime [...]
--- OUTSIDE RECORDS SUMMARY | 2017-02-12 10:47 | XMS REPORT | Continuity of Care Document ---
Author Author [facility] Address Unknown Phone Unavailable Allergies Medications [...] - 11/29/16 14:09 *GFR EST NON AFR AZERBAIJANI 17 mL/min NRG *GRFA EST AFR AMER [...] - 11/30/16 07:23 *GFR EST NON AFR AZERBAIJANI 26 mL/min NRG *GRFA EST AFR AMER [...] - 12/01/16 06:34 *GFR EST NON AFR AZERBAIJANI 44 mL/min NRG *GRFA EST AFR AMER [...] - 12/02/16 07:03 *GFR EST NON AFR AZERBAIJANI 52 mL/min NRG *GRFA EST AFR AMER 60 mL/min NRG PLATELET SLIDE REVIEW - 12/02/16 07:03 *PLATELET SLIDE REVIEW DECREASED ADEQUATE Encounters ACCT No. Visit Date/Time Discharge Status Pt. Type Provider Facility Loc./Unit Complaint [id number] 11/29/2016 12:43:00 2016 15:14:12 DIS Inpatient PABLO PAREDES HTN, INFLUENZA A, C-DIFF
[2017-02-12 11:16] LABS: BASOPHILS # (AUTO) 0.1 T/MM3 (0-0.2); BASOPHILS % (AUTO) 0.6 % (0-2); EOSINOPHILS # (AUTO) 0.1 T/MM3 (0-0.5); EOSINOPHILS % (AUTO) 0.6 % (0-4); HCT - HEMATOCRIT 35.1 % (36-46); HGB - HEMOGLOBIN 11.4 GM/DL (12-16); IMMATURE GRANULOCYTE # (AUTO) 0.14 T/MM3 (0.00-0.03); IMMATURE GRANULOCYTE % (AUTO) 1.3 % (0.0-0.5); LYMPHOCYTES # (AUTO) 1.1 T/MM3 (1-4.8); LYMPHOCYTES % (AUTO) 10.4 % (23-45); MEAN CORPUSCULAR HGB 25.7 UUG (26-34); MEAN CORPUSCULAR HGB CONC(MCHC 32.5 GM/DL (31-37); MEAN CORPUSCULAR VOLUME 79.2 UM3 (80-100); MEAN PLATELET VOLUME 8.9 UM3 (9.4-12.4); MONOCYTES # (AUTO) 0.9 T/MM3 (0-0.8); MONOCYTES % (AUTO) 8.8 % (0-9.0); NEUTROPHILS #(AUTO)-ABSOLUTE 8.2 T/MM3 (1.8-7.7); NEUTROPHILS % (AUTO) 78.3 % (33-66); RED BLOOD COUNT 4.43 M/MM3 (4.00-5.20); WBC - WHITE BLOOD COUNT 10.5 T/MM3 (4.5-11.0)
[2017-02-12 11:25] LABS: ALBUMIN 3.4 G/DL (3.5-5.0); ALKALINE PHOSPHATASE 101 U/L (38-126); ALT (SGPT) 41 U/L (9-52); ANION GAP 12 MEQ/L (5-15); AST (SGOT) 34 U/L (14-36); BUN/CREATININE RATIO 21 RATIO (6-26); CALCIUM 8.9 MG/DL (8.4-10.2); CHLORIDE 102 MEQ/L (98-107); CO2 - CARBON DIOXIDE 21 MEQ/L (22-30); GLOMERULAR FILTRATION RATE 54; GLUCOSE 101 MG/DL (65-110); POTASSIUM 4.4 MEQ/L (3.6-5); SODIUM 135 MEQ/L (134-144); TOTAL PROTEIN 6.7 G/DL (6.3-8.2)
[2017-02-12] MEDS ORDERED: LORAZEPAM 2 MG/ML INJECTION IV ONE (11:30)
--- NOTE | 2017-02-12 12:30 | NUR ---
ACTIVITY PATIENT UP TO BEDSIDE COMMODE WITH STANDBY ASSIST. PERICARE PERFORMED PRIOR TO PATIENT VOIDING INTO HAT FOR UA COLLECTION.
[2017-02-12 12:34] LABS: BLOOD, URINE NEGATIVE (NEGATIVE); COLOR,URINE YELLOW (YELLOW); LEUKOCYTE ESTERASE ,URINE NEGATIVE (NEGATIVE); NITRITE,URINE NEGATIVE (NEGATIVE); UROBILINOGEN,URINE 0.2 EU/DL (NORMAL)
--- NOTE | 2017-02-12 12:49 | NUR ---
PROVIDER DR EVANS AT BEDSIDE TO DISCUSS POC
--- NOTE | 2017-02-12 13:02 | DI ---
Indication: ITS.REASON: Increased confusion PROCEDURE: CT HEAD W/O CONTRAST: Encounter: Initial Comparison: February 02, 2017 Technique: Axial CT images through the head were performed without contrast. Iterative Reconstruction dose reducing technique was utilized. FINDINGS: The ventricles are of normal size, shape, and contour for the patient's age. There are scattered areas of low attenuation in the white matter which most likely represent changes from chronic microvascular ischemia. The brainstem, cerebellum, and cerebral hemispheres otherwise have a normal morphology and CT attenuation. There is no evidence of midline displacement. No hemorrhage, signs of acute territorial stroke, mass effect, mass lesions, or edema is evident. The visualized portions of the skull base, midface, and calvarium demonstrate no abnormality. The paranasal sinuses are well aerated and free of significant disease. The tympanic and mastoid cavities appear normal. IMPRESSION: No acute intracranial abnormality or hemorrhage. Stable head CT. There is a preliminary report by virtual radiologic. .
--- NOTE | 2017-02-12 13:04 | DI ---
Indication: ITS.REASON: Increased confusion PROCEDURE: CHEST 1 VIEW: Encounter: Initial Comparison: February 06, 2017 FINDINGS: Prior left lower lobe airspace consolidation and left effusion have resolved. The lungs are clear. There is no abnormal airspace opacity, pleural effusion or pneumothorax identified. The heart size, pulmonary vasculature and mediastinum are stable. IMPRESSION: Clearance of the left lower lobe pneumonia. No acute cardiopulmonary disease. .
--- NOTE | 2017-02-12 13:15 | NUR ---
LAB/RT LAB AT BEDSIDE FOR BLOOD DRAW RT AT BEDSIDE FOR ABG
--- OUTSIDE RECORDS SUMMARY | 2017-02-12 13:18 | XMS REPORT ---
Author Author GENERATED, SYSTEM Organization Unknown Address Unknown Phone Unavailable Care Team Providers Care Project Engineer Chemicals Name Role Phone MD SYLVIA, JONATHAN BRAVO [...] MG/DL (65-99 MG/DL) *GFR EST NON AFR MALIAN 52 ML/MIN *GFR EST AFR AMER 60 [...] MG/DL (65-99 MG/DL) *GFR EST NON AFR MAL[place] 44 ML/MIN *GFR EST AFR AMER 51 [...] MG/DL (65-99 MG/DL) *GFR EST NON AFR [place] 26 ML/MIN *GFR EST AFR AMER 31 [...] MG/DL (65-99 MG/DL) *GFR EST NON AFR MAL[place] 17 ML/MIN *GFR EST AFR AMER 20 [...] PM* CULTURE BLOOD (Preliminary Result) Specimen Number: [id number] Sample Collection Date/Time: 11/29/2016 2:15 PM Specimen Source: Blood Peripheral CULTURE BLOOD: No growth after 24 hours of incubation, testing to continue for an additional 96 hours. No Growth after 48 hours of initial incubation, testing to continue for additional 72 hours. Microbiology from 11/29/2016 2:09 PM* CULTURE BLOOD (Preliminary Result) Specimen Number: [id number] Sample Collection Date/Time: 11/29/2016 2:09 PM Specimen [...] Detected ) [facility]: Dyspnea - 786.05 [...] 12:45 PM * Address # 1 : [facility]: [facility] [place]- or Treatment Plan from 12/02/2016 1:35 [...] the responsibility of the patient or patient screening representative to confirm the list of medications [...] 50 mg Tablet, Ordered By: JON CLARK, SUGAR CHIPPER MACHINE OPERATOR Directions: 1 tablet oral twice a day * multivitamin with iron-mineral 0.8 mg Combo Pack, Ordered By: JON CLARK APRN Directions: 1 each oral daily * omeprazole 40 mg capsule,delayed release(DR/EC), Ordered By: JON CLARK , SUGAR CHIPPER MACHINE OPERATOR Directions: 1 capsule oral daily * famotidine (Pepcid AC) 10 mg Tablet, Ordered By: JON CLRAK, SUGAR CHIPPER MACHINE OPERATOR Directions: 2 tablet oral daily * metoclopramide HCl (Reglan) 10 mg Tablet, Ordered By: JON CLARK APRN Directions: 1 tablet oral daily before sleeping * mirtazapine (Remeron) 30 mg Tablet, Ordered By: JON CLARK, SUGAR CHIPPER MACHINE OPERATOR Directions: 1 tablet oral daily at bedtime [...]
--- OUTSIDE RECORDS SUMMARY | 2017-02-12 13:18 | XMS REPORT | Continuity of Care Document ---
Author Author [facility] Address Unknown Phone Unavailable Allergies Medications [...] Status Pt. Type Provider Facility Loc./Unit Complaint [id number] 11/29/2016 12:43:00 2016 15:14:12 DIS Inpatient PABLO PAREDES HTN, INFLUENZA A, C-DIFF
--- NOTE | 2017-02-12 13:22 | NUR ---
REPORT REPORT GIVEN TO BENNY DUNN ON MEDICAL UNIT.
--- NOTE | 2017-02-12 13:35 | NUR ---
ADMIT PATIENT TAKEN MEDICAL UNIT ROOM 144, STABLE. BELONGINGS WITH PATIENT.
--- NOTE | 2017-02-12 13:35 | NUR ---
Admit Patient admitted to medical unit room 144 by cart. Family present. Patient able to stand with assist and move self from cart to bed. Does not follow directions well. Patient is more concerned with drawing doodles in notebook than answering or acknowledging staff talking to her. Family answers admit questions. Patient did deny pain when asked and requested some food to eat. Menu provided to family to order food for patient. Bed alarm on.
[2017-02-12 13:38] VITALS: Ht 167.6 cm; Wt 47.8 kg
[2017-02-12 13:58] VITALS: BP 151/76; PULSE 89; RESP 18; TEMP 95.9; O2SAT 93
--- NOTE | 2017-02-12 14:12 | NUR ---
Home Medications Family updated that pharmacy could not check medication provided in bubble pack. Family will obtain medication bottles tomorrow from pharmacy and bring them in to be checked tomorrow.
[2017-02-12] MEDS ORDERED: NORMAL SALINE 1,000 ML IV SCH (14:15)
[2017-02-12] MEDS: CLOTRIMAZOLE 10 MG TROCHE PO SCH ×3 (14:30→22:35)
--- NOTE | 2017-02-12 14:53 | HPPDOC ---
HPI - Adult Date DATE: 02/12/17 TIME: 14:42 General Chief Complaint: confusion History of Present Illness This is 76-year-old female admitted to the hospital after having recurrent episode of confusion and agitation for the past 48 hours. Patient was recently discharged from this facility after having a similar episodes. Family states the patient was discharged last and had an uneventful evening other than some lethargy. When she woke up Monday she was doing fairly well and then started to decline. She had episodes of confusion and some agitation and ever since and has not slept and has been riding and doodling incoherent things in a notebook. Family denies any complaints by the patient. There's been no evidence of seizures. There is no evidence of shortness of breath or cough. There's been no nausea vomiting or diarrhea. Patient has had a decreased appetite over the past 24 hours. This morning she was so confused and even became very lethargic to the point where she could not feed herself. At this time she is much more awake but appears very paranoid and is writing in her notebook. Family reemphasized is that this is far from her baseline self. Past Medical History Past Medical History HTN, dyslipidemia, hypothyroid, pulmonary hypertension, DVT Surgical History Patient's Surgical History: cholecystectomy, bilateral cataract extraction, partial colectomy Current Medications Home Meds Active Scripts Cephalexin (Cephalexin) 500 Mg Capsule, 500 MG PO Q8HR for UTI for 3 Days, #9 CAP Prov:ALEC CHAPMAN MD 02/09/17 Reported Medications Ambrisentan (Letairis) 10 Mg Tablet, 20 MG PO DAILY 02/12/17 Fluticasone Propionate (Flonase Allergy Relief 50 mcg/actuation Nasal) 9.9 Ml [place].susp, 2 SPRAY EA NOSTRIL DAILY 02/02/17 Estradiol (Estrace Vaginal Cream 0.01%) 21 Applic/42 G Cr, 1 APPLIC VAGINALLY HS Y for PRN ORDERS USUAL APPLICATION: 2-4 GRAMS VAGINALLY 02/02/17 Clotrimazole (Clotrimazole) 10 Mg Adelaida, 1 TAB PO 5XD Y for THRUSH DISSOLVE IN MOUTH. 02/02/17 Cholecalciferol (Vitamin D3) (Vitamin D-3) 2,000 Unit Capsule, 2000 UNIT PO DAILY 02/02/17 Budesonide (Budesonide) 0.5 Mg/2 Ml Ampul.neb, 1 VIAL AEROSOL BID 02/02/17 Ipratropium/Albuterol Sulfate (Iprat-Albut 0.5-3(2.5) mg/3 ml) 3 Ml Ampul.neb, 1 UNIT AEROSOL BID, VIAL 02/02/17 Acetaminophen (Acetaminophen) 500 Mg Tablet, 500 MG PO BID Y for PAIN 02/02/17 Famotidine (Pepcid AC) 10 Mg Tablet, 20 MG PO HS 02/01/17 Furosemide (Furosemide) 40 Mg Tablet, 40 MG PO DAILY 02/01/17 Potassium Chloride (Potassium Chloride) 10 Meq Capsule.er, 20 MEQ PO DAILY 02/01/17 Cetirizine HCl (Cetirizine HCl) 10 Mg Tablet, 10 MG PO DAILY 02/01/17 Levothyroxine Sodium (Synthroid) 100 Mcg Tablet, 100 MCG PO ACB 08/23/13 Aspirin (Aspirin) 81 Mg Tablet, 81 MG PO DAILY 08/23/13 Sertraline Hcl (Zoloft) 100 Mg Tablet, 100 MG PO DAILY 05/18/10 Multivitamins (Multi-Day Vitamin) 1 Tab Tablet, 1 TAB PO DAILY 05/18/10 Discontinued Reported Medications Ambrisentan (Letairis) 10 Mg Tablet, 10 MG PO DAILY 02/01/17 Omeprazole (Omeprazole) 40 Mg Capsule.dr, 40 MG PO ACB 02/01/17 Mirtazapine (Remeron) 30 Mg Tablet, 30 MG PO HS 05/18/10 Metoclopramide Hcl (Reglan) 10 Mg Tablet, 10 MG PO HS 05/18/10 Discontinued Scripts Sulfamethoxazole/Trimethoprim (Bactrim Ds Tablet) 1 Each Tablet, 1 TAB PO BID, # 20 TAB Take 1 tablet, by mouth, 2 times a day. Prov:KAYLENE COLON MD 02/01/17 Allergies: Coded Allergies: No Known Drug Allergies (Verified Allergy, Mild, 02/12/17) Family History Family History: unkown Social History Substance Use Type: does not use Alcohol Intake: none Marital Status: Sexuality: male partner Housing: house Household Members: spouse Current Occupational Status: retired Advance Directives: No DPOA for Healthcare Only Review of Systems Unable to Obtain ROS Due to: other Comments Confusion Physical Exam General Vital Signs Vital Signs Date Time Temp Pulse Resp B/P Pulse Ox O2 Delivery O2 Flow Rate FiO2 02/12/17 13:58 95.9 89 18 151/76 93 Room Air Height (Feet): 5 Height (Inches): 6.00 Comments General--she is awake and alert in no acute distress. HEENT--PERRLA EOMI CV--regular rate and rhythm Lungs--clear auscultation bilaterally Abdomen--benign Extremities--no edema cyanosis or clubbing Neurological--nonfocal Rectal--deferred Genitourinary--deferred Skin--warm dry and intact without any evidence of rashes Neurologic RN Documented GCS Eye Opening: (4)Spontaneous Verbal: (4)Confused Motor: (6)Obeys Commands Total: Laboratory Laboratory Tests Test 02/12/17 11:10 02/12/17 12:28 02/12/17 13:17 02/12/17 13:24 White Blood Count 10.5T/MM3 Red Blood Count 4.43M/MM3 Hemoglobin 11.4GM/DL Hematocrit 35.1% Mean Corpuscular Volume 79.2UM3 Mean Corpuscular Hemoglobin 25.7UUG Mean Corpuscular Hemoglobin Concent 32.5GM/DL RDW Standard Deviation 44.3FL Platelet Count 339T/MM3 Mean Platelet Volume 8.9UM3 Immature Granulocyte % (Auto) 1.3% Neutrophils (%) (Auto) 78.3% Lymphocytes (%) (Auto) 10.4% Monocytes (%) (Auto) 8.8% Eosinophils (%) (Auto) 0.6% Basophils (%) (Auto) 0.6% Absolute Immature Granulocyte (auto 0.14T/MM3 Absolute Neutrophils (auto) 8.2T/MM3 Absolute Lymphocytes (auto) 1.1T/MM3 Absolute Monocytes (auto) 0.9T/MM3 Absolute Eosinophils (auto) 0.1T/MM3 Absolute Basophils (auto) 0.1T/MM3 Turbidity < 20 Sodium Level 135MEQ/L Potassium Level 4.4MEQ/L Chloride Level 102MEQ/L Carbon Dioxide Level 21MEQ/L Anion Gap 12MEQ/L Blood Urea Nitrogen 21.0MG/DL Creatinine 1.0MG/DL Glomerular Filtration Rate Calc 54 BUN/Creatinine Ratio 21RATIO Glucose Level 101MG/DL Calculated Osmolality 263MOSM/KG Calcium Level 8.9MG/DL Total Bilirubin 0.60MG/DL Icterus Index < 2 Aspartate Amino Transf (AST/SGOT) 34U/L Alanine Aminotransferase (ALT/SGPT) 41U/L Alkaline Phosphatase 101U/L Troponin I < 0.012ng/ml Total Protein 6.7G/DL Albumin 3.4G/DL Globulin 3.3G/DL Albumin/Globulin Ratio 1.0RATIO Chemistry Specimen Hemolysis 67 Urine Collection Type Cleancatch-midstream Urine Color Yellow Urine Turbidity Clear Urine pH 7.0 Urine Specific [place] 1.010 Urine Protein Negative Urine Glucose (UA) Negative Urine Ketones Negative Urine Blood Negative Urine Nitrite Negative Urine Bilirubin Negative Urine Urobilinogen 0.2EU/DL Urine Leukocyte Esterase Negative Urinalysis Comment Microscopic not ind. Ammonia < 9UMOL/L Arterial Blood pH 7.500 Arterial Blood Partial Pressure CO2 26MMHG Arterial Blood pO2 at Patient Temp 59MMHG Arterial Blood HCO3 20MEQ/L Arterial Blood Total CO2 21.1MEQ/L Arterial Blood Oxygen Saturation 93.0% Arterial Blood Base Excess -1.6MMOL/L Oxygen Delivery Method (LAB) Room air Blood Gas Oxygen Liter Flow Blood Gas Oxygen Percent Given Blood Gas Vent Rate Blood Gas Tidal Volume ML Assessment & Plan Assessment #1 acute encephalopathy -- etiology of this is unclear at this time. There is some concern that it may be secondary to medication withdrawal and also possible mismanagement. We will decrease her Letairis and restart her Remeron that was recently discontinued. #2 scleroderma with crest syndrome -- decrease dose of OP medication. #3 dehydration -- will give one liter of normal saline and hold lasix #4 metabolic acidosis -- likely secondary to #3. No evidence of infection. #5 respiratory alkalosis -- likely compensating for #4. 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 #7 Idiopathic Pulmonary HTN - cut dose of Letairis to 10mg daily. Code Status Full Code Hospital Course Summary Disclaimer The hospital course summary below is not to be considered part of the above Progress Note. MEME HERRERA MD Feb 12, 2017 14:45
[2017-02-12 16:06] VITALS: BP 134/71; PULSE 94; RESP 18; TEMP 95.2; O2SAT 92
--- NOTE | 2017-02-12 16:09 | NUR ---
Status When presented with tray patient just stared at tray and would play with napkin and utensils. Did not comprehend what to do with the tray. Patient required total assistance with eating. Does not appear to be have chewing/swallowing difficulties. After eating patient is resting quietly in bed and continues to doodle in notebook. Family at bedside.
--- NOTE | 2017-02-12 16:39 | NUR ---
Status Patient stated she needed the bathroom. Patient was able to ambulate to bathroom but required constant verbal cues on how/where to go and then what to do in bathroom. Patient was incontinent of copious amount of urine. Bag bath given and patient assisted back to bed. Bed alarm on.
[2017-02-12] MEDS: CEPHALEXIN 500 MG CAPSULE PO SCH ×2 (17:33→22:36)
--- NOTE | 2017-02-12 18:36 | NUR ---
Status Patient continues to be confused to time but oriented to person and place. Denies pain. Patient still requiring constant cueing and being fed her meals. Has begun to get up on own. Family in room and helps reorient her. Alarms in use for patient safety.
[2017-02-12] MEDS: BUDESONIDE INH.SOLN. 0.5mg/2ml NEB AEROSOL SCH (19:15)
[2017-02-12] MEDS: MIRTAZAPINE 30 MG TABLET PO SCH (22:36)
[2017-02-13] VITALS: BP 139/76; PULSE 97; RESP 16; TEMP 96.7; O2SAT 96
--- NOTE | 2017-02-13 02:39 | NUR ---
PT fell asleep at this time. PT has not slept and had been constantly coloring, writing or trying to get out of bed since RN assumed care at 1900.
--- NOTE | 2017-02-13 04:25 | NUR ---
PT woke up and fell back asleep around 0330. RN asked lab to please wait to draw since patient is sleeping well at this time. RN was told in report that doctor's wanted minimal stimulation overnight and if patient was sleeping to let her sleep.
--- NOTE | 2017-02-13 05:49 | NUR ---
PT alexa and tried to get out of bed until 0330 this morning and then patient fell asleep. PT ambulated to restroom throughout shift. PT was continent for RN and would push call light when she needed to use the restroom. PT needed constant reminding to use the restroom once in the restroom. PT would start to color on the toilet paper, her pull up and then would try to draw on haji. RN explained she can not draw on the wall, bed or table. PT was confused but answered most questions correctly. PT fell asleep late in the shift. PT can answer her name, date of and location and who the president is but could not get the date right on the first time but eventually got the year correct as 2017. RN will continue to monitor until report given.
[2017-02-13] MEDS: CLOTRIMAZOLE 10 MG TROCHE PO SCH ×5 (06:30→22:41)
[2017-02-13 09:00] VITALS: BP 107/65; PULSE 100; RESP 16; TEMP 99.1; O2SAT 93
[2017-02-13] MEDS: AMBRISENTAN 10 MG PO SCH (09:00)
[2017-02-13] MEDS: BUDESONIDE INH.SOLN. 0.5mg/2ml NEB AEROSOL SCH ×2 (09:00→20:23)
[2017-02-13] MEDS: CETIRIZINE 10 MG TABLET PO SCH (09:16)
[2017-02-13] MEDS: CEPHALEXIN 500 MG CAPSULE PO SCH ×2 (09:16→17:08)
--- NOTE | 2017-02-13 09:48 | NUR ---
CM CM VISITED PT. CM CONTACTED PT SPOUSE DANO AND EXPLAINED ROLE AND PROVIDED CONTACT INFORMATION. CM EXPLAINED THAT DR HERRERA IS THINKING THAT PT COULD D/C HOME LATER TODAY. CM DID DISCUSS FINANCIAL OPTIONS FOR PT IF SHE DOES NOT RETURN HOME. SPOUSE UNDERSTANDS THAT PT IS IN OBSERVATION AND DOES NOT HAVE A SKILLED BENEFIT AVAILABLE. SPOUSE WILL VISIT WITH FAMILY AND CONTACT CM.
[2017-02-13 09:51] LABS: HCT - HEMATOCRIT 35.6 % (36-46); HGB - HEMOGLOBIN 11.3 GM/DL (12-16); MEAN CORPUSCULAR HGB 25.6 UUG (26-34); MEAN CORPUSCULAR HGB CONC(MCHC 31.7 GM/DL (31-37); MEAN CORPUSCULAR VOLUME 80.5 UM3 (80-100); MEAN PLATELET VOLUME 8.9 UM3 (9.4-12.4); RED BLOOD COUNT 4.42 M/MM3 (4.00-5.20); WBC - WHITE BLOOD COUNT 8.7 T/MM3 (4.5-11.0)
[2017-02-13 10:02] LABS: ANION GAP 13 MEQ/L (5-15); BUN/CREATININE RATIO 18 RATIO (6-26); CALCIUM 8.6 MG/DL (8.4-10.2); CHLORIDE 104 MEQ/L (98-107); CO2 - CARBON DIOXIDE 21 MEQ/L (22-30); CREATININE 1.1 MG/DL (0.7-1.2); GLOMERULAR FILTRATION RATE 48; GLUCOSE 132 MG/DL (65-110); MAGNESIUM 2.1 MG/DL (1.6-2.3); POTASSIUM 3.7 MEQ/L (3.6-5); SODIUM 138 MEQ/L (134-144)
[2017-02-13 10:38] LABS: BASOPHILS # (MANUAL) 0.1 T/MM3 (0-0.2); LYMPHOCYTES # (MANUAL) 0.8 T/MM3 (1-4.8); MONOCYTES # (MANUAL) 0.3 T/MM3 (0-0.8); NEUTROPHILS #(MANUAL)-ABSOLUTE 7.6 T/MM3 (1.8-7.7); TOTAL CELLS COUNTED 100 %
[2017-02-13 10:40] LABS: BURR CELLS 1+; HELMET CELLS 1+; POIKILOCYTOSIS 2+; SCHISTOCYTES 1+
--- NOTE | 2017-02-13 14:38 | PNPDOC ---
Subjective Date DATE: 02/13/17 TIME: 14:37 Subjective Patient much more awake and alert today. Has some recollection of the previous day's events but not complete. Per family, she is nearly back to her baseline. They are very concerned that she may relapse and are very frustrated as to what may be the cause. Case was discussed at length with the family. Generations input appreciated. Objective Vital Signs Vital signs Vital Signs Date Time Temp Pulse Resp B/P Pulse Ox O2 Delivery O2 Flow Rate FiO2 02/13/17 09:00 99.1 100 16 107/65 93 Room Air 02/13/17 00:00 1.00 Height (Feet): 5 Height (Inches): 6.00 Weight (Kilograms): 48.400 General Comments General--AAOx3; NAD HEENT--PERRLA EOMI CV--regular rate and rhythm Lungs--clear auscultation bilaterally Abdomen--benign Extremities--no edema cyanosis or clubbing Neurological--nonfocal Rectal--deferred Genitourinary--deferred Skin--warm dry and intact without any evidence of rashes Laboratory Laboratory Laboratory Tests 02/12/17 11:10 02/13/17 09:30 Laboratory Tests 02/12/17 11:10 02/13/17 09:30 Assessment & Plan Assessment #1 acute encephalopathy -- etiology of this is unclear at this time. Appears to have resolved. Concern this may be some form of atypical seizure however previous workup is negative. There is some concern that it may be secondary to medication withdrawal and also possible mismanagement. We will decrease her Letairis and restart her Remeron that was recently discontinued. I do not believe that this is a form of dementia given the acuity of the symptoms per family. #2 scleroderma with crest syndrome -- decrease dose of OP medication. #3 dehydration -- will give one liter of normal saline and hold lasix #4 metabolic acidosis -- likely secondary to #3. No evidence of infection. #5 respiratory alkalosis -- likely compensating for #4. 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 #7 Idiopathic Pulmonary HTN - cut dose of Letairis to 10mg daily. Code Status Full Code Hospital Course Summary Disclaimer The hospital course summary below is not to be considered part of the above Progress Note. MEME HERRERA MD February 13, 2017 14:38
--- NOTE | 2017-02-13 14:50 | NUR ---
CM CM VISITED WITH PT SPOUSE AND DAUGHTER MERT. D/C PLAN FOR PT IS TO RETURN HOME TOMORROW WITH [facility] IF PT IS CLEAR AND DOES NOT QUALIFY FOR GENERATIONS. PT/FAMILY AWARE TO CONTACT CM IF NEEDS ARISE.
[2017-02-13 17:09] VITALS: BP 134/73; PULSE 97; RESP 14; TEMP 98.4; O2SAT 92
--- NOTE | 2017-02-13 17:38 | NUR ---
Status Patient alert and oriented this whole shift, appropriate. Doesn't recall what has happened the past few days. Up with 1 in [address] halls. Breathing comfortably on RA. Has been able to sleep soundly today. Able to feed self.
[2017-02-13] MEDS: ACETAMINOPHEN 500 MG TABLET PO PRN (19:56)
[2017-02-13] MEDS: MIRTAZAPINE 30 MG TABLET PO SCH (22:41)
[2017-02-14] MEDS: CEPHALEXIN 500 MG CAPSULE PO SCH ×2 (00:39→08:47)
[2017-02-14 00:42] VITALS: BP 132/78; PULSE 105; RESP 22; TEMP 96.6; O2SAT 90
--- NOTE | 2017-02-14 04:14 | NUR ---
SUMMARY PT HAS BEEN ALERT AND ORIENTED X3 EVERY TIME SHE HAS BEEN WOKE UP. UP WITH 1 TO THE BATHROOM. VSS. 2L NC. PT REPORTED DISCOMFORT IN HER CHEST RELATED TO HER PREVIOUS VISIT IN WHICH COMPRESSIONS WHERE ADMINISTERED, SHE REQUESTED TYLENOL. TYLENOL GIVEN AND EFFECTIVE.
[2017-02-14] MEDS: CLOTRIMAZOLE 10 MG TROCHE PO SCH (06:09)
[2017-02-14 07:50] VITALS: BP 123/65; PULSE 83; RESP 16; TEMP 96.6; O2SAT 92
[2017-02-14] MEDS: AMBRISENTAN 10 MG PO SCH (08:47)
[2017-02-14] MEDS: CETIRIZINE 10 MG TABLET PO SCH (08:47)
--- NOTE | 2017-02-14 10:10 | NUR ---
ITA CM VISITED PT. PT IS ALERT AND ORIENTATED X3. PT EXPLAINED TO CM THAT SHE WEARS OXYGEN AT NIGHT. PT STATES THAT HER OXYGEN SUPPLIER IS OUT OF [place] AND SHE BELIEVES IT MAY BE [place]. PT IS HOPING TO RETURN HOME TODAY. PT STATES THAT HER SPOUSE WILL BE IN THIS AM AND WILL TRANSPORT HER HOME WELL. CM VERBALIZES AND PT IS AWARE TO CONTACT CM IF NEEDS ARISE.
--- NOTE | 2017-02-14 10:36 | NUR ---
Generations Assessment Met with patient and in room this morning. Patient was A/Ox4 and in a cheerful mood with congruent affect. The patient denied any: SI, HI, NONSMI, Hallucinations or paranoid thought process. The patient stated "I am feeling much better, even better than yesterday" and "I was so confused and remember thinking some strange things". The patients stated "She seems much better today". The patient completed the SLUMS and scored a 23 indicating a possible Mild Neurocognitive Disorder given her education level. The patient was delayed in her responses. The patient's score might reflect a recent delirium due to multiple etiologies. The patient did not meet inpatient psychiatric criteria at this time.
[2017-02-14] MEDS: BUDESONIDE INH.SOLN. 0.5mg/2ml NEB AEROSOL SCH (11:03)
--- NOTE | 2017-02-14 11:10 | NUR ---
ITA HERREAR IS D/CPT HOME WITH [facility] TODAY. FAMILY IS IN ROOM AND PRESENT. CM LEFT VM FOR HONORIO AT [facility] AND FAXED OVER ORDERS.PT/FAMILY AWARE TO CONTACT CM IF NEEDS ARISE.
[2017-02-14] MEDS ORDERED: Non-Formulary PO (11:14)
[2017-02-14] MEDS ORDERED: MIRT30TA6 PO (11:14)
[2017-02-14] MEDS: ACETAMINOPHEN 500 MG TABLET PO PRN (11:18)
--- NOTE | 2017-02-14 11:18 | DSPDOC ---
General Date Date DATE: 02/14/17 TIME: 11:15 Attending Physician Tomasa Herrera MD Admitting Physician Tomasa Herrera MD Consulting Physician Frank Lundberg MD Admitting Diagnosis 1) ACUTE ENCEPHALOPATHY Discharge Diagnosis Acute encephalopathy Laboratory Laboratory Tests Test 02/13/17 09:30 White Blood Count 8.7T/MM3 (4.5-11.0) Red Blood Count 4.42M/MM3 (4.00-5.20) Hemoglobin 11.3GM/DL (12-16) Hematocrit 35.6% (36-46) Mean Corpuscular Volume 80.5UM3 (80-100) Mean Corpuscular Hemoglobin 25.6UUG (26-34) Mean Corpuscular Hemoglobin Concent 31.7GM/DL (31-37) RDW Standard Deviation 45.4FL (36.9-50.2) Platelet Count 336T/MM3 (130-400) Mean Platelet Volume 8.9UM3 (9.4-12.4) Neutrophils % (Manual) 87.0% (33-66) Lymphocytes % (Manual) 9.0% (23-45) Monocytes % (Manual) 3.0% (0-9.0) Basophils % (Manual) 1.0% (0-2) Absolute Neutrophils (Manual) 7.6T/MM3 (1.8-7.7) Lymphocytes # (Manual) 0.8T/MM3 (1-4.8) Monocytes # (Manual) 0.3T/MM3 (0-0.8) Basophils # (Manual) 0.1T/MM3 (0-0.2) Poikilocytosis 2+ Helmet Cells 1+ [place] Cells 1+ Schistocytes 1+ Red Cell Morphology Comment Abnormal Turbidity < 20 (0-20) Sodium Level 138MEQ/L (134-144) Potassium Level 3.7MEQ/L (3.6-5) Chloride Level 104MEQ/L (98-107) Carbon Dioxide Level 21MEQ/L (22-30) Anion Gap 13MEQ/L (5-15) Blood Urea Nitrogen 20.0MG/DL (7-17) Creatinine 1.1MG/DL (0.7-1.2) Glomerular Filtration Rate Calc 48 BUN/Creatinine Ratio 18RATIO (6-26) Glucose Level 132MG/DL (65-110) Calculated Osmolality 271MOSM/KG (261-280) Calcium Level 8.6MG/DL (8.4-10.2) Magnesium Level 2.1MG/DL (1.6-2.3) Icterus Index < 2 (0-7) Chemistry Specimen Hemolysis < 15 (0-25) History of Present Illness This is 76-year-old female admitted to the hospital after having recurrent episode of confusion and agitation for the past 48 hours. Patient was recently discharged from this facility after having a similar episodes. Family states the patient was discharged last and had an uneventful evening other than some lethargy. When she woke up Monday she was doing fairly well and then started to decline. She had episodes of confusion and some agitation and ever since and has not slept and has been riding and doodling incoherent things in a notebook. Family denies any complaints by the patient. There's been no evidence of seizures. There is no evidence of shortness of breath or cough. There's been no nausea vomiting or diarrhea. Patient has had a decreased appetite over the past 24 hours. This morning she was so confused and even became very lethargic to the point where she could not feed herself. At this time she is much more awake but appears very paranoid and is writing in her notebook. Family reemphasized is that this is far from her baseline self. Hospital Course Patient was placed in observation. Her list Bailey was decreased down to 10 mg a day instead of 20 mg. She was restarted on her Remeron 30 mg at bedtime. She was given a liter of fluid. Within 24 hours the patient had returned to baseline status. Etiology is is not completely clear at this time. Some concern that this may be an atypical seizure. However, at this time family does not wish for any new medications to be restarted. If the patient is to have recurrent episodes, the patient will most likely go to a tertiary care facility for further evaluation by neurology. Problems: Code Status Full Code Home Meds Active Scripts Cephalexin (Cephalexin) 500 Mg Capsule, 500 MG PO Q8HR for UTI for 3 Days, #9 CAP Prov:ALEC CHAPMAN MD 02/09/17 Reported Medications Ambrisentan (Letairis) 10 Mg Tablet, 20 MG PO DAILY 02/12/17 Fluticasone Propionate (Flonase Allergy Relief 50 mcg/actuation Nasal) 9.9 Ml [place].susp, 2 SPRAY EA NOSTRIL DAILY 02/02/17 Estradiol (Estrace Vaginal Cream 0.01%) 21 Applic/42 G Cr, 1 APPLIC VAGINALLY HS Y for PRN ORDERS USUAL APPLICATION: 2-4 GRAMS VAGINALLY 02/02/17 Clotrimazole (Clotrimazole) 10 Mg Adelaida, 1 TAB PO 5XD Y for THRUSH DISSOLVE IN MOUTH. 02/02/17 Cholecalciferol (Vitamin D3) (Vitamin D-3) 2,000 Unit Capsule, 2000 UNIT PO DAILY 02/02/17 Budesonide (Budesonide) 0.5 Mg/2 Ml Ampul.neb, 1 VIAL AEROSOL BID 02/02/17 Ipratropium/Albuterol Sulfate (Iprat-Albut 0.5-3(2.5) mg/3 ml) 3 Ml Ampul.neb, 1 UNIT AEROSOL BID, VIAL 02/02/17 Acetaminophen (Acetaminophen) 500 Mg Tablet, 500 MG PO BID Y for PAIN 02/02/17 Famotidine (Pepcid AC) 10 Mg Tablet, 20 MG PO HS 02/01/17 Furosemide (Furosemide) 40 Mg Tablet, 40 MG PO DAILY 02/01/17 Potassium Chloride (Potassium Chloride) 10 Meq Capsule.er, 20 MEQ PO DAILY 02/01/17 Cetirizine HCl (Cetirizine HCl) 10 Mg Tablet, 10 MG PO DAILY 02/01/17 Levothyroxine Sodium (Synthroid) 100 Mcg Tablet, 100 MCG PO ACB 08/23/13 Aspirin (Aspirin) 81 Mg Tablet, 81 MG PO DAILY 08/23/13 Sertraline Hcl (Zoloft) 100 Mg Tablet, 100 MG PO DAILY 05/18/10 Multivitamins (Multi-Day Vitamin) 1 Tab Tablet, 1 TAB PO DAILY 05/18/10 Discontinued Reported Medications Ambrisentan (Letairis) 10 Mg Tablet, 10 MG PO DAILY 02/01/17 Omeprazole (Omeprazole) 40 Mg Capsule.dr, 40 MG PO ACB 02/01/17 Mirtazapine (Remeron) 30 Mg Tablet, 30 MG PO HS 05/18/10 Metoclopramide Hcl (Reglan) 10 Mg Tablet, 10 MG PO HS 05/18/10 Discontinued Scripts Sulfamethoxazole/Trimethoprim (Bactrim Ds Tablet) 1 Each Tablet, 1 TAB PO BID, # 20 TAB Take 1 tablet, by mouth, 2 times a day. Prov:KAYLENE COLON MD 02/01/17 Face to Face Encounter I met with patient on the day of dismissal and discussed follow up appointments , medications, and safety plan. Discharge Disposition Home with home health TOMASA HERRERA MD February 14, 2017 11:18
--- NOTE | 2017-02-14 13:09 | NUR ---
status/ DC Pt A/O x3, V/S sable on RA. Pt ambulating well in room with 1x assist. Eating and drinking well. Pain in rib cage, PRN tylenol given 1x, can not reaccess was given when pt DC. IV site taken out, cath tip intact. DC instructions given, no questions at this time. Script faxed to pt Rx. Pt dressed and all belonging gathered. here to take home. Taken to front door via WC at 1243.
== END 2017-02-14 12:32 | disposition home health service (06) ==
LOC: ED 10:06 → MED 13:02 → EDHOLD 13:02 → UNDOADMOB 13:02 → INTOOBSV 14:28 → OBSVTOIN 14:28
PROVIDERS: ADMIT Internal Medicine; ATTEND Internal Medicine
DX: G93.40 Encephalopathy, unspecified (principal); Z79.899 Other long term (current) drug therapy; M34.1 CR(E)ST syndrome; E86.0 Dehydration; E87.2 Acidosis; E87.3 Alkalosis; J44.9 Chronic obstructive pulmonary disease, unspecified; I27.0 Primary pulmonary hypertension; E78.00 Pure hypercholesterolemia, unspecified; I10 Essential (primary) hypertension; E03.9 Hypothyroidism, unspecified; Z86.711 Personal history of pulmonary embolism; K21.9 Gastro-esophageal reflux disease without esophagitis; Z86.718 Personal history of other venous thrombosis and embolism; F32.9 Major depressive disorder, single episode, unspecified; Z79.890 Hormone replacement therapy; Z79.82 Long term (current) use of aspirin
CPT/HCPCS: 36415; 36600; 70450; 71010; 80048; 80053; 81003; 82140; 82803; 83735; 84484; 85007; 85025; 85027; 93005; 94640; 96360; 96361; 97535; 99284; A9270; G0378; J7030; J7626; 99218